=== PATIENT | male | born 1955 | race Caucasian/White ===

== ENCOUNTER 2020-02-22 09:35 | Outpatient (REF) | payer MEDICARE, SELFPAY ==
[2020-02-22 10:10] LABS: MANUAL DIFF FLAG NO
[2020-02-22 10:33] LABS: Basophils Percent Auto 0.4 % (0-2); Eosinophils Absolute Auto 0.3 X10*3/uL (0.0-0.4); Eosinophils Percent Auto 5.4 % (0-4); Hematocrit 40.1 % (42-52); Hemoglobin 13.6 g/dl (14.0-18.0); Imm Gran Abs Auto 0.02 X10*3/uL (0.00-0.03); Imm Gran Pct Auto 0.4 % (0.0-0.4); Lymphocytes Absolute Auto 1.6 X10*3/uL (1.2-4.9); Lymphocytes Percent Auto 28.2 % (20-40); Mean Corpuscular HGB Conc 33.9 g/dl (31.0-36.0); Mean Corpuscular Hemoglobin 30.1 pg (27.0-33.0); Mean Corpuscular Volume 88.7 fL (80-98); Mean Platelet Volume 9.6 fL (9.4-12.4); Monocytes Absolute Auto 0.4 X10*3/uL (0.1-1.2); Monocytes Percent Auto 7.7 % (2-11); Neutrophils Absolute Auto 3.3 X10*3/uL (2.0-8.3); Neutrophils Percent Auto 57.9 % (45-73); Platelet Count 183 X10*3/uL (160-400); Red Blood Count 4.52 X10*6/uL (4.60-5.80); Red Cell Distribution Width 12.5 % (11.0-16.0); White Blood Count 5.7 X10*3/uL (4.8-10.8)
[2020-02-22 11:00] LABS: B Type Natriuretic Peptide 84 pg/mL (<100)
[2020-02-22 11:20] LABS: Prostate Specific Antigen Scr 0.26 ng/mL (<0.05-4.0); Thyroid Stimulating Hormone 1.77 mIU/mL (0.32-4.0)
[2020-02-22 11:24] LABS: Alanine Aminotransferase 30 U/L (0-40); Albumin Level 4.3 g/dL (3.5-5.0); Alkaline Phosphatase 56 U/L (39-117); Anion Gap 14 (12-20); Aspartate Amino Transferase 26 U/L (5-37); Bilirubin Total 0.9 mg/dL (0.0-1.0); Blood Urea Nitrogen 13 mg/dL (9-16); Calcium 8.8 mg/dL (8.4-10.2); Carbon Dioxide 26 mmol/L (22-29); Chloride 106 mmol/L (96-108); Cholesterol 106 mg/dL; Estimated Glomerular Filt Rate > 60; Glucose Fasting 141 mg/dL (60-99); HDL Cholesterol 28 mg/dL; LDL Cholesterol Calculated 47 mg/dl; Potassium 3.9 mmol/l (3.3-5.1); Sodium 142 mmol/L (135-145); Total Protein 6.5 g/dL (6.5-8.0); Triglycerides 158 mg/dL
[2020-02-22 11:36] LABS: Folate 19.9 ng/mL (> or = 4.0); Vitamin B12 425 pg/mL (200-900)
[2020-02-22 11:41] LABS: Creatinine Urine 169.75 mg/dL; Microalbum/Creatinine Ratio Ur 9.4 ug/mg cr
== END 2020-02-22 09:36 | disposition home or self-care (01) ==
LOC: HO.10HDL 09:35
PROVIDERS: PCP Internal Medicine; Visit Provider Internal Medicine
DX: E78.00 Pure hypercholesterolemia, unspecified (principal); I25.10 Atherosclerotic heart disease of native coronary artery without angina pectoris; E66.9 Obesity, unspecified; I42.9 Cardiomyopathy, unspecified; I10 Essential (primary) hypertension; K21.9 Gastro-esophageal reflux disease without esophagitis; N20.0 Calculus of kidney; E11.65 Type 2 diabetes mellitus with hyperglycemia
CPT/HCPCS: 36415; 80053; 80061; 82043; 82607; 82746; 83880; 84153; 84436; 84443; 85025

== ENCOUNTER 2020-02-29 13:02 | Outpatient (REF) | payer MEDICARE, SELFPAY ==
--- NOTE | 2020-02-29 13:09 | XR_ITS ---
EXAMINATION: CHEST. CERVICAL SPINE. CLINICAL INFORMATION: Type 2 diabetes, Obesity and hypercholesterolemia COMPARISON: None TECHNIQUE: 2 views of chest were obtained. FINDINGS: The lungs are well-expanded and clear of acute process. The heart size and pulmonary vascularity is normal. There is mild spondylosis of dorsal spine. There is a transcutaneous pacer along the anterior chest. XR/XR cervical spine 3V IMPRESSION: Unremarkable chest exam.
--- NOTE | 2020-02-29 13:10 | XR_ITS ---
EXAMINATION: CHEST. CERVICAL SPINE. CLINICAL INFORMATION: Type 2 diabetes, Obesity and hypercholesterolemia COMPARISON: None TECHNIQUE: 2 views of chest were obtained. FINDINGS: The lungs are well-expanded and clear of acute process. The heart size and pulmonary vascularity is normal. There is mild spondylosis of dorsal spine. There is a transcutaneous pacer along the anterior chest. XR/XR chest 2V IMPRESSION: Unremarkable chest exam.
== END 2020-02-29 13:03 | disposition home or self-care (01) ==
LOC: HO.XRAY 13:02
PROVIDERS: Visit Provider Internal Medicine
DX: M54.2 Cervicalgia (principal); N20.0 Calculus of kidney; K21.9 Gastro-esophageal reflux disease without esophagitis; I10 Essential (primary) hypertension; I42.9 Cardiomyopathy, unspecified; I25.10 Atherosclerotic heart disease of native coronary artery without angina pectoris; E66.9 Obesity, unspecified; E78.00 Pure hypercholesterolemia, unspecified; E11.65 Type 2 diabetes mellitus with hyperglycemia
CPT/HCPCS: 71046; 72040

== ENCOUNTER → 2020-03-28 12:42 | Outpatient (BNVA) | payer MEDICARE, SELFPAY | PROVIDERS: PCP Internal Medicine; Visit Provider Internal Medicine Cardiovascular Disease | DX: I50.42 Chronic combined systolic (congestive) and diastolic (congestive) heart failure (principal); I25.5 Ischemic cardiomyopathy; I25.10 Atherosclerotic heart disease of native coronary artery without angina pectoris | CPT/HCPCS: 99212 ==

== ENCOUNTER → 2020-04-16 08:23 | Outpatient (REF) | payer MEDICARE, SELFPAY ==
--- NOTE | 2020-04-16 08:26 | CA_ITS ---
Transthoracic Echocardiogram Patient (Last, First, Middle): Td Miller E Gender: Male Date of : 1955 Age: 64 Procedure Date: 04/16/2020 Procedure Type: Transthoracic Echocardiogram Location: OP Height: 175.26 cm Weight: 95.71 kg BSA: 2.11 m2 Heart Rate: bpm BP: 122 / 68 mmHg [employer] Solution Architect: Referring MD: Bruce Page MD Director Stage: Bruce Page MD Symptoms: I50.42 - Chronic combined systolic (congestive) and diastolic (congestive) heart failure Study Quality: Fair, Contrast used ECG Rhythm: Sinus with extra beats Conclusions: - 1. Severely reduced LV systolic function with wall motion abnormality in LAD territory consistent with ischemic cardiomyopathy with grade 2 diastolic dysfunction 2. Mildly dilated left atrium 3. Mild mitral regurgitation 4. Normal RV systolic pressure 5. No gross pericardial effusion Findings Left Ventricle Normal left ventricular cavity size. There is mildly increased left ventricular wall thickness. The left ventricular systolic function is severely decreased. The visually estimated ejection fraction is between 20 25%. There is evidence of regional wall motion abnormalities. Spectral Doppler is indicative of a pseudonormal filling pattern. E/E prime ratio is >15, consistent with elevated filling pressures. Evidence suggests grade II (moderate) diastolic dysfunction. Wall Motion Rest Echo Findings The basal anteroseptal segment is hypokinetic. The apical anterior, apical inferior, mid anterior, apical lateral, apical septum, and mid anteroseptal segments are akinetic. The apex segment is dyskinetic. All other scored wall segments showed normal motion. Right Ventricle The right ventricle was not well visualized. Atria The left atrium is mildly dilated. Interatrial shunt cannot be excluded. The right atrium was not well visualized. Aortic Valve The aortic valve was not well visualized. There is no aortic valve stenosis. There is trace (trivial) aortic valve regurgitation. Mitral Valve There is mild anterior and posterior mitral leaflet thickening. There is mild mitral valve regurgitation. There is no mitral valve stenosis. Pulmonic Valve The pulmonic valve was not well visualized. Tricuspid Valve Likely normal tricuspid valve structure and function. There is trace tricuspid valve regurgitation. The right ventricular systolic pressure is normal. Normal right atrial pressure. There is no evidence of pulmonary hypertension. Great Vessels The aorta was not well visualized. The pulmonary artery was not well visualized. Venous The inferior vena cava is normal in size and collapses greater than 50% with inspiration. Pericardium/Pleural There is no evidence of pericardial effusion. Prior Study Comparison No significant change compared to prior study dated: 11/15/2018. Measurements 2D Linear Measurements IVSd: 1.30 0.6-0.9/0.6-1.0 cm LVIDd: 6.23 3.9-5.3/4.2-5.9 cm LVIDd Index: 2.95 2.4-3.2/2.2-3.1 cm/m2 LVIDs: 4.60 2.0-3.6 cm LVPWd: 1.24 0.7-1.1 cm Ao Root: 3.00 2.1-3.5 cm LA Diam: 4.30 2.7-3.8/3.0-4.0 cm LAIDs Index: 2.04 1.5-2.3 cm/m2 LV Mass: 450.03 67-162/88-224 g LV Mass Index: 213.28 43-95/49-115 g/m2 LVOT Diam: 2.10 3.0+(-)1.3 cm 2D Systolic Function EF 4C: 25.70 >55% EF 2C: 14.80 >55% EF BiP: 23.00 >55% Mitral Valve MV Pk E: 0.83 MV PK A: 0.55 MV Decel Time: 208.00 E/A: 1.50 E'Lateral: 9.57 E'Medial: 5.22 E/E' Med: 16.00 E/E' Lat: 8.70 PHT: 61.00 MVA PHT: 3.61 Decel [place]: 4.02 Aortic Valve AoV Pk Veto: 1.12 AoV Mn Veto: 0.77 AoV VTI: 0.28 AoV Pk Grad: 5.00 Aov Mn Grad: 3.00 SANNA Cont.VTI: 2.25 LVOT LVOT Pk Veto: 0.78 LVOT Mn Veto: 0.54 LVOT VTI: 0.19 LVOT Pk Grad: 2.00 LVOT Mn Grad: 1.00 LVOT Diam: 2.10 LVOT Area: 3.46 Diastolic Function MV Pk E: 0.83 MV Pk A: 0.55 E/A: 1.50 E'Medial: 5.22 E/E' Med: 16.00 E' Laterial: 9.57 E/E' Lat: 8.70 Tricuspid Valve TR Pk Veto: 1.33 TR Pk Grad: 7.00 RA Press: 3.00 RVSP: 10.00 Great Vessels Aorta Ao Root-2D: 3.00 2.0-3.7 cm Pulmonary Valve PV Pk Veto: 0.80 Peak PV Grad: 3.00 Updated in Other Vendor System with Status of Final Bruce Page MD electronically signed on 04/18/2020 9:39:03 AM with status of Final
== END ==
LOC: HO.CARD 08:23
PROVIDERS: Visit Provider Internal Medicine Cardiovascular Disease
DX: I50.42 Chronic combined systolic (congestive) and diastolic (congestive) heart failure (principal); I25.5 Ischemic cardiomyopathy
CPT/HCPCS: 93306; Q9957

== ENCOUNTER → 2020-05-13 13:24 | Outpatient (BNVA) | payer MEDICARE, SELFPAY | PROVIDERS: PCP Internal Medicine; Visit Provider Internal Medicine Cardiovascular Disease ==

== ENCOUNTER 2020-07-08 07:49 | Emergency (ER) | payer MEDICARE, SELFPAY ==
--- NOTE | ~2020-07-08 | CT_ITS ---
EXAMINATION: CT ABDOMEN AND PELVIS WITHOUT CONTRAST CLINICAL INFORMATION: Right lower quadrant pain COMPARISON: None TECHNIQUE: Multidetector volumetric imaging was performed from the superior aspect of the liver through the pubic symphysis. Sagittal and coronal reformatted images were obtained on the technologist's workstation. This CT examination was performed using dose optimization techniques as appropriate, variously including the following: *Automated exposure control *Adjustment of mA and/or kV according to patient size (this includes techniques or standardized protocols for targeted exams where dose is matched to indication/reason for exam; i.e. extremities or head) *Use of iterative reconstruction technique DLP: 904 mGy-cm FINDINGS: LUNG BASES: Atelectatic changes seen in the right lung base. Heart size is normal. 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 LIVER, GALLBLADDER, AND BILIARY TREE: The liver is normal in size, shape, and attenuation. No focal hepatic lesion or biliary ductal dilatation is present. The gallbladder is unremarkable with no evidence of radiopaque gallstones, gallbladder wall thickening, or obvious pericholecystic inflammatory changes. PANCREAS: Unremarkable. SPLEEN: Unremarkable. ADRENAL GLANDS: Unremarkable. KIDNEYS AND URETERS: The kidneys are normal in size, shape, and attenuation. There is a 5 mm nonobstructive radiopaque calculi lower pole right kidney and 4 mm calculi lower pole left kidney. There is a 3 mm right UVJ radiopaque obstructive calculi with moderate right hydroureteronephrosis. There is bilateral perinephric stranding slightly greater on the right side secondary to obstruction. BLADDER: The bladder is mildly distended. GASTROINTESTINAL TRACT: There is scattered stool in gas seen throughout the colon without any significant distention. The small bowel loops are normal caliber. Appendix is not visualized. ABDOMINAL WALL: No significant hernia is appreciated. LYMPH NODES: Normal. VASCULAR: There is atherosclerotic calcification of abdominal aorta. PELVIC VISCERA: Minimal prostate enlargement seen. There are scattered phleboliths in the pelvis. OSSEOUS STRUCTURES: There is no lytic or sclerotic process. There are degenerative disc changes L3-L4, L4-L5 and L5-S1 disc levels. CT/CT abdomen pelvis wo con IMPRESSION: 3 mm obstructive right UVJ radiopaque calculi with moderate hydroureteronephrosis. Bilateral nephrolithiasis. Bilateral perinephric stranding is slightly greater on the right side.
[2020-07-08 07:50] VITALS: BP 154/80; PULSE 60; RESP 18; TEMP 37.1; O2SAT 100; BMI 31.0
--- NOTE | 2020-07-08 08:11 | ED_ITS ---
HPI - Abdominal Pain General Chief Complaint: Abdominal Pain Stated Complaint: ?kidney stone Time Seen by Provider: 07/08/20 07:56 Source: patient Mode of arrival: ambulatory Limitations: no limitations History of Present Illness HPI narrative: 64-year-old male presented with right-sided abdominal/right flank pain started earlier responding, pain started 8 hours ago with constant pain to the right flank area, radiating down to right groin area, associated with nausea but no vomiting or fever or diarrhea, nothing makes the pain worse or better patient had similar pain in the past 1 year history of kidney stones. Related Data Home Medications Medication Instructions Recorded Confirmed aspirin 81 mg tablet,delayed 81 mg PO DAILY 02/28/20 06/26/20 release metformin 500 mg tablet 500 mg PO BID 02/28/20 06/26/20 sitagliptin 100 mg tablet 100 mg PO DAILY 02/28/20 06/26/20 Previous Rx's Medication Instructions Recorded carvedilol 25 mg tablet 25 mg PO BID #180 cap 04/04/20 furosemide 20 mg tablet 20 mg PO DAILY #90 tab 05/03/20 sacubitril 49 mg-valsartan 51 mg 1 tab PO BID #60 tab 05/10/20 tablet atorvastatin 40 mg tablet 40 mg PO DAILY #90 cap 07/02/20 ondansetron HCl [Zofran] 4 mg PO Q8H PRN #7 tab 07/08/20 oxycodone 5 mg PO Q8H PRN #10 cap 07/08/20 Allergies Allergy/AdvReac Type Severity Reaction Status Date / Time lisinopril [LISINOPRIL] Allergy Mild UNKNOWN, Verified 06/24/20 06:37 cough, cough doxycycline [DOXYCYCLINE] Allergy Unknown UNKNOWN Verified 06/24/20 06:37 glimepiride [GLIMEPIRIDE] Allergy Unknown SEVERE Verified 06/24/20 06:37 BACK PAIN Motrin Allergy Unknown nausa Verified 06/24/20 06:37 tamsulosin [TAMSULOSIN] Allergy Unknown UNKNOWN, Verified 06/24/20 06:37 Fever Review of Systems Review of Systems All other systems are reviewed and are negative Constitutional: Reports as per HPI and Reports no additional constitutional complaints Eyes: Reports as per HPI and Reports no additional eye complaints Reports system reviewed and no additional complaints, except as documented Cardiovascular: Reports as per HPI and Reports no additional cardiovascular complaints Respiratory: Reports as per HPI and Reports no additional respiratory complaints Gastrointestinal: Reports as per HPI and Reports no additional gastrointestinal complaints Genitourinary: Reports no additional female genitourinary complaints Musculoskeletal: Reports no additional musculoskeletal complaints Skin/Breast: Reports system reviewed and no additional complaints, except as docu Psychiatric: Reports no additional psychiatric complaints Endocrine: Reports no additional endocrine complaints Hematologic/Lymphatic: Reports no additional hematologic/lymphatic complaints Allergic/Immunologic: Reports no additional allergic/immunologic complaints Reports system reviewed and no additional complaints, except as documented and Reports Abnormal speech present Physical Exam Vital Signs: Vital Signs: Last Vital Signs Temp 98.8 F 07/08/20 07:50 Pulse 60 07/08/20 07:50 Resp 18 07/08/20 07:50 BP 154/80 H 07/08/20 07:50 Pulse Ox 100 07/08/20 07:50 Body Mass Index 31.0 Vital signs have been reviewed as appeared to be correct. Blood pressure in the high range. Heart rate normal. Respiration rate normal. Temperature normal. Oxygen saturation normal. Appearance: Alert. Oriented X3. No acute distress. Head: Normal external exam. Normocephalic. Atraumatic. No Nash signs noted. No raccoon eyes noted Eyes: PERRLA. EOMI. Conjunctiva and sclera normal. Eyelids normal. ENT: TM's Normal. Pharynx normal. Uvula midline. Moist mucous membranes. No trismus noted. No drooling noted. No muffled voice noted. Neck: Normal inspection. Neck supple. FROM. No adenopathy. Thyroid Normal. No meningeal signs. No neck mass noted. CVS: Normal heart rate and rhythm. Heart sound normal. No murmurs noted. Pulses normal throughout. Respiratory: No respiratory distress. Painless inspiration. Breath sounds normal. No wheezes/rales/rhonchi noted. Chest nontender. No accessory muscle usage noted or decreased air movement noted. Abdomen: Soft and nontender. Bowel sounds normal in all 4 quadrants. No distention noted. No organomegaly noted. No visible injury noted. Back: No CVA tenderness. Full range of motion noted. Skin: Skin warm and dry. Normal skin color. Normal skin turgor. No rashes/lesions/lacerations noted. Extremities: No lower extremity edema. Extremities exhibit normal range of motion. Extremities nontender. Neuro: Oriented X 3. No motor deficit. No sensory deficit. Reflexes normal. Course Course Course Narrative: 64-year-old male presented with right flank/right groin abdominal pain. Physical exam/CT findings are consistent with right ureteric stone 3 mm which is passable size will discharge the patient on pain medication, antinausea medication, encouraged to drink plenty of p.o. fluids and follow-up with urologist as an outpatient per MDM - Abdominal Pain Lab Data Attestation: I reviewed the patient's lab results. Result diagrams: 07/08/20 08:17 07/08/20 08:17 Labs: Lab Results 07/08/20 07/08/20 07/08/20 Range/Units 08:17 08:17 09:15 WBC 10.7 (4.8-10.8) X10*3/uL RBC 4.70 (4.60-5.80) X10*6/uL Hgb 14.1 (14.0-18.0) g/dl Hct 41.3 L (42-52) % MCV 87.9 (80-98) fL MCH 30.0 (27.0-33.0) pg MCHC 34.1 (31.0-36.0) g/dl RDW 12.2 (11.0-16.0) % Plt Count 175 (160-400) X10*3/uL MPV 9.4 (9.4-12.4) fL Immature Gran % (Auto) 0.4 (0.0-0.4) % Neut % (Auto) 82.0 H (45-73) % Lymph % (Auto) 11.1 L (20-40) % [place] % (Auto) 4.5 (2-11) % Eos % (Auto) 1.8 (0-4) % Baso % (Auto) 0.2 (0-2) % Lymph # (Auto) 1.2 (1.2-4.9) X10*3/uL [place] # (Auto) 0.5 (0.1-1.2) X10*3/uL Eos # (Auto) 0.2 (0.0-0.4) X10*3/uL Baso # (Auto) 0.0 (0.0-0.2) X10*3/uL Abs Immat Gran (auto) 0.04 H (0.00-0.03) X10*3/uL Absolute Neuts (auto) 8.8 H (2.0-8.3) X10*3/uL Absolute Nucleated RBC 0.000 (0.0-0.012) X10*3/uL Nucleated RBC % (auto) 0.0 (0.0-0.2) /100WBC Sodium 138 (135-145) mmol/L Potassium 4.0 (3.3-5.1) mmol/L Chloride 102 (96-108) mmol/L Carbon Dioxide 25 (22-29) mmol/L Anion Gap 15 (12-20) BUN 13 (9-16) mg/dL Creatinine 1.12 (0.5-1.4) mg/dL Estim Creat Clear Calc 74.8 Estimated GFR > 60 Random Glucose 250 H (60-115) mg/dL Calcium 9.3 (8.4-10.2) mg/dL Total Bilirubin 0.9 (0.0-1.0) mg/dL Direct Bilirubin 0.3 (0.0-0.5) mg/dL AST 24 (5-37) U/L ALT 33 (0-40) U/L Alkaline Phosphatase 63 (39-117) U/L Total Protein 6.8 (6.5-8.0) g/dL Albumin 4.5 (3.5-5.0) g/dL Lipase 63 (8-78) U/L Urine Color STRAW Urine Appearance CLEAR Urine pH 7.5 (5.0-8.0) Ur Specific [place] 1.020 (1.005-1.025) Urine Protein NEG (NEG-TRACE) MG/DL Urine Glucose (UA) 500 H (NEG) MG/DL Urine Ketones 5 (NEG) MG/DL Urine Blood NEG (NEG) Urine Nitrite NEG (NEG) Ur Leukocyte Esterase NEG (NEG) Imaging Data CT scan - abdomen: Radiologist's impression: 3 mm obstructive right UVJ radiopaque calculi with moderate hydroureteronephrosis. Bilateral nephrolithiasis. Bilateral perinephric stranding is slightly greater on the right side. Discharge Plan Discharge Clinical Impression: Renal colic on right side Patient Disposition: Home, Self-Care Instructions: Renal Colic (ED) Prescriptions: New ondansetron HCl [Zofran] 4 mg tablet 4 mg PO Q8H PRN (Reason: nausea and vomiting) Qty: 7 RF: 0 oxycodone 5 mg capsule 5 mg PO Q8H PRN (Reason: pain) Qty: 10 RF: 0 No Action carvedilol 25 mg tablet 25 mg PO BID Qty: 180 RF: 3 furosemide 20 mg tablet 20 mg PO DAILY Qty: 90 RF: 1 sacubitril-valsartan 49-51 mg tablet 1 tab PO BID Qty: 60 RF: 2 atorvastatin 40 mg tablet 40 mg PO DAILY Qty: 90 RF: 3 metformin 500 mg tablet 500 mg PO BID RF: 0 Januvia 100 mg tablet 100 mg PO DAILY RF: 0 aspirin 81 mg tablet,delayed release (DR/EC) 81 mg PO DAILY RF: 0 Referrals: Lv Durham MD [Physician] - 2 days [facility] Past Medical History Medical History Anxiety and depression Bilateral renal stones Chronic heart failure with reduced ejection fraction and diastolic dysfunction Coronary artery disease GERD (gastroesophageal reflux disease) Gout Hypercholesterolemia Hypertension ICD (implantable cardioverter-defibrillator) in place Ischemic cardiomyopathy Obesity (BMI 30-39.9) Pneumonia Psoriasis Type 2 diabetes mellitus with hyperglycemia Surgical History History of permanent cardiac pacemaker placement History of surgery History of vasectomy History of wisdom tooth extraction Family History Family History Father Diabetes Prostate cancer CVD (cardiovascular disease) Mother CVD (cardiovascular disease) Acute CVA (cerebrovascular accident) Social History Social History Alcohol intake: current Alcohol intake frequency: holidays/special occasions only Smoking Status: Never smoker Use of substances other than those prescribed or required for medical reasons: No Advance Directives: Yes Advance Directives Information Provided: Yes Advance Directives on File: No
[2020-07-08 08:23] LABS: MANUAL DIFF FLAG NO
[2020-07-08 08:24] LABS: Basophils Percent Auto 0.2 % (0-2); Eosinophils Absolute Auto 0.2 X10*3/uL (0.0-0.4); Eosinophils Percent Auto 1.8 % (0-4); Hematocrit 41.3 % (42-52); Hemoglobin 14.1 g/dl (14.0-18.0); Imm Gran Abs Auto 0.04 X10*3/uL (0.00-0.03); Imm Gran Pct Auto 0.4 % (0.0-0.4); Lymphocytes Absolute Auto 1.2 X10*3/uL (1.2-4.9); Lymphocytes Percent Auto 11.1 % (20-40); Mean Corpuscular HGB Conc 34.1 g/dl (31.0-36.0); Mean Corpuscular Volume 87.9 fL (80-98); Mean Platelet Volume 9.4 fL (9.4-12.4); Monocytes Absolute Auto 0.5 X10*3/uL (0.1-1.2); Monocytes Percent Auto 4.5 % (2-11); Neutrophils Absolute Auto 8.8 X10*3/uL (2.0-8.3); Platelet Count 175 X10*3/uL (160-400); Red Cell Distribution Width 12.2 % (11.0-16.0); White Blood Count 10.7 X10*3/uL (4.8-10.8)
[2020-07-08] MEDS: ondansetron HCL 4 MG/2 ML VIAL IVPUSH (08:25)
[2020-07-08] MEDS: Ketorolac Tromethamine 30 MG/ML VIAL IVPUSH (08:25)
[2020-07-08] MEDS: 0.9 % Sodium Chloride 1,000 ML 999 ML IVCONT ×2 (08:25)
[2020-07-08] MEDS: Morphine Sulfate 2 MG/ML CARTRIDGE 1 MG IVPUSH (08:25)
[2020-07-08 08:52] LABS: Alanine Aminotransferase 33 U/L (0-40); Albumin Level 4.5 g/dL (3.5-5.0); Alkaline Phosphatase 63 U/L (39-117); Anion Gap 15 (12-20); Aspartate Amino Transferase 24 U/L (5-37); Bilirubin Direct 0.3 mg/dL (0.0-0.5); Bilirubin Total 0.9 mg/dL (0.0-1.0); Blood Urea Nitrogen 13 mg/dL (9-16); Calcium 9.3 mg/dL (8.4-10.2); Carbon Dioxide 25 mmol/L (22-29); Chloride 102 mmol/L (96-108); Creatinine Clr Calc Pharmacy 74.8; Estimated Glomerular Filt Rate > 60; Glucose Random 250 mg/dL (60-115); Lipase 63 U/L (8-78); Sodium 138 mmol/L (135-145); Total Protein 6.8 g/dL (6.5-8.0)
[2020-07-08 09:31] LABS: Glucose Urine UA 500 MG/DL (NEG); Leukocyte Esterase Urine NEG (NEG); Nitrite Urine NEG (NEG); PH 7.5 (5.0-8.0); Urine Blood NEG (NEG); Urine Ketones 5 MG/DL (NEG); Urine Protein NEG (NEG-TRACE)
[2020-07-08 09:32] LABS: Appearance Urine CLEAR; Color Urine STRAW
== END 2020-07-08 10:53 | disposition home or self-care (01) ==
PROVIDERS: Emergency Provider Emergency Medicine; PCP Internal Medicine
DX: N13.2 Hydronephrosis with renal and ureteral calculous obstruction (principal); R11.0 Nausea; I11.0 Hypertensive heart disease with heart failure; I50.9 Heart failure, unspecified; Z87.442 Personal history of urinary calculi; Z79.82 Long term (current) use of aspirin; Z79.84 Long term (current) use of oral hypoglycemic drugs
CPT/HCPCS: 36415; 74176; 80048; 80076; 81003; 83690; 85025; 96361; 96374; 96375; 99284; J1885; J2270; J2405

== ENCOUNTER 2020-07-11 16:53 | Emergency (ER) | payer MEDICARE, SELFPAY ==
[2020-07-11 17:24] VITALS: BP 158/84; PULSE 74; RESP 18; TEMP 37.1; O2SAT 97; BMI 31.0
[2020-07-11 17:51] LABS: Glucose Urine UA NEG (NEG); Leukocyte Esterase Urine NEG (NEG); Nitrite Urine NEG (NEG); PH 5.5 (5.0-8.0); Specific Gravity - Urine <= 1.005 (1.005-1.025); Urine Blood NEG (NEG); Urine Ketones 5 MG/DL (NEG); Urine Protein NEG (NEG-TRACE)
[2020-07-11 17:52] LABS: Appearance Urine CLEAR; Color Urine YELLOW
--- NOTE | 2020-07-11 19:29 | ED_ITS ---
HPI - Abdominal Pain General Chief Complaint: Abdominal Pain Stated Complaint: Kidney Pain Time Seen by Provider: 07/11/20 20:29 Source: patient Mode of arrival: ambulatory Limitations: no limitations History of Present Illness HPI narrative: 64-year-old male with past medical history of CHF, ischemic cardiomyopathy, coronary artery disease, hyperlipidemia, hypertension, obesity, type 2 diabetes, GERD and kidney stones presents with pain related to a 3 mm right-sided kidney stone that was diagnosed in this emergency department on 07/08/2020. States that the oxycodone that he is taking is not very effective and stated that the Toradol that was given to him while he was in the emergency department was a better medication. He does not complain of fevers, chills, chest pain or pressure, palpitations, shortness of breath, abdominal distention, dysuria, hematuria, urinary hesitancy, edema, weakness or loss of balance. MD elicited complaint: flank pain Pertinent past history: kidney stones Onset (ago): day(s) Pain Consistency: intermittent Severity: moderate Pain scale (0-10): 6 Quality: stabbing and aching Relieving factors: medication Associated symptoms: denies other symptoms Related Data Home Medications Medication Instructions Recorded Confirmed aspirin 81 mg tablet,delayed 81 mg PO DAILY 02/28/20 06/26/20 release metformin 500 mg tablet 500 mg PO BID 02/28/20 06/26/20 sitagliptin 100 mg tablet 100 mg PO DAILY 02/28/20 06/26/20 Previous Rx's Medication Instructions Recorded carvedilol 25 mg tablet 25 mg PO BID #180 cap 04/04/20 furosemide 20 mg tablet 20 mg PO DAILY #90 tab 05/03/20 sacubitril 49 mg-valsartan 51 mg 1 tab PO BID #60 tab 05/10/20 tablet atorvastatin 40 mg tablet 40 mg PO DAILY #90 cap 07/02/20 ondansetron HCl [Zofran] 4 mg PO Q8H PRN #7 tab 07/08/20 oxycodone 5 mg PO Q8H PRN #10 cap 07/08/20 Allergies Allergy/AdvReac Type Severity Reaction Status Date / Time lisinopril [LISINOPRIL] Allergy Mild UNKNOWN, Verified 07/11/20 17:32 cough, cough doxycycline [DOXYCYCLINE] Allergy Unknown UNKNOWN Verified 07/11/20 17:32 glimepiride [GLIMEPIRIDE] Allergy Unknown SEVERE Verified 07/11/20 17:32 BACK PAIN Motrin Allergy Unknown nausa Verified 07/11/20 17:32 tamsulosin [TAMSULOSIN] Allergy Unknown UNKNOWN, Verified 07/11/20 17:32 Fever Review of Systems Review of Systems Constitutional: No Fever, No Chills ENT/Mouth: No sore throat Eyes: No Eye Pain, No Swelling, No Redness Cardiovascular: No Chest Pain, No SOB Respiratory: No Cough, No Sputum, No Wheezing Gastrointestinal: positive Nausea, no Vomiting, No Diarrhea, positive abdominal pain Genitourinary: No dysuria, no urinary frequency, no Hematuria, positive Flank Pain, no hesitancy Musculoskeletal: No joint pain, No Myalgias Skin: No Skin Lesions, No rash Neuro: No Weakness, No Numbness, No Headache Psych: No Anxiety/Panic, No Depression Heme/Lymph: No Bruising, No Lymphadenopathy Endocrine: No Polyuria, No Polydipsia Yes all other systems are reviewed and are negative Physical Exam Vital Signs: Vital Signs: Last Vital Signs Temp 99.3 F 07/11/20 20:08 Pulse 74 07/11/20 20:08 Resp 16 07/11/20 20:08 BP 153/82 H 07/11/20 20:08 Pulse Ox 97 07/11/20 20:08 Body Mass Index 31.0 Appearance: Alert. Oriented X3. No acute distress. Eyes: Pupils equal, round and reactive to light. EOMI, sclera nonicteric ENT: Pharynx normal. Cranial nerves 2-12 intact Neck: Normal inspection. Neck supple. No JVD CVS: Normal heart rate and rhythm. Pulses normal. Respiratory: No respiratory distress. Breath sounds normal. Abdomen: Soft and nontender. CVA tenderness to the right side Skin: Skin warm and dry. Normal skin color. Normal skin turgor. Extremities: No lower extremity edema. Moves all extremities against resistance Neuro: No motor deficit. No sensory deficit. Gait well balanced well coordinated, no focal neural deficits Course Course Course Narrative: 64-year-old male with past medical history of CHF, ischemic cardiomyopathy, coronary artery disease, hyperlipidemia, hypertension, obesity, type 2 diabetes, GERD and kidney stones presents with pain related to a 3 mm right-sided kidney stone that was diagnosed in this emergency department on 07/08/2020. Plan is for CBC, Chem 7, urinalysis, L of fluid, Toradol and Zofran. Approximately 30 minutes after Toradol injection, patient states that his pain is now 1/10. CBC shows H&H of 12.6/37.4 which is consistent with prior values, creatinine is 1.6 slightly higher than value 04/28/2014, will resuscitate with 1 L of fluid. Patient does have known kidney disease and diabetes. Urinalysis negative for UTI. Patient does have more oxycodone at home, he was advised to take this medication rather than have a prescription for Toradol as his creatinine is 1.61 and GFR is 43. Detailed discussion with patient regarding this plan, he verbalized understanding of and agrees with plan of care discharge home. MDM - Abdominal Pain MDM Narrative Medical decision making narrative: UTI, pyelonephritis Differential Diagnosis Differential diagnosis: Likely abdominal pain and calculus of kidney Medical Records Attestation: I reviewed the patient's medical records. Lab Data Attestation: I reviewed the patient's lab results. Result diagrams: 07/11/20 19:54 07/11/20 19:54 Labs: Lab Results 07/11/20 07/11/20 07/11/20 Range/Units 17:40 19:54 19:54 WBC 8.3 (4.8-10.8) X10*3/uL RBC 4.21 L (4.60-5.80) X10*6/uL Hgb 12.6 L (14.0-18.0) g/dl Hct 37.4 L (42-52) % MCV 88.8 (80-98) fL MCH 29.9 (27.0-33.0) pg MCHC 33.7 (31.0-36.0) g/dl RDW 12.5 (11.0-16.0) % Plt Count 146 L (160-400) X10*3/uL MPV 9.4 (9.4-12.4) fL Immature Gran % (Auto) 0.2 (0.0-0.4) % Neut % (Auto) 69.9 (45-73) % Lymph % (Auto) 16.7 L (20-40) % Wallace % (Auto) 10.7 (2-11) % Eos % (Auto) 2.3 (0-4) % Baso % (Auto) 0.2 (0-2) % Lymph # (Auto) 1.4 (1.2-4.9) X10*3/uL Wallace # (Auto) 0.9 (0.1-1.2) X10*3/uL Eos # (Auto) 0.2 (0.0-0.4) X10*3/uL Baso # (Auto) 0.0 (0.0-0.2) X10*3/uL Abs Immat Gran (auto) 0.02 (0.00-0.03) X10*3/uL Absolute Neuts (auto) 5.8 (2.0-8.3) X10*3/uL Absolute Nucleated RBC 0.000 (0.0-0.012) X10*3/uL Nucleated RBC % (auto) 0.0 (0.0-0.2) /100WBC Sodium 137 (135-145) mmol/L Potassium 4.2 (3.3-5.1) mmol/L Chloride 100 (96-108) mmol/L Carbon Dioxide 27 (22-29) mmol/L Anion Gap 14 (12-20) BUN 15 (9-16) mg/dL Creatinine 1.61 H (0.5-1.4) mg/dL Estim Creat Clear Calc 52.0 Estimated GFR 43 Random Glucose 116 H D (60-115) mg/dL Calcium 8.6 D (8.4-10.2) mg/dL Urine Color YELLOW Urine Appearance CLEAR Urine pH 5.5 (5.0-8.0) Ur Specific [place] <= 1.005 (1.005-1.025) Urine Protein NEG (NEG-TRACE) MG/DL Urine Glucose (UA) NEG (NEG) MG/DL Urine Ketones 5 (NEG) MG/DL Urine Blood NEG (NEG) Urine Nitrite NEG (NEG) Ur Leukocyte Esterase NEG (NEG) Discharge Plan Discharge Clinical Impression: Calculus of kidney Patient Disposition: Home, Self-Care Instructions: Kidney Stones (ED), Flank Pain (ED) Additional Instructions: You were evaluated for recurrent pain of a right-sided kidney stone. We give you 1 L of normal saline and Toradol for pain management. Unfortunately, your kidney function cannot support a prescription for Toradol. Please continue to use the oxycodone as directed. Drink plenty of fluids. Follow-up with primary care physician. Please keep the appointment with urology as scheduled. Thank you for choosing this emergency department for evaluation. Please follow-up with primary care physician as needed. Return to the emergency department for any new, concerning, or worsening symptoms. Prescriptions: No Action carvedilol 25 mg tablet 25 mg PO BID Qty: 180 RF: 3 furosemide 20 mg tablet 20 mg PO DAILY Qty: 90 RF: 1 sacubitril-valsartan 49-51 mg tablet 1 tab PO BID Qty: 60 RF: 2 atorvastatin 40 mg tablet 40 mg PO DAILY Qty: 90 RF: 3 ondansetron HCl [Zofran] 4 mg tablet 4 mg PO Q8H PRN (Reason: nausea and vomiting) Qty: 7 RF: 0 oxycodone 5 mg capsule 5 mg PO Q8H PRN (Reason: pain) Qty: 10 RF: 0 metformin 500 mg tablet 500 mg PO BID RF: 0 Januvia 100 mg tablet 100 mg PO DAILY RF: 0 aspirin 81 mg tablet,delayed release (DR/EC) 81 mg PO DAILY RF: 0 PMFSH Past Medical History Attestation statement: The following information was validated with the patient. Source: old records reviewed Medical History Anxiety and depression Bilateral renal stones Chronic heart failure with reduced ejection fraction and diastolic dysfunction Coronary artery disease GERD (gastroesophageal reflux disease) Gout Hypercholesterolemia Hypertension ICD (implantable cardioverter-defibrillator) in place Ischemic cardiomyopathy Obesity (BMI 30-39.9) Pneumonia Psoriasis Type 2 diabetes mellitus with hyperglycemia Surgical History History of permanent cardiac pacemaker placement History of surgery History of vasectomy History of wisdom tooth extraction Family History Family History Father Diabetes Prostate cancer CVD (cardiovascular disease) Mother CVD (cardiovascular disease) Acute CVA (cerebrovascular accident) Social History Social History Alcohol intake: current Alcohol intake frequency: holidays/special occasions only Smoking Status: Never smoker Smoked in Last 30 Days: No Advance Directives: No Advance Directives Information Provided: No
[2020-07-11 19:58] LABS: MANUAL DIFF FLAG NO
[2020-07-11 19:59] LABS: Basophils Percent Auto 0.2 % (0-2); Eosinophils Absolute Auto 0.2 X10*3/uL (0.0-0.4); Eosinophils Percent Auto 2.3 % (0-4); Hematocrit 37.4 % (42-52); Hemoglobin 12.6 g/dl (14.0-18.0); Imm Gran Abs Auto 0.02 X10*3/uL (0.00-0.03); Imm Gran Pct Auto 0.2 % (0.0-0.4); Lymphocytes Absolute Auto 1.4 X10*3/uL (1.2-4.9); Lymphocytes Percent Auto 16.7 % (20-40); Mean Corpuscular HGB Conc 33.7 g/dl (31.0-36.0); Mean Corpuscular Hemoglobin 29.9 pg (27.0-33.0); Mean Corpuscular Volume 88.8 fL (80-98); Mean Platelet Volume 9.4 fL (9.4-12.4); Monocytes Absolute Auto 0.9 X10*3/uL (0.1-1.2); Monocytes Percent Auto 10.7 % (2-11); Neutrophils Absolute Auto 5.8 X10*3/uL (2.0-8.3); Neutrophils Percent Auto 69.9 % (45-73); Platelet Count 146 X10*3/uL (160-400); Red Blood Count 4.21 X10*6/uL (4.60-5.80); Red Cell Distribution Width 12.5 % (11.0-16.0); White Blood Count 8.3 X10*3/uL (4.8-10.8)
[2020-07-11] MEDS: Ketorolac Tromethamine 30 MG/ML VIAL IVPUSH (20:06)
[2020-07-11] MEDS: ondansetron HCL 4 MG/2 ML VIAL IVPUSH (20:07)
[2020-07-11] MEDS: 0.9 % Sodium Chloride 1,000 ML 999 ML IVCONT (20:07)
[2020-07-11 20:08] VITALS: BP 153/82; PULSE 74; RESP 16; TEMP 37.4; O2SAT 97
[2020-07-11 20:29] LABS: Anion Gap 14 (12-20); Blood Urea Nitrogen 15 mg/dL (9-16); Calcium 8.6 mg/dL (8.4-10.2); Carbon Dioxide 27 mmol/L (22-29); Chloride 100 mmol/L (96-108); Estimated Glomerular Filt Rate 43; Glucose Random 116 mg/dL (60-115); Potassium 4.2 mmol/L (3.3-5.1); Sodium 137 mmol/L (135-145)
== END 2020-07-12 03:08 | disposition home or self-care (01) ==
PROVIDERS: Nurse Practitioner Family; Emergency Provider Internal Medicine; PCP Internal Medicine
DX: N20.0 Calculus of kidney (principal); R10.30 Lower abdominal pain, unspecified; Z79.899 Other long term (current) drug therapy; Z79.84 Long term (current) use of oral hypoglycemic drugs; Z79.82 Long term (current) use of aspirin
CPT/HCPCS: 36415; 80048; 81003; 85025; 96365; 96375; 99284; J1885; J2405

== ENCOUNTER → 2020-07-17 15:25 | Outpatient (BNVA) | payer MEDICARE, SELFPAY | PROVIDERS: PCP Internal Medicine; Visit Provider Urology | DX: Z13.89 Encounter for screening for other disorder (principal) | CPT/HCPCS: 99202 ==

== ENCOUNTER 2020-08-13 16:24 | Outpatient (REF) | payer MEDICARE, SELFPAY ==
--- NOTE | ~2020-08-13 | US_ITS ---
EXAMINATION: US BILATERAL RENAL CLINICAL INFORMATION: Calculus of kidney. COMPARISON: CT abdomen and pelvis 07/08/2020. Renal ultrasound 02/27/2019 and 12/15/2018. KUB 11/30/2018 and 11/09/2018. TECHNIQUE: Real-time imaging of the kidneys. FINDINGS: RIGHT KIDNEY: 11.9 x 5.0 x 4.5 cm (SAG x AP x TRV). The kidney is normal in size, contour, and echogenicity. Renal cortical thickness is normal. No focal parenchymal lesions. No hydronephrosis. There are tiny echogenic stone in the lower pole. There are tiny echogenic foci seen throughout. LEFT KIDNEY: 11.3 x 4.9 x 5.1 cm (SAG x AP x TRV). The kidney is normal in size, contour, and echogenicity. Renal cortical thickness is normal. No focal parenchymal lesions. There is a tiny echogenic stone measuring 0.26 cm in the lower pole with echogenic foci with twinkle shadow throughout the left kidney. There is mild hydronephrosis. US/US renal BI IMPRESSION: There are bilateral nonobstructive echogenic calculi in the lower pole both kidneys. In addition, there are scattered echogenic foci with twinkle artifact throughout both kidney cortices. Question calcification.
== END 2020-08-13 16:25 | disposition home or self-care (01) ==
LOC: HO.US 16:24
PROVIDERS: Visit Provider Urology
DX: N20.0 Calculus of kidney (principal)
CPT/HCPCS: 76775

== ENCOUNTER → 2020-08-20 09:10 | Outpatient (BNVA) | payer MEDICARE, SELFPAY | PROVIDERS: PCP Internal Medicine; Visit Provider Urology | DX: N20.0 Calculus of kidney (principal) | CPT/HCPCS: Q3014 ==

== ENCOUNTER 2020-09-05 10:05 | Outpatient (REF) | payer MEDICARE, SELFPAY ==
[2020-09-05 13:54] LABS: MANUAL DIFF FLAG NO
[2020-09-05 13:59] LABS: Basophils Percent Auto 0.7 % (0-2); Eosinophils Absolute Auto 0.4 X10*3/uL (0.0-0.4); Hematocrit 39.5 % (42-52); Hemoglobin 13.3 g/dl (14.0-18.0); Imm Gran Abs Auto 0.01 X10*3/uL (0.00-0.03); Imm Gran Pct Auto 0.2 % (0.0-0.4); Immature Retic Fraction 9.6 % (2.3-13.4); Lymphocytes Absolute Auto 1.8 X10*3/uL (1.2-4.9); Lymphocytes Percent Auto 30.4 % (20-40); Mean Corpuscular HGB Conc 33.7 g/dl (31.0-36.0); Mean Platelet Volume 9.7 fL (9.4-12.4); Monocytes Absolute Auto 0.4 X10*3/uL (0.1-1.2); Monocytes Percent Auto 7.2 % (2-11); Neutrophils Absolute Auto 3.3 X10*3/uL (2.0-8.3); Neutrophils Percent Auto 54.5 % (45-73); Platelet Count 196 X10*3/uL (160-400); Red Blood Count 4.44 X10*6/uL (4.60-5.80); Red Cell Distribution Width 13.3 % (11.0-16.0); Retic HGB Equivalent 35.6 pg (30.0-35.0); Reticulocyte Percent 2.2 % (0.5-1.8); Reticulocytes Absolute 0.096 X10*6/uL (0.026-0.095)
[2020-09-05 14:07] LABS: Estimated Average Glucose 134 mg/dL; Hemoglobin A1c % 6.3 %
[2020-09-05 14:28] LABS: B Type Natriuretic Peptide 111 pg/mL (<100)
[2020-09-05 14:29] LABS: Alanine Aminotransferase 35 U/L (0-40); Albumin Level 4.2 g/dL (3.5-5.0); Alkaline Phosphatase 55 U/L (39-117); Anion Gap 13 (12-20); Aspartate Amino Transferase 23 U/L (5-37); Bilirubin Total 0.6 mg/dL (0.0-1.0); Blood Urea Nitrogen 13 mg/dL (9-16); Calcium 9.2 mg/dL (8.4-10.2); Carbon Dioxide 27 mmol/L (22-29); Chloride 106 mmol/L (96-108); Estimated Glomerular Filt Rate > 60; Glucose Random 143 mg/dL (60-115); Iron 87 mcg/dL (45-160); Percent Iron Saturation 32 % (15-50); Potassium 4.2 mmol/L (3.3-5.1); Sodium 142 mmol/L (135-145); Total Iron Binding Capacity 270 mcg/dL (228-428); Total Protein 6.4 g/dL (6.5-8.0); Unsaturated Iron Binding 183 ug/dL
[2020-09-05 14:42] LABS: Ferritin 82 ng/mL (20-250); Free T4 (Free Thyroxine) 0.85 ng/dL (0.71-1.85); Thyroid Stimulating Hormone 1.64 uIU/mL (0.32-4.0)
== END 2020-09-05 10:06 | disposition home or self-care (01) ==
LOC: HO.10HDL 10:05
PROVIDERS: Visit Provider Internal Medicine
DX: I50.42 Chronic combined systolic (congestive) and diastolic (congestive) heart failure (principal); E11.65 Type 2 diabetes mellitus with hyperglycemia
CPT/HCPCS: 36415; 80053; 82728; 83036; 83540; 83880; 84439; 84443; 85025; 85045

== ENCOUNTER → 2020-10-10 09:53 | Outpatient (BNVA) | payer MEDICARE, SELFPAY | PROVIDERS: PCP Internal Medicine; Visit Provider Internal Medicine Cardiovascular Disease | DX: I50.42 Chronic combined systolic (congestive) and diastolic (congestive) heart failure (principal); I25.5 Ischemic cardiomyopathy; I25.10 Atherosclerotic heart disease of native coronary artery without angina pectoris; Z95.810 Presence of automatic (implantable) cardiac defibrillator | CPT/HCPCS: 99212 ==

== ENCOUNTER 2021-01-08 12:50 | Outpatient (REF) | payer MEDICARE, SELFPAY ==
--- NOTE | ~2021-01-08 | US_ITS ---
EXAMINATION: US RETROPERITONEAL LIMITED (RENAL ONLY) CLINICAL INFORMATION: Calculus of kidney. COMPARISON: Renal ultrasound 08/13/2020 and 02/27/2019. CT abdomen and pelvis 07/08/2020. X-ray abdomen KUB 11/30/2018. TECHNIQUE: Real-time imaging of the kidneys. FINDINGS: RIGHT KIDNEY: 11.4 x 4.3 x 5.5 cm (SAG x AP x TRV). The kidney is normal in size, contour, and echogenicity. Renal cortical thickness is normal. No calculi or focal parenchymal lesions. No hydronephrosis. There is a punctate echogenic focus midpole. LEFT KIDNEY: 11.3 x 5.9 x 5.6 cm (SAG x AP x TRV). The kidney is normal in size, contour, and echogenicity. Renal cortical thickness is normal. No focal parenchymal lesions or hydronephrosis. There is a punctate echogenic shadowing focus in the lower pole measuring 0.6 x 0.4 x 0.5 cm, likely small calculi. US/US renal BI IMPRESSION: 1. Bilateral punctate echogenic foci right kidney and a nonobstructive echogenic calculi lower pole left kidney. A calculi was visualized in the lower pole left kidney on the previous study. 2. Scattered echogenic foci are seen in both kidneys . Small echogenic calculi in lower pole both kidneys were seen on the previous ultrasound exam 08/13/2020.
== END 2021-01-08 12:51 | disposition home or self-care (01) ==
LOC: HO.US 12:50
PROVIDERS: PCP Internal Medicine; Visit Provider Urology
DX: N20.0 Calculus of kidney (principal)
CPT/HCPCS: 76775

== ENCOUNTER → 2021-02-20 11:16 | Outpatient (BNVA) | payer MEDICARE, SELFPAY | PROVIDERS: PCP Internal Medicine; Visit Provider Urology | DX: N20.0 Calculus of kidney (principal) | CPT/HCPCS: Q3014 ==

== ENCOUNTER 2021-03-19 09:42 | Outpatient (REF) | payer MEDICARE, SELFPAY ==
[2021-03-19 10:14] LABS: MANUAL DIFF FLAG NO
[2021-03-19 10:26] LABS: Basophils Percent Auto 0.7 % (0-2); Eosinophils Absolute Auto 0.9 X10*3/uL (0.0-0.4); Eosinophils Percent Auto 15.7 % (0-4); Hematocrit 40.1 % (42.0-52.0); Hemoglobin 13.4 g/dl (14.0-18.0); Imm Gran Abs Auto 0.01 X10*3/uL (0.00-0.03); Imm Gran Pct Auto 0.2 % (0.0-0.4); Lymphocytes Absolute Auto 1.7 X10*3/uL (1.2-4.9); Mean Corpuscular HGB Conc 33.4 g/dl (31.0-36.0); Mean Corpuscular Hemoglobin 29.8 pg (27.0-33.0); Mean Corpuscular Volume 89.1 fL (80.0-98.0); Mean Platelet Volume 9.4 fL (9.4-12.4); Monocytes Absolute Auto 0.4 X10*3/uL (0.1-1.2); Monocytes Percent Auto 7.2 % (2-11); Neutrophils Absolute Auto 2.5 x10*3/uL (2.0-8.3); Neutrophils Percent Auto 45.2 % (45-73); Platelet Count 164 X10*3/uL (160-400); Red Cell Distribution Width 12.9 % (11.0-16.0); White Blood Count 5.6 X10*3/uL (4.8-10.8)
[2021-03-19 10:53] LABS: Estimated Average Glucose 108 mg/dL; Hemoglobin A1c % 5.4 %
[2021-03-19 10:55] LABS: Alanine Aminotransferase 35 U/L (0-40); Albumin Level 4.2 g/dL (3.5-5.0); Alkaline Phosphatase 58 U/L (39-117); Anion Gap 14 (12-20); Aspartate Amino Transferase 26 U/L (5-37); Bilirubin Total 0.6 mg/dL (0.0-1.0); Blood Urea Nitrogen 18 mg/dL (9-16); Calcium 9.3 mg/dL (8.4-10.2); Carbon Dioxide 25 mmol/L (22-29); Chloride 106 mmol/L (96-108); Cholesterol 123 mg/dL; Estimated Glomerular Filt Rate > 60; Glucose Random 121 mg/dL (60-115); HDL Cholesterol 29 mg/dL; LDL Cholesterol Calculated 74 mg/dl; Potassium 4.1 mmol/L (3.3-5.1); Sodium 141 mmol/L (135-145); Total Protein 6.4 g/dL (6.5-8.0); Triglycerides 101 mg/dL
[2021-03-19 10:56] LABS: B Type Natriuretic Peptide 75 pg/mL (<100)
[2021-03-19 11:17] LABS: Free T4 (Free Thyroxine) 0.87 ng/dL (0.71-1.85)
[2021-03-19 11:32] LABS: Folate > 20.0 ng/mL (> or = 4.0); Vitamin B12 574 pg/mL (200-900)
[2021-03-19 14:52] LABS: Creatinine Urine 156.63 mg/dL; Microalbum/Creatinine Ratio Ur 7.6 ug/mg cr
== END 2021-03-19 09:43 | disposition home or self-care (01) ==
LOC: HO.10HDL 09:42
PROVIDERS: Visit Provider Internal Medicine
DX: E11.65 Type 2 diabetes mellitus with hyperglycemia (principal); E78.00 Pure hypercholesterolemia, unspecified; I25.5 Ischemic cardiomyopathy
CPT/HCPCS: 36415; 80053; 80061; 82043; 82607; 82746; 83036; 83880; 84439; 84443; 85025

== ENCOUNTER → 2021-04-08 13:45 | Outpatient (REF) | payer MEDICARE, SELFPAY ==
--- NOTE | 2021-04-08 | CA_ITS ---
Transthoracic Echocardiogram Patient (Last, First, Middle): Td Miller E Gender: Male Date of : 1955 Age: 65 Procedure Date: 04/08/2021 Procedure Type: Transthoracic Echocardiogram Location: OP Height: 175.26 cm Weight: 84.37 kg BSA: 2.00 m2 Heart Rate: bpm BP: 109 / 68 mmHg Director Of Advertising Sales: ANAY Referring MD: Bruce Page MD Jacquard Plate Maker: Bruce Page MD Symptoms: I50.42 - Chronic combined systolic (congestive) and diast... Conclusions: - 1. Moderate to severe LV systolic dysfunction with LVEF of 30 35% with regional wall motion abnormality LAD territory with grade 1 diastolic dysfunction 2. Normal cardiac valvular Doppler 3. Normal RV systolic pressure 4. No pericardial effusion Findings Left Ventricle Normal left ventricular cavity size. There is mildly increased left ventricular wall thickness. The left ventricular systolic function is moderate to severely decreased. The visually estimated ejection fraction is between 30-35%. There is evidence of regional wall motion abnormalities. Spectral Doppler is indicative of an impaired relaxation filling pattern. E/E prime ratio is <8, consistent with normal filling pressures. Evidence suggests grade I (mild) diastolic dysfunction. Wall Motion Rest Echo Findings The basal inferior and mid inferoseptal segments are hypokinetic. The anteroseptal wall, the apical anterior, apical inferior, apical lateral, and basal inferoseptal segments are akinetic. The apex segment is dyskinetic. All other scored wall segments showed normal motion. Right Ventricle Normal right ventricular cavity size and systolic function. Atria The left atrium is likely dilated. There is no evidence of interatrial shunt. The right atrium is normal in size. Aortic Valve The aortic valve structure and function is likely normal. There is no aortic valve stenosis. There is no aortic valve regurgitation. Mitral Valve There is mild anterior and posterior mitral leaflet thickening. There is trace mitral valve regurgitation. There is no mitral valve stenosis. Pulmonic Valve The pulmonic valve was not well visualized. Tricuspid Valve Likely normal tricuspid valve structure and function. There is trace tricuspid valve regurgitation. The right ventricular systolic pressure is normal. The right ventricular systolic pressure is 24 mmHg. Normal right atrial pressure. There is no evidence of pulmonary hypertension. Great Vessels All visible segments of the aorta are normal in size. The pulmonary artery was not well visualized. Venous The inferior vena cava is normal in size and collapses greater than 50% with inspiration. Pericardium/Pleural There is no evidence of pericardial effusion. Prior Study Comparison Changes noted compared to prior study dated: 04/16/2020. LV systolic function appears to have improved Measurements 2D Linear Measurements IVSd: 1.54 0.6-0.9/0.6-1.0 cm LVIDd: 4.74 3.9-5.3/4.2-5.9 cm LVIDd Index: 2.37 2.4-3.2/2.2-3.1 cm/m2 LVIDs: 3.32 2.0-3.6 cm LVPWd: 1.46 0.7-1.1 cm Ao Root: 3.40 2.1-3.5 cm LA Diam: 3.70 2.7-3.8/3.0-4.0 cm LAIDs Index: 1.85 1.5-2.3 cm/m2 LV Mass: 371.48 67-162/88-224 g LV Mass Index: 185.74 43-95/49-115 g/m2 LVOT Diam: 2.20 3.0+(-)1.3 cm 2D Systolic Function EF 4C: 62.80 >55% EF 2C: 48.00 >55% Mitral Valve MV Pk E: 0.47 MV PK A: 0.62 MV Decel Time: 124.00 E/A: 0.80 E'Lateral: 6.09 E'Medial: 4.90 E/E' Med: 9.60 E/E' Lat: 7.70 PHT: 36.00 MVA PHT: 6.11 Decel [place]: 3.79 Aortic Valve AoV Pk Veto: 1.15 AoV Pk Grad: 5.00 LVOT LVOT Pk Veto: 0.72 LVOT Mn Veto: 0.48 LVOT VTI: 0.14 LVOT Pk Grad: 2.00 LVOT Mn Grad: 1.00 LVOT Diam: 2.20 LVOT Area: 3.80 Diastolic Function MV Pk E: 0.47 MV Pk A: 0.62 E/A: 0.80 E'Medial: 4.90 E/E' Med: 9.60 E' Laterial: 6.09 E/E' Lat: 7.70 Right Ventricle TAPSE (mm): 1.47 TVS' Veto: 9.46 Tricuspid Valve TR Pk Veto: 2.27 TR Pk Grad: 21.00 RA Press: 3.00 RVSP: 24.00 Great Vessels Aorta Ao Root-2D: 3.40 2.0-3.7 cm Ao Asc: 3.00 2.1-3.4 cm Updated in Other Vendor System with Status of Final Bruce Page MD electronically signed on 04/09/2021 1:13:02 PM with status of Final
== END ==
LOC: HO.CARD 13:45
PROVIDERS: Visit Provider Internal Medicine Cardiovascular Disease
DX: I50.42 Chronic combined systolic (congestive) and diastolic (congestive) heart failure (principal)
CPT/HCPCS: 93306

== ENCOUNTER → 2021-05-12 13:47 | Outpatient (BNVA) | payer MEDICARE, SELFPAY | PROVIDERS: PCP Internal Medicine; Referring Provider Internal Medicine; Visit Provider Internal Medicine Cardiovascular Disease | DX: Z45.02 Encounter for adjustment and management of automatic implantable cardiac defibrillator (principal); I25.5 Ischemic cardiomyopathy; I25.10 Atherosclerotic heart disease of native coronary artery without angina pectoris | CPT/HCPCS: 99212 ==

== ENCOUNTER 2021-06-30 11:20 | Outpatient (REF) | payer MEDICARE, SELFPAY ==
[2021-06-30 14:33] LABS: Alanine Aminotransferase 39 U/L (0-40); Albumin Level 4.3 g/dL (3.5-5.0); Alkaline Phosphatase 55 U/L (39-117); Anion Gap 12 (12-20); Aspartate Amino Transferase 26 U/L (5-37); Bilirubin Total 0.5 mg/dL (0.0-1.0); Blood Urea Nitrogen 19 mg/dL (9-16); Calcium 9.5 mg/dL (8.4-10.2); Carbon Dioxide 27 mmol/L (22-29); Chloride 106 mmol/L (96-108); Cholesterol 124 mg/dL; Estimated Glomerular Filt Rate > 60; Glucose Random 118 mg/dL (60-115); HDL Cholesterol 38 mg/dL; LDL Cholesterol Calculated 73 mg/dl; Potassium 4.4 mmol/L (3.3-5.1); Sodium 141 mmol/L (135-145); Total Protein 6.6 g/dL (6.5-8.0); Triglycerides 69 mg/dL
[2021-06-30 14:40] LABS: Creatinine Urine 66.01 mg/dL
[2021-06-30 14:50] LABS: B Type Natriuretic Peptide 115 pg/mL (<100)
[2021-06-30 15:11] LABS: Cortisol Random 9.6 ug/dL
[2021-07-01 04:20] LABS: Estimated Average Glucose 105 mg/dL; Hemoglobin A1c % 5.3 %
[2021-07-05 12:16] LABS: Testosterone, Total 303 ng/dL (250-1100)
== END 2021-06-30 11:21 | disposition home or self-care (01) ==
LOC: HO.10HDL 11:20
PROVIDERS: Visit Provider Internal Medicine
DX: E11.65 Type 2 diabetes mellitus with hyperglycemia (principal); I50.42 Chronic combined systolic (congestive) and diastolic (congestive) heart failure; E78.00 Pure hypercholesterolemia, unspecified
CPT/HCPCS: 36415; 80053; 80061; 82533; 83036; 83880; 84403

== ENCOUNTER 2021-07-29 12:15 | Outpatient (REF) | payer MEDICARE, SELFPAY ==
--- NOTE | ~2021-07-29 | US_ITS ---
EXAMINATION: US RETROPERITONEAL LIMITED (RENAL ONLY) CLINICAL INFORMATION: Renal calculi. COMPARISON: Renal ultrasound 01/08/2021, CT abdomen/pelvis 07/08/2020 TECHNIQUE: Ultrasound of the kidneys was performed. FINDINGS: RIGHT KIDNEY: 11.0 x 4.5 x 5.0 cm (SAG x AP x TRV). The kidney is normal in size, contour, and echogenicity. Renal cortical thickness is normal. An upper pole 7 x 5 x 6 mm echogenic focus seen consistent with a nonobstructing calculus. No other calculi or focal parenchymal lesions. No hydronephrosis. LEFT KIDNEY: 11.5 x 4.4 x 5.0 cm (SAG x AP x TRV). The kidney is normal in size, contour, and echogenicity. Renal cortical thickness is normal. There is a 6 mm midpole echogenic focus seen consistent with a nonobstructing calculus. No other calculi or focal parenchymal lesions. There is an extrarenal pelvis but no gross hydronephrosis. US/US renal BI IMPRESSION: A single nonobstructing calculus is present in each kidney. Similar findings were seen on the 07/08/2020 CT scan.
== END 2021-07-29 12:16 | disposition home or self-care (01) ==
LOC: HO.US 12:15
PROVIDERS: PCP Internal Medicine; Visit Provider Urology
DX: N20.0 Calculus of kidney (principal)
CPT/HCPCS: 76775

== ENCOUNTER 2021-08-01 08:52 | Day surgery (SDC) | payer MEDICARE, SELFPAY ==
[2021-07-28 11:30] VITALS: BMI 26.9
--- NOTE | 2021-07-31 10:53 | HO.ANESPROP2 ---
Documented by User: Kiara Munoz NP 07/31/21 10:57 HPI - Anesthesia Eval Consult details Narrative: 65yo M for Colonoscopy ICD in situ PMFSH Active Problems Active Problems: All Active Problems (Updated 07/28/21 @ 11:32 by Kari Wills RN) Tendon cysts (Acute) Nephrolithiasis (Acute) ICD (implantable cardioverter-defibrillator) in place (Acute) Chronic heart failure with reduced ejection fraction and diastolic dysfunction (Acute) Ischemic cardiomyopathy (Acute) Coronary artery disease (Acute) Hypercholesterolemia (Acute) Hypertension (Acute) GERD (gastroesophageal reflux disease) (Acute) Type 2 diabetes mellitus with hyperglycemia (Acute) Past Medical History Medical History (Updated 08/01/21 @ 09:33 by Rahel Gomez RN) Anxiety and depression Bilateral renal stones Chronic heart failure with reduced ejection fraction and diastolic dysfunction Coronary artery disease GERD (gastroesophageal reflux disease) Gout Hypercholesterolemia Hypertension ICD (implantable cardioverter-defibrillator) in place Ischemic cardiomyopathy Pneumonia Psoriasis Family History Family History Father Diabetes Prostate cancer CVD (cardiovascular disease) Mother CVD (cardiovascular disease) Acute CVA (cerebrovascular accident) Surgical History Surgical History (Updated 07/28/21 @ 11:24 by Kari Wills RN) History of cataract surgery History of heart artery stent History of surgery History of vasectomy History of wisdom tooth extraction Hx of colonoscopy S/P ICD (internal cardiac defibrillator) procedure Social History Social History Housing: House Alcohol intake: current Alcohol intake frequency: holidays/special occasions only Patient Tobacco Use Status: Never used Tobacco e-Cigarette/Vaping Use: Never Used Second Hand Smoke Exposure: No Use of substances other than those prescribed or required for medical reasons: No Are you DNR?: No Advance Directives: No Advance Directives Information Provided: Yes Recently lost weight without trying: No How much weight loss: 34pounds or more Nutrition Risks: No Nutritional Risk Current occupational status: retired Meds Allergies Allergy/AdvReac Type Severity Reaction Status Date / Time lisinopril [LISINOPRIL] Allergy Mild UNKNOWN, Verified 07/28/21 11:25 cough, cough doxycycline [DOXYCYCLINE] Allergy Unknown UNKNOWN Verified 07/28/21 11:25 glimepiride [GLIMEPIRIDE] Allergy Unknown SEVERE Verified 07/28/21 11:25 BACK PAIN Motrin Allergy Unknown nausa Verified 07/28/21 11:25 tamsulosin [TAMSULOSIN] Allergy Unknown UNKNOWN, Verified 07/28/21 11:25 Fever Home Medications Medication Instructions Recorded Confirmed Last Taken Type aspirin 81 mg tablet,delayed 81 mg PO DAILY 02/28/20 07/28/21 Unknown History release cholecalciferol (vitamin D3) 50 10,000 unit PO DAILY cap 07/14/21 07/28/21 Unknown History mcg (2,000 unit) capsule zinc sulfate 25 mg zinc (110 mg) 25 mg PO DAILY 07/14/21 07/28/21 Unknown History tablet (Orazinc) Exam Exam Date and Time: July 31, 2021 1053 Height,Weight and Vital Signs: Height 5 ft 9 in Weight 82.554 kg Pertinent Lab Results Pertinent Lab Results: Laboratory Tests 03/19/21 06/30/21 09:48 11:25 WBC 5.6 Hgb 13.4 L Hct 40.1 L Plt Count 164 Sodium 141 Potassium 4.4 Chloride 106 Carbon Dioxide 27 BUN 19 H Creatinine 0.93 Narrative Narrative: ECHO 03/2021 Conclusions: -? 1. Moderate to severe LV systolic dysfunction with LVEF of 30 35% with regional wall motion abnormality LAD territory with ? ? grade 1 diastolic dysfunction? 2.? Normal cardiac valvular Doppler? 3.? Normal RV systolic pressure? 4.? No pericardial effusion? Cardiac Device Check 05/2021 Details: Remote ICD report generated 06/09/2021.? Battery life is at 31%, slightly reduced compared to before.? No arrhythmias noted Assessment and Plan Assessment Anesthesia Assessment: Chart Reviewed Documented by User: Jose Diallo MD 08/06/21 00:03 HPI - Anesthesia Eval Consult details Narrative: 65yo M for Colonoscopy CAD s/p LAD stenting , functional status greater than 4 Mets ICD in situ PMFSH Past Medical History Medical History (Updated 08/01/21 @ 09:33 by Rhael Gomez, RN) Anxiety and depression Bilateral renal stones Chronic heart failure with reduced ejection fraction and diastolic dysfunction Coronary artery disease GERD (gastroesophageal reflux disease) Gout Hypercholesterolemia Hypertension ICD (implantable cardioverter-defibrillator) in place Ischemic cardiomyopathy Pneumonia Psoriasis Functional capacity: independent ambulation Family History Family History Father Diabetes Prostate cancer CVD (cardiovascular disease) Mother CVD (cardiovascular disease) Acute CVA (cerebrovascular accident) Family history of problems with anesthesia: No Surgical History Surgical History (Updated 07/28/21 @ 11:24 by Kari Wills, NANCY) History of cataract surgery History of heart artery stent History of surgery History of vasectomy History of wisdom tooth extraction Hx of colonoscopy S/P ICD (internal cardiac defibrillator) procedure History of Problems with Anesthesia: No Social History Social History Housing: House Alcohol intake: current Alcohol intake frequency: holidays/special occasions only Patient Tobacco Use Status: Never used Tobacco e-Cigarette/Vaping Use: Never Used Second Hand Smoke Exposure: No Use of substances other than those prescribed or required for medical reasons: No Are you DNR?: No Advance Directives: No Advance Directives Information Provided: Yes Recently lost weight without trying: No How much weight loss: 34pounds or more Nutrition Risks: No Nutritional Risk Current occupational status: retired Meds Allergies Allergy/AdvReac Type Severity Reaction Status Date / Time lisinopril [LISINOPRIL] Allergy Mild UNKNOWN, Verified 07/28/21 11:25 cough, cough doxycycline [DOXYCYCLINE] Allergy Unknown UNKNOWN Verified 07/28/21 11:25 glimepiride [GLIMEPIRIDE] Allergy Unknown SEVERE Verified 07/28/21 11:25 BACK PAIN Motrin Allergy Unknown nausa Verified 07/28/21 11:25 tamsulosin [TAMSULOSIN] Allergy Unknown UNKNOWN, Verified 07/28/21 11:25 Fever Home Medications Medication Instructions Recorded Confirmed Last Taken Type aspirin 81 mg tablet,delayed 81 mg PO DAILY 02/28/20 07/28/21 Unknown History release cholecalciferol (vitamin D3) 50 10,000 unit PO DAILY cap 07/14/21 07/28/21 Unknown History mcg (2,000 unit) capsule zinc sulfate 25 mg zinc (110 mg) 25 mg PO DAILY 07/14/21 07/28/21 Unknown History tablet (Orazinc) Exam Airway Mallampati Class: II TM Dist: >3cm Neck ROM: Full Loose/Missing/Broken Teeth: Yes (Chipped ) Heart: s1 s2 Lungs: b/l breath sounds Assessment and Plan Assessment Anesthesia Assessment: Anesthesia Plan Discussed Final Anesthetic Review Family History of Problems with Anesthesia: No History of Problems with Anesthesia: No NPO: Yes ASA Class: III Final Preanesthetic Review: Consent Obtained/Reviewed and Anes Risks/Benef Reviewed Patient Risk: Intermediate Procedure Risk: Intermediate Anesthetic Plan Anesthetic Plan: MAC: Disposition: Standard PACU
[2021-08-01 09:22] VITALS: BMI 25.9
--- NOTE | 2021-08-01 09:31 | PC.NURSE ---
patient states he no longer is a diabetic due to have lost weight per patient. no longer taking medications
[2021-08-01 09:39] VITALS: BP 139/77; PULSE 69; RESP 16; TEMP 36.3; O2SAT 97
[2021-08-01] MEDS: Lactated Ringers 500 ML 20 ML IVCONT (10:02)
--- NOTE | 2021-08-01 10:20 | MHC.SHP ---
Pre-Procedural Eval Section A Date of Service: 08/01/21 The patient is an INPATIENT: No Changes since office visit: No Cold of Flu in the past 2 weeks, No New Medical Problems, No Changes in Medication and No Patient answered all questions The History & Physical has been completed within 30 days and I have reviewed it.: Yes Section B Chief Complaint: screening Allergies: Allergies Allergy/AdvReac Type Severity Reaction Status Date / Time lisinopril [LISINOPRIL] Allergy Mild UNKNOWN, Verified 07/28/21 11:25 cough, cough doxycycline [DOXYCYCLINE] Allergy Unknown UNKNOWN Verified 07/28/21 11:25 glimepiride [GLIMEPIRIDE] Allergy Unknown SEVERE Verified 07/28/21 11:25 BACK PAIN Motrin Allergy Unknown nausa Verified 07/28/21 11:25 tamsulosin [TAMSULOSIN] Allergy Unknown UNKNOWN, Verified 07/28/21 11:25 Fever Plan I have reviewed the history and physical and performed a pertinent physical examination on my patient. No changes have occurred unless specified.
--- NOTE | 2021-08-01 10:58 | PM.OP ---
Brief Operative Note Date of Service: 08/01/21 Pre-op diagnosis: screening Post-op diagnosis: same Procedure: colonoscopy Surgeon: Liban Schwartz Anesthesia: MAC Was an Project Leader used for this Procedure?: No Estimated blood loss (mL): 2 Pathology: other (polyps x4) Condition: stable Disposition: PACU
[2021-08-01 10:59] VITALS: BP 86/51; PULSE 68; RESP 16; TEMP 36.1; O2SAT 98
[2021-08-01 11:03] VITALS: BP 87/50; PULSE 74; RESP 16; O2SAT 98
[2021-08-01 11:07] VITALS: BP 82/51; PULSE 68; RESP 16; O2SAT 98
[2021-08-01 11:15] VITALS: BP 84/53; PULSE 66; RESP 16; O2SAT 98
--- NOTE | 2021-08-01 11:22 | OP_ITS ---
SURGEON: Liban Schwartz MD INDICATIONS: Colon cancer screening. PREOPERATIVE DIAGNOSIS: POSTOPERATIVE DIAGNOSIS: PROCEDURE PERFORMED: Colonoscopy to the terminal ileum with biopsy and snare polypectomy. ESTIMATED BLOOD LOSS: COMPLICATIONS: ANESTHESIA: Monitored anesthesia care. ASSISTANTS: SPECIMENS: DESCRIPTION OF PROCEDURE: History and physical performed. The risks and benefits of the procedure were explained to the patient. Informed consent was obtained. The patient was placed in the left lateral decubitus position. A digital rectal exam was performed and was found to be normal. The Olympus pediatric video colonoscope was introduced in the rectum and advanced to the cecum without difficulty. The cecum was identified by transillumination, palpation, and identification of ileocecal valve. Examination was performed. The scope was removed. He tolerated the procedure well, returned to recovery in stable condition. FINDINGS: The terminal ileum was examined and appeared normal. The visualized colonic mucosa was within normal limits. In the cecum, there was a less than 5 mm polyp, which was removed with biopsy forceps. In the right colon, there were 3 less than 10 mm polyps, which were removed with biopsy forceps and 1 was removed with a cold snare. No other polyps were identified. Retroflexed examination showed some small internal hemorrhoids. The quality of the prep was good. IMPRESSION: Colon polyps. RECOMMENDATION: Follow up with biopsy results. MD COLEMAN Paiz/PRATEEK / [id number]
[2021-08-01 11:32] VITALS: BP 110/64; PULSE 84; RESP 18; TEMP 36.1; O2SAT 96
== END 2021-08-01 12:10 | disposition home or self-care (01) ==
PROVIDERS: PCP Internal Medicine; Visit Provider Internal Medicine Gastroenterology
PROC: 0DJD8ZZ Inspection of Lower Intestinal Tract, Via Natural or Artificial Opening Endoscopic (ICD-10-PCS; CPT 45378; principal; 2021-08-01 10:10)
DX: Z12.11 Encounter for screening for malignant neoplasm of colon (principal); D12.0 Benign neoplasm of cecum; Z86.010 Personal history of colon polyps; D12.2 Benign neoplasm of ascending colon; K64.8 Other hemorrhoids; I25.10 Atherosclerotic heart disease of native coronary artery without angina pectoris; Z98.61 Coronary angioplasty status; I42.9 Cardiomyopathy, unspecified; I10 Essential (primary) hypertension; E78.00 Pure hypercholesterolemia, unspecified; E11.9 Type 2 diabetes mellitus without complications; Z79.84 Long term (current) use of oral hypoglycemic drugs; Z79.82 Long term (current) use of aspirin; Z79.899 Other long term (current) drug therapy; Z88.8 Allergy status to other drugs, medicaments and biological substances
CPT/HCPCS: 45385; 45380; 88305

== ENCOUNTER → 2021-08-26 11:16 | Outpatient (BNVA) | payer MEDICARE, SELFPAY | PROVIDERS: PCP Internal Medicine; Visit Provider Urology | DX: N20.0 Calculus of kidney (principal) | CPT/HCPCS: 99212 ==

== ENCOUNTER 2021-09-30 08:55 | Outpatient (REF) | payer MEDICARE, SELFPAY ==
[2021-09-30 09:53] LABS: Alanine Aminotransferase 24 U/L (0-40); Albumin Level 4.2 g/dL (3.5-5.0); Alkaline Phosphatase 61 U/L (39-117); Anion Gap 13 (12-20); Aspartate Amino Transferase 20 U/L (5-37); Bilirubin Total 0.6 mg/dL (0.0-1.0); Blood Urea Nitrogen 18 mg/dL (9-16); Calcium 9.4 mg/dL (8.4-10.2); Carbon Dioxide 27 mmol/L (22-29); Chloride 105 mmol/L (96-108); Cholesterol 166 mg/dL; Estimated Glomerular Filt Rate > 60; Glucose Random 127 mg/dL (60-115); HDL Cholesterol 36 mg/dL; LDL Cholesterol Calculated 110 mg/dl; Potassium 4.2 mmol/L (3.3-5.1); Sodium 141 mmol/L (135-145); Total Protein 6.6 g/dL (6.5-8.0); Triglycerides 100 mg/dL
[2021-09-30 09:57] LABS: B Type Natriuretic Peptide 157 pg/mL (<100)
== END 2021-09-30 08:56 | disposition home or self-care (01) ==
LOC: HO.LAB 08:55
PROVIDERS: PCP Internal Medicine; Referring Provider Internal Medicine; Visit Provider Urology
DX: E78.00 Pure hypercholesterolemia, unspecified (principal); I50.9 Heart failure, unspecified; I25.5 Ischemic cardiomyopathy
CPT/HCPCS: 36415; 80053; 80061; 83880

== ENCOUNTER → 2021-12-08 12:57 | Outpatient (BNVA) | payer MEDICARE, SELFPAY | PROVIDERS: PCP Internal Medicine; Referring Provider Internal Medicine; Visit Provider Internal Medicine Cardiovascular Disease | DX: I50.42 Chronic combined systolic (congestive) and diastolic (congestive) heart failure (principal); I25.10 Atherosclerotic heart disease of native coronary artery without angina pectoris; E78.00 Pure hypercholesterolemia, unspecified; Z79.899 Other long term (current) drug therapy | CPT/HCPCS: 93005; 99212 ==

== ENCOUNTER 2022-01-09 08:15 | Outpatient (REF) | payer MEDICARE, SELFPAY ==
[2022-01-09 11:19] LABS: Estimated Average Glucose 117 mg/dL; Hemoglobin A1c % 5.7 %
[2022-01-09 11:20] LABS: Alanine Aminotransferase 25 U/L (0-40); Albumin Level 4.1 g/dL (3.5-5.0); Alkaline Phosphatase 53 U/L (39-117); Anion Gap 17 (12-20); Aspartate Amino Transferase 26 U/L (5-37); Bilirubin Total 0.6 mg/dL (0.0-1.0); Blood Urea Nitrogen 17 mg/dL (9-16); Calcium 9.3 mg/dL (8.4-10.2); Carbon Dioxide 26 mmol/L (22-29); Chloride 105 mmol/L (96-108); Cholesterol 110 mg/dL; Estimated Glomerular Filt Rate > 60; Glucose Random 107 mg/dL (60-115); HDL Cholesterol 33 mg/dL; LDL Cholesterol Calculated 56 mg/dl; Potassium 3.7 mmol/L (3.3-5.1); Sodium 144 mmol/L (135-145); Total Protein 6.4 g/dL (6.5-8.0); Triglycerides 106 mg/dL
[2022-01-09 11:38] LABS: Prostate Specific Antigen 0.24 ng/mL (<0.05-4.0)
== END 2022-01-09 08:16 | disposition home or self-care (01) ==
LOC: HO.10HDL 08:15
PROVIDERS: Absent Provider Urology; Referring Provider Internal Medicine Cardiovascular Disease; Visit Provider Internal Medicine
DX: Z12.5 Encounter for screening for malignant neoplasm of prostate (principal); N13.8 Other obstructive and reflux uropathy; N40.1 Benign prostatic hyperplasia with lower urinary tract symptoms; E78.00 Pure hypercholesterolemia, unspecified
CPT/HCPCS: 36415; 80053; 80061; 83036; 84153

== ENCOUNTER 2022-02-11 14:16 | Outpatient (REF) | payer MEDICARE, SELFPAY ==
--- NOTE | ~2022-02-11 | XR_ITS ---
EXAMINATION: XR KUB CLINICAL INDICATION: Renal stones COMPARISON: KUB 11/30/2018 TECHNIQUE: AP view of the abdomen. XR/XR KUB FINDINGS/IMPRESSION: Lines or devices: Left chest wall stimulator again noted. No abnormal calcifications. Nonobstructive bowel gas pattern. Gaseous distention of the stomach. Visualized portions of the lung bases appear clear.
== END 2022-02-11 14:17 | disposition home or self-care (01) ==
LOC: HO.XRAY 14:16
PROVIDERS: PCP Internal Medicine; Visit Provider Urology
DX: N20.0 Calculus of kidney (principal)
CPT/HCPCS: 74018

== ENCOUNTER 2022-02-26 10:43 | Outpatient (REF) | payer MEDICARE, SELFPAY ==
[2022-03-03 20:12] LABS: Stone Source KIDNEY STONE
== END 2022-02-26 10:44 | disposition home or self-care (01) ==
LOC: HO.LAB 10:43
PROVIDERS: Visit Provider Urology
DX: N20.0 Calculus of kidney (principal); E11.69 Type 2 diabetes mellitus with other specified complication; N52.1 Erectile dysfunction due to diseases classified elsewhere; Z79.899 Other long term (current) drug therapy
CPT/HCPCS: 82365; 88300; 88307; 99212

== ENCOUNTER 2022-04-28 11:58 | Outpatient (REF) | payer MEDICARE, SELFPAY ==
[2022-04-28 14:30] LABS: Cortisol Random 10.6 ug/dL
== END 2022-04-28 11:59 | disposition home or self-care (01) ==
LOC: HO.10HDL 11:58
PROVIDERS: Visit Provider Internal Medicine
DX: E11.65 Type 2 diabetes mellitus with hyperglycemia (principal)
CPT/HCPCS: 36415; 82533

== ENCOUNTER 2022-04-28 12:16 | Outpatient (REF) | payer MEDICARE, SELFPAY | END 2022-04-28 12:17 | disposition home or self-care (01) | LOC: HO.10HDL 12:16 | PROVIDERS: Visit Provider Internal Medicine | DX: Z13.89 Encounter for screening for other disorder (principal) ==

== ENCOUNTER 2022-06-25 11:18 | Outpatient (REF) | payer MEDICARE, MEDICAID, SELFPAY ==
[2022-06-25 14:04] LABS: MANUAL DIFF FLAG NO
[2022-06-25 14:21] LABS: Basophils Percent Auto 0.5 % (0-2); Eosinophils Absolute Auto 0.3 X10*3/uL (0.0-0.4); Eosinophils Percent Auto 5.4 % (0-4); Hematocrit 36.6 % (42.0-52.0); Hemoglobin 12.4 g/dl (14.0-18.0); Imm Gran Abs Auto 0.03 X10*3/uL (0.00-0.03); Imm Gran Pct Auto 0.5 % (0.0-0.4); Lymphocytes Absolute Auto 1.4 X10*3/uL (1.2-4.9); Lymphocytes Percent Auto 22.6 % (20-40); Mean Corpuscular HGB Conc 33.9 g/dl (31.0-36.0); Mean Corpuscular Hemoglobin 30.2 pg (27.0-33.0); Mean Corpuscular Volume 89.3 fL (80.0-98.0); Mean Platelet Volume 9.7 fL (9.4-12.4); Monocytes Absolute Auto 0.5 X10*3/uL (0.1-1.2); Monocytes Percent Auto 8.5 % (2-11); Neutrophils Absolute Auto 3.9 x10*3/uL (2.0-8.3); Neutrophils Percent Auto 62.5 % (45-73); Platelet Count 226 X10*3/uL (160-400); Red Cell Distribution Width 12.5 % (11.0-16.0); White Blood Count 6.2 X10*3/uL (4.8-10.8)
[2022-06-25 14:32] LABS: Alanine Aminotransferase 18 U/L (0-40); Albumin Level 4.1 g/dL (3.5-5.0); Alkaline Phosphatase 65 U/L (39-117); Anion Gap 12 (12-20); Aspartate Amino Transferase 21 U/L (5-37); Bilirubin Total 0.6 mg/dL (0.0-1.0); Blood Urea Nitrogen 17 mg/dL (9-16); Calcium 8.9 mg/dL (8.4-10.2); Carbon Dioxide 28 mmol/L (22-29); Chloride 105 mmol/L (96-108); Estimated Glomerular Filt Rate > 60; Glucose Random 127 mg/dL (60-115); Potassium 4.1 mmol/L (3.3-5.1); Sodium 141 mmol/L (135-145); Total Protein 6.5 g/dL (6.5-8.0)
[2022-06-25 14:34] LABS: Estimated Average Glucose 123 mg/dL; Hemoglobin A1c % 5.9 %
[2022-06-25 14:48] LABS: Thyroid Stimulating Hormone 1.86 uIU/mL (0.32-4.0)
== END 2022-06-25 11:19 | disposition home or self-care (01) ==
LOC: HO.10HDL 11:18
PROVIDERS: Visit Provider Internal Medicine
DX: E11.65 Type 2 diabetes mellitus with hyperglycemia (principal)
CPT/HCPCS: 36415; 80053; 83036; 84443; 85025

== ENCOUNTER 2022-08-06 10:59 | Outpatient (REF) | payer MEDICARE, MEDICAID, SELFPAY ==
[2022-08-06 13:50] LABS: Cholesterol 143 mg/dL; HDL Cholesterol 32 mg/dL; LDL Cholesterol Calculated 83 mg/dl; Triglycerides 140 mg/dL
[2022-08-12 13:24] LABS: Testosterone, Total 236 ng/dL (250-1100)
== END 2022-08-06 11:00 | disposition home or self-care (01) ==
LOC: HO.10HDL 10:59
PROVIDERS: Urology; Visit Provider Internal Medicine Cardiovascular Disease
DX: E11.69 Type 2 diabetes mellitus with other specified complication (principal); N52.1 Erectile dysfunction due to diseases classified elsewhere; I25.10 Atherosclerotic heart disease of native coronary artery without angina pectoris
CPT/HCPCS: 36415; 80061; 84403

== ENCOUNTER → 2022-08-11 12:49 | Outpatient (BNVA) | payer MEDICARE, MEDICAID, SELFPAY | PROVIDERS: PCP Internal Medicine; Referring Provider Internal Medicine; Visit Provider Internal Medicine Cardiovascular Disease | DX: Z45.02 Encounter for adjustment and management of automatic implantable cardiac defibrillator (principal); I50.42 Chronic combined systolic (congestive) and diastolic (congestive) heart failure; I25.10 Atherosclerotic heart disease of native coronary artery without angina pectoris | CPT/HCPCS: 93005; 99212 ==

== ENCOUNTER 2022-08-24 14:48 | Outpatient (REF) | payer MEDICARE, MEDICAID, SELFPAY ==
--- NOTE | ~2022-08-24 | US_ITS ---
EXAMINATION: US RETROPERITONEAL LIMITED (RENAL ONLY) CLINICAL INFORMATION: Calculus of kidney. COMPARISON: Renal ultrasound 07/29/2021 TECHNIQUE: Real-time imaging of the kidneys. FINDINGS: RIGHT KIDNEY: 11.1 x 4.5 x 5.4 cm (SAG x AP x TRV). The kidney is normal in size, contour, and echogenicity. Renal cortical thickness is normal. No focal parenchymal lesions or hydronephrosis. Nonobstructing 1 cm upper pole renal stone, previously 8 mm LEFT KIDNEY: 11.4 x 5.3 x 5.6 cm (SAG x AP x TRV). The kidney is normal in size, contour, and echogenicity. Renal cortical thickness is normal. No renal calculi. Renal pelviectasis without sofia hydronephrosis. 1 cm benign-appearing renal cysts no follow-up imaging recommended. US/US renal BI IMPRESSION: 1. Nonobstructing 1 cm right upper pole renal stone increased in size from prior. 2. Left renal pelviectasis without sofia hydronephrosis.
== END 2022-08-24 14:49 | disposition home or self-care (01) ==
LOC: HO.US 14:48
PROVIDERS: PCP Internal Medicine; Visit Provider Urology
DX: N20.0 Calculus of kidney (principal)
CPT/HCPCS: 76775

== ENCOUNTER → 2022-09-04 13:44 | Outpatient (BNVA) | payer MEDICARE, MEDICAID, SELFPAY | PROVIDERS: PCP Internal Medicine; Visit Provider Urology | DX: E11.69 Type 2 diabetes mellitus with other specified complication (principal); N52.1 Erectile dysfunction due to diseases classified elsewhere | CPT/HCPCS: 99212 ==

== ENCOUNTER 2022-10-02 09:14 | Outpatient (REF) | payer MEDICARE, MEDICAID, SELFPAY ==
[2022-10-02 10:39] LABS: MANUAL DIFF FLAG NO
[2022-10-02 10:54] LABS: Basophils Percent Auto 0.5 % (0-2); Eosinophils Absolute Auto 0.3 X10*3/uL (0.0-0.4); Eosinophils Percent Auto 4.9 % (0-4); Estimated Average Glucose 117 mg/dL; Hematocrit 40.7 % (42.0-52.0); Hemoglobin 13.9 g/dl (14.0-18.0); Hemoglobin A1c % 5.7 %; Imm Gran Abs Auto 0.02 X10*3/uL (0.00-0.03); Imm Gran Pct Auto 0.4 % (0.0-0.4); Lymphocytes Absolute Auto 1.8 X10*3/uL (1.2-4.9); Mean Corpuscular HGB Conc 34.2 g/dl (31.0-36.0); Mean Corpuscular Hemoglobin 30.5 pg (27.0-33.0); Mean Corpuscular Volume 89.3 fL (80.0-98.0); Monocytes Absolute Auto 0.4 X10*3/uL (0.1-1.2); Monocytes Percent Auto 6.7 % (2-11); Neutrophils Absolute Auto 3.2 x10*3/uL (2.0-8.3); Neutrophils Percent Auto 55.5 % (45-73); Platelet Count 198 X10*3/uL (160-400); Red Blood Count 4.56 X10*6/uL (4.60-5.80); Red Cell Distribution Width 12.9 % (11.0-16.0); White Blood Count 5.7 X10*3/uL (4.8-10.8)
[2022-10-02 11:23] LABS: Creatinine Urine 115.73 mg/dL; Microalbum/Creatinine Ratio Ur 14.6 ug/mg cr
[2022-10-02 11:23] LABS: B Type Natriuretic Peptide 106 pg/mL (<100)
[2022-10-02 11:32] LABS: Alanine Aminotransferase 25 U/L (0-40); Albumin Level 4.2 g/dL (3.5-5.0); Alkaline Phosphatase 58 U/L (39-117); Anion Gap 11 (12-20); Aspartate Amino Transferase 24 U/L (5-37); Bilirubin Total 0.6 mg/dL (0.0-1.0); Blood Urea Nitrogen 12 mg/dL (9-16); Calcium 9.4 mg/dL (8.4-10.2); Carbon Dioxide 27 mmol/L (22-29); Chloride 107 mmol/L (96-108); Cholesterol 116 mg/dL; Estimated Glomerular Filt Rate > 60; Glucose Random 128 mg/dL (60-115); HDL Cholesterol 32 mg/dL; LDL Cholesterol Calculated 52 mg/dl; Potassium 4.2 mmol/L (3.3-5.1); Sodium 141 mmol/L (135-145); Total Protein 6.6 g/dL (6.5-8.0); Triglycerides 163 mg/dL
[2022-10-02 12:03] LABS: Folate 18.8 ng/mL (> or = 4.0); Prostate Specific Antigen Scr 0.34 ng/mL (<0.05-4.0); Thyroid Stimulating Hormone 2.27 uIU/mL (0.32-4.0); Vitamin B12 982 pg/mL (200-900)
== END 2022-10-02 09:15 | disposition home or self-care (01) ==
LOC: HO.10HDL 09:14
PROVIDERS: Visit Provider Internal Medicine
DX: Z12.5 Encounter for screening for malignant neoplasm of prostate (principal); E11.65 Type 2 diabetes mellitus with hyperglycemia; E78.00 Pure hypercholesterolemia, unspecified
CPT/HCPCS: 36415; 80053; 80061; 82043; 82607; 82746; 83036; 83880; 84153; 84439; 84443; 85025

== ENCOUNTER → 2022-10-12 10:28 | Outpatient (BNVA) | payer MEDICARE, SELFPAY | PROVIDERS: PCP Internal Medicine; Visit Provider Nurse Practitioner Family | DX: N20.0 Calculus of kidney (principal); E88.81 Metabolic syndrome and other insulin resistance; E08.8 Diabetes mellitus due to underlying condition with unspecified complications; E78.5 Hyperlipidemia, unspecified; Z79.82 Long term (current) use of aspirin; Z79.4 Long term (current) use of insulin; Z79.899 Other long term (current) drug therapy | CPT/HCPCS: Q3014 ==

== ENCOUNTER → 2022-10-30 10:26 | Outpatient (BNVA) | payer MEDICARE, SELFPAY | PROVIDERS: PCP Internal Medicine; Visit Provider Nurse Practitioner Family | DX: Z01.810 Encounter for preprocedural cardiovascular examination (principal); I25.10 Atherosclerotic heart disease of native coronary artery without angina pectoris; I25.5 Ischemic cardiomyopathy; I11.0 Hypertensive heart disease with heart failure; I50.42 Chronic combined systolic (congestive) and diastolic (congestive) heart failure; Z95.810 Presence of automatic (implantable) cardiac defibrillator | CPT/HCPCS: 93005; 99212 ==

== ENCOUNTER → 2022-11-03 23:59 | Outpatient (BNV) | payer MEDICARE, MEDICAID, SELFPAY ==
--- NOTE | 2022-11-03 10:54 | MHC.OFFVIS ---
Intake Intake Visit Reasons: Remote Device Check- [employer] Allergies lisinopril [LISINOPRIL] Allergy (Mild, Verified 10/30/22 10:38) UNKNOWN, cough, cough doxycycline [DOXYCYCLINE] Allergy (Unknown, Verified 10/30/22 10:38) UNKNOWN glimepiride [GLIMEPIRIDE] Allergy (Unknown, Verified 10/30/22 10:38) SEVERE BACK PAIN ibuprofen [From Motrin] Allergy (Unknown, Verified 10/30/22 10:38) Nausea tamsulosin [TAMSULOSIN] Allergy (Unknown, Verified 10/30/22 10:38) UNKNOWN, Fever rosuvastatin Adverse Reaction (Intermediate, Verified 10/30/22 10:38) hypotension' adhesive tape Adverse Reaction (Mild, Verified 10/30/22 10:38) Itching COUNTS INCLUDE 234 BEDS AT THE [facility] Medical History Annual physical exam Anxiety and depression Bilateral renal stones Chronic heart failure with reduced ejection fraction and diastolic dysfunction Coronary artery disease GERD (gastroesophageal reflux disease) Gout Hypercholesterolemia Hypertension ICD (implantable cardioverter-defibrillator) in place Ischemic cardiomyopathy Pneumonia Psoriasis Surgical History History of cataract surgery History of heart artery stent History of surgery History of vasectomy History of wisdom tooth extraction Hx of colonoscopy S/P ICD (internal cardiac defibrillator) procedure Family History Father Diabetes Prostate cancer CVD (cardiovascular disease) Mother CVD (cardiovascular disease) Acute CVA (cerebrovascular accident) Social History Housing: House Alcohol intake: current Alcohol intake frequency: holidays/special occasions only Patient Tobacco Use Status: Never used Tobacco e-Cigarette/Vaping Use: Never Used Second Hand Smoke Exposure: No Current occupational status: retired Cognitive needs: No Hearing needs: No Vision needs: Yes Office Procedures Cardiac Device Check Cardiac Device Check Details: Remote ICD check performed 11/02/2022. ICD function is adequate 53957-[id number] Cardiac Interrogation, implant defibrillator w/interim Procedure code (CPT) selection complete Coding Level of Care Code Procedure Only Diagnoses CPT Codes Cardiac Device Check - Cardiac Device 13: 59012-[id number] Cardiac Interrogation, implant defibrillator w/interim ([id number])
== END ==
PROVIDERS: PCP Internal Medicine; Visit Provider Internal Medicine Cardiovascular Disease
DX: I25.5 Ischemic cardiomyopathy (principal); Z95.810 Presence of automatic (implantable) cardiac defibrillator
CPT/HCPCS: 93295

== ENCOUNTER 2022-11-11 07:52 | Day surgery (SDC) | payer MEDICARE, MEDICAID, SELFPAY ==
--- NOTE | 2022-11-10 10:25 | P.CONAN_ITS ---
HPI - Anesthesia Eval Consult details Narrative: 67yo M for Right ESWL Cardiac optimized (CAD s/p NM with stent 2012 with ischemic CMP). ICD needs to be turned off for lithotripsy. Magnet [facility] [place] [facility] Active Problems Active Problems: All Active Problems (Updated 10/30/22 @ 10:39 by Summer Rivera, SIZING MACHINE AND DRIER OPERATOR-C) Preop cardiovascular exam (Acute) Knee pain (Acute) Annual physical exam (Acute) Allergic contact dermatitis (Acute) ICD (implantable cardioverter-defibrillator) battery depletion (Acute) Erectile dysfunction associated with type 2 diabetes mellitus (Acute) COVID-19 virus infection (Acute) Tendon cysts (Acute) Nephrolithiasis (Acute) ICD (implantable cardioverter-defibrillator) in place (Acute) Chronic heart failure with reduced ejection fraction and diastolic dysfunction (Acute) Ischemic cardiomyopathy (Acute) Coronary artery disease (Acute) Hypercholesterolemia (Acute) Hypertension (Acute) GERD (gastroesophageal reflux disease) (Acute) Type 2 diabetes mellitus with hyperglycemia (Acute) Past Medical History Medical History Annual physical exam Anxiety and depression Bilateral renal stones Chronic heart failure with reduced ejection fraction and diastolic dysfunction Coronary artery disease GERD (gastroesophageal reflux disease) Gout Hypercholesterolemia Hypertension ICD (implantable cardioverter-defibrillator) in place Ischemic cardiomyopathy Pneumonia Psoriasis Family History Family History Father Diabetes Prostate cancer CVD (cardiovascular disease) Mother CVD (cardiovascular disease) Acute CVA (cerebrovascular accident) Family history of problems with anesthesia: No Surgical History Surgical History History of cataract surgery History of heart artery stent History of surgery History of vasectomy History of wisdom tooth extraction Hx of colonoscopy S/P ICD (internal cardiac defibrillator) procedure History of Problems with Anesthesia: No Social History Social History Housing: House Alcohol intake: current Alcohol intake frequency: holidays/special occasions only Patient Tobacco Use Status: Never used Tobacco e-Cigarette/Vaping Use: Never Used Second Hand Smoke Exposure: No Current occupational status: retired Cognitive needs: No Hearing needs: No Vision needs: Yes Meds Allergies Allergy/AdvReac Type Severity Reaction Status Date / Time lisinopril [LISINOPRIL] Allergy Mild UNKNOWN, Verified 10/30/22 10:38 cough, cough doxycycline [DOXYCYCLINE] Allergy Unknown UNKNOWN Verified 10/30/22 10:38 glimepiride [GLIMEPIRIDE] Allergy Unknown SEVERE Verified 10/30/22 10:38 BACK PAIN ibuprofen [From Motrin] Allergy Unknown Nausea Verified 10/30/22 10:38 tamsulosin [TAMSULOSIN] Allergy Unknown UNKNOWN, Verified 10/30/22 10:38 Fever rosuvastatin AdvReac Intermediate hypotension Verified 10/30/22 10:38 ' adhesive tape AdvReac Mild Itching Verified 10/30/22 10:38 Home Medications Medication Instructions Recorded Confirmed Last Taken Type aspirin 81 mg tablet,delayed 81 mg PO DAILY 02/28/20 10/30/22 Unknown History release cholecalciferol (vitamin D3) 50 10,000 unit PO DAILY 07/14/21 10/30/22 Unknown History mcg (2,000 unit) capsule zinc sulfate 25 mg zinc (110 mg) 25 mg PO DAILY 07/14/21 10/30/22 Unknown History tablet (Orazinc) ascorbate calcium (vitamin C) 500 500 mg PO DAILY 10/07/21 10/30/22 Unknown History mg tablet coenzyme Q10 10 mg capsule (Co 10 mg PO TID 10/07/21 10/30/22 Unknown History Q-10) docusate sodium 100 mg capsule 100 mg PO DAILY 10/07/21 10/30/22 Unknown History magnesium 30 mg tablet 30 mg PO DAILY 10/07/21 10/30/22 Unknown History multivitamin 1 tab PO DAILY 10/07/21 10/30/22 Unknown History omega 3-uel-vnc-fish oil 60 mg-90 1 cap PO DAILY 10/07/21 10/30/22 Unknown History mg-500 mg capsule (Fish Oil) phytonadione (vitamin K1) 100 mcg 100 mcg PO DAILY 10/12/22 10/30/22 Unknown History tablet Exam Exam Date and Time: November 10, 2022 1025 Pertinent Lab Results Pertinent Lab Results: Laboratory Tests 10/02/22 10/02/22 09:16 09:16 WBC 5.7 Hgb 13.9 L Hct 40.7 L Plt Count 198 Sodium 141 Potassium 4.2 Chloride 107 Carbon Dioxide 27 BUN 12 Creatinine 0.98 Narrative Narrative: EKG 10/2022 normal sinus rhythm, left axis deviation, T-wave inversion lateral leads, unchanged from prior EKG, rate 77, QTC 432 millisecond Cardiac Device Check 07/2022 Details: [employer] subcutaneous ICD in place.? Battery life is excellent.? No arrhythmias noted.? Impedance at 90 Ohms.? Sensing is adequate. ECHO 2020 Conclusions: -? 1. Moderate to severe LV systolic dysfunction with LVEF of 30 35% with regional wall motion abnormality LAD territory with ? ? grade 1 diastolic dysfunction? 2.? Normal cardiac valvular Doppler? 3.? Normal RV systolic pressure? 4.? No pericardial effusion? Assessment and Plan Assessment Anesthesia Assessment: Chart Reviewed Final Anesthetic Review Family History of Problems with Anesthesia: No History of Problems with Anesthesia: No
[2022-11-11] VITALS (7 sets, daily range): BP systolic 133–150; BP diastolic 72–84; PULSE 64–76; RESP 16–18; TEMP 36.1–36.2; O2SAT 95–99; BMI 30.3
--- NOTE | ~2022-11-11 | XR_ITS ---
EXAMINATION: XR ABDOMEN KUB CLINICAL INDICATION: Right kidney stone COMPARISON: Renal ultrasound 08/24/2022, KUB 02/11/2022, CT abdomen pelvis 07/08/2020 TECHNIQUE: AP view of the abdomen. FINDINGS: Again seen is an implanted device in the left lateral chest wall with a lead extending in the presternal space, possibly a defibrillator. The bowel gas pattern is normal with no evidence of ileus or obstruction. Degenerative changes are present in the spine. The renal calculi seen on the recent ultrasound and [address] scan cannot be said to be seen with certainty on the plain film radiographs. XR/XR KUB IMPRESSION: The renal calculi seen on the cross-sectional imaging studies cannot be seen on the plain film radiographs.
[2022-11-11 08:43] LABS: Glucose, Whole Blood 147 mg/dL (60-115)
[2022-11-11] MEDS: Lactated Ringers 1,000 ML 50 ML IVCONT (08:59)
--- NOTE | 2022-11-11 10:40 | MHC.SHP ---
Pre-Procedural Eval Section A Date of Service: 11/11/22 The patient is an INPATIENT: No Changes since office visit: No Cold of Flu in the past 2 weeks, No New Medical Problems, No Changes in Medication and No Patient answered all questions The History & Physical has been completed within 30 days and I have reviewed it.: No Section B Chief Complaint: Calculus of kidney Details of Present Illness: right esw Relevant Family History (Specify if Yes): No Relevant Social History: None Present Medications: see Short Stay Collaborative assessment Medical History: No relevant PMH History of Previous Operations: No relevant previous surgery Allergies: Allergies Allergy/AdvReac Type Severity Reaction Status Date / Time lisinopril [LISINOPRIL] Allergy Mild UNKNOWN, Verified 10/30/22 10:38 cough, cough doxycycline [DOXYCYCLINE] Allergy Unknown UNKNOWN Verified 10/30/22 10:38 glimepiride [GLIMEPIRIDE] Allergy Unknown SEVERE Verified 10/30/22 10:38 BACK PAIN ibuprofen [From Motrin] Allergy Unknown Nausea Verified 10/30/22 10:38 tamsulosin [TAMSULOSIN] Allergy Unknown UNKNOWN, Verified 10/30/22 10:38 Fever rosuvastatin AdvReac Intermediate hypotension Verified 10/30/22 10:38 ' adhesive tape AdvReac Mild Itching Verified 10/30/22 10:38 Review of Systems Sugical H&P ROS: Negative: Constitution, Cardiovascular, Respiratory, Neurological, Psychiatric, Hem-Onc, Allergic/Immunologic, Gastrointestinal, Genitourinary, Musculoskeletal, Integumentary, Endocrine and Eyes/Ears/Nose/Throat Exam Surgical H&P Exam: Normal: HEENT, Normal: Heart, Normal: Lungs, Normal: Extremities, Normal: Abdomen, Normal: Skin and Normal: Neurological Plan Diagnosis/Plan: Unchanged (right esw) I have reviewed the history and physical and performed a pertinent physical examination on my patient. No changes have occurred unless specified. Time Spent With Patient Time: Total time managing care of this patient today ____ minutes.
--- NOTE | 2022-11-11 10:45 | P.CONAN_ITS ---
[facility] Active Problems Active Problems: All Active Problems (Updated 10/30/22 @ 10:39 by MONIK DickeyC) Preop cardiovascular exam (Acute) Knee pain (Acute) Annual physical exam (Acute) Allergic contact dermatitis (Acute) ICD (implantable cardioverter-defibrillator) battery depletion (Acute) Erectile dysfunction associated with type 2 diabetes mellitus (Acute) COVID-19 virus infection (Acute) Tendon cysts (Acute) Nephrolithiasis (Acute) ICD (implantable cardioverter-defibrillator) in place (Acute) Chronic heart failure with reduced ejection fraction and diastolic dysfunction (Acute) Ischemic cardiomyopathy (Acute) Coronary artery disease (Acute) Hypercholesterolemia (Acute) Hypertension (Acute) GERD (gastroesophageal reflux disease) (Acute) Type 2 diabetes mellitus with hyperglycemia (Acute) Past Medical History Medical History Annual physical exam Anxiety and depression Bilateral renal stones Chronic heart failure with reduced ejection fraction and diastolic dysfunction Coronary artery disease GERD (gastroesophageal reflux disease) Gout Hypercholesterolemia Hypertension ICD (implantable cardioverter-defibrillator) in place Ischemic cardiomyopathy Pneumonia Psoriasis Family History Family History Father Diabetes Prostate cancer CVD (cardiovascular disease) Mother CVD (cardiovascular disease) Acute CVA (cerebrovascular accident) Family history of problems with anesthesia: No Surgical History Surgical History History of cataract surgery History of heart artery stent History of surgery History of vasectomy History of wisdom tooth extraction Hx of colonoscopy S/P ICD (internal cardiac defibrillator) procedure History of Problems with Anesthesia: No Social History Social History Housing: House Alcohol intake: current Alcohol intake frequency: holidays/special occasions only Patient Tobacco Use Status: Never used Tobacco e-Cigarette/Vaping Use: Never Used Second Hand Smoke Exposure: No Are you DNR?: No Advance Directives: No Advance Directives Information Provided: Yes Current occupational status: retired Cognitive needs: No Hearing needs: No Vision needs: Yes Meds Allergies Allergy/AdvReac Type Severity Reaction Status Date / Time lisinopril [LISINOPRIL] Allergy Mild UNKNOWN, Verified 10/30/22 10:38 cough, cough doxycycline [DOXYCYCLINE] Allergy Unknown UNKNOWN Verified 10/30/22 10:38 glimepiride [GLIMEPIRIDE] Allergy Unknown SEVERE Verified 10/30/22 10:38 BACK PAIN ibuprofen [From Motrin] Allergy Unknown Nausea Verified 10/30/22 10:38 tamsulosin [TAMSULOSIN] Allergy Unknown UNKNOWN, Verified 10/30/22 10:38 Fever rosuvastatin AdvReac Intermediate hypotension Verified 10/30/22 10:38 ' adhesive tape AdvReac Mild Itching Verified 10/30/22 10:38 Active Medications: Current Medications Lactated Ringer's (Lr) 1,000 mls @ 50 mls/hr IVCONT .Q20H ABBY Last Admin: 11/11/22 08:59 Dose: 50 mls/hr Home Medications Medication Instructions Recorded Confirmed Last Taken Type aspirin 81 mg tablet,delayed 81 mg PO DAILY 02/28/20 10/30/22 11/03/22 History release cholecalciferol (vitamin D3) 50 10,000 unit PO DAILY 07/14/21 10/30/22 Unknown History mcg (2,000 unit) capsule zinc sulfate 25 mg zinc (110 mg) 25 mg PO DAILY 07/14/21 10/30/22 Unknown History tablet (Orazinc) ascorbate calcium (vitamin C) 500 500 mg PO DAILY 10/07/21 10/30/22 Unknown History mg tablet coenzyme Q10 10 mg capsule (Co 10 mg PO TID 10/07/21 10/30/22 Unknown History Q-10) docusate sodium 100 mg capsule 100 mg PO DAILY 10/07/21 10/30/22 Unknown History magnesium 30 mg tablet 30 mg PO DAILY 10/07/21 10/30/22 Unknown History multivitamin 1 tab PO DAILY 10/07/21 10/30/22 Unknown History omega 2-tww-vyg-fish oil 60 mg-90 1 cap PO DAILY 10/07/21 10/30/22 11/03/22 History mg-500 mg capsule (Fish Oil) phytonadione (vitamin K1) 100 mcg 100 mcg PO DAILY 10/12/22 10/30/22 Unknown History tablet Exam Exam Date and Time: November 11, 2022 1045 Height,Weight and Vital Signs: Height 5 ft 9 in Weight 92.986 kg Last Vital Signs Temp 96.9 F 11/11/22 08:44 Pulse 76 11/11/22 08:44 Resp 18 11/11/22 08:44 BP 147/77 H 11/11/22 08:44 Pulse Ox 97 11/11/22 08:44 O2 Del Method Room Air 11/11/22 08:44 Pertinent Lab Results Pertinent Lab Results: Laboratory Tests 11/11/22 08:38 POC Glucose 147 H Airway Mallampati Class: III TM Dist: >3cm Neck ROM: Full Heart: RRR Lungs: CTA Assessment and Plan Final Anesthetic Review Family History of Problems with Anesthesia: No History of Problems with Anesthesia: No NPO: Yes ASA Class: III Final Preanesthetic Review: Meds/Allgs Chart Reviewed, Consent Obtained/Reviewed and Anes Risks/Benef Reviewed Patient Risk: Intermediate Procedure Risk: Low Anesthetic Plan Anesthetic Plan: GA Disposition: Standard PACU
--- NOTE | 2022-11-11 11:57 | W.PM.OPN ---
Operative Note Operative Note Date of Service: 11/11/22 Narrative: PreOperative Diagnosis: Right Renal stones Post Operative Diagnosis: Right Renal stones Procedure: Right ESWL Surgeon: Dr Lv Durham Anesthesia: mac/sedation Indications for procedure: The patient understands ESWL may be a staged procedure and subsequent intervention may be required based on imaging after ESWL. Quoted stone clearance rates for a solitary procedure are in the 70-80% range based primarily on stone location. They also understand there is a risk of bleeding to the kidney, infection, damage to adjacent organs, and stone migration following the procedure. - Imaging 10 mm right Procedure: After informed consent was verified the patient was brought to the operating room and placed in a supine position. Anesthesia was performed per protocol. Safety pause time-out was performed. Imaging was displayed in the room and laterality confirmed. ESWL was performed. The 1st 500 shocks were performed at 60 hertz. These were performed with increasing power. Once maximum power was reached the rate was increased to 180 hertz. A total of 2500 shocks were given. Targeted imaging with ultrasound/fluoroscopy showed stone smudging suggestive of disintegration. The patient tolerated the procedure well and was transferred to the recovery area upon completion. Post procedure imaging will be organized. There was no evidence for flank discoloration.
--- NOTE | 2022-11-11 13:59 | HO.POSTANES ---
Post Anesthesia Evaluation Post Anesthesia Evaluation Date of Service: 11/11/22 Vital Signs: Vital Signs Temp Pulse Resp BP Pulse Ox O2 Del Method 11/11/22 12:50 97.0 F 64 16 140/80 H 96 Room Air 11/11/22 12:36 97.0 F 67 16 133/72 96 Room Air 11/11/22 12:20 65 16 133/78 99 Room Air 11/11/22 12:15 72 16 150/76 H 99 Room Air 11/11/22 12:10 67 16 146/79 H 95 Room Air 11/11/22 12:05 97.2 F 69 16 136/84 95 Room Air 11/11/22 08:44 96.9 F 76 18 147/77 H 97 Room Air Anesthesia: General LMA Mental Status: Awake Pain Control: Satisfactory Nausea/Vomiting: None Hydration: Adequate Anesthesia-Related Issues: No Anes. Related Issues
== END 2022-11-11 13:40 | disposition home or self-care (01) ==
PROVIDERS: PCP Internal Medicine; Visit Provider Urology
PROC: (CPT 50590; principal; 2022-11-11 09:30)
DX: N20.0 Calculus of kidney (principal); I11.0 Hypertensive heart disease with heart failure; I50.32 Chronic diastolic (congestive) heart failure; Z88.8 Allergy status to other drugs, medicaments and biological substances
CPT/HCPCS: 50590; 74018; 82947; J0131; J2250

== ENCOUNTER → 2022-11-11 07:52 | Outpatient (BNV) | payer MEDICARE, MEDICAID, SELFPAY | PROVIDERS: PCP Internal Medicine; Visit Provider Urology | DX: N20.0 Calculus of kidney (principal) | CPT/HCPCS: 50590 ==

== ENCOUNTER 2022-12-07 10:53 | Outpatient (REF) | payer MEDICARE, MEDICAID, SELFPAY ==
--- NOTE | ~2022-12-07 | US_ITS ---
EXAMINATION: US RETROPERITONEAL LIMITED (RENAL ONLY) CLINICAL INFORMATION: Calculus of kidney. COMPARISON: X-ray abdomen KUB 11/11/2022 and 02/11/2022. Renal ultrasound 08/24/2022 and 07/29/2021. CT abdomen and pelvis 07/08/2020.. TECHNIQUE: Real-time imaging of the kidneys. FINDINGS: RIGHT KIDNEY: 11.2 x 4.8 x 5.7 cm (SAG x AP x TRV). The kidney is normal in size, contour, and echogenicity. Renal cortical thickness is normal. No calculi or focal parenchymal lesions. No hydronephrosis. LEFT KIDNEY: 11.4 x 5.1 x 6.5 cm (SAG x AP x TRV). The kidney is normal in size, contour, and echogenicity. Renal cortical thickness is normal. No calculi or focal parenchymal lesions. No hydronephrosis. Mild fullness is seen in the renal pelvis, of doubtful clinical significance. US/US renal BI IMPRESSION: No significant abnormality. No renal calculi.
== END 2022-12-07 10:54 | disposition home or self-care (01) ==
LOC: HO.US 10:53
PROVIDERS: PCP Internal Medicine; Visit Provider Urology
DX: N20.0 Calculus of kidney (principal)
CPT/HCPCS: 76775

== ENCOUNTER → 2022-12-22 11:01 | Outpatient (REF) | payer MEDICARE, MEDICAID, SELFPAY | LOC: HO.SL 11:01 | PROVIDERS: PCP Internal Medicine; Visit Provider Internal Medicine | DX: G47.33 Obstructive sleep apnea (adult) (pediatric) (principal) | CPT/HCPCS: 95806 ==

== ENCOUNTER → 2022-12-22 11:15 | Outpatient (BNV) | payer MEDICARE, MEDICAID, SELFPAY | PROVIDERS: PCP Internal Medicine; Visit Provider Internal Medicine | DX: G47.33 Obstructive sleep apnea (adult) (pediatric) (principal) | CPT/HCPCS: 95806 ==

== ENCOUNTER 2022-12-23 11:23 | Outpatient (AMB) | payer MEDICARE, MEDICAID, SELFPAY ==
--- NOTE | 2022-12-23 11:25 | A.OFFVIS_ITS ---
Intake Intake Visit Reasons: 6 week EWSL u/s(SET) Intake Note: Patient is present for post op ESWL/ultrasound (imaging 12/07/22) Urology Medication: allopurinol/Vitamin B6 Blood Thinner: aspirin Physical Therapy Resident Required: No Accompanied by: Self / Same As Patient Allergies lisinopril [LISINOPRIL] Allergy (Mild, Verified 12/23/22 22:08) UNKNOWN, cough, cough doxycycline [DOXYCYCLINE] Allergy (Unknown, Verified 12/23/22 22:08) UNKNOWN glimepiride [GLIMEPIRIDE] Allergy (Unknown, Verified 12/23/22 22:08) SEVERE BACK PAIN ibuprofen [From Motrin] Allergy (Unknown, Verified 12/23/22 22:08) Nausea tamsulosin [TAMSULOSIN] Allergy (Unknown, Verified 12/23/22 22:08) UNKNOWN, Fever rosuvastatin Adverse Reaction (Intermediate, Verified 12/23/22 22:08) hypotension' adhesive tape Adverse Reaction (Mild, Verified 12/23/22 22:08) Itching Medication List - Last Reconciled 12/23/22 by BLAYNE Salmeron- allopurinol 100 mg PO DAILY 90 days ascorbate calcium (vitamin C) 500 mg PO DAILY aspirin 81 mg PO DAILY carvedilol 25 mg PO BID cholecalciferol (vitamin D3) 10,000 units PO DAILY coenzyme Q10 (Co Q-10) 10 mg PO TID docusate sodium 100 mg PO DAILY ezetimibe 10 mg PO DAILY furosemide 20 mg PO QAM PRN magnesium 30 mg PO DAILY metformin 500 mg PO BIDWMEAL 90 days multivitamin 1 tab PO DAILY omega 2-gjj-kek-fish oil 60-90-500 mg (Fish Oil) 1 cap PO DAILY phytonadione (vitamin K1) 100 mcg PO DAILY pravastatin 40 mg PO BEDTIME pyridoxine (vitamin B6) 100 mg PO DAILY 90 days sitagliptin phosphate (Januvia) 100 mg PO DAILY tadalafil 5 mg PO DAILY 90 days tramadol 50 mg PO Q6H PRN triamcinolone acetonide 0.5% 1 appl topical BID zinc sulfate (Orazinc) 25 mg PO DAILY HPI HPI Comments History of Present Illness Details Td is a pleasant 67 year old male patient of Dr. Pillai. He has a past medical history of anxiety, depression, chronic heart failure with reduced ejection fracture, diastolic dysfunction, ICD placement, coronary artery disease, GERD, gout, hypercholesteremia, hypertension, ischemic cardiomyopathy, and psoriasis. He presents to the office today for follow-up of his ne phrolithiasis. Of note, patient underwent right-sided ESWL with Dr. Durham on 11/11. He presents to the office today for 6 week follow-up with imaging that has been completed for further assessment evaluation. These results were reviewed with the patient today. Right kidney with no calculi, lesions, and or hydronephrosis noted. Left kidney with no lesions or hydronephrosis noted. Mild fullness is seen in the renal pelvis of doubtful clinical significance. When asked patient reports to be doing and feeling well. He denies having had any issue status post procedure. He continues with compliance of vitamin B6 and allopurinol daily. He reports to be drinking plenty of water daily. He otherwise denies urinary urgency, urinary frequency, incontinence, nocturia, hematuria, dysuria, foul smelling urine, changes to urinary stream, flank pain, fever, and or chills. He is happy with his current voiding parameters. PREVIOUS VISIT Nephrolithiasis Seen today for discussion of follow-up nephrolithiasis management Initial stone presentation - [facility] Room June 2020 Imaging - 07/14 CT scan - 3 mm distal right ureteric stone with stranding, 4 mm right renal stone, 3 mm left renal stone - 08/14 renal ultrasound - resolved stranding, bilateral twinkling - 02/13 renal ultrasound left small stone - 08/15 renal ultrasound 5 mm stones bilateral - 02/14 KUB no stones seen -09/15 renal ultrasound-1 cm upper pole renal stone Associated conditions - diabetes with metabolic syndrome Therapeutic plan - hydration with lemon therapy - vitamin B6, allopurinol PSA 10/16- 0.3 Erectile dysfunction diabetic Trouble obtaining and maintaining erection Trial daily tadalafil with on demand 20 mg Laboratories - T 07/15 300, 08/16 236 Concurrent conditions - diabetic 10/16-- HbA1c 5.7 - dyslipidemia on statins 10/16-- Ch 52 - coronary artery disease with implant on carvedilol Therapeutic plan - above [facility] Medical History Annual physical exam Anxiety and depression Bilateral renal stones Chronic heart failure with reduced ejection fraction and diastolic dysfunction Coronary artery disease GERD (gastroesophageal reflux disease) Gout Hypercholesterolemia Hypertension ICD (implantable cardioverter-defibrillator) in place Ischemic cardiomyopathy Pneumonia Psoriasis Surgical History History of cataract surgery History of heart artery stent History of surgery History of vasectomy History of wisdom tooth extraction Hx of colonoscopy S/P ICD (internal cardiac defibrillator) procedure Family History Father Diabetes Prostate cancer CVD (cardiovascular disease) Mother CVD (cardiovascular disease) Acute CVA (cerebrovascular accident) Social History Housing: House Alcohol intake: current Alcohol intake frequency: holidays/special occasions only Patient Tobacco Use Status: Never used Tobacco e-Cigarette/Vaping Use: Never Used Second Hand Smoke Exposure: No Current occupational status: retired Cognitive needs: No Hearing needs: No Vision needs: Yes Review of Systems Const Reports as per HPI Eyes Reports no additional complaints ENT Reports no additional complaints Card Reports as per HPI Resp Reports as per HPI GI Reports as per HPI Reports as per HPI Musc Reports no additional complaints Neuro Reports no additional complaints Psych Reports as per HPI Endo Reports no additional complaints Vivek/Lymph Reports no additional complaints Aller/Immun Reports no additional complaints Physical Exam Const General: cooperative, healthy appearing, comfortable, no acute distress, well developed, alert and awake Orientation/consciousness: patient oriented x3 Limitations: no limitations HEENT Head: Yes normal to inspection, Yes normocephalic and Yes atraumatic Ears: hearing grossly normal bilaterally Eyes General: appearance normal, both eyes and all related structures Neck Neck: Yes normal visual inspection and Yes trachea midline Chest Chest palpation & inspection: normal inspection of the chest Resp Effort & Inspection: normal respiratory effort and able to speak in complete sentences Cardio Rate: regular rate GI Inspection: Yes normal to inspection General: Yes no CVA tenderness Back/Spine/Pelvis Back: no CVA tenderness Skin General skin exam: no rashes or lesions noted Neuro General: patient oriented x3 Extrem General: Yes normal to inspection Psych Appearance: grossly normal and well kempt Mental Status: mental status grossly normal Speech and movement: Normal speech and movement present and Clear speech present Affect: normal affect Attitude: cooperative Thought process: Normal thought process present Thought content: Normal thought content present Insight: Good insight present (Psych) Judgement: Good judgement present (Psych) Results AMB Urinalysis, Automated UA Leukoctes 0 Beronica/uL Last Edit by [employer] on 12/23/22 11:44 UA Nitrite Last Edit by [employer] on 12/23/22 11:44 UA Urobilinogen 0.2 mg/dL Last Edit by [employer] on 12/23/22 11:44 UA Protein 0 mg/dL Last Edit by [employer] on 12/23/22 11:44 UA pH 7.0 Last Edit by [employer] on 12/23/22 11:44 UA Blood 0 Ghassan/uL Last Edit by [employer] on 12/23/22 11:44 UA Specific [place] 1.010 Last Edit by [employer] on 12/23/22 11:44 UA Ketone Negative Last Edit by [employer] on 12/23/22 11:44 UA Bilirubin 0 mg/dL Last Edit by [employer] on 12/23/22 11:44 UA Glucose 0 mg/dL Last Edit by [employer] on 12/23/22 11:44 Results Reviewed Results Reviewed: Laboratory Last Values Urine pH (Auto) 7.0 12/23/22 11:27 Specific [place] (Auto) 1.010 12/23/22 11:27 Urine Protein (Auto) 0 mg/dL 12/23/22 11:27 Glucose (UA)(Auto) 0 mg/dL 12/23/22 11:27 Urine Ketones (Auto) Negative 12/23/22 11:27 Urine Blood (Auto) 0 Ghassan/uL 12/23/22 11:27 Urine Bilirubin (Auto) 0 mg/dL 12/23/22 11:27 Urine Urobilinogen (Auto) 0.2 mg/dL 12/23/22 11:27 Leukocyte Esterase (Auto) 0 Beronica/uL 12/23/22 11:27 Date of Service: 12/07/22 EXAMINATION: US RETROPERITONEAL LIMITED (RENAL ONLY) FINDINGS: RIGHT KIDNEY: 11.2 x 4.8 x 5.7 cm (SAG x AP x TRV). The kidney is normal in size, contour, and echogenicity. Renal cortical thickness is normal. No calculi or focal parenchymal lesions. No hydronephrosis. LEFT KIDNEY: 11.4 x 5.1 x 6.5 cm (SAG x AP x TRV). The kidney is normal in size, contour, and echogenicity. Renal cortical thickness is normal. No calculi or focal parenchymal lesions. No hydronephrosis. Mild fullness is seen in the renal pelvis, of doubtful clinical significance. IMPRESSION: No significant abnormality. No renal calculi. Assessment & Plan Assessment & Plan (1) Erectile dysfunction associated with type 2 diabetes mellitus: Code(s): E11.69 - Type 2 diabetes mellitus with other specified complication; N52.1 - Erectile dysfunction due to diseases classified elsewhere (2) Nephrolithiasis: Code(s): N20.0 - Calculus of kidney Plan In office urinalysis results reviewed with the patient today; as noted above. Recent renal imaging results reviewed with the patient today; as noted above. Patient denies having any issues or concerns at this time. Discussed at length importance of managing diabetes for improvement in erectile dysfunction as well as overall health and well-being. Continue low-dose Cialis as discussed and prescribed. Discussed, educated, instructed on the importance of continue to drink plenty of water daily. Continue vitamin B6 and Allopurinol as discussed and prescribed. Patient reports to be happy with current voiding parameters. Renal ultrasound in 6 months. Follow-up in 6 months with imaging to be completed prior; or sooner with any issues, concerns, and or questions. Orders: Orders US renal BI 6 Months N20.0 - Calculus of kidney AMB Urinalysis Automated Today Z13.9 - Encounter for screening, unspecified Patient Instructions: The patient had an opportunity to ask questions regarding the treatment plan. All questions were answered. Physical exam, labs, and imaging were discussed and reviewed in detail. As well as risks, benefits, and discussion of treatment choices. No major barriers to understanding were identified. The patient ex pressed understanding and agreement with the above treatment plan. The patient was made aware they should contact our office by phone for worsening of their current condition, the appearance of new symptoms, or with any questions or concerns. Compliance is encouraged with any medications and follow up testing that is ordered. It is a privilege to be allowed the opportunity to participate in? your urological care.? Again, if you have any questions or concerns If you have any questions or concerns please do not hesitate to contact me. The office is [phone]. This note is constructed using voice recognition software. While every effort has been made to ensure accuracy street car mechanic errors may have been included. Yours sincerely, ROSSANA Salmeron Coding Level of Care Code Est Pt Level 3 (27789) Diagnoses Erectile dysfunction associated with type 2 diabetes mellitus E11.69; N52.1 Nephrolithiasis N20.0
== END 2022-12-23 12:06 | disposition home or self-care (01) ==
PROVIDERS: PCP Internal Medicine; Visit Provider Nurse Practitioner Family
DX: E11.69 Type 2 diabetes mellitus with other specified complication (principal); N52.1 Erectile dysfunction due to diseases classified elsewhere; N20.0 Calculus of kidney
CPT/HCPCS: 99213

== ENCOUNTER → 2022-12-23 11:23 | Outpatient (BNVA) | payer MEDICARE, MEDICAID, SELFPAY | PROVIDERS: PCP Internal Medicine; Visit Provider Nurse Practitioner Family | DX: N20.0 Calculus of kidney (principal); E11.69 Type 2 diabetes mellitus with other specified complication; N52.1 Erectile dysfunction due to diseases classified elsewhere | CPT/HCPCS: 81003; 99212 ==

== ENCOUNTER 2023-01-20 08:59 | Outpatient (REF) | payer MEDICARE, MEDICAID, SELFPAY ==
[2023-01-20 10:57] LABS: Creatinine Urine 96.35 mg/dL
[2023-01-20 11:00] LABS: Cholesterol 94 mg/dL (<200); HDL Cholesterol 32 mg/dL (>40); LDL Cholesterol Calculated 33 mg/dL (<100); Triglycerides 147 mg/dL (<150)
== END 2023-01-20 09:00 | disposition home or self-care (01) ==
LOC: HO.10HDL 08:59
PROVIDERS: Internal Medicine Cardiovascular Disease; Visit Provider Internal Medicine
DX: E11.65 Type 2 diabetes mellitus with hyperglycemia (principal); E78.00 Pure hypercholesterolemia, unspecified
CPT/HCPCS: 36415; 80061; 82570

== ENCOUNTER 2023-01-29 09:21 | Outpatient (AMB) | payer MEDICARE, SELFPAY ==
[2023-01-29 09:27] VITALS: BP 140/78; PULSE 73; O2SAT 98; BMI 29.5
--- NOTE | 2023-01-29 09:27 | MHC.PC.OV ---
Vital Signs 01/29/23 09:27 Height 5 ft 9 in Weight 200 lb BMI 29.5 BP 140/78 H Blood Pressure Location Lt brachial Position Sitting Pulse 73 Pulse Source Pulse Oximeter Pulse Oximetry (%) 98 Oxygen Delivery Method Room Air Intake Visit Reasons: 3 month f/u Allergies lisinopril [LISINOPRIL] Allergy (Mild, Verified 01/29/23 09:27) UNKNOWN, cough, cough doxycycline [DOXYCYCLINE] Allergy (Unknown, Verified 01/29/23 09:27) UNKNOWN glimepiride [GLIMEPIRIDE] Allergy (Unknown, Verified 01/29/23 09:27) SEVERE BACK PAIN ibuprofen [From Motrin] Allergy (Unknown, Verified 01/29/23 09:27) Nausea tamsulosin [TAMSULOSIN] Allergy (Unknown, Verified 01/29/23 09:27) UNKNOWN, Fever rosuvastatin Adverse Reaction (Intermediate, Verified 01/29/23 09:27) hypotension' adhesive tape Adverse Reaction (Mild, Verified 01/29/23 09:27) Itching Medication List - Last Reconciled 01/29/23 by Shilpi Pillai MD allopurinol 100 mg PO DAILY 90 days ascorbate calcium (vitamin C) 500 mg PO DAILY aspirin 81 mg PO DAILY carvedilol 25 mg PO BID cholecalciferol (vitamin D3) 10,000 units PO DAILY coenzyme Q10 (Co Q-10) 10 mg PO TID docusate sodium 100 mg PO DAILY ezetimibe 10 mg PO DAILY furosemide 20 mg PO QAM PRN magnesium 30 mg PO DAILY metformin 500 mg PO BIDWMEAL 90 days multivitamin 1 tab PO DAILY omega 1-ymi-idb-fish oil 60-90-500 mg (Fish Oil) 1 cap PO DAILY phytonadione (vitamin K1) 100 mcg PO DAILY pravastatin 40 mg PO BEDTIME pyridoxine (vitamin B6) 100 mg PO DAILY 90 days sitagliptin phosphate (Januvia) 100 mg PO DAILY tadalafil 5 mg PO DAILY 90 days tramadol 50 mg PO Q6H PRN triamcinolone acetonide 0.5% 1 appl topical BID zinc sulfate (Orazinc) 25 mg PO DAILY Tobacco use date assessed: 06/29/22 Fall risk assessment: No Falls in past year Last assessed Fall Risk: 01/29/23 Dental Screening Dental Screen Date: 01/29/23 Did you have a dental visit in the last 12 months?: Yes Did you have a dental problem in the last 6 months where you did not have access to dental care?: No Was dental information given to patient?: Patient has dentist HPI 3 month f/u HPI Details 67-year-old overweight male with diabetes mellitus GERD hypertension hypercholesterolemia coronary artery disease with [place] cardiomyopathy congestive heart failure history of nephrolithiasis coming in for follow-up. Last seen for physical September 2022. December 23 seen urology 6 weeks lithotripsy done November 11 right-sided. Right kidney could no calculi patient continues to be on B6 and allopurinol. 12/23/2022 had a sleep study done showing obstructive sleep apnea mild AHI of 13 conservative treatment. Patient also has followed up with Cardiology in October ICD to be turned off during lithotripsy [facility] Medical History Annual physical exam Anxiety and depression Bilateral renal stones Chronic heart failure with reduced ejection fraction and diastolic dysfunction Coronary artery disease GERD (gastroesophageal reflux disease) Gout Hypercholesterolemia Hypertension ICD (implantable cardioverter-defibrillator) in place Ischemic cardiomyopathy Pneumonia Psoriasis Surgical History History of cataract surgery History of heart artery stent History of surgery History of vasectomy History of wisdom tooth extraction Hx of colonoscopy S/P ICD (internal cardiac defibrillator) procedure Family History Father Diabetes Prostate cancer CVD (cardiovascular disease) Mother CVD (cardiovascular disease) Acute CVA (cerebrovascular accident) Social History Housing: House Alcohol intake: current Alcohol intake frequency: holidays/special occasions only Patient Tobacco Use Status: Never used Tobacco e-Cigarette/Vaping Use: Never Used Second Hand Smoke Exposure: No Current occupational status: retired Cognitive needs: No Hearing needs: No Vision needs: Yes Questionnaire PHQ-9 Over the last 2 weeks, how often have you been bothered by any of the following problems? 1. Little interest or pleasure in doing things: not at all 2. Feeling down, depressed, or hopeless: not at all 3. Trouble falling or staying asleep, or sleeping too much: not at all 4. Feeling tired or having little energy: not at all 5. Poor appetite or overeating: not at all 6. Feeling bad about yourself - or that you are a failure or have let yourself or your family down: not at all 7. Trouble concentrating on things, such as reading the newspaper or watching television: not at all 8. Moving or speaking so slowly that other people could have noticed. Or the opposite - being so fidgety or restless that you have been moving around a lot more than usual: not at all 9. Thoughts that you would be better off or of hurting yourself in some way: not at all Total score: 0 Depression Screening Interpretation: Negative Depression Screening Done: Yes Source: Developed by Drs. Gopal Lazaro, Doar Rosario, Jose Ferrera and colleagues, with an educational laura from [email or web address]. Thrive Questionnaire Date Thrive assessed: 05/11/22 AUDIT C Alcohol Use Questionnaire (AUDIT-C) 1. How often do you have a drink containing alcohol?: Never 2. How many drinks containing alcohol do you have on a typical day when you are drinking?: 1 or 2 (0) 3. How often do you have six or more drinks on one occasion?: Never Total Score: 0 AUSTIN-7 AMB Questionnaire AUSTIN-7 Date AUSTIN - 7 assessed: 05/11/22 Source: Developed by Drs. Gopal Lazaro, Dora Rosario, Jose Ferrera and colleagues, with an educational laura from [email or web address]. Physical exam (Primary Care) Vital Signs: Last Vital Signs Pulse 73 01/29/23 09:27 BP 140/78 H 01/29/23 09:27 Pulse Ox 98 01/29/23 09:27 Oxygen Delivery Method Room Air 01/29/23 09:27 BMI result Body Mass Index 29.5 Tobacco/Smoking Status: Tobacco use Status Tobacco use date assessed 06/29/22 01/29/23 09:28 Patient Tobacco Use Status Never used Tobacco 01/29/23 09:28 e-Cigarette/Vaping Use Never Used 01/29/23 09:28 PHQ-9: PHQ-9 Score PHQ-9: Total score 0 01/29/23 09:44 Depression Screening Interpretation: Negative Thrive Assessment: Date of Thrive Assessment Date Thrive assessed 05/11/22 01/29/23 09:28 Const General: alert; No acute distress Eyes Conjunctivae: conjunctivae normal Resp Auscultation: clear to auscultation bilaterally Cardio Rate: regular rate Rhythm: regular rhythm GI Inspection: Yes normal to inspection Extrem General: Yes normal to inspection and No edema Office Procedures Flu Questionnaire Does the patient have a severe egg allergy?: No Does the patient have severe life threatening allergies?: No Does the patient have a fever or illness today?: No Has the patient ever had Guillain-[place] Syndrome?: No Has the patient ever had any past reaction to a flu shot?: No Results AMB Hemoglobin A1c AMB Hemoglobin A1c 5.8 % Last Edit by Stephie Skinner CMA on 01/29/23 09:51 Immunizations flu vacc [id number] 6mos up(PF) 60 mcg(15 mcgx4)/0.5 mL IM syringe Performing Provider: Shilpi Pillai MD Performing Location: [facility] Administered by: Stephie Skinner CMA on 01/29/23 09:37 Dose Route Admin Location Dispensed Lot Number Expiration Date NDC National Facilities Manager 0.5 mL IM Left Deltoid 0.5 mL [id number] 10/24/23 49711-341-58 [employer] VIS Given Date VIS Provided VIS Publication Date 01/29/23 Single Vaccine 20 Eligibility Eligibility Date Funding Source Not [facility] Eligible 01/29/23 Private Assessment and Plan Assessment & Plan (1) Type 2 diabetes mellitus with hyperglycemia: Comment: [facility] Code(s): E11.65 - Type 2 diabetes mellitus with hyperglycemia Qualifiers: Diabetes mellitus snf insulin use: without snf use Qualified Code(s): E11.65 - Type 2 diabetes mellitus with hyperglycemia Plan: Decrease the amount of carbohydrate intake, pasta, bread, rice and potatoes are all sugar and that is aside from all the sweet stuff, remember that fruits are good but they are Sweet also. Hemoglobin A1c goal of less than 7.0 patient is on metformin 500 mg twice a day and Januvia 100 mg once a day (2) GERD (gastroesophageal reflux disease): Code(s): K21.9 - Gastro-esophageal reflux disease without esophagitis Plan: Avoid the foods that causes that usually spicy foods, tomato products, juices, coffee, soda and foods that your sensitive to. After eating do not lie down, allow 3-4 hours before in lie down. And keep the head of bed above 30 degrees to avoid the acid from going up. (3) Hypertension: Code(s): I10 - Essential (primary) hypertension Qualifiers: Hypertension type: essential hypertension Qualified Code(s): I10 - Essential (primary) hypertension Plan: Continue with blood pressure medication. Decrease salt intake and exercise patient is taking furosemide carvedilol 25 mg twice a day (4) Hypercholesterolemia: Code(s): E78.00 - Pure hypercholesterolemia, unspecified Plan: Avoid fried foods, chicken skin, eggs, butter margarine, pastries and meat. Be it pork or beef they have a lot of cholesterol patient is on pravastatin 40 mg once a day (5) Coronary artery disease: Comment: STEMI May 2011 Promus stent in LAD and vision [place] old chromium stent in 1st diagonal apical akinesis apical thrombus Code(s): I25.10 - Atherosclerotic heart disease of squax[place] coronary artery without angina pectoris Qualifiers: Coronary Disease-Associated Artery/Lesion type: squ[place]in artery [place] vs. transplanted heart: squaxin heart Associated angina: without angina Qualified Code(s): I25.10 - Atherosclerotic heart disease of squax[place] coronary artery without angina pectoris Plan: Control the cholesterol, weight, blood pressure, diabetes continue with aspirin (6) Ischemic cardiomyopathy: Comment: LVEF of 15-20% with wall motion abnormality in LAD territory with mild mitral and aortic valve regurgitation, October 2018.LVEF 25-30% hypokinesis of apex and apical anteroseptal lateral and inferior shirley June 2016 25-30% March 2017 15-20% echo, ICD implantation April 2015, echo done Mayeverely reduced LV systolic function with wall motion abnormality in LAD territory consistent with ischemic cardiomyopathy with grade 2 diastolic dysfunction echocardiogram March 2021 ejection fraction 30 35% Code(s): I25.5 - Ischemic cardiomyopathy Plan: On ICD and monitored by Cardiology (7) Chronic heart failure with reduced ejection fraction and diastolic dysfunction: Code(s): I50.42 - Chronic combined systolic (congestive) and diastolic (congestive) heart failure Plan: Weigh daily continue with diuretic blood work monitored (8) ICD (implantable cardioverter-defibrillator) in place: Comment: Integrated biometrics- Foll'd by Dr. Page Code(s): Z95.810 - Presence of automatic (implantable) cardiac defibrillator Plan: Follows up with Cardiology (9) Nephrolithiasis: Comment: 10/[address] Fischer Code(s): N20.0 - Calculus of kidney Plan: Status post ESWL right October 2022 Orders: Orders Influenza [id number] Immunization Today Z23 - Encounter for immunization AMB Hemoglobin A1c Today Z13.9 - Encounter for screening, unspecified Coding Level of Care Code Est Pt Level 4 (33139) Diagnoses Type 2 diabetes mellitus with hyperglycemia, without long-term current use of insulin E11.65 Diabetes mellitus snf insulin use: without ferry terminal supervisor use GERD (gastroesophageal reflux disease) K21.9 Essential hypertension I10 Hypertension type: essential hypertension Hypercholesterolemia E78.00 Coronary artery disease involving squ[place] coronary artery of squax[place] heart without angina pectoris I25.10 Coronary Disease-Associated Artery/Lesion type: [place] artery [place] vs. transplanted heart: squ[place] heart Associated angina: without angina Ischemic cardiomyopathy I25.5 Chronic heart failure with reduced ejection fraction and diastolic dysfunction I50.42 ICD (implantable cardioverter-defibrillator) in place Z95.810 Nephrolithiasis N20.0
== END 2023-01-29 09:56 | disposition home or self-care (01) ==
PROVIDERS: PCP Internal Medicine; Visit Provider Internal Medicine
DX: Z23 Encounter for immunization (principal); E11.65 Type 2 diabetes mellitus with hyperglycemia; K21.9 Gastro-esophageal reflux disease without esophagitis; I11.0 Hypertensive heart disease with heart failure; I50.42 Chronic combined systolic (congestive) and diastolic (congestive) heart failure
CPT/HCPCS: 83036; 90471; 90686; 99214

== ENCOUNTER → 2023-02-01 23:59 | Outpatient (BNV) | payer MEDICARE, MEDICAID, SELFPAY ==
--- NOTE | 2023-02-15 08:53 | A.OFFVIS_ITS ---
Intake Intake Visit Reasons: Remote ICD Check- [place] Allergies lisinopril [LISINOPRIL] Allergy (Mild, Verified 01/29/23 09:27) UNKNOWN, cough, cough doxycycline [DOXYCYCLINE] Allergy (Unknown, Verified 01/29/23 09:) UNKNOWN glimepiride [GLIMEPIRIDE] Allergy (Unknown, Verified 01/29/23 09:) SEVERE BACK PAIN ibuprofen [From Motrin] Allergy (Unknown, Verified 01/29/23 09:) Nausea tamsulosin [TAMSULOSIN] Allergy (Unknown, Verified 01/29/23 09:) UNKNOWN, Fever rosuvastatin Adverse Reaction (Intermediate, Verified 01/29/23 09:) hypotension' adhesive tape Adverse Reaction (Mild, Verified 01/29/23 09:) Itching [facility] Medical History Annual physical exam Anxiety and depression Bilateral renal stones Chronic heart failure with reduced ejection fraction and diastolic dysfunction Coronary artery disease GERD (gastroesophageal reflux disease) Gout Hypercholesterolemia Hypertension ICD (implantable cardioverter-defibrillator) in place Ischemic cardiomyopathy Pneumonia Psoriasis Surgical History History of cataract surgery History of heart artery stent History of surgery History of vasectomy History of wisdom tooth extraction Hx of colonoscopy S/P ICD (internal cardiac defibrillator) procedure Family History Father Diabetes Prostate cancer CVD (cardiovascular disease) Mother CVD (cardiovascular disease) Acute CVA (cerebrovascular accident) Social History Housing: House Alcohol intake: current Alcohol intake frequency: holidays/special occasions only Patient Tobacco Use Status: Never used Tobacco e-Cigarette/Vaping Use: Never Used Second Hand Smoke Exposure: No Current occupational status: retired Cognitive needs: No Hearing needs: No Vision needs: Yes Office Procedures Cardiac Device Check Cardiac Device Check Details: Remote subcutaneous ICD report generated 02/01/2023. Battery life is at 94%. No arrhythmias detected [id number] Cardiac Interrogation, implant defibrillator w/interim Procedure code (CPT) selection complete Coding Level of Care Code Procedure Only CPT Codes Cardiac Device Check - Cardiac Device 13: [id number] Cardiac Interrogation, implant defibrillator w/interim ([id number])
== END ==
PROVIDERS: PCP Internal Medicine; Visit Provider Internal Medicine Cardiovascular Disease
DX: I25.5 Ischemic cardiomyopathy (principal); Z95.810 Presence of automatic (implantable) cardiac defibrillator
CPT/HCPCS: 93295

== ENCOUNTER 2023-03-15 13:24 | Outpatient (AMB) | payer MEDICARE, MEDICAID, SELFPAY ==
[2023-03-15 13:52] VITALS: BP 134/72; PULSE 85; BMI 29.5
--- NOTE | 2023-03-15 13:52 | MHC.OFFVIS ---
Intake Vital Signs 03/15/23 13:52 Height 5 ft 9 in Weight 200 lb BMI 29.5 BP 134/72 Blood Pressure Location Lt brachial Position Sitting Pulse 85 Pulse Source Pulse Oximeter Intake Visit Reasons: 6 mth fu w/ AVIS (RS) Allergies lisinopril [LISINOPRIL] Allergy (Mild, Verified 03/15/23 13:53) UNKNOWN, cough, cough doxycycline [DOXYCYCLINE] Allergy (Unknown, Verified 03/15/23 13:53) UNKNOWN glimepiride [GLIMEPIRIDE] Allergy (Unknown, Verified 03/15/23 13:53) SEVERE BACK PAIN ibuprofen [From Motrin] Allergy (Unknown, Verified 03/15/23 13:53) Nausea tamsulosin [TAMSULOSIN] Allergy (Unknown, Verified 03/15/23 13:53) UNKNOWN, Fever rosuvastatin Adverse Reaction (Intermediate, Verified 03/15/23 13:53) hypotension' adhesive tape Adverse Reaction (Mild, Verified 03/15/23 13:53) Itching Medication List - Last Reconciled 03/15/23 by LOUIS Dickey allopurinol 100 mg PO DAILY 90 days ascorbate calcium (vitamin C) 500 mg PO DAILY aspirin 81 mg PO DAILY carvedilol 25 mg PO BID cholecalciferol (vitamin D3) 10,000 units PO DAILY coenzyme Q10 (Co Q-10) 10 mg PO TID docusate sodium 100 mg PO DAILY ezetimibe 10 mg PO DAILY furosemide 20 mg PO QAM PRN magnesium 30 mg PO DAILY metformin 500 mg PO BIDWMEAL 90 days multivitamin 1 tab PO DAILY omega 7-xyz-awb-fish oil 60-90-500 mg (Fish Oil) 1 cap PO DAILY phytonadione (vitamin K1) 100 mcg PO DAILY pravastatin 40 mg PO BEDTIME pyridoxine (vitamin B6) 100 mg PO DAILY 90 days sacubitril-valsartan 49-51 mg (Entresto) 1 tab PO BID sitagliptin phosphate (Januvia) 100 mg PO DAILY tadalafil 5 mg PO DAILY 90 days triamcinolone acetonide 0.5% 1 appl topical BID zinc sulfate (Orazinc) 25 mg PO DAILY HPI 6 mth fu w/ AVIS (RS) HPI Details Td is a 67-year-old male with past medical history of hypertension, hyperlipidemia, CAD, prior CO with LAD stent, ischemic cardiomyopathy, systolic heart failure, subcutaneous ICD who presents for follow-up. Today he reports he has been feeling very well with no concerning symptoms. He denies chest discomfort, shortness of breath, palpitations, presyncope, syncope, PND, orthopnea or edema. He has good activity tolerance. He is not doing any routine exercise. 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 [facility] Medical History Annual physical exam Ischemic cardiomyopathy Chronic heart failure with reduced ejection fraction and diastolic dysfunction ICD (implantable cardioverter-defibrillator) in place Pneumonia Anxiety and depression Bilateral renal stones Hypercholesterolemia Psoriasis Gout Coronary artery disease Hypertension GERD (gastroesophageal reflux disease) Surgical History Hx of colonoscopy History of heart artery stent S/P ICD (internal cardiac defibrillator) procedure History of cataract surgery History of surgery History of vasectomy History of wisdom tooth extraction Family History Father Diabetes Prostate cancer CVD (cardiovascular disease) Mother CVD (cardiovascular disease) Acute CVA (cerebrovascular accident) Social History Housing: House Alcohol intake: current Alcohol intake frequency: holidays/special occasions only Patient Tobacco Use Status: Never used Tobacco e-Cigarette/Vaping Use: Never Used Second Hand Smoke Exposure: No Current occupational status: retired Cognitive needs: No Hearing needs: No Vision needs: Yes Review of Systems Const All systems reviewed & are unremarkable except as noted in HPI and below ENT Denies dizziness Card Denies chest pain, Denies chest pain at rest, Denies chest pain with activity, Denies rapid heart rate, Denies pedal edema, Denies edema, Denies leg edema, Denies lightheadedness, Denies palpitations, Denies dyspnea, Denies dyspnea on exertion and Denies orthopnea Resp Denies cough, Denies dyspnea and Denies dyspnea on exertion GI Denies hematochezia and Denies change in stool character Musc Denies abnormal gait, Denies limited range of motion, Denies muscle cramps, Denies muscle weakness, Denies numbness, Denies radiating pain into limb, Denies stiffness and Denies tingling Neuro Denies abnormal gait, Denies dizziness, Denies numbness and Denies tingling Endo Denies palpitations Physical Exam Vital Signs: Last Vital Signs Pulse 85 03/15/23 13:52 BP 134/72 03/15/23 13:52 BMI result Body Mass Index 29.5 Const General: cooperative, healthy appearing, comfortable and no acute distress Orientation/consciousness: patient oriented x3 Neck Neck: Yes normal visual inspection and Yes no JVD Resp Effort & Inspection: normal respiratory effort Auscultation: clear to auscultation bilaterally, no crackles, no rales, no rhonchi and no wheezes Cardio Jugular venous distension: no JVD Rate: regular rate Rhythm: regular rhythm Heart sounds: S1 normal heart sound present, S2 normal heart sound present, no gallops, no murmurs and no rubs Neuro General: patient oriented x3 Extrem Other: Sock marking noted on right lower extremity Psych Appearance: grossly normal Mental Status: mental status grossly normal Speech and movement: Normal speech and movement present Office Procedures Cardiac Device Check Cardiac Device Check Details: Doximity subcutaneous ICD in place, interrogation today shows battery life 92%, no shocks, therapies or alerts. [id number] Device Interrogation, implantable defibrillator Procedure code (CPT) selection complete Assessment & Plan Assessment & Plan (1) Coronary artery disease: Comment: STEMI May 2011 Promus stent in LAD and vision [place] old chromium stent in 1st diagonal apical akinesis apical thrombus Code(s): I25.10 - Atherosclerotic heart disease of [place] coronary artery without angina pectoris Qualifiers: Associated angina: without angina Coronary Disease-Associated Artery/Lesion type: [place] artery [place] vs. transplanted heart: [place] heart Qualified Code(s): I25.10 - Atherosclerotic heart disease of [place] coronary artery without angina pectoris Plan: History of CAD with anterior STEMI 05/2011 with LAD stent. Residual ischemic cardiomyopathy. EKG last visit showing sinus rhythm with T-wave inversions laterally, unchanged from prior EKG, rate 77. He has no anginal sounding symptoms. No medication changes. Continue cardiac risk factor modification. He will continue on daily aspirin, carvedilol, pravastatin with ideal LDL goal less than 70, Zetia, furosemide as needed. Labs done on 01/20/2023 shows LDL 33. (2) Ischemic cardiomyopathy: Comment: LVEF of 15-20% with wall motion abnormality in LAD territory with mild mitral and aortic valve regurgitation, October 2018.LVEF 25-30% hypokinesis of apex and apical anteroseptal lateral and inferior shirley June 2016 25-30% March 2017 15-20% echo, ICD implantation April 2015, echo done Mayeverely reduced LV systolic function with wall motion abnormality in LAD territory consistent with ischemic cardiomyopathy with grade 2 diastolic dysfunction echocardiogram March 2021 ejection fraction 30 35% Code(s): I25.5 - Ischemic cardiomyopathy Plan: Last echo done 04/08/2021 showing EF 30-35%, wall motion abnormality in the LAD territory, grade 1 diastolic dysfunction. On exam today as no clinical signs of decompensated heart failure. Continue carvedilol and Entresto for neurohormonal modulation. Continue Lasix as needed . Labs 10/02/2022 showed creatinine 0.98 (3) ICD (implantable cardioverter-defibrillator) in place: Comment: [employer]- Foll'd by Dr. Page Code(s): Z95.810 - Presence of automatic (implantable) cardiac defibrillator Plan: [employer] subcutaneous ICD, Office interrogation today shows device is functioning normally. He has remote monitoring in use. Next office interrogation due in 6 months (4) Chronic heart failure with reduced ejection fraction and diastolic dysfunction: Code(s): I50.42 - Chronic combined systolic (congestive) and diastolic (congestive) heart failure Plan: Stable at present time (5) Hypertension: Code(s): I10 - Essential (primary) hypertension Qualifiers: Hypertension type: essential hypertension Qualified Code(s): I10 - Essential (primary) hypertension Plan: Well controlled at present. No med changes made Coding Level of Care Code Est Pt Level 3 (86151) Diagnoses Coronary artery disease involving [place] coronary artery of [place] heart without angina pectoris I25.10 Associated angina: without angina Coronary Disease-Associated Artery/Lesion type: [place] artery [place] vs. transplanted heart: [place] heart Ischemic cardiomyopathy I25.5 ICD (implantable cardioverter-defibrillator) in place Z95.810 Chronic heart failure with reduced ejection fraction and diastolic dysfunction I50.42 Essential hypertension I10 Hypertension type: essential hypertension CPT Codes Cardiac Device Check - Cardiac Device 9: [id number] Device Interrogation, implantable defibrillator ([id number]) Time Spent (min) 22
== END 2023-03-15 14:17 | disposition home or self-care (01) ==
PROVIDERS: PCP Internal Medicine; Visit Provider Nurse Practitioner Family
DX: I25.10 Atherosclerotic heart disease of native coronary artery without angina pectoris (principal); I25.5 Ischemic cardiomyopathy; Z95.810 Presence of automatic (implantable) cardiac defibrillator; I50.42 Chronic combined systolic (congestive) and diastolic (congestive) heart failure; I10 Essential (primary) hypertension
CPT/HCPCS: 93289; 99213

== ENCOUNTER → 2023-03-15 13:24 | Outpatient (BNVA) | payer MEDICARE, MEDICAID, SELFPAY | PROVIDERS: PCP Internal Medicine; Visit Provider Nurse Practitioner Family | DX: Z45.02 Encounter for adjustment and management of automatic implantable cardiac defibrillator (principal); I25.10 Atherosclerotic heart disease of native coronary artery without angina pectoris; I25.5 Ischemic cardiomyopathy; I11.0 Hypertensive heart disease with heart failure; I50.42 Chronic combined systolic (congestive) and diastolic (congestive) heart failure | CPT/HCPCS: 99212 ==

== ENCOUNTER → 2023-05-03 23:59 | Outpatient (BNV) | payer MEDICARE, MEDICAID, SELFPAY ==
--- NOTE | 2023-05-04 16:19 | A.OFFVIS_ITS ---
Intake Intake Visit Reasons: Remote ICD Check- [employer] Allergies lisinopril [LISINOPRIL] Allergy (Mild, Verified 03/15/23 13:53) UNKNOWN, cough, cough doxycycline [DOXYCYCLINE] Allergy (Unknown, Verified 03/15/23 13:53) UNKNOWN glimepiride [GLIMEPIRIDE] Allergy (Unknown, Verified 03/15/23 13:53) SEVERE BACK PAIN ibuprofen [From Motrin] Allergy (Unknown, Verified 03/15/23 13:53) Nausea tamsulosin [TAMSULOSIN] Allergy (Unknown, Verified 03/15/23 13:53) UNKNOWN, Fever rosuvastatin Adverse Reaction (Intermediate, Verified 03/15/23 13:53) hypotension' adhesive tape Adverse Reaction (Mild, Verified 03/15/23 13:53) Itching [facility] Medical History Annual physical exam Ischemic cardiomyopathy Chronic heart failure with reduced ejection fraction and diastolic dysfunction ICD (implantable cardioverter-defibrillator) in place Pneumonia Anxiety and depression Bilateral renal stones Hypercholesterolemia Psoriasis Gout Coronary artery disease Hypertension GERD (gastroesophageal reflux disease) Surgical History Hx of colonoscopy History of heart artery stent S/P ICD (internal cardiac defibrillator) procedure History of cataract surgery History of surgery History of vasectomy History of wisdom tooth extraction Family History Father Diabetes Prostate cancer CVD (cardiovascular disease) Mother CVD (cardiovascular disease) Acute CVA (cerebrovascular accident) Social History Housing: House Alcohol intake: current Alcohol intake frequency: holidays/special occasions only Patient Tobacco Use Status: Never used Tobacco e-Cigarette/Vaping Use: Never Used Second Hand Smoke Exposure: No Current occupational status: retired Cognitive needs: No Hearing needs: No Vision needs: Yes Office Procedures Cardiac Device Check Cardiac Device Check Details: Remote ICD report generated April 2023. ICD function is adequate. Sensing configuration is okay. Battery life is 91% [id number] Cardiac Interrogation, implant defibrillator w/interim Procedure code (CPT) selection complete Assessment & Plan Assessment & Plan (1) ICD (implantable cardioverter-defibrillator) in place: Comment: [facility] [employer]- Foll'd by Dr. Page Code(s): Z95.810 - Presence of automatic (implantable) cardiac defibrillator Plan: See above Coding Level of Care Code Procedure Only Diagnoses ICD (implantable cardioverter-defibrillator) in place Z95.810 CPT Codes Cardiac Device Check - Cardiac Device 13: [id number] Cardiac Interrogation, implant defibrillator w/interim ([id number])
== END ==
PROVIDERS: PCP Internal Medicine; Visit Provider Internal Medicine Cardiovascular Disease
DX: I25.5 Ischemic cardiomyopathy (principal); Z95.810 Presence of automatic (implantable) cardiac defibrillator
CPT/HCPCS: 93295

== ENCOUNTER 2023-05-11 08:18 | Outpatient (AMB) | payer MEDICARE, SELFPAY ==
--- NOTE | 2023-05-11 08:38 | MHC.PC.OV ---
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: No Allergies lisinopril [LISINOPRIL] Allergy (Mild, Verified 05/11/23 08:43) UNKNOWN, cough, cough doxycycline [DOXYCYCLINE] Allergy (Unknown, Verified 05/11/23 08:43) UNKNOWN glimepiride [GLIMEPIRIDE] Allergy (Unknown, Verified 05/11/23 08:43) SEVERE BACK PAIN ibuprofen [From Motrin] Allergy (Unknown, Verified 05/11/23 08:43) Nausea tamsulosin [TAMSULOSIN] Allergy (Unknown, Verified 05/11/23 08:43) UNKNOWN, Fever rosuvastatin Adverse Reaction (Intermediate, Verified 05/11/23 08:43) hypotension' adhesive tape Adverse Reaction (Mild, Verified 05/11/23 08:43) Itching Medication List - Last Reconciled 05/11/23 by Shilpi Pillai MD allopurinol 100 mg PO DAILY 90 days ascorbate calcium (vitamin C) 500 mg PO DAILY aspirin 81 mg PO DAILY carvedilol 25 mg PO BID cholecalciferol (vitamin D3) 10,000 units PO DAILY coenzyme Q10 (Co Q-10) 10 mg PO TID docusate sodium 100 mg PO DAILY ezetimibe 10 mg PO DAILY furosemide 20 mg PO QAM PRN magnesium 30 mg PO DAILY metformin 500 mg PO BIDWMEAL 90 days multivitamin 1 tab PO DAILY omega 0-pib-rtx-fish oil 60-90-500 mg (Fish Oil) 1 cap PO DAILY phytonadione (vitamin K1) 100 mcg PO DAILY pravastatin 40 mg PO BEDTIME pyridoxine (vitamin B6) 100 mg PO DAILY 90 days sacubitril-valsartan 49-51 mg (Entresto) 1 tab PO BID 90 days sitagliptin phosphate (Januvia) 100 mg PO DAILY tadalafil 5 mg PO DAILY 90 days triamcinolone acetonide 0.5% 1 appl topical BID zinc sulfate (Orazinc) 25 mg PO DAILY Tobacco use date assessed: 05/11/23 Fall risk assessment: No Falls in past year Last assessed Fall Risk: 05/11/23 HPI 3 month f/u HPI Details 67-year-old obese male with controlled diabetes mellitus GERD hypertension hypercholesterolemia coronary artery disease ischemic cardiomyopathy on ICD congestive heart failure and nephrolithiasis coming in for follow-up. January 2023 last seen patient is up-to-date with colonoscopy. July 2021 review of the notes cardiology follow-up long discussion with the patient as the patient is suffering from depression declined any referral for counseling and therapy but discussed about options and things to do as the patient has not been very active. Concern about patient's medical problem of diabetes and coronary artery disease that with his situation like that he needs to be active. [facility] Medical History Annual physical exam Ischemic cardiomyopathy Chronic heart failure with reduced ejection fraction and diastolic dysfunction ICD (implantable cardioverter-defibrillator) in place Pneumonia Anxiety and depression Bilateral renal stones Hypercholesterolemia Psoriasis Gout Coronary artery disease Hypertension GERD (gastroesophageal reflux disease) Surgical History Hx of colonoscopy History of heart artery stent S/P ICD (internal cardiac defibrillator) procedure History of cataract surgery History of surgery History of vasectomy History of wisdom tooth extraction Family History Father Diabetes Prostate cancer CVD (cardiovascular disease) Mother CVD (cardiovascular disease) Acute CVA (cerebrovascular accident) Social History Housing: House Alcohol intake: current Alcohol intake frequency: holidays/special occasions only Patient Tobacco Use Status: Never used Tobacco e-Cigarette/Vaping Use: Never Used Second Hand Smoke Exposure: No Current occupational status: retired Cognitive needs: No Hearing needs: No Vision needs: Yes Questionnaire Thrive Questionnaire Date Thrive assessed: 05/11/23 AUDIT C Alcohol Use Questionnaire (AUDIT-C) 1. How often do you have a drink containing alcohol?: Never 2. How many drinks containing alcohol do you have on a typical day when you are drinking?: 1 or 2 (0) 3. How often do you have six or more drinks on one occasion?: Never Total Score: 0 [place]UST[place]-7 AMB Questionnaire [place]USTIN-7 Date AUSTIN - 7 assessed: 05/11/23 Source: Developed by Drs. Gopal Lazaro, Dora Rosario, Jose Ferrera and colleagues, with an educational laura from [employer]. Physical exam (Primary Care) Vital Signs: Last Vital Signs Pulse 78 05/11/23 08:40 BP 132/84 05/11/23 08:40 Pulse Ox 97 05/11/23 08:40 Oxygen Delivery Method Room Air 05/11/23 08:40 BMI result Body Mass Index 30.0 Tobacco/Smoking Status: Tobacco use Status Tobacco use date assessed 05/11/23 05/11/23 08:44 Patient Tobacco Use Status Never used Tobacco 05/11/23 08:38 e-Cigarette/Vaping Use Never Used 05/11/23 08:38 Thrive Assessment: Date of Thrive Assessment Date Thrive assessed 05/11/23 05/11/23 08:45 Const General: alert; No acute distress Eyes Conjunctivae: conjunctivae normal Resp Auscultation: clear to auscultation bilaterally Cardio Rate: regular rate Rhythm: regular rhythm GI Inspection: Yes normal to inspection Extrem General: Yes normal to inspection and No edema Results AMB Hemoglobin A1c AMB Hemoglobin A1c 6.6 % Last Edit by SEBASTIÁN Lindsay on 05/11/23 08:49 Assessment and Plan Assessment & Plan (1) Type 2 diabetes mellitus with hyperglycemia: Comment: [facility] Code(s): E11.65 - Type 2 diabetes mellitus with hyperglycemia Qualifiers: Diabetes mellitus intermediate insulin use: without medical claims examiner use Qualified Code(s): E11.65 - Type 2 diabetes mellitus with hyperglycemia Plan: Decrease the amount of carbohydrate intake, pasta, bread, rice and potatoes are all sugar and that is aside from all the sweet stuff, remember that fruits are good but they are Sweet also. Hemoglobin A1c goal of less than 7.0 patient on Januvia metformin (2) Hypertension: Code(s): I10 - Essential (primary) hypertension Qualifiers: Hypertension type: essential hypertension Qualified Code(s): I10 - Essential (primary) hypertension Plan: Continue with blood pressure medication. Decrease salt intake and exercise continue with carvedilol 25 twice a day Entresto 49/51 twice a day (3) Hypercholesterolemia: Code(s): E78.00 - Pure hypercholesterolemia, unspecified Plan: Avoid fried foods, chicken skin, eggs, butter margarine, pastries and meat. Be it pork or beef they have a lot of cholesterol December last tested pravastatin 40 mg and Zetia 10 mg once a day at bedtime LDL goal of less than 70 and triglyceride of less than 150 (4) Coronary artery disease: Comment: STEMI May 2011 Promus stent in LAD and vision [place] old chromium stent in 1st diagonal apical akinesis apical thrombus Code(s): I25.10 - Atherosclerotic heart disease of [place] coronary artery without angina pectoris Qualifiers: Coronary Disease-Associated Artery/Lesion type: [place] artery [place] vs. transplanted heart: [place] heart Associated angina: without angina Qualified Code(s): I25.10 - Atherosclerotic heart disease of [place] coronary artery without angina pectoris Plan: Control the cholesterol, weight, blood pressure, diabetes continuing with aspirin (5) Ischemic cardiomyopathy: Comment: LVEF of 15-20% with wall motion abnormality in LAD territory with mild mitral and aortic valve regurgitation, October 2018.LVEF 25-30% hypokinesis of apex and apical anteroseptal lateral and inferior shirley June 2016 25-30% March 2017 15-20% echo, ICD implantation April 2015, echo done Mayeverely reduced LV systolic function with wall motion abnormality in LAD territory consistent with ischemic cardiomyopathy with grade 2 diastolic dysfunction echocardiogram March 2021 ejection fraction 30 35% Code(s): I25.5 - Ischemic cardiomyopathy Plan: Patient continues to follow-up with cardiology March 2021 ejection fraction 30 35% (6) Chronic heart failure with reduced ejection fraction and diastolic dysfunction: Code(s): I50.42 - Chronic combined systolic (congestive) and diastolic (congestive) heart failure Plan: Continue with diuretics with daily Orders: Orders B Type Natriuretic Peptide 3 Months I50.42 - Chronic combined systolic (congestive) and diastolic (congestive) heart failure Complete Blood Count Auto Diff 3 Months . - Type 2 diabetes mellitus with hyperglycemia Comprehensive Met. Panel 3 Months - Type 2 diabetes mellitus with hyperglycemia Vitamin B12 and Folate 3 Months . - Type 2 diabetes mellitus with hyperglycemia AMB Hemoglobin A1c Today - Type 2 diabetes mellitus with hyperglycemia Magnesium 3 Months . - Type 2 diabetes mellitus with hyperglycemia Thyroid Stimulating Hormone 3 Months . - Type 2 diabetes mellitus with hyperglycemia Microalbumin, Random (w Creat) 3 Months . - Type 2 diabetes mellitus with hyperglycemia Creatinine Urine 3 Months E11.65 - Type 2 diabetes mellitus with hyperglycemia Free T4 (Free Thyroxine) 3 Months E11.65 - Type 2 diabetes mellitus with hyperglycemia Prostate Specific Antigen Scr 3 Months E11.65 - Type 2 diabetes mellitus with hyperglycemia Hemoglobin A1c 3 Months E11.65 - Type 2 diabetes mellitus with hyperglycemia Phosphorus 3 Months E11.65 - Type 2 diabetes mellitus with hyperglycemia Coding Level of Care Code Est Pt Level 4 (72682) Diagnoses Type 2 diabetes mellitus with hyperglycemia, without long-term current use of insulin E11. Diabetes mellitus medical claims examiner insulin use: without intermediate use Essential hypertension I10 Hypertension type: essential hypertension Hypercholesterolemia E78.00 Coronary artery disease involving [place] coronary artery of [place] heart without angina pectoris I25.10 Coronary Disease-Associated Artery/Lesion type: [place] artery [place] vs. transplanted heart: [place] heart Associated angina: without angina Ischemic cardiomyopathy I25.5 Chronic heart failure with reduced ejection fraction and diastolic dysfunction I50.42
[2023-05-11 08:40] VITALS: BP 132/84; PULSE 78; O2SAT 97
== END 2023-05-11 09:15 | disposition home or self-care (01) ==
PROVIDERS: PCP Internal Medicine; Visit Provider Internal Medicine
DX: E11.65 Type 2 diabetes mellitus with hyperglycemia (principal); I11.0 Hypertensive heart disease with heart failure; I50.42 Chronic combined systolic (congestive) and diastolic (congestive) heart failure; I25.10 Atherosclerotic heart disease of native coronary artery without angina pectoris; I25.5 Ischemic cardiomyopathy
CPT/HCPCS: 83036; 99214

== ENCOUNTER 2023-06-18 11:20 | Outpatient (REF) | payer MEDICARE, MEDICAID, SELFPAY ==
--- NOTE | ~2023-06-18 | US_ITS ---
EXAMINATION: US RETROPERITONEAL LIMITED (RENAL ONLY) CLINICAL INFORMATION: Calculus of kidney. COMPARISON: Renal ultrasound 12/07/2022 and 08/24/2022. X-ray abdomen KUB 11/11/2022. CT abdomen and pelvis 07/08/2020. TECHNIQUE: Real-time imaging of the kidneys. Limited visualization due to bowel gas. FINDINGS: RIGHT KIDNEY: 10.6 x 4.8 x 5.1 cm (SAG x AP x TRV). No hydronephrosis. No renal calculi. Renal cortical thickness is normal. Limited visualization. LEFT KIDNEY: 12.1 x 4.1 x 4.7 cm (SAG x AP x TRV). Mild fullness of the renal pelvis. No renal calculi. Renal cortical thickness is normal. Limited visualization. US/US renal BI IMPRESSION: Mild fullness of the left renal pelvis. No renal calculi.
== END 2023-06-18 11:21 | disposition home or self-care (01) ==
LOC: HO.US 11:20
PROVIDERS: PCP Internal Medicine; Visit Provider Nurse Practitioner Family
DX: N20.0 Calculus of kidney (principal)
CPT/HCPCS: 76775

== ENCOUNTER 2023-06-24 11:35 | Outpatient (AMB) | payer MEDICARE, MEDICAID, SELFPAY ==
--- NOTE | 2023-06-24 11:48 | A.OFFVIS_ITS ---
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 Accompanied by: Self / Same As Patient Allergies lisinopril [LISINOPRIL] Allergy (Mild, Verified 06/24/23 11:54) UNKNOWN, cough, cough doxycycline [DOXYCYCLINE] Allergy (Unknown, Verified 06/24/23 11:54) UNKNOWN glimepiride [GLIMEPIRIDE] Allergy (Unknown, Verified 06/24/23 11:54) SEVERE BACK PAIN ibuprofen [From Motrin] Allergy (Unknown, Verified 06/24/23 11:54) Nausea tamsulosin [TAMSULOSIN] Allergy (Unknown, Verified 06/24/23 11:54) UNKNOWN, Fever rosuvastatin Adverse Reaction (Intermediate, Verified 06/24/23 11:54) hypotension' adhesive tape Adverse Reaction (Mild, Verified 06/24/23 11:54) Itching HPI HPI Comments History of Present Illness Details Td is a pleasant male. He is a patient of Dr. Pillai. He is seen following conditions - nephrolithiasis - erectile dysfunction diabetic No stone seen on recent ultrasound Thinks that stone formation had been triggered after cardiac event and placement on furosemide Does actively try to maintain 80 oz fluid intake daily Has been going well with daily tadalafil Twelve month follow-up renal ultrasound remain on vitamin B6 50 mg in allopurinol Nephrolithiasis Seen today for discussion of follow-up nephrolithiasis management Initial stone presentation - [facility] Emergency Room June 2020 Imaging - 07/14 CT scan - 3 mm distal right urete darius stone with stranding, 4 mm right renal stone, 3 mm left renal stone - 08/14 renal ultrasound - resolved aleksey norris, bilateral twinkling - 02/13 renal ultrasound left small ston e - 08/15 renal ultrasound 5 mm stones bila teral - 02/14 KUB no stones seen -5/23 renal ultrasound-1 cm upper pole r enal stone Associated conditions - diabetes with metabolic syndrome Therapeutic plan - hydration with lemon therapy - vitamin B6, allopurinol PSA 10/16- 0.3 Erectile dysfunction diabetic Trouble obtaining and maintaining erection Trial daily tadalafil with on demand 20 mg Laboratories - T 07/15 300, 08/16 236 Concurrent conditions - diabetic 10/16-- HbA1c 5.7 - dyslipidemia on statins 10/16-- Ch 52 - coronary artery disease with implant o n carvedilol Therapeutic plan - above [facility] Medical History Annual physical exam Ischemic cardiomyopathy Chronic heart failure with reduced ejection fraction and diastolic dysfunction ICD (implantable cardioverter-defibrillator) in place Pneumonia Anxiety and depression Bilateral renal stones Hypercholesterolemia Psoriasis Gout Coronary artery disease Hypertension GERD (gastroesophageal reflux disease) Surgical History Hx of colonoscopy History of heart artery stent S/P ICD (internal cardiac defibrillator) procedure History of cataract surgery History of surgery History of vasectomy History of wisdom tooth extraction Family History Father Diabetes Prostate cancer CVD (cardiovascular disease) Mother CVD (cardiovascular disease) Acute CVA (cerebrovascular accident) Social History Housing: House Alcohol intake: current Alcohol intake frequency: holidays/special occasions only Patient Tobacco Use Status: Never used Tobacco e-Cigarette/Vaping Use: Never Used Second Hand Smoke Exposure: No Current occupational status: retired Cognitive needs: No Hearing needs: No Vision needs: Yes Review of Systems Const Denies chills and Denies fever(s) Card Reports no additional complaints and Denies syncope Resp Denies cough GI Denies abdominal pain and Denies heartburn Reports as per HPI and Denies change in libido Neuro Denies syncope Psych Denies change in libido Endo Denies change in libido Physical Exam Const General: cooperative, healthy appearing, comfortable and no acute distress Orientation/consciousness: patient oriented x3 HEENT Face and sinus: Yes normal facial exam Mouth: moist mucous membranes Neck Neck: Yes normal visual inspection, Yes full ROM and Yes trachea midline Chest Chest palpation & inspection: normal inspection of the chest Resp Effort & Inspection: normal respiratory effort, able to speak in complete sentences and no respiratory distress GI Inspection: Yes normal to inspection Back/Spine/Pelvis Cervical Spine: normal cervical lordosis Thoracic/Lumbar Spine: thoracic and lumbar spine normal to inspection Skin General skin exam: no rashes or lesions noted Neuro General: patient oriented x3, gait normal, tone normal and moves all extremities Extrem General: Yes normal to inspection and Yes capillary refill normal Assessment & Plan Assessment & Plan (1) Nephrolithiasis: Comment: 10/[address] Fischer Code(s): N20.0 - Calculus of kidney (2) Erectile dysfunction associated with type 2 diabetes mellitus: Code(s): E11.69 - Type 2 diabetes mellitus with other specified complication; N52.1 - Erectile dysfunction due to diseases classified elsewhere Plan Twelve month follow-up renal ultrasound Orders: Orders US renal BI 12 Months N20.0 - Calculus of kidney Patient Instructions: Imaging studies, laboratory and physical exam results were discussed and reviewed in detail. No major barriers to patient understanding were identified. An opportunity to ask questions regarding the treatment plan was provided. All questions were answered. The patient expressed understanding and agreement with the above treatment plan. The patient is aware they should contact our office by phone for worsening of their current condition or the appearance of new urologic symptoms. Compliance is encouraged with any medications and followup testing that is ordered. It is a privilege to participate in the urologic care of your patient. If you have any questions or concerns regarding treatment for the above conditions, or other urologic issues, please do not hesitate to contact me. The office telephone contact is [phone]. This note is constructed using voice recognition software. While every effort has been made to ensure accuracy assembler knife errors may have been included. Yours sincerely, Dr Lv Fischer MD, [facility] - Urology Providers of Expert, Compassionate Care for the Genitourinary System Coding Level of Care Code Est Pt Level 3 (65232) Diagnoses Nephrolithiasis N20.0 Erectile dysfunction associated with type 2 diabetes mellitus E11.69; N52.1
== END 2023-06-24 12:11 | disposition home or self-care (01) ==
PROVIDERS: PCP Internal Medicine; Visit Provider Urology
DX: N20.0 Calculus of kidney (principal); E11.69 Type 2 diabetes mellitus with other specified complication; N52.1 Erectile dysfunction due to diseases classified elsewhere
CPT/HCPCS: 99213

== ENCOUNTER → 2023-06-24 11:35 | Outpatient (BNVA) | payer MEDICARE, MEDICAID, SELFPAY | PROVIDERS: PCP Internal Medicine; Visit Provider Urology | DX: E11.69 Type 2 diabetes mellitus with other specified complication (principal); N52.1 Erectile dysfunction due to diseases classified elsewhere; N20.0 Calculus of kidney | CPT/HCPCS: 99212 ==

== ENCOUNTER → 2023-08-02 23:59 | Outpatient (BNV) | payer MEDICARE, MEDICAID, SELFPAY ==
--- NOTE | 2023-08-02 16:03 | A.OFFVIS_ITS ---
Intake Intake Visit Reasons: Remote ICD check- [employer] Allergies lisinopril [LISINOPRIL] Allergy (Mild, Verified 06/24/23 11:54) UNKNOWN, cough, cough doxycycline [DOXYCYCLINE] Allergy (Unknown, Verified 06/24/23 11:54) UNKNOWN glimepiride [GLIMEPIRIDE] Allergy (Unknown, Verified 06/24/23 11:54) SEVERE BACK PAIN ibuprofen [From Motrin] Allergy (Unknown, Verified 06/24/23 11:54) Nausea tamsulosin [TAMSULOSIN] Allergy (Unknown, Verified 06/24/23 11:54) UNKNOWN, Fever rosuvastatin Adverse Reaction (Intermediate, Verified 06/24/23 11:54) hypotension' adhesive tape Adverse Reaction (Mild, Verified 06/24/23 11:54) Itching [facility] Medical History Annual physical exam Ischemic cardiomyopathy Chronic heart failure with reduced ejection fraction and diastolic dysfunction ICD (implantable cardioverter-defibrillator) in place Pneumonia Anxiety and depression Bilateral renal stones Hypercholesterolemia Psoriasis Gout Coronary artery disease Hypertension GERD (gastroesophageal reflux disease) Surgical History Hx of colonoscopy History of heart artery stent S/P ICD (internal cardiac defibrillator) procedure History of cataract surgery History of surgery History of vasectomy History of wisdom tooth extraction Family History Father Diabetes Prostate cancer CVD (cardiovascular disease) Mother CVD (cardiovascular disease) Acute CVA (cerebrovascular accident) Social History Housing: House Alcohol intake: current Alcohol intake frequency: holidays/special occasions only Patient Tobacco Use Status: Never used Tobacco e-Cigarette/Vaping Use: Never Used Second Hand Smoke Exposure: No Current occupational status: retired Cognitive needs: No Hearing needs: No Vision needs: Yes Office Procedures Cardiac Device Check Cardiac Device Check Details: Remote ICD report generated 08/02/2023. ICD function is adequate. R-wave sensing is adequate. Battery life is at 88%. No episodes of atrial fibrillation noted [id number] Cardiac Interrogation, implant defibrillator w/interim Procedure code (CPT) selection complete Assessment & Plan Assessment & Plan (1) ICD (implantable cardioverter-defibrillator) in place: Comment: [place]- Foll'd by Dr. Page Code(s): Z95.810 - Presence of automatic (implantable) cardiac defibrillator Plan: See above Coding Level of Care Code Procedure Only Diagnoses ICD (implantable cardioverter-defibrillator) in place Z95.810 CPT Codes Cardiac Device Check - Cardiac Device 13: [id number] Cardiac Interrogation, implant defibrillator w/interim ([id number])
== END ==
PROVIDERS: PCP Internal Medicine; Visit Provider Internal Medicine Cardiovascular Disease
DX: Z45.02 Encounter for adjustment and management of automatic implantable cardiac defibrillator (principal)
CPT/HCPCS: 93295

== ENCOUNTER 2023-08-10 10:01 | Outpatient (REF) | payer MEDICARE, MEDICAID, SELFPAY ==
[2023-08-10 10:58] LABS: MANUAL DIFF FLAG NO
[2023-08-10 11:07] LABS: Basophils Absolute Auto 0.1 X10*3/uL (0.0-0.2); Basophils Percent Auto 0.5 % (0-2); Eosinophils Absolute Auto 0.6 X10*3/uL (0.0-0.4); Eosinophils Percent Auto 5.7 % (0-4); Imm Gran Abs Auto 0.03 X10*3/uL (0.00-0.03); Imm Gran Pct Auto 0.3 % (0.0-0.4); Lymphocytes Absolute Auto 1.7 X10*3/uL (1.2-4.9); Lymphocytes Percent Auto 16.5 % (20-40); Mean Corpuscular HGB Conc 34.2 g/dl (31.0-36.0); Mean Corpuscular Hemoglobin 31.2 pg (27.0-33.0); Mean Corpuscular Volume 91.1 fL (80.0-98.0); Mean Platelet Volume 9.1 fL (9.4-12.4); Monocytes Absolute Auto 0.6 X10*3/uL (0.1-1.2); Monocytes Percent Auto 6.1 % (2-11); Neutrophils Absolute Auto 7.3 x10*3/uL (2.0-8.3); Neutrophils Percent Auto 70.9 % (45-73); Platelet Count 174 X10*3/uL (160-400); Red Blood Count 4.17 X10*6/uL (4.60-5.80); Red Cell Distribution Width 12.8 % (11.0-16.0); White Blood Count 10.3 X10*3/uL (4.8-10.8)
[2023-08-10 11:18] LABS: Estimated Average Glucose 140 mg/dL; Hemoglobin A1c % 6.5 % (<6.0)
[2023-08-10 11:20] LABS: B Type Natriuretic Peptide 66 pg/mL (<100)
[2023-08-10 11:46] LABS: Alanine Aminotransferase 32 U/L (0-40); Alkaline Phosphatase 68 U/L (39-117); Anion Gap 12 (12-20); Aspartate Amino Transferase 25 U/L (5-37); Bilirubin Total 0.4 mg/dL (0.0-1.0); Blood Urea Nitrogen 20 mg/dL (9-16); Calcium 9.9 mg/dL (8.4-10.2); Carbon Dioxide 27 mmol/L (22-29); Chloride 107 mmol/L (96-108); Estimated Glomerular Filt Rate > 60; Glucose Random 164 mg/dL (60-115); Phosphorus 4.4 mg/dL (2.7-4.5); Potassium 3.9 mmol/L (3.3-5.1); Sodium 142 mmol/L (135-145); Total Protein 6.9 g/dL (6.5-8.0)
[2023-08-10 11:51] LABS: Free T4 (Free Thyroxine) 0.86 ng/dL (0.71-1.85); Thyroid Stimulating Hormone 2.21 uIU/mL (0.32-4.0)
[2023-08-10 12:07] LABS: Prostate Specific Antigen Scr 0.25 ng/mL (<0.05-4.0); Vitamin B12 1154 pg/mL (200-900)
[2023-08-10 13:52] LABS: Microalbum/Creatinine Ratio Ur 7.3 ug/mg cr (<30)
== END 2023-08-10 10:02 | disposition home or self-care (01) ==
LOC: HO.10HDL 10:01
PROVIDERS: Visit Provider Internal Medicine
DX: Z12.5 Encounter for screening for malignant neoplasm of prostate (principal); E11.65 Type 2 diabetes mellitus with hyperglycemia; I50.42 Chronic combined systolic (congestive) and diastolic (congestive) heart failure
CPT/HCPCS: 36415; 80053; 82043; 82570; 82607; 82746; 83036; 83735; 83880; 84100; 84153; 84439; 84443; 85025

== ENCOUNTER 2023-08-18 08:53 | Outpatient (AMB) | payer MEDICARE, MEDICAID, SELFPAY ==
[2023-08-18 08:57] VITALS: BP 130/78; PULSE 78; O2SAT 95; BMI 30.9
--- NOTE | 2023-08-18 08:57 | A.OFFPC_ITS ---
Vital Signs 08/18/23 08:57 Height 5 ft 9 in Weight 209 lb 0.4 oz BMI 30.9 BP 130/78 Blood Pressure Location Lt brachial Position Sitting Pulse 78 Pulse Source Pulse Oximeter Pulse Oximetry (%) 95 Oxygen Delivery Method Room Air Intake Visit Reasons: DM Foster Parent Required: No Allergies lisinopril [LISINOPRIL] Allergy (Mild, Verified 08/18/23 08:57) UNKNOWN, cough, cough doxycycline [DOXYCYCLINE] Allergy (Unknown, Verified 08/18/23 08:57) UNKNOWN glimepiride [GLIMEPIRIDE] Allergy (Unknown, Verified 08/18/23 08:57) SEVERE BACK PAIN ibuprofen [From Motrin] Allergy (Unknown, Verified 08/18/23 08:57) Nausea tamsulosin [TAMSULOSIN] Allergy (Unknown, Verified 08/18/23 08:57) UNKNOWN, Fever rosuvastatin Adverse Reaction (Intermediate, Verified 08/18/23 08:57) hypotension' adhesive tape Adverse Reaction (Mild, Verified 08/18/23 08:57) Itching Tobacco use date assessed: 08/18/23 Fall risk assessment: No Falls in past year Last assessed Fall Risk: 08/18/23 Dental Screening Dental Screen Date: 08/18/23 HPI DM HPI Details 67-year-old obese male with diabetes ector litus hypertension hypercholest erolemia coronary artery disease with ischemic cardiomyopathy and congestive heart failure last seen in April 2023. Patient is up-to-date with colonoscopy July 2021. Review of the notes cardiology follow-up in August 01 ICD check adequate function no episodes of atrial fibrillation. Patient also followed up with Urology in May for the nephrolithiasis no stones and keeping well hydrated October 2022 ESWL right [facility] Medical History Annual physical exam Ischemic cardiomyopathy Chronic heart failure with reduced ejection fraction and diastolic dysfunction ICD (implantable cardioverter-defibrillator) in place Pneumonia Anxiety and depression Bilateral renal stones Hypercholesterolemia Psoriasis Gout Coronary artery disease Hypertension GERD (gastroesophageal reflux disease) Surgical History Hx of colonoscopy History of heart artery stent S/P ICD (internal cardiac defibrillator) procedure History of cataract surgery History of surgery History of vasectomy History of wisdom tooth extraction Family History Father Diabetes Prostate cancer CVD (cardiovascular disease) Mother CVD (cardiovascular disease) Acute CVA (cerebrovascular accident) Social History Housing: House Alcohol intake: current Alcohol intake frequency: holidays/special occasions only Patient Tobacco Use Status: Never used Tobacco e-Cigarette/Vaping Use: Never Used Second Hand Smoke Exposure: No Current occupational status: retired Cognitive needs: No Hearing needs: No Vision needs: Yes Questionnaire Thrive Questionnaire Date Thrive assessed: 08/18/23 I am a: Patient What is your living situation today?: I have a steady place to live Within the past 12 months, did the food you bought not last and you didn't have the money to get more?: Never true Within the past 12 months, did you worry whether your food would run out before you got money to buy more?: Never true Do you have trouble paying for medicines?: No Do you have trouble getting transportation to medical appointments?: No Do you have trouble paying your heating and electricity bill?: No Do you have trouble taking care of your child, family member or friend?: No Do you have trouble with day-to-day activities such as bathing, preparing meals, shopping, managing finances, etc.?: No Are you currently unemployed and looking for a job?: No Are you interested in more education?: No Please select the resources that you would like help with: None Currently or been in a relationship where the following occur: no concerns reported THRIVE Score: 0 AUDIT C Alcohol Use Questionnaire (AUDIT-C) 1. How often do you have a drink containing alcohol?: Never 2. How many drinks containing alcohol do you have on a typical day when you are drinking?: 1 or 2 (0) 3. How often do you have six or more drinks on one occasion?: Never Total Score: 0 AUSTIN-7 AMB Questionnaire AUSTIN-7 Date AUSTIN - 7 assessed: 05/11/23 Source: Developed by Drs. Gopal Lazaro, Dora Rosario, Jose Ferrera and colleagues, with an educational laura from [employer]. Physical exam (Primary Care) Vital Signs: Last Vital Signs Pulse 78 08/18/23 08:57 BP 130/78 08/18/23 08:57 Pulse Ox 95 08/18/23 08:57 Oxygen Delivery Method Room Air 08/18/23 08:57 BMI result Body Mass Index 30.9 Tobacco/Smoking Status: Tobacco use Status Tobacco use date assessed 08/18/23 08/18/23 08:57 Patient Tobacco Use Status Never used Tobacco 08/18/23 08:57 e-Cigarette/Vaping Use Never Used 08/18/23 08:57 Thrive Assessment: Date of Thrive Assessment Date Thrive assessed 08/18/23 08/18/23 08:57 Currently or been in a relationship where the following occur: no concerns reported Const General: alert; No acute distress Eyes Conjunctivae: conjunctivae normal Resp Auscultation: clear to auscultation bilaterally Cardio Rate: regular rate Rhythm: regular rhythm GI Inspection: Yes normal to inspection Extrem General: Yes normal to inspection and No edema Assessment and Plan Assessment & Plan (1) ICD (implantable cardioverter-defibrillator) battery depletion: Comment: 06/16/2022 replacement July 2023 88% battery Code(s): Z45.02 - Encounter for adjustment and management of automatic implantable cardiac defibrillator Plan: Patient continues to follow-up with cardiology (2) Nephrolithiasis: Comment: 10/[address] Fischer Code(s): N20.0 - Calculus of kidney Plan: Keep well hydrated, patient follows up with urology yearly (3) Chronic heart failure with reduced ejection fraction and diastolic dysfunction: Code(s): I50.42 - Chronic combined systolic (congestive) and diastolic (congestive) heart failure Plan: Weigh daily, continue with furosemide and carvedilol and Entresto (4) Ischemic cardiomyopathy: Comment: LVEF of 15-20% with wall motion abnormality in LAD territory with mild mitral and aortic valve regurgitation, October 2018.LVEF 25-30% hypokinesis of apex and apical anteroseptal lateral and inferior shirley June 2016 25-30% March 2017 15-20% echo, ICD implantation April 2015, echo done Mayeverely reduced LV systolic function with wall motion abnormality in LAD territory consistent with ischemic cardiomyopathy with grade 2 diastolic dysfunction echocardiogram March 2021 ejection fraction 30 35% Code(s): I25.5 - Ischemic cardiomyopathy Plan: Continue with present medication (5) Coronary artery disease: Comment: STEMI May 2011 Promus stent in LAD and vision [place] old chromium stent in 1st diagonal apical akinesis apical thrombus Code(s): I25.10 - Atherosclerotic heart disease of [place] coronary artery without angina pectoris Qualifiers: Coronary Disease-Associated Artery/Lesion type: [place] artery [place] vs. transplanted heart: [place] heart Associated angina: without angina Qualified Code(s): I25.10 - Atherosclerotic heart disease of [place] coronary artery without angina pectoris Plan: Control the cholesterol, weight, blood pressure, diabetes continue with aspirin 81 mg once a day (6) Type 2 diabetes mellitus with hyperglycemia: Comment: [facility] Code(s): E11.65 - Type 2 diabetes mellitus with hyperglycemia Qualifiers: Diabetes mellitus long chain quiller tender insulin use: without fci use Qualified Code(s): E11.65 - Type 2 diabetes mellitus with hyperglycemia Plan: Decrease the amount of carbohydrate intake, pasta, bread, rice and potatoes are all sugar and that is aside from all the sweet stuff, remember that fruits are good but they are Sweet also. Hemoglobin A1c goal of less than 7.0 on metformin 500 mg twice a day and Januvia 100 mg once a day (7) Hypertension: Code(s): I10 - Essential (primary) hypertension Qualifiers: Hypertension type: essential hypertension Qualified Code(s): I10 - Essential (primary) hypertension Plan: Continue with blood pressure medication. Decrease salt intake and exercise Entresto, carvedilol (8) Hypercholesterolemia: Code(s): E78.00 - Pure hypercholesterolemia, unspecified Plan: Avoid fried foods, chicken skin, eggs, butter margarine, pastries and meat. Be it pork or beef they have a lot of cholesterol December 2022 last blood work LDL goal of less than 70 and triglyceride of less than 150 presently on Zetia and pravastatin Orders: Orders B Type Natriuretic Peptide 3 Months I50.42 - Chronic combined systolic (congestive) and diastolic (congestive) heart failure Ferritin 3 Months I50.42 - Chronic combined systolic (congestive) and diastolic (congestive) heart failure Vitamin B12 and Folate 3 Months I50.42 - Chronic combined systolic (congestive) and diastolic (congestive) heart failure Free T4 (Free Thyroxine) 3 Months I50.42 - Chronic combined systolic (congestive) and diastolic (congestive) heart failure Hemoglobin A1c 3 Months I50.42 - Chronic combined systolic (congestive) and diastolic (congestive) heart failure Comprehensive Met. Panel 3 Months I50.42 - Chronic combined systolic (congestive) and diastolic (congestive) heart failure Lipid Panel 3 Months E78.00 - Pure hypercholesterolemia, unspecified, I50.42 - Chronic combined systolic (congestive) and diastolic (congestive) heart failure Thyroid Stimulating Hormone 3 Months I50.42 - Chronic combined systolic (congestive) and diastolic (congestive) heart failure IRON PROFILE 3 Months I50.42 - Chronic combined systolic (congestive) and diastolic (congestive) heart failure Coding Level of Care Code Est Pt Level 4 (16318) Diagnoses ICD (implantable cardioverter-defibrillator) battery depletion Z45.02 Nephrolithiasis N20.0 Chronic heart failure with reduced ejection fraction and diastolic dysfunction I50.42 Ischemic cardiomyopathy I25.5 Coronary artery disease involving [place] coronary artery of [place] heart without angina pectoris I25.10 Coronary Disease-Associated Artery/Lesion type: [place] artery [place] vs. transplanted heart: [place] heart Associated angina: without angina Type 2 diabetes mellitus with hyperglycemia, without long-term current use of insulin E11.65 Diabetes mellitus long chain quiller tender insulin use: without long chain quiller tender use Essential hypertension I10 Hypertension type: essential hypertension Hypercholesterolemia E78.00
== END 2023-08-18 09:39 | disposition home or self-care (01) ==
PROVIDERS: PCP Internal Medicine; Visit Provider Internal Medicine
DX: I11.0 Hypertensive heart disease with heart failure (principal); E11.65 Type 2 diabetes mellitus with hyperglycemia; I50.42 Chronic combined systolic (congestive) and diastolic (congestive) heart failure; Z45.02 Encounter for adjustment and management of automatic implantable cardiac defibrillator; N20.0 Calculus of kidney; I25.5 Ischemic cardiomyopathy; I25.10 Atherosclerotic heart disease of native coronary artery without angina pectoris; E78.00 Pure hypercholesterolemia, unspecified
CPT/HCPCS: 99214

== ENCOUNTER 2023-09-13 14:24 | Outpatient (AMB) | payer MEDICARE, MEDICAID, SELFPAY ==
[2023-09-13 14:41] VITALS: BP 120/74; PULSE 78; BMI 29.9
--- NOTE | 2023-09-13 14:41 | MHC.OFFVIS ---
Vital Signs 09/13/23 14:41 Height 5 ft 9 in Weight 202 lb 13.204 oz BMI 29.9 BP 120/74 Blood Pressure Location Lt brachial Position Sitting Pulse 78 Intake Visit Reasons: 6 mth s/p echo w/ [facility] Intake Note: 6 month follow-up with ekg and [facility] check feeling good Bootmaker Required: No Allergies lisinopril [LISINOPRIL] Allergy (Mild, Verified 08/18/23 08:57) UNKNOWN, cough, cough doxycycline [DOXYCYCLINE] Allergy (Unknown, Verified 08/18/23 08:57) UNKNOWN glimepiride [GLIMEPIRIDE] Allergy (Unknown, Verified 08/18/23 08:57) SEVERE BACK PAIN ibuprofen [From Motrin] Allergy (Unknown, Verified 08/18/23 08:57) Nausea tamsulosin [TAMSULOSIN] Allergy (Unknown, Verified 08/18/23 08:57) UNKNOWN, Fever rosuvastatin Adverse Reaction (Intermediate, Verified 08/18/23 08:57) hypotension' adhesive tape Adverse Reaction (Mild, Verified 08/18/23 08:57) Itching Medication List - Last Reconciled 09/13/23 by Bruce Page MD allopurinol 100 mg PO DAILY 90 days ascorbate calcium (vitamin C) 500 mg PO DAILY aspirin 81 mg PO DAILY carvedilol 25 mg PO BID cholecalciferol (vitamin D3) 10,000 units PO DAILY coenzyme Q10 (Co Q-10) 10 mg PO TID docusate sodium 100 mg PO DAILY ezetimibe 10 mg PO DAILY furosemide 20 mg PO QAM PRN magnesium 30 mg PO DAILY metformin 500 mg PO BIDWMEAL 90 days multivitamin 1 tab PO DAILY omega 5-dfb-zsc-fish oil 60-90-500 mg (Fish Oil) 1 cap PO DAILY phytonadione (vitamin K1) 100 mcg PO DAILY pravastatin 40 mg PO BEDTIME pyridoxine (vitamin B6) 50 mg PO DAILY 90 days sacubitril-valsartan 49-51 mg (Entresto) 1 tab PO BID 90 days sitagliptin phosphate (Januvia) 100 mg PO DAILY tadalafil 5 mg PO DAILY 90 days triamcinolone acetonide 0.5% 1 appl topical BID zinc sulfate (Orazinc) 25 mg PO DAILY HPI Comments Details: Td comes for follow-up. He has been doing very well from cardiac perspective. Denies any symptoms of heart failure. Takes all his medications. Denies any orthopnea, PND, leg edema. Takes Lasix on need basis be. Denies any lightheadedness, syncope, ICD discharge. Denies any exertional chest pain. FOR[facility]LY [facility] Medical History Annual physical exam Ischemic cardiomyopathy Chronic heart failure with reduced ejection fraction and diastolic dysfunction ICD (implantable cardioverter-defibrillator) in place Pneumonia Anxiety and depression Bilateral renal stones Hypercholesterolemia Psoriasis Gout Coronary artery disease Hypertension GERD (gastroesophageal reflux disease) Surgical History Hx of colonoscopy History of heart artery stent S/P ICD (internal cardiac defibrillator) procedure History of cataract surgery History of surgery History of vasectomy History of wisdom tooth extraction Family History Father Diabetes Prostate cancer CVD (cardiovascular disease) Mother CVD (cardiovascular disease) Acute CVA (cerebrovascular accident) Social History Housing: House Alcohol intake: current Alcohol intake frequency: holidays/special occasions only Patient Tobacco Use Status: Never used Tobacco e-Cigarette/Vaping Use: Never Used Second Hand Smoke Exposure: No Current occupational status: retired Cognitive needs: No Hearing needs: No Vision needs: Yes Review of Systems Const Denies chills, Denies fatigue, Denies fever(s), Denies frequent falls, Denies weakness, Denies weight gain and Denies weight loss ENT Denies dizziness Card Denies chest pain, Denies leg edema, Denies lightheadedness, Denies palpitations, Denies dyspnea, Denies dyspnea on exertion, Denies orthopnea and Denies other (loss of consciousness) Resp Denies cough, Denies dyspnea and Denies dyspnea on exertion GI Denies hematochezia and Denies change in stool character Musc Denies abnormal gait, Denies muscle weakness, Denies numbness, Denies radiating pain into limb and Denies tingling Neuro Denies abnormal gait, Denies dizziness, Denies frequent falls, Denies numbness, Denies tingling and Denies weakness Endo Denies fatigue and Denies palpitations Physical Exam Vital Signs: Last Vital Signs Pulse 78 09/13/23 14:41 BP 120/74 09/13/23 14:41 BMI result Body Mass Index 29.9 Const General: cooperative, healthy appearing, comfortable and no acute distress Orientation/consciousness: patient oriented x3 Neck Neck: Yes normal visual inspection and Yes no JVD Resp Effort & Inspection: normal respiratory effort Auscultation: clear to auscultation bilaterally, no crackles, no rales, no rhonchi and no wheezes Cardio Jugular venous distension: no JVD Rate: regular rate Rhythm: regular rhythm Heart sounds: S1 normal heart sound present, S2 normal heart sound present, no gallops, no murmurs and no rubs Neuro General: patient oriented x3 Extrem Other: Sock marking noted on right lower extremity Psych Appearance: grossly normal Mental Status: mental status grossly normal Speech and movement: Normal speech and movement present Office Procedures Cardiac Device Check Cardiac Device Check Details: Subcutaneous [employer] ICD in place. Battery life is excellent at 87%. System impedance is within normal limits. Ventricular sensing is adequate. No arrhythmias detected [id number] Device Interrogation, implantable defibrillator Procedure code (CPT) selection complete EKG Details: EKG shows normal sinus rhythm with poor R-wave progression consistent with prior anterior WA with nonspecific ST T wave changes [id number], Complete Assessment & Plan Assessment & Plan (1) Chronic heart failure with reduced ejection fraction and diastolic dysfunction: Code(s): I50.42 - Chronic combined systolic (congestive) and diastolic (congestive) heart failure Category: Medical Plan: Heart failure with reduced ejection fraction with severe LV systolic dysfunction. Clinically doing well without any signs or symptoms of heart failure, NYHA class 1. Continue aggressive medical therapy along with current neurohormonal modulation with carvedilol, Entresto therapy. Signs and symptoms of heart failure were discussed. Daily weight monitoring avoidance of salt loading was discussed. Use of diuretics as need be. He understands management well. Encouraged to continue to participate in physical activity as tolerated. Follow-up echocardiogram in near future. (2) Coronary artery disease: Comment: STEMI May 2011 Promus stent in LAD and vision [place] old chromium stent in 1st diagonal apical akinesis apical thrombus Code(s): I25.10 - Atherosclerotic heart disease of [place] coronary artery without angina pectoris Category: Medical Qualifiers: Coronary Disease-Associated Artery/Lesion type: [place] artery [place] vs. transplanted heart: [place] heart Associated angina: without angina Qualified Code(s): I25.10 - Atherosclerotic heart disease of [place] coronary artery without angina pectoris Plan: CAD with prior stent to the LAD for the anterior STEMI. However continues to have severe anterior wall motion abnormality. Currently doing well without symptoms of angina. Continue low-dose aspirin therapy for life. Blood pressure is currently well optimized advised to monitor blood pressure at home maintain a log. Goal blood pressure less than 130/84. Currently on pravastatin and ezetimibe therapy. Target goal LDL closer to 60 mg/dL being pursue through your office. Last LDL was well optimized. (3) ICD (implantable cardioverter-defibrillator) in place: Comment: Visible Measures- Foll'd by Dr. Page Code(s): Z95.810 - Presence of automatic (implantable) cardiac defibrillator Category: Medical Plan: Subcutaneous ICD in place for primary prevention. ICD is working well. Battery is well. Will follow remotely every 3 months. Follow up in the clinic in 6 months time, sooner p.r.n.. Thank you for allowing partake in his care Orders: Orders CA echo transthoracic complete Today I25.5 - Ischemic cardiomyopathy Coding Level of Care Code Est Pt Level 4 (29135) Diagnoses Chronic heart failure with reduced ejection fraction and diastolic dysfunction I50.42 Coronary artery disease involving [place] coronary artery of [place] heart without angina pectoris I25.10 Coronary Disease-Associated Artery/Lesion type: [place] artery [place] vs. transplanted heart: [place] heart Associated angina: without angina ICD (implantable cardioverter-defibrillator) in place Z95.810 CPT Codes Cardiac Device Check - Cardiac Device 9: [id number] Device Interrogation, implantable defibrillator ([id number]) EKG - CPT: 43279-Eleigzkvxpmqmcdxb, Complete ([id number])
== END 2023-09-13 15:43 | disposition home or self-care (01) ==
PROVIDERS: PCP Internal Medicine; Visit Provider Internal Medicine Cardiovascular Disease
DX: I50.42 Chronic combined systolic (congestive) and diastolic (congestive) heart failure (principal); I25.10 Atherosclerotic heart disease of native coronary artery without angina pectoris; Z95.810 Presence of automatic (implantable) cardiac defibrillator
CPT/HCPCS: 93010; 93260; 99214

== ENCOUNTER → 2023-09-13 14:24 | Outpatient (BNVA) | payer MEDICARE, MEDICAID, SELFPAY | PROVIDERS: PCP Internal Medicine; Visit Provider Internal Medicine Cardiovascular Disease | DX: I11.0 Hypertensive heart disease with heart failure (principal); I50.42 Chronic combined systolic (congestive) and diastolic (congestive) heart failure; I25.10 Atherosclerotic heart disease of native coronary artery without angina pectoris; Z45.02 Encounter for adjustment and management of automatic implantable cardiac defibrillator | CPT/HCPCS: 93005; 99212 ==

== ENCOUNTER → 2023-10-15 10:49 | Outpatient (REF) | payer MEDICARE, MEDICAID, SELFPAY ==
--- NOTE | 2023-10-15 10:51 | CA_ITS ---
Transthoracic Echocardiogram Patient (Last, First, Middle): Td Miller E Gender: Male Date of : 1955 Age: 68 Procedure Date: 10/15/2023 Procedure Type: Transthoracic Echocardiogram Location: OP Height: 175. cm Weight: 90.27 kg BSA: 2.06 m2 Heart Rate: 70 bpm BP: 130 / 72 mmHg Electric Installer: JACK Referring MD: Bruce Page MD Symptoms: I25.5 - Ischemic cardiomyopathy Study Quality: Fair w/Contrast ECG Rhythm: Sinus Conclusions: - Normal left ventricular cavity size. There is mildly increased left ventricular wall thickness. The left ventricular systolic function is severely decreased. The visually estimated ejection fraction is between 20-25%. - The apical anterior, apical inferior, apical lateral, apical septum, and mid anteroseptal segments are akinetic. - The apex segment is dyskinetic. - Normal right ventricular cavity size. There is mild to moderately decreased right ventricular systolic function. Findings Procedure Information Contrast agent, definity, is being given per protocol without apparent complications. Left Ventricle Normal left ventricular cavity size. There is mildly increased left ventricular wall thickness. The left ventricular systolic function is severely decreased. The visually estimated ejection fraction is between 20 25%. There is evidence of regional wall motion abnormalities. Abnormal diastolic function is noted. Spectral Doppler is indicative of a pseudonormal filling pattern. E/E prime ratio is between 8 and 15 consistent with indeterminate filling pressures. Wall Motion Rest Echo Findings The apical anterior, apical inferior, apical lateral, apical septum, and mid anteroseptal segments are akinetic. The apex segment is dyskinetic. Right Ventricle Normal right ventricular cavity size. There is mild to moderately decreased right ventricular systolic function. Atria The left atrium is normal in size. Aortic Valve There is a normal trileaflet aortic valve. There is mild calcification of the aortic valve. There is no aortic valve stenosis. There is no aortic valve regurgitation. Mitral Valve The mitral valve appears normal. There is trace mitral valve regurgitation. There is no mitral valve stenosis. Pulmonic Valve The pulmonic valve is likely normal. Tricuspid Valve Normal tricuspid valve structure. There is trace tricuspid valve regurgitation. Normal right atrial pressure. There is no evidence of pulmonary hypertension. Great Vessels All visible segments of the aorta are normal in size. The visualized portions of the pulmonary artery and branches are normal. Venous The inferior vena cava is normal in size and collapses greater than 50% with inspiration. Pericardium/Pleural There is no evidence of pericardial effusion. Prior Study Comparison Changes noted compared to prior study dated: 04/08/2021. Severe LV dysfunction, mild to moderate RV dysfunction. Measurements 2D Linear Measurements IVSd: 1.23 0.6-0.9/0.6-1.0 cm LVIDd: 5.90 3.9-5.3/4.2-5.9 cm LVIDd Index: 2.86 2.4-3.2/2.2-3.1 cm/m2 LVIDs: 3.80 2.0-3.6 cm LVPWd: 1.15 0.7-1.1 cm LA Diam: 3.90 2.7-3.8/3.0-4.0 cm LAIDs Index: 1.89 1.5-2.3 cm/m2 LV Mass: 376.78 67-162/88-224 g LV Mass Index: 182.90 43-95/49-115 g/m2 LVOT Diam: 2.20 3.0+(-)1.3 cm 2D Systolic Function EF 4C: 28.10 >55% EF 2C: 45.30 >55% Mitral Valve MV Pk E: 0.75 MV PK A: 0.52 MV Decel Time: 188.00 E/A: 1.40 E'Lateral: 7.46 E'Medial: 3.57 E/E' Med: 21.10 E/E' Lat: 10.10 PHT: 55.00 MVA PHT: 4.00 Decel Terrell: 4.02 Aortic Valve AoV Pk Veto: 1.10 AoV Mn Veto: 0.86 AoV VTI: 0.27 AoV Pk Grad: 5.00 Aov Mn Grad: 3.00 SANNA Cont.VTI: 2.49 LVOT LVOT Pk Veto: 0.82 LVOT Mn Veto: 0.56 LVOT VTI: 0.18 LVOT Pk Grad: 3.00 LVOT Mn Grad: 1.00 LVOT Diam: 2.20 LVOT Area: 3.80 Diastolic Function MV Pk E: 0.75 MV Pk A: 0.52 E/A: 1.40 E'Medial: 3.57 E/E' Med: 21.10 E' Laterial: 7.46 E/E' Lat: 10.10 Right Ventricle TAPSE (mm): 18.00 TVS' Veto: 8.11 Great Vessels Aorta Sinus of Valsalva: 3.30 2.0-3.5 cm Ao Asc: 3.30 2.1-3.4 cm Pulmonary Valve PV Pk Veto: 0.69 Peak PV Grad: 2.00 Updated in Other Vendor System with Status of Final Richard Hickman MD electronically signed on 10/18/2023 11:09:00 AM with status of Final
== END ==
LOC: HO.CARD 10:49
PROVIDERS: Visit Provider Internal Medicine Cardiovascular Disease
DX: I25.5 Ischemic cardiomyopathy (principal)
CPT/HCPCS: 93306; Q9957

== ENCOUNTER → 2023-10-15 10:51 | Outpatient (BNV) | payer MEDICARE, MEDICAID, SELFPAY | PROVIDERS: Visit Provider Internal Medicine Cardiovascular Disease | DX: I35.8 Other nonrheumatic aortic valve disorders (principal); I51.89 Other ill-defined heart diseases | CPT/HCPCS: 93306 ==

== ENCOUNTER → 2023-11-01 23:59 | Outpatient (BNV) | payer MEDICARE, MEDICAID, SELFPAY ==
--- NOTE | 2023-11-08 17:02 | A.OFFVIS_ITS ---
Intake Visit Reasons: Remote ICD check- [employer] Allergies lisinopril [LISINOPRIL] Allergy (Mild, Verified 08/18/23 08:57) UNKNOWN, cough, cough doxycycline [DOXYCYCLINE] Allergy (Unknown, Verified 08/18/23 08:57) UNKNOWN glimepiride [GLIMEPIRIDE] Allergy (Unknown, Verified 08/18/23 08:57) SEVERE BACK PAIN ibuprofen [From Motrin] Allergy (Unknown, Verified 08/18/23 08:57) Nausea tamsulosin [TAMSULOSIN] Allergy (Unknown, Verified 08/18/23 08:57) UNKNOWN, Fever rosuvastatin Adverse Reaction (Intermediate, Verified 08/18/23 08:57) hypotension' adhesive tape Adverse Reaction (Mild, Verified 08/18/23 08:57) Itching [facility] Medical History Annual physical exam Ischemic cardiomyopathy Chronic heart failure with reduced ejection fraction and diastolic dysfunction ICD (implantable cardioverter-defibrillator) in place Pneumonia Anxiety and depression Bilateral renal stones Hypercholesterolemia Psoriasis Gout Coronary artery disease Hypertension GERD (gastroesophageal reflux disease) Surgical History Hx of colonoscopy History of heart artery stent S/P ICD (internal cardiac defibrillator) procedure History of cataract surgery History of surgery History of vasectomy History of wisdom tooth extraction Family History Father Diabetes Prostate cancer CVD (cardiovascular disease) Mother CVD (cardiovascular disease) Acute CVA (cerebrovascular accident) Social History Housing: House Alcohol intake: current Alcohol intake frequency: holidays/special occasions only Patient Tobacco Use Status: Never used Tobacco e-Cigarette/Vaping Use: Never Used Second Hand Smoke Exposure: No Current occupational status: retired Cognitive needs: No Hearing needs: No Vision needs: Yes Office Procedures Cardiac Device Check Cardiac Device Check Details: remote ICD report generated 11/01/2023. ICD function is adequate. [id number] Cardiac Interrogation, implant defibrillator w/interim Procedure code (CPT) selection complete Assessment & Plan Assessment & Plan (1) ICD (implantable cardioverter-defibrillator) battery depletion: Comment: 06/16/2022 replacement July 2023 88% battery Code(s): Z45.02 - Encounter for adjustment and management of automatic implantable cardiac defibrillator Category: Medical Plan: See above Coding Level of Care Code Procedure Only Diagnoses ICD (implantable cardioverter-defibrillator) battery depletion Z45.02 CPT Codes Cardiac Device Check - Cardiac Device 13: [id number] Cardiac Interrogation, implant defibrillator w/interim ([id number])
== END ==
PROVIDERS: Visit Provider Internal Medicine Cardiovascular Disease
DX: Z45.02 Encounter for adjustment and management of automatic implantable cardiac defibrillator (principal)
CPT/HCPCS: 93295

== ENCOUNTER 2023-12-24 09:06 | Outpatient (REF) | payer MEDICARE, SELFPAY ==
[2023-12-24 09:34] LABS: Estimated Average Glucose 126 mg/dL
[2023-12-24 09:48] LABS: B Type Natriuretic Peptide 141 pg/mL (<100)
[2023-12-24 10:08] LABS: Alanine Aminotransferase 28 U/L (0-40); Albumin Level 4.2 g/dL (3.5-5.0); Alkaline Phosphatase 59 U/L (39-117); Anion Gap 11 (12-20); Aspartate Amino Transferase 24 U/L (5-37); Bilirubin Total 0.5 mg/dL (0.0-1.0); Blood Urea Nitrogen 15 mg/dL (9-16); Calcium 9.9 mg/dL (8.4-10.2); Carbon Dioxide 29 mmol/L (22-29); Chloride 105 mmol/L (96-108); Cholesterol 117 mg/dL (<200); Estimated Glomerular Filt Rate > 60; Glucose Random 143 mg/dL (60-115); HDL Cholesterol 29 mg/dL (>40); Iron 53 mcg/dL (45-160); LDL Cholesterol Calculated 57 mg/dL (<100); Percent Iron Saturation 22 % (15-50); Potassium 4.1 mmol/L (3.3-5.1); Sodium 141 mmol/L (135-145); Total Iron Binding Capacity 236 mcg/dL (228-428); Total Protein 6.8 g/dL (6.5-8.0); Triglycerides 157 mg/dL (<150); Unsaturated Iron Binding 183 ug/dL
[2023-12-24 10:12] LABS: Ferritin 75 ng/mL (20-250); Thyroid Stimulating Hormone 1.88 uIU/mL (0.32-4.0)
[2023-12-24 11:25] LABS: Folate 14.2 ng/mL (> or = 4.0); Vitamin B12 863 pg/mL (200-900)
[2023-12-24 12:21] LABS: Creatinine Urine 114.47 mg/dL
== END 2023-12-24 09:07 | disposition home or self-care (01) ==
LOC: HO.LAB 09:06
PROVIDERS: PCP Internal Medicine; Visit Provider Internal Medicine
DX: I50.42 Chronic combined systolic (congestive) and diastolic (congestive) heart failure (principal); E78.00 Pure hypercholesterolemia, unspecified; E11.65 Type 2 diabetes mellitus with hyperglycemia
CPT/HCPCS: 36415; 80053; 80061; 82570; 82607; 82728; 82746; 83036; 83540; 83880; 84439; 84443

== ENCOUNTER 2023-12-31 13:43 | Outpatient (AMB) | payer MEDICARE, MEDICAID, SELFPAY ==
--- NOTE | 2023-12-31 13:47 | AM.OFFVISMDC ---
Intake Vital Signs 12/31/23 13:49 Height 5 ft 9 in Weight 200 lb 6 oz BMI 29.6 BP 130/76 Blood Pressure Location Lt brachial Position Sitting Pulse 78 Pulse Source Pulse Oximeter Pulse Oximetry (%) 98 Oxygen Delivery Method Room Air Intake Visit Reasons: Annual Exam - see comments Intake Note: Patient is here for an Annual Wellness Visit. Sports Equipment Supervisor Required: No College Or University Registrar: College Or University Registrar offered & declined Accompanied by: Self / Same As Patient Allergies lisinopril [LISINOPRIL] Allergy (Mild, Verified 12/31/23 13:49) UNKNOWN, cough, cough doxycycline [DOXYCYCLINE] Allergy (Unknown, Verified 12/31/23 13:49) UNKNOWN glimepiride [GLIMEPIRIDE] Allergy (Unknown, Verified 12/31/23 13:49) SEVERE BACK PAIN ibuprofen [From Motrin] Allergy (Unknown, Verified 12/31/23 13:49) Nausea tamsulosin [TAMSULOSIN] Allergy (Unknown, Verified 12/31/23 13:49) UNKNOWN, Fever rosuvastatin Adverse Reaction (Intermediate, Verified 12/31/23 13:49) hypotension' adhesive tape Adverse Reaction (Mild, Verified 12/31/23 13:49) Itching Medication List - Last Reconciled 12/31/23 by Shilpi Pillai MD allopurinol 100 mg PO DAILY 90 days ascorbate calcium (vitamin C) 500 mg PO DAILY aspirin 81 mg PO DAILY carvedilol 25 mg PO BID cholecalciferol (vitamin D3) 10,000 units PO DAILY coenzyme Q10 (Co Q-10) 10 mg PO TID docusate sodium 100 mg PO DAILY ezetimibe 10 mg PO DAILY furosemide 20 mg PO QAM PRN magnesium 30 mg PO DAILY metformin 500 mg PO BIDWMEAL 90 days multivitamin 1 tab PO DAILY omega 4-lmu-jxh-fish oil 60-90-500 mg (Fish Oil) 1 cap PO DAILY phytonadione (vitamin K1) 100 mcg PO DAILY pravastatin 40 mg PO BEDTIME pyridoxine (vitamin B6) 50 mg PO DAILY 90 days sacubitril-valsartan 49-51 mg (Entresto) 1 tab PO BID 90 days sitagliptin phosphate (Januvia) 100 mg PO DAILY tadalafil 5 mg PO DAILY 90 days triamcinolone acetonide 0.5% 1 appl topical BID zinc sulfate (Orazinc) 25 mg PO DAILY HPI Annual Exam - see comments HPI Details 68-year-old overweight male with cardiomyopathy coronary artery disease diabetes mellitus hypertension hypercholesterolemia nephrolithiasis coming in for physical exam last seen in 08/14/2023. Patient had colonoscopy in 08/13/2021. Patient follows up with Cardiology for ICD check echocardiogram done 10/14/2023Normal left ventricular cavity size. There is mildly increased left ventricular wall thickness. The left ventricular systolic function is severely decreased. The visually estimated ejection fraction is between 20-25%. - The apical anterior, apical inferior, apical lateral, apical septum, and mid anteroseptal segments are akinetic. - The apex segment is dyskinetic. - Normal right ventricular cavity size. There is mild to moderately decreased right ventricular systolic function. dizzy one 3 weeks got up [facility] Medical History (Updated 12/31/23 @ 19:11 by Shilpi Pillai MD) Ischemic cardiomyopathy Chronic heart failure with reduced ejection fraction and diastolic dysfunction ICD (implantable cardioverter-defibrillator) in place Pneumonia Anxiety and depression Bilateral renal stones Hypercholesterolemia Psoriasis Gout Coronary artery disease Hypertension GERD (gastroesophageal reflux disease) Surgical History Hx of colonoscopy History of heart artery stent S/P ICD (internal cardiac defibrillator) procedure History of cataract surgery History of surgery History of vasectomy History of wisdom tooth extraction Family History Father Diabetes Prostate cancer CVD (cardiovascular disease) Mother CVD (cardiovascular disease) Acute CVA (cerebrovascular accident) Social History (Updated 12/31/23 @ 14:26 by Shilpi Pillai MD) Housing: House Alcohol intake: current Alcohol intake frequency: holidays/special occasions only Comment: once q2 months 1/2 bottle of wine Patient Tobacco Use Status: Never used Tobacco e-Cigarette/Vaping Use: Never Used Second Hand Smoke Exposure: No Current occupational status: retired Cognitive needs: No Hearing needs: No Vision needs: Yes Questionnaire Medicare Wellness Checkup [age] What gender do you identify with?: male During the past 4 weeks, how much have you been bothered by emotional problems such as feeling anxious, depressed, irritable, sad or downhearted, and blue?: slightly During the past 4 weeks, has your physical & emotional health limited your social activities with family, friends, neighbors, or groups?: not at all During the past 4 weeks, how much bodily pain have you generally had?: very mild pain During the past 4 weeks, was someone available to help you if you needed & wanted help?: yes, as much as I wanted During the past 4 weeks, what was the hardest physical activity you could do for at least 2 minutes?: heavy Can you get to places out of walking distance without help? (For eg., can you travel alone on buses, taxis or drive your car?): Yes Can you go shopping for groceries or clothes without someone's help?: Yes Can you prepare your own meals?: Yes Can you do your housework without help?: Yes Because of any health problems, do you need the help of another person with your personal care needs such as eating, bathing, dressing or getting around the house?: No Can you handle your own money without help?: Yes During the past 4 weeks, how would you rate your health in general?: very good During the past 4 weeks how have things been going for you?: pretty well Are you having difficulties driving your car?: no Do you always fasten your seat belt when you are in a car?: yes, usually During past 4 weeks, have you been bothered by the following: never: Falling or dizzy when standing up, Sexual problems?, Trouble eating well?, Teeth or denture problems?, Problems using the telephone? and Tiredness or fatigue? Have you fallen 2 or more times in the past year?: No Are you afraid of falling?: No Are you a smoker?: no During the past 4 weeks, how many drinks of wine, beer, or other alcoholic beverages did you have?: 1 drink or less per week Do you exercise for about 20 minutes 3 or more times a week?: no, I usually do not exercise this much Have you been given information to help with the following?: no: Hazards in your house that might hurt you? and no: Keeping track of your medications? How often do you have trouble taking medicines the way you have been told to take them?: I do not have to take medicine How confident are you that you can control & manage most of your health problems?: very confident What is your race?: White PHQ-9 Over the last 2 weeks, how often have you been bothered by any of the following problems? 1. Little interest or pleasure in doing things: several days 2. Feeling down, depressed, or hopeless: not at all 3. Trouble falling or staying asleep, or sleeping too much: not at all 4. Feeling tired or having little energy: not at all 5. Poor appetite or overeating: not at all 6. Feeling bad about yourself - or that you are a failure or have let yourself or your family down: several days 7. Trouble concentrating on things, such as reading the newspaper or watching television: not at all 8. Moving or speaking so slowly that other people could have noticed. Or the opposite - being so fidgety or restless that you have been moving around a lot more than usual: not at all 9. Thoughts that you would be better off or of hurting yourself in some way: not at all Total score: 2 Depression Screening Interpretation: Positive Depression Screening Done: Yes Source: Developed by Drs. Gopal Lazaro, Dora Rosario, Jose Ferrera and colleagues, with an educational laura from [employer]. Thrive Questionnaire Date Thrive assessed: 12/31/23 I am a: Patient What is your living situation today?: I have a steady place to live Within the past 12 months, did the food you bought not last and you didn't have the money to get more?: I choose not to answer this question Within the past 12 months, did you worry whether your food would run out before you got money to buy more?: I choose not to answer this question Do you have trouble paying for medicines?: No Do you have trouble getting transportation to medical appointments?: No Do you have trouble taking care of your child, family member or friend?: I choose not to answer this question Do you have trouble with day-to-day activities such as bathing, preparing meals, shopping, managing finances, etc.?: No Are you currently unemployed and looking for a job?: I choose not to answer this question Are you interested in more education?: I choose not to answer this question Please select the resources that you would like help with: None Currently or been in a relationship where the following occur: No concerns reported THRIVE Score: 0 AUSTIN-7 AMB Questionnaire AUSTIN-7 Date AUSTIN - 7 assessed: 12/31/23 Feeling nervous, anxious, or on edge: 0 = Not at all Not being able to stop or control worryin = Not at all Worrying too much about different things: 0 = Not at all Trouble relaxin = Not at all Being so restless that it is hard to sit still: 0 = Not at all Becoming easily annoyed or irritable: 0 = Not at all Feeling afraid as if something awful might happen: 0 = Not at all Total AUSTIN-7 score (0-4 normal; 5-9 mild; 10-14 moderate; 15-21 severe): 0 Source: Developed by Drs. Gopal Lazaro, Dora Rosario, Jose Ferrera and colleagues, with an educational laura from [employer]. AUDIT C Alcohol Use Questionnaire (AUDIT-C) 1. How often do you have a drink containing alcohol?: Never Total Score: 0 Review of Systems Const Denies poor appetite and Denies weakness Eyes Denies no additional complaints ENT Reports Normal hearing present, Denies dizziness, Denies nasal congestion, Denies tinnitus and Denies sore throat Card Denies chest pain, Denies syncope, Denies rapid heart rate and Denies dyspnea Resp Denies cough and Denies dyspnea GI Denies change in stool character, Reports constipation, Denies diarrhea, Denies nausea and Denies vomiting Denies dysuria and Denies urinary frequency Neuro Reports Normal hearing present, Denies confusion, Denies dizziness, Denies syncope and Denies weakness Psych Denies confusion Physical Exam Vital Signs: Last Vital Signs Pulse 78 12/31/23 13:49 BP 130/76 12/31/23 13:49 Pulse Ox 98 12/31/23 13:49 Oxygen Delivery Method Room Air 12/31/23 13:49 BMI result Body Mass Index 29.6 Const General: No confusion Orientation/consciousness: No confusion HEENT Head: Yes normocephalic Ears: external ears normal and TM's normal bilaterally Face and sinus: Yes normal facial exam Mouth: moist mucous membranes Throat: Yes tonsils normal Eyes Conjunctivae: conjunctivae normal Pupils: Equal, round and reactive pupils present and Pupil accommodation reflex normal Direct Ophthalmoscopy: normal light reflex Neck Neck: No lymphadenopathy Thyroid: Thyroid normal Chest Chest palpation & inspection: normal inspection of the chest Resp Effort & Inspection: normal respiratory effort and no audible wheezes Auscultation: clear to auscultation bilaterally, no crackles, no wheezes and lung sounds not diminished Cardio Rate: regular rate Rhythm: regular rhythm Peripheral pulses: radial pulses present and dorsalis pedis present GI Other: guaiac neg, prostate N, pedal pulse and pin prick good Palpation (GI): no masses Auscultation: normal bowel sounds and normoactive bowel sounds Male General Exam: Yes normal external exam Skin General skin exam: no rashes or lesions noted Rashes: no rashes Neuro General: No confusion Cranial nerves: Yes Equal, round and reactive pupils present and Yes Normal hearing present Cognition (Neuro): normal cognition Gait exam (Neuro): Normal gait present Motor exam (neuro): 5/5 motor strength present throughout Deep tendon reflexes (DTR's): Right brachioradialis reflex intensity grade: 2+, Left brachioradialis reflex intensity grade: 2+, Right patellar reflex intensity grade: 2+ and Left patellar reflex intensity grade: 2+ Extrem Other: erythematous rash on medial ankles with scaling General: No edema Assessment & Plan Assessment & Plan (1) Chronic heart failure with reduced ejection fraction and diastolic dysfunction: Code(s): I50.42 - Chronic combined systolic (congestive) and diastolic (congestive) heart failure Plan: Weigh daily continue with diuretics and Entresto (2) Ischemic cardiomyopathy: Comment: LVEF of 15-20% with wall motion abnormality in LAD territory with mild mitral and aortic valve regurgitation, October 2018.LVEF 25-30% hypokinesis of apex and apical anteroseptal lateral and inferior shirley June 2016 25-30% March 2017 15-20% echo, ICD implantation April 2015, echo done Mayeverely reduced LV systolic function with wall motion abnormality in LAD territory consistent with ischemic cardiomyopathy with grade 2 diastolic dysfunction echocardiogram March 2021 ejection fraction 30 35% Code(s): I25.5 - Ischemic cardiomyopathy Plan: Patient has the ICD and continued to be followed up by Cardiology. (3) Coronary artery disease: Comment: STEMI May 2011 Promus stent in LAD and vision Emmalena old chromium stent in 1st diagonal apical akinesis apical thrombus Code(s): I25.10 - Atherosclerotic heart disease of ment[place] coronary artery without angina pectoris Qualifiers: Associated angina: without angina Coronary Disease-Associated Artery/Lesion type: [place] artery Elem vs. transplanted heart: mentasta heart Qualified Code(s): I25.10 - Atherosclerotic heart disease of ment[place] coronary artery without angina pectoris Plan: Control the cholesterol, weight, blood pressure, diabetes continue with aspirin (4) Hypertension: Code(s): I10 - Essential (primary) hypertension Qualifiers: Hypertension type: essential hypertension Qualified Code(s): I10 - Essential (primary) hypertension Plan: Continue with blood pressure medication. Decrease salt intake and exercise Entresto, carvedilol 25 mg twice a day (5) Hypercholesterolemia: Code(s): E78.00 - Pure hypercholesterolemia, unspecified Plan: Avoid fried foods, chicken skin, eggs, butter margarine, pastries and meat. Be it pork or beef they have a lot of cholesterol LDL goal of less than 70 and triglyceride of less than 150. Zetia and pravastatin (6) GERD (gastroesophageal reflux disease): Code(s): K21.9 - Gastro-esophageal reflux disease without esophagitis Qualifiers: Esophagitis presence: without esophagitis Qualified Code(s): K21.9 - Gastro-esophageal reflux disease without esophagitis Plan: Avoid the foods that causes that usually spicy foods, tomato products, juices, coffee, soda and foods that your sensitive to. After eating do not lie down, allow 3-4 hours before in lie down. And keep the head of bed above 30 degrees to avoid the acid from going up. (7) Type 2 diabetes mellitus with hyperglycemia: Comment: [facility] Code(s): E11.65 - Type 2 diabetes mellitus with hyperglycemia Qualifiers: Diabetes mellitus [facility] insulin use: without [facility] use Qualified Code(s): E11.65 - Type 2 diabetes mellitus with hyperglycemia Plan: Decrease the amount of carbohydrate intake, pasta, bread, rice and potatoes are all sugar and that is aside from all the sweet stuff, remember that fruits are good but they are Sweet also. Hemoglobin A1c goal of less than 7.0 on Januvia metformin (8) Tinea cruris: Code(s): B35.6 - Tinea cruris Plan: Antifungal ointment sent (9) Medicare annual wellness visit, subsequent: Code(s): Z00.00 - Encounter for general adult medical examination without abnormal findings Plan: Patient is advised to eat healthy, keep well hydrated, keep active and have adequate sleep. Medications: New clotrimazole 1% 1 appl topical BID 56.7 grams 0RF 4 weeks B35.6 - Tinea cruris Quality Reporting (2019) Depression/Bipolar (159/160/161/177) PHQ-9: Total score: 2 Coding Level of Care Code Medicare Subsequent (G0439) Diagnoses Chronic heart failure with reduced ejection fraction and diastolic dysfunction I50.42 Ischemic cardiomyopathy I25.5 Coronary artery disease involving [place] coronary artery of [place] heart without angina pectoris I25.10 Associated angina: without angina Coronary Disease-Associated Artery/Lesion type: [place] artery Elem vs. 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
[2023-12-31 13:49] VITALS: BP 130/76; PULSE 78; O2SAT 98; BMI 29.6
== END 2023-12-31 16:02 | disposition home or self-care (01) ==
PROVIDERS: PCP Internal Medicine; Visit Provider Internal Medicine
DX: Z00.00 Encounter for general adult medical examination without abnormal findings (principal); I50.42 Chronic combined systolic (congestive) and diastolic (congestive) heart failure; E11.65 Type 2 diabetes mellitus with hyperglycemia; I25.5 Ischemic cardiomyopathy; I25.10 Atherosclerotic heart disease of native coronary artery without angina pectoris; I10 Essential (primary) hypertension; E78.00 Pure hypercholesterolemia, unspecified; K21.9 Gastro-esophageal reflux disease without esophagitis; B35.6 Tinea cruris
CPT/HCPCS: G0439

== ENCOUNTER → 2024-01-31 23:59 | Outpatient (BNV) | payer MEDICARE, MEDICAID, SELFPAY ==
--- NOTE | 2024-02-01 12:43 | MHC.OFFVIS ---
Intake Visit Reasons: Remote ICD check- [employer] Allergies lisinopril [LISINOPRIL] Allergy (Mild, Verified 12/31/23 13:49) UNKNOWN, cough, cough doxycycline [DOXYCYCLINE] Allergy (Unknown, Verified 12/31/23 13:49) UNKNOWN glimepiride [GLIMEPIRIDE] Allergy (Unknown, Verified 12/31/23 13:49) SEVERE BACK PAIN ibuprofen [From Motrin] Allergy (Unknown, Verified 12/31/23 13:49) Nausea tamsulosin [TAMSULOSIN] Allergy (Unknown, Verified 12/31/23 13:49) UNKNOWN, Fever rosuvastatin Adverse Reaction (Intermediate, Verified 12/31/23 13:49) hypotension' adhesive tape Adverse Reaction (Mild, Verified 12/31/23 13:49) Itching [facility] Medical History (Updated 12/31/23 @ 19:11 by Shilpi Pillai MD) Ischemic cardiomyopathy Chronic heart failure with reduced ejection fraction and diastolic dysfunction ICD (implantable cardioverter-defibrillator) in place Pneumonia Anxiety and depression Bilateral renal stones Hypercholesterolemia Psoriasis Gout Coronary artery disease Hypertension GERD (gastroesophageal reflux disease) Surgical History Hx of colonoscopy History of heart artery stent S/P ICD (internal cardiac defibrillator) procedure History of cataract surgery History of surgery History of vasectomy History of wisdom tooth extraction Family History Father Diabetes Prostate cancer CVD (cardiovascular disease) Mother CVD (cardiovascular disease) Acute CVA (cerebrovascular accident) Social History (Updated 12/31/23 @ 14:26 by Shilpi Pillai MD) Housing: House Alcohol intake: current Alcohol intake frequency: holidays/special occasions only Comment: once q2 months 1/2 bottle of wine Patient Tobacco Use Status: Never used Tobacco e-Cigarette/Vaping Use: Never Used Second Hand Smoke Exposure: No Current occupational status: retired Cognitive needs: No Hearing needs: No Vision needs: Yes Office Procedures Cardiac Device Check Cardiac Device Check Details: Remote ICD report generated 01/31/2024. Battery life is adequate at 82%. System impedance is stable. Multiple episodes of atrial fibrillation noted, discussed with patient to start on oral anticoagulation therapy [id number] Cardiac Interrogation, implant defibrillator w/interim Procedure code (CPT) selection complete Assessment & Plan Assessment & Plan (1) ICD (implantable cardioverter-defibrillator) battery depletion: Comment: 06/16/2022 replacement July 2023 88% battery Code(s): Z45.02 - Encounter for adjustment and management of automatic implantable cardiac defibrillator Category: Medical Plan: See above Coding Level of Care Code Procedure Only Diagnoses ICD (implantable cardioverter-defibrillator) battery depletion Z45.02 CPT Codes Cardiac Device Check - Cardiac Device 13: [id number] Cardiac Interrogation, implant defibrillator w/interim ([id number])
== END ==
PROVIDERS: PCP Internal Medicine; Visit Provider Internal Medicine Cardiovascular Disease
DX: Z45.02 Encounter for adjustment and management of automatic implantable cardiac defibrillator (principal)
CPT/HCPCS: 93295

== ENCOUNTER 2024-03-03 09:13 | Outpatient (REF) | payer MEDICARE, MEDICAID, SELFPAY ==
[2024-03-03 11:23] LABS: Anion Gap 12 (12-20); Blood Urea Nitrogen 20 mg/dL (9-16); Calcium 9.2 mg/dL (8.4-10.2); Carbon Dioxide 27 mmol/L (22-29); Chloride 108 mmol/L (96-108); Cholesterol 78 mg/dL (<200); Estimated Glomerular Filt Rate 57; Glucose Random 138 mg/dL (60-115); HDL Cholesterol 31 mg/dL (>40); LDL Cholesterol Calculated 32 mg/dL (<100); Potassium 4.3 mmol/L (3.3-5.1); Sodium 143 mmol/L (135-145); Triglycerides 77 mg/dL (<150)
[2024-03-03 12:20] LABS: B Type Natriuretic Peptide 188 pg/mL (<100)
== END 2024-03-03 09:14 | disposition home or self-care (01) ==
LOC: HO.10HDL 09:13
PROVIDERS: Visit Provider Internal Medicine Cardiovascular Disease
DX: I25.10 Atherosclerotic heart disease of native coronary artery without angina pectoris (principal); I25.5 Ischemic cardiomyopathy; I50.42 Chronic combined systolic (congestive) and diastolic (congestive) heart failure
CPT/HCPCS: 36415; 80048; 80061; 83880

== ENCOUNTER 2024-03-13 13:36 | Outpatient (AMB) | payer MEDICARE, MEDICAID, SELFPAY ==
[2024-03-13 13:48] VITALS: BP 122/72; PULSE 100; BMI 29.6
--- NOTE | 2024-03-13 13:48 | A.OFFVIS_ITS ---
Vital Signs 03/13/24 13:48 Height 5 ft 9 in Weight 200 lb 9.93 oz BMI 29.6 BP 122/72 Blood Pressure Location Lt brachial Position Sitting Pulse 100 Intake Visit Reasons: 6 mth w/ [facility]/ s/p echo Intake Note: 6 month follow-up ekg and [employer] and echo feeling ok [employer] Required: No Allergies lisinopril [LISINOPRIL] Allergy (Mild, Verified 12/31/23 13:49) UNKNOWN, cough, cough doxycycline [DOXYCYCLINE] Allergy (Unknown, Verified 12/31/23 13:49) UNKNOWN glimepiride [GLIMEPIRIDE] Allergy (Unknown, Verified 12/31/23 13:49) SEVERE BACK PAIN ibuprofen [From Motrin] Allergy (Unknown, Verified 12/31/23 13:49) Nausea tamsulosin [TAMSULOSIN] Allergy (Unknown, Verified 12/31/23 13:49) UNKNOWN, Fever rosuvastatin Adverse Reaction (Intermediate, Verified 12/31/23 13:49) hypotension' adhesive tape Adverse Reaction (Mild, Verified 12/31/23 13:49) Itching Medication List - Last Reconciled 03/13/24 by Bruce Page MD allopurinol 100 mg PO DAILY 90 days ascorbate calcium (vitamin C) 500 mg PO DAILY carvedilol 25 mg PO BID cholecalciferol (vitamin D3) 10,000 units PO DAILY clotrimazole 1% 1 appl topical BID 4 weeks coenzyme Q10 (Co Q-10) 10 mg PO TID docusate sodium 100 mg PO DAILY ezetimibe 10 mg PO DAILY furosemide 20 mg PO QAM PRN magnesium 30 mg PO DAILY metformin 500 mg PO BIDWMEAL 90 days multivitamin 1 tab PO DAILY omega 3-ybj-buf-fish oil 60-90-500 mg (Fish Oil) 1 cap PO DAILY phytonadione (vitamin K1) 100 mcg PO DAILY pravastatin 40 mg PO BEDTIME pyridoxine (vitamin B6) 50 mg PO DAILY 90 days sacubitril-valsartan 49-51 mg (Entresto) 1 tab PO BID 90 days sitagliptin phosphate (Januvia) 100 mg PO DAILY tadalafil 5 mg PO DAILY 90 days triamcinolone acetonide 0.5% 1 appl topical BID zinc sulfate (Orazinc) 25 mg PO DAILY HPI Comments Details: Td comes for follow-up. About couple months ago he was noted to be in atrial fibrillation/flutter by remote telemetry. That time he was started on Eliquis 5 mg b.i.d.. BNP was done at that time which was elevated. He was started on low-dose Lasix therapy. Since then his BNP is improved. About 6 days ago he said he started noticing symptoms of lightheadedness and felt exertional fatigue and shortness of breath. He thought this was related to Eliquis and he stopped taking Eliquis about 6 days ago. He has been off it and says he feels very well and feels back to his normal functional status. It heart still remains in atrial flutter with variable conduction. He denies any prolonged palpitation irregular heartbeat. Blood pressures been on the softer side. He denies any syncope. Denies any orthopnea, PND, leg edema. Denies any chest pain. [facility] Medical History (Updated 03/13/24 @ 14:28 by Bruce Page MD) Ischemic cardiomyopathy Chronic heart failure with reduced ejection fraction and diastolic dysfunction ICD (implantable cardioverter-defibrillator) in place Pneumonia Anxiety and depression Bilateral renal stones Hypercholesterolemia Psoriasis Gout Coronary artery disease Hypertension GERD (gastroesophageal reflux disease) Surgical History Hx of colonoscopy History of heart artery stent S/P ICD (internal cardiac defibrillator) procedure History of cataract surgery History of surgery History of vasectomy History of wisdom tooth extraction Family History Father Diabetes Prostate cancer CVD (cardiovascular disease) Mother CVD (cardiovascular disease) Acute CVA (cerebrovascular accident) Social History Housing: House Alcohol intake: current Alcohol intake frequency: holidays/special occasions only Comment: once q2 months 1/2 bottle of wine Patient Tobacco Use Status: Never used Tobacco e-Cigarette/Vaping Use: Never Used Second Hand Smoke Exposure: No Current occupational status: retired Cognitive needs: No Hearing needs: No Vision needs: Yes Review of Systems Const Denies chills, Denies fatigue, Denies fever(s), Denies frequent falls, Denies weakness, Denies weight gain and Denies weight loss ENT Denies dizziness Card Denies chest pain, Denies leg edema, Denies lightheadedness, Denies palpitations, Denies dyspnea, Denies dyspnea on exertion, Denies orthopnea and Denies other (loss of consciousness) Resp Denies cough, Denies dyspnea and Denies dyspnea on exertion GI Denies hematochezia and Denies change in stool character Musc Denies abnormal gait, Denies muscle weakness, Denies numbness, Denies radiating pain into limb and Denies tingling Neuro Denies abnormal gait, Denies dizziness, Denies frequent falls, Denies numbness, Denies tingling and Denies weakness Endo Denies fatigue and Denies palpitations Physical Exam Vital Signs: Last Vital Signs Pulse 100 03/13/24 13:48 BP 122/72 03/13/24 13:48 BMI result Body Mass Index 29.6 Const General: cooperative, healthy appearing, comfortable and no acute distress Orientation/consciousness: patient oriented x3 Neck Neck: Yes normal visual inspection and Yes no JVD Resp Effort & Inspection: normal respiratory effort Auscultation: clear to auscultation bilaterally, no crackles, no rales, no rhonchi and no wheezes Cardio Jugular venous distension: no JVD Rhythm: abnormal rhythm irregularly irregular Heart sounds: S1 normal heart sound present, S2 normal heart sound present, no gallops, no murmurs and no rubs Neuro General: patient oriented x3 Extrem Other: Sock marking noted on right lower extremity Psych Appearance: grossly normal Mental Status: mental status grossly normal Speech and movement: Normal speech and movement present Office Procedures Cardiac Device Check Cardiac Device Check Details: [employer] subcutaneous ICD in place. Noted to be in atrial fibrillation. Sensing is adequate. Persistent atrial fibrillation for 48 days. System impedance is within normal limits. Battery life is at 80%. [id number] Device Interrogation, implantable defibrillator Procedure code (CPT) selection complete Assessment & Plan Assessment & Plan (1) Atrial flutter: Code(s): I48.92 - Unspecified atrial flutter Category: Medical Plan: Patient with new onset and persistent atrial flutter/fibrillation with controlled rate. Most likely cause for his low blood pressure as well as dizziness and worsening shortness of breath as well as elevated BNP. Needs rhythm control. However given that he has stopped his oral anticoagulation of 6 days will have to resume oral anticoagulation therapy and then pursue rhythm control approach with antiarrhythmic drug loading with Tikosyn. Will require inpatient hospitalization for the same. This was discussed with him. He would prefer to an alternative oral anticoagulation therapy. Will start him on Xarelto 20 mg daily. Once he has been on the blood thinners for 3 we aches he will be admitted for initiation of Tikosyn therapy for 72 hours and if that fails to convert him to sinus rhythm will pursue synchronized cardioversion. This was discussed with him. He understands and agrees. Need for oral anticoagulation therapy was discussed given high risk for thromboembolic complication. (2) Heart failure with reduced ejection fraction: Code(s): I50.20 - Unspecified systolic (congestive) heart failure Category: Medical Plan: Heart failure with reduced ejection fraction with improved symptoms most likely due to decongestant therapy with diuretics. Blood pressure still on the softer side. Will reduce Entresto to half a tablet twice a day till we get his heart r hythm back into normal rhythm and re achieve atrial kick and AV synchrony. This was discussed with him. Continue other neurohormonal modulation. Continue Jardiance. Continue low-dose diuretic therapy. (3) ICD (implantable cardioverter-defibrillator) in place: Comment: [employer]- Foll'd by Dr. Page Code(s): Z95.810 - Presence of automatic (implantable) cardiac defibrillator Category: Medical Plan: ICD in place, working well. Will follow up in the clinic in 2 months time, sooner p.r.n.. Thank you for allowing me to partake in his care Medications: New rivaroxaban (Xarelto) must administer with evening meal 20 mg PO DAILY 30 tabs 5RF Changed From sacubitril-valsartan 49-51 mg (Entresto) 1 tab PO BID 90 days 180 tabs 1RF To sacubitril-valsartan 49-51 mg (Entresto) 0.5 tabs PO BID 90 tabs 1RF 90 days Coding Level of Care Code Est Pt Level 4 (85723) Diagnoses Atrial flutter I48.92 Heart failure with reduced ejection fraction I50.20 ICD (implantable cardioverter-defibrillator) in place Z95.810 CPT Codes Cardiac Device Check - Cardiac Device 9: [id number] Device Interrogation, implantable defibrillator ([id number])
== END 2024-03-13 14:23 | disposition home or self-care (01) ==
PROVIDERS: PCP Internal Medicine; Visit Provider Internal Medicine Cardiovascular Disease
DX: I48.92 Unspecified atrial flutter (principal); I50.20 Unspecified systolic (congestive) heart failure; I48.91 Unspecified atrial fibrillation; Z95.810 Presence of automatic (implantable) cardiac defibrillator
CPT/HCPCS: 93260; 99214

== ENCOUNTER → 2024-03-13 13:36 | Outpatient (BNVA) | payer MEDICARE, MEDICAID, SELFPAY | PROVIDERS: PCP Internal Medicine; Visit Provider Internal Medicine Cardiovascular Disease | DX: I48.92 Unspecified atrial flutter (principal); I50.20 Unspecified systolic (congestive) heart failure; Z95.810 Presence of automatic (implantable) cardiac defibrillator; Z79.01 Long term (current) use of anticoagulants | CPT/HCPCS: 99212 ==

== ENCOUNTER 2024-04-04 15:11 | Outpatient (BNV) | payer MEDICARE, SELFPAY | END 2024-04-06 11:08 | PROVIDERS: Admitting Provider Hospitalist; PCP Internal Medicine; Visit Provider Internal Medicine Cardiovascular Disease | DX: I48.92 Unspecified atrial flutter (principal) | CPT/HCPCS: 93010 ==

== ENCOUNTER 2024-04-04 15:11 | Outpatient (BNV) | payer MEDICARE, SELFPAY | END 2024-04-04 15:42 | PROVIDERS: Admitting Provider Hospitalist; PCP Internal Medicine; Visit Provider Internal Medicine Cardiovascular Disease | DX: I48.92 Unspecified atrial flutter (principal) | CPT/HCPCS: 93010 ==

== ENCOUNTER 2024-04-04 15:11 | Outpatient (BNV) | payer MEDICARE, SELFPAY | END 2024-04-05 11:00 | PROVIDERS: Admitting Provider Hospitalist; PCP Internal Medicine; Visit Provider Internal Medicine Cardiovascular Disease | DX: I48.92 Unspecified atrial flutter (principal) | CPT/HCPCS: 93010 ==

== ENCOUNTER 2024-04-04 15:11 | Inpatient (IN) | payer MEDICARE, OTHER, SELFPAY ==
--- NOTE | 2024-04-04 | ECG_ITS ---
Test Reason : at fib Blood Pressure : / mmHG Vent. Rate : 069 BPM Atrial Rate : 276 BPM P-R Int : 000 ms QRS Dur : 084 ms QT Int : 402 ms P-R-T Axes : 067 -23 189 degrees QTc Int : 430 ms Atrial flutter with 4:1 A-V conduction Anterior infarct (cited on or before 02-NOV-2018) T wave abnormality, consider lateral ischemia Abnormal ECG When compared with ECG of 02-NOV-2018 04:57, Atrial flutter has replaced NSR T wave inversion now evident in Inferior leads Referred By: Kami Rosas Electronically Signed By:MARLEE CORDERO MD
[2024-04-04 15:51] LABS: Hematocrit 38.3 % (42.0-52.0); Hemoglobin 13.2 g/dl (14.0-18.0); Mean Corpuscular HGB Conc 34.5 g/dl (31.0-36.0); Mean Corpuscular Hemoglobin 30.8 pg (27.0-33.0); Mean Corpuscular Volume 89.3 fL (80.0-98.0); Mean Platelet Volume 9.6 fL (9.4-12.4); Platelet Count 182 X10*3/uL (160-400); Red Blood Count 4.29 X10*6/uL (4.60-5.80); Red Cell Distribution Width 12.9 % (11.0-16.0); White Blood Count 6.2 X10*3/uL (4.8-10.8)
[2024-04-04 15:53] VITALS: BP 129/73; PULSE 69; RESP 20; TEMP 36.1; O2SAT 98
[2024-04-04 16:21] LABS: Anion Gap 14 (12-20); Blood Urea Nitrogen 27 mg/dL (9-16); Calcium 9.6 mg/dL (8.4-10.2); Carbon Dioxide 27 mmol/L (22-29); Chloride 105 mmol/L (96-108); Creatinine Clr Calc Pharmacy 57.4; Estimated Glomerular Filt Rate 52; Glucose Random 90 mg/dL (60-115); Potassium 4.2 mmol/L (3.3-5.1); Sodium 142 mmol/L (135-145)
--- NOTE | 2024-04-04 16:25 | P.HPHOSP_ITS ---
History of Present Illness Date of Service: 04/04/24 Chief Complaint: Symptomatic Atrial fibrillation 68-year-old gentleman with recently diagnosed atrial fibrillation/flutter on Eliquis , history of ischemic cardiomyopathy, status post implantable cardioverter defibrillator in place, chronic heart failure with reduced EF and diastolic dysfunction, history of anxiety depression, hyperlipidemia, gout, hypertension, referred by Cardiology for Tikosyn loading dose since patient requires rhythm control due to persistent symptoms of shortness of breath, hypotension and dizziness, patient recently stopped taking his Eliquis due to symptoms of headache and currently on Xarelto, patient denies chest pain, no palpitations, shortness of breath with exertion only, denies PND, no orthopnea, no lightheadedness, no dizziness, mild intermittent headache getting better since he stopped Eliquis, denies nausea, no vomiting, no abdominal pain, no diarrhea,no urinary sxs. Review of Systems 2 Review of Systems: General no dizziness, no fever chills. CVS no chest pain, no palpitation. Respiratory no cough, sob with exertion Gastrointestinal no nausea, no vomiting, no abdominal pain no urgency, no frequency Musculoskeletal no pain All other system reviewed and are negative. [facility] Medical History (Updated 04/04/24 @ 17:11 by Kami Rosas MD) Ischemic cardiomyopathy Chronic heart failure with reduced ejection fraction and diastolic dysfunction ICD (implantable cardioverter-defibrillator) in place Pneumonia Anxiety and depression Bilateral renal stones Hypercholesterolemia Psoriasis Gout Coronary artery disease Hypertension GERD (gastroesophageal reflux disease) Family History Father Diabetes Prostate cancer CVD (cardiovascular disease) Mother CVD (cardiovascular disease) Acute CVA (cerebrovascular accident) Surgical History Hx of colonoscopy History of heart artery stent S/P ICD (internal cardiac defibrillator) procedure History of cataract surgery History of surgery History of vasectomy History of wisdom tooth extraction Social History Household Members: Spouse Housing: House Do you presently have visiting nurse or other home services: No Alcohol intake: current Alcohol intake frequency: holidays/special occasions only Comment: once q2 months 1/2 bottle of wine Patient Tobacco Use Status: Never used Tobacco e-Cigarette/Vaping Use: Never Used Second Hand Smoke Exposure: No Use of substances other than those prescribed or required for medical reasons: No Currently Displaying Signs/Symptoms of Drug Intoxication Withdrawal: No Have you been hit, kicked, punched, or otherwise hurt by someone within the past year? If so, by whom?: No Do you feel safe in your current relationship?: Yes Is there a partner from a previous relationship who is making you feel unsafe now?: No Are you made to feel afraid or neglected: No Advance Directives: No Advance Directives Information Provided: Yes Do you have a plan to hurt others: No Plan Recently lost weight without trying: No Poor oral hygiene: No service: No Current occupational status: retired Cognitive needs: No Hearing needs: No Vision needs: Yes Meds Allergies Allergy/AdvReac Type Severity Reaction Status Date / Time lisinopril [LISINOPRIL] Allergy Mild UNKNOWN, Verified 12/31/23 13:49 cough, cough doxycycline [DOXYCYCLINE] Allergy Unknown UNKNOWN Verified 12/31/23 13:49 glimepiride [GLIMEPIRIDE] Allergy Unknown SEVERE Verified 12/31/23 13:49 BACK PAIN ibuprofen [From Motrin] Allergy Unknown Nausea Verified 12/31/23 13:49 tamsulosin [TAMSULOSIN] Allergy Unknown UNKNOWN, Verified 12/31/23 13:49 Fever rosuvastatin AdvReac Intermediate hypotension Verified 12/31/23 13:49 ' adhesive tape AdvReac Mild Itching Verified 12/31/23 13:49 Active Medications: Current Medications Acetaminophen (Acetaminophen 325 Mg Tablet) 650 mg PO Q6H PRN PRN Reason: Pain, Mild (Pain Scale 1-3), fever or headache Calcium Carbonate (Calcium Carbonate 750 Mg Tab.Chew) 750 mg PO Q4H PRN PRN Reason: Heartburn Dofetilide (Dofetilide 125 Mcg Capsule) 250 mcg PO BID ABBY Magnesium Hydroxide (Milk Of Magnesia 30 Ml Oral.Susp) 30 ml PO DAILY PRN PRN Reason: Constipation Melatonin (Melatonin 3 Mg Tablet) 6 mg PO BEDTIME PRN PRN Reason: Insomnia Sodium Chloride (0.9 % Sodium Chloride Flush 3 Ml Syringe) 3 ml IVFLUSH QSHIFT ON LICENSE OF [facility] Home Medications ?Medication ?Instructions ?Recorded ?Confirmed ?Last Taken ?Type cholecalciferol (vitamin D3) 50 10,000 unit PO DAILY 07/14/21 04/04/24 04/04/24 08:00 History mcg (2,000 unit) capsule zinc sulfate 25 mg zinc (110 mg) 25 mg PO DAILY 07/14/21 04/04/24 04/04/24 08:00 History tablet (Orazinc) ascorbate calcium (vitamin C) 500 500 mg PO DAILY 10/07/21 04/04/24 04/04/24 08:00 History mg tablet coenzyme Q10 10 mg capsule (Co 20 mg PO DAILY 10/07/21 04/04/24 04/04/24 08:00 History Q-10) magnesium 30 mg tablet 30 mg PO DAILY 10/07/21 04/04/24 04/04/24 08:00 History multivitamin 1 tab PO DAILY 10/07/21 04/04/24 04/04/24 08:00 History omega 0-prx-qzb-fish oil 60 mg-90 1 cap PO DAILY 10/07/21 04/04/24 04/04/24 08:00 History mg-500 mg capsule (Fish Oil) phytonadione (vitamin K1) 100 mcg 100 mcg PO DAILY 10/12/22 04/04/24 04/04/24 08:00 History tablet allopurinol 100 mg tablet 100 mg PO BEDTIME 04/04/24 04/04/24 04/03/24 19:00 History furosemide 20 mg tablet 20 mg PO DAILY PRN edema 04/04/24 04/04/24 04/04/24 08:00 History loratadine 10 mg tablet 10 mg PO DAILY 04/04/24 04/04/24 04/04/24 08:00 History rivaroxaban 20 mg tablet (Xarelto) 20 mg PO DAILY@1700 04/04/24 04/04/24 04/03/24 17:00 History 20 mg Physical Exam 2 Vital Signs and Narrative: Vital Signs: Last Vital Signs Temp 97.0 F 04/04/24 15:53 Pulse 69 04/04/24 15:53 Resp 20 04/04/24 15:53 BP 129/73 04/04/24 15:53 Pulse Ox 98 04/04/24 15:53 O2 Del Method Room Air 04/04/24 15:53 BMI result Body Mass Index 30.0 Const: Other: General awake alert x3,in no acute distress. Neck supple no JVD. CVS irregular rate rhythm, Respiratory lungs clear to auscultation, no respiratory distress, no rales, no rhonchi. Gastrointestinal abdomen soft, non tender, bowel sounds audible, no guarding , no rigidity. Extremities no edema. Neuro non focal Skin no rash Psych appropriate affect Results Labs 04/04/24 15:41 04/05/24 06:14 Labs: Laboratory Results - last 24 hr 04/04/24 15:41 MCV 89.3 MCH 30.8 MCHC 34.5 RDW 12.9 Plt Count 182 MPV 9.6 Absolute Nucleated RBC 0.000 Nucleated RBC % (auto) 0.0 Anion Gap 14 Estim Creat Clear Calc 57.4 Estimated GFR 52 Random Glucose 90 Calcium 9.6 Assessment and Plan (1) Atrial flutter: Status: Acute (2) Visit for monitoring Tikosyn therapy: Status: Acute Plan 68-year-old gentleman with past medical history significant for ischemic cardiomyopathy recently diagnosed to have atrial fibrillation/flutter on Xarelto, due to persistent symptoms of shortness of breath, soft blood pressures, lightheadedness, exertional fatigue despite control ventricular rate he is being admitted for rhythm control and will be started on Tikosyn protocol. Symptomatic atrial fibrillation/flutter Tikosyn 250 mcg b.i.d. Follow BMP/magnesium check EKG 2 hours after Tikosyn if noted to have elevated QTC greater than 500 , will discontinue Tikosyn Continue Xarelto and Coreg Cardiology consultation Congestive heart failure with reduced EF no acute decompensation Continue home medication Entresto and lasix Diabetes mellitus type 2 diet control, diabetic diet, Januvia and check blood sugar b.i.d. if elevated BS will place on insulin sliding scale. Hyperlipidemia continue CTA and Pravachol. DVT prophylaxis on Xarelto Full code In my clinical judgment patient requires 2 night inpatient hospitalization for Tikosyn administration and close monitoring of electrolytes and EKG. Quality Stroke Does the patient have a stroke diagnosis?: No VTE Prior VTE?: No VTE Risk Level:: Medical - moderate - high VTE Device Contraindication: Treatment Not Indicated VTE Drug Contraindication: N/A - Med Ordered
[2024-04-04 16:37] LABS: Thyroid Stimulating Hormone 2.64 uIU/mL (0.32-4.0)
[2024-04-04 16:42] LABS: Glucose, Whole Blood 91 mg/dL (60-115)
[2024-04-04] MEDS: 0.9 % Sodium Chloride Flush 3 ML SYRINGE IVFLUSH ×2 (16:52→20:47)
[2024-04-04 19:40] VITALS: BP 136/94; PULSE 103; RESP 20; TEMP 36.8; O2SAT 95
--- NOTE | 2024-04-04 20:28 | PHA.MEDREC ---
Addendum entered by Jordon Frederick [facility] 04/04/24 21:41: Correction -Entresto 49mg-51mg tab is 1/2 tab twice daily Addendum entered by Jordon Frederick [facility] 04/04/24 20:58: MED REC CHECKED BY [facility] Original Note: Pharmacy Consult ? Medication Reconciliation Pharmacy has completed the medication reconciliation. Spoke with patient and he had a list I was able to use to confirm his medications and he was able to confirm his OTC medications with me. He confirmed he stopped his Eliquis 5mg tab about 4 weeks and states it was due to him devolving an allergy while taking it and now taking Entresto 49mg-51mg tab taking 1/2 tab daily and Januvia 100mg tab once daily. He confirmed he took his medications this morning @0800.
[2024-04-04 20:47] LABS: Glucose, Whole Blood 118 mg/dL (60-115)
[2024-04-04] MEDS: carvediloL 25 MG TABLET PO (20:47)
[2024-04-04] MEDS: Dofetilide 125 MCG CAPSULE 250 MCG PO (20:47)
[2024-04-04] MEDS: Pravastatin Sodium 40 MG TABLET PO (20:47)
[2024-04-04 22:15] VITALS: BP 124/90
[2024-04-04] MEDS: Sacubitril/Valsartan 49/51 1 TAB TABLET 0.5 TAB PO (22:15)
[2024-04-04] MEDS: allopurinoL 100 MG TABLET PO (22:15)
--- NOTE | 2024-04-04 23:00 | ECG_ITS ---
Test Reason : at fib Blood Pressure : / mmHG Vent. Rate : 071 BPM Atrial Rate : 260 BPM P-R Int : 000 ms QRS Dur : 100 ms QT Int : 424 ms P-R-T Axes : 000 -22 187 degrees QTc Int : 460 ms Atrial flutter with variable A-V block with premature ventricular or aberrantly conducted complexes T wave abnormality, consider lateral ischemia Prolonged QT Abnormal ECG When compared to the previous EKG of No significant changes seen Referred By: Kami Rosas Electronically Signed By:MARLEE CORDERO MD
[2024-04-04 23:05] LABS: Magnesium 2.2 mg/dL (1.6-2.6)
[2024-04-04 23:40] VITALS: BP 138/65; PULSE 73; RESP 18; TEMP 36.3; O2SAT 96
[2024-04-05] VITALS (8 sets, daily range): BP systolic 118–144; BP diastolic 64–80; PULSE 50–90; RESP 16–20; TEMP 36.2–36.6; O2SAT 95–97
[2024-04-05 07:15] LABS: Anion Gap 13 (12-20); Blood Urea Nitrogen 20 mg/dL (9-16); Calcium 9.2 mg/dL (8.4-10.2); Carbon Dioxide 26 mmol/L (22-29); Chloride 107 mmol/L (96-108); Estimated Glomerular Filt Rate 56; Glucose Random 117 mg/dL (60-115); Magnesium 2.2 mg/dL (1.6-2.6); Potassium 3.9 mmol/L (3.3-5.1); Sodium 142 mmol/L (135-145)
--- NOTE | 2024-04-05 09:17 | MHC.CM.PN ---
IMM 04/05/2024, EMR REVIEWED, PT W/AFIB, PT REPORTS HE LIVES W/ [facility], IS FULLY INDEP W/ALL CARE, DENIES USE OF DME/SERVICES, PT'S GOAL FOR DC IS HOME NO SERVICES. PT VERIFIES PCP IS DR. CARSON AND HCP IS [facility] (JAMES) # ON FILE, COPY REQUESTED.
[2024-04-05] MEDS: 0.9 % Sodium Chloride Flush 3 ML SYRINGE IVFLUSH ×2 (09:30→15:47)
[2024-04-05] MEDS: SITagliptin Phosphate 100 MG TABLET PO (09:31)
[2024-04-05] MEDS: carvediloL 25 MG TABLET PO ×2 (09:31→20:51)
[2024-04-05] MEDS: Dofetilide 125 MCG CAPSULE 250 MCG PO ×2 (09:31→20:49)
[2024-04-05] MEDS: Ezetimibe 10 MG TABLET PO (09:31)
[2024-04-05] MEDS: Pyridoxine HCl (Vitamin B6) 50 MG TABLET PO (09:31)
[2024-04-05] MEDS: Multivitamin TABLET 1 TAB PO (09:31)
[2024-04-05] MEDS: Sacubitril/Valsartan 49/51 1 TAB TABLET 0.5 TAB PO ×2 (09:31→20:50)
[2024-04-05] MEDS: Loratadine 10 MG TABLET PO (09:31)
[2024-04-05] MEDS: Cholecalciferol (Vitamin D3) 25 MCG TABLET 250 MCG PO (09:32)
[2024-04-05] MEDS: Ascorbic Acid 500 MG TABLET PO (09:32)
[2024-04-05 10:05] LABS: Glucose, Whole Blood 136 mg/dL (60-115)
--- NOTE | 2024-04-05 11:00 | ECG_ITS ---
Test Reason : tikosyn Blood Pressure : / mmHG Vent. Rate : 075 BPM Atrial Rate : 241 BPM P-R Int : 000 ms QRS Dur : 086 ms QT Int : 386 ms P-R-T Axes : 000 -06 198 degrees QTc Int : 431 ms Atrial flutter with variable A-V block Anterior infarct , age undetermined T wave abnormality, consider lateral ischemia Abnormal ECG When compared to the previous EKG of No significant changes seen Referred By: Kami Rosas Electronically Signed By:MARLEE CORDERO MD
[2024-04-05] MEDS: Rivaroxaban 20 MG TABLET PO (11:11)
--- NOTE | 2024-04-05 12:57 | HO.PM.IMPN ---
Subjective Subjective Date of Service: 04/05/24 Interval History: Complaining of generalized achiness, and headache, denies fever, no chills, no shortness a breath, no palpitations, no chest pain, no PND or orthopnea no acute issues overnight. Review of Systems All other system reviewed and are negative. Physical Exam Vital Signs: Vital Signs: Last Vital Signs Temp 97.1 F 04/05/24 11:43 Pulse 67 04/05/24 11:43 Resp 16 04/05/24 11:43 BP 118/64 04/05/24 11:43 Pulse Ox 96 04/05/24 11:43 O2 Del Method Room Air 04/05/24 11:43 BMI result Body Mass Index 30.0 Const: Other: General awake alert x3,in no acute distress. Anicteric sclera Neck supple no JVD. CVS irregular rate rhythm, Respiratory lungs clear to auscultation, no respiratory distress, no rales, no rhonchi. Gastrointestinal abdomen soft, non tender, bowel sounds audible, no guarding , no rigidity. Extremities no edema. Neuro non focal Skin no rash Psych appropriate affect Objective Data Active Medications Acetaminophen (Acetaminophen 325 Mg Tablet) 650 mg PO Q6H PRN PRN Reason: Pain, Mild (Pain Scale 1-3), fever or headache Allopurinol (Allopurinol 100 Mg Tablet) 100 mg PO BEDTIME [facility] Last Admin: 04/04/24 22:15 Dose: 100 mg Documented By: LOREE Ascorbic Acid (Ascorbic Acid 500 Mg Tablet) 500 mg PO DAILY [facility] Last Admin: 04/05/24 09:32 Dose: 500 mg Documented By: PAULA Calcium Carbonate (Calcium Carbonate 750 Mg Tab.Chew) 750 mg PO Q4H PRN PRN Reason: Heartburn Carvedilol (Carvedilol 25 Mg Tablet) 25 mg PO BID [facility]; Protocol Last Admin: 04/05/24 09:31 Dose: 25 mg Documented By: PAULA Dofetilide (Dofetilide 125 Mcg Capsule) 250 mcg PO BID [facility] Last Admin: 04/05/24 09:31 Dose: 250 mcg Documented By: PAULA Ezetimibe (Ezetimibe 10 Mg Tablet) 10 mg PO DAILY [facility] Last Admin: 04/05/24 09:31 Dose: 10 mg Documented By: HO.ARTING Furosemide (Furosemide 20 Mg Tablet) 20 mg PO DAILY PRN; Protocol PRN Reason: edema Loratadine (Loratadine 10 Mg Tablet) 10 mg PO DAILY [facility] Last Admin: 04/05/24 09:31 Dose: 10 mg Documented By: PAULA Magnesium Hydroxide (Milk Of Magnesia 30 Ml Oral.Susp) 30 ml PO DAILY PRN PRN Reason: Constipation Melatonin (Melatonin 3 Mg Tablet) 6 mg PO BEDTIME PRN PRN Reason: Insomnia Multivitamins/Vitamin C (Multivitamin Tablet) 1 tab PO DAILY [facility] Last Admin: 04/05/24 09:31 Dose: 1 tab Documented By: PAULA Pravastatin Sodium (Pravastatin Sodium 40 Mg Tablet) 40 mg PO BEDTIME [facility] Last Admin: 04/04/24 21:50 Dose: Not Given Documented By: LOREE Non-Admin Reason: Duplicate Order Pyridoxine HCl (Pyridoxine Hcl (Vitamin B6) 50 Mg Tablet) 50 mg PO DAILY [facility] Last Admin: 04/05/24 09:31 Dose: 50 mg Documented By: PAULA Rivaroxaban (Rivaroxaban 20 Mg Tablet) 20 mg PO DAILY@0800 [facility] Sacubitril/Valsartan (Sacubitril/Valsartan 49/51 1 Tab Tablet) 0.5 tab PO BID [facility]; Protocol Last Admin: 04/05/24 09:31 Dose: 0.5 tab Documented By: PAULA Sitagliptin Phosphate (Sitagliptin Phosphate 100 Mg Tablet) 100 mg PO DAILY [facility] Last Admin: 04/05/24 09:31 Dose: 100 mg Documented By: PAULA Sodium Chloride (0.9 % Sodium Chloride Flush 3 Ml Syringe) 3 ml IVFLUSH QSHIFT [facility] Last Admin: 04/05/24 09:30 Dose: 3 ml Documented By: PAULA Vitamin D (Cholecalciferol (Vitamin D3) 25 Mcg Tablet) 250 mcg PO DAILY [facility] Last Admin: 04/05/24 09:32 Dose: 250 mcg Documented By: PAULA Labs 04/04/24 15:41 04/05/24 06:14 Labs: Laboratory Results - last 24 hr 04/04/24 04/04/24 04/04/24 15:41 16:39 20:40 MCV 89.3 MCH 30.8 MCHC 34.5 RDW 12.9 Plt Count 182 MPV 9.6 Absolute Nucleated RBC 0.000 Nucleated RBC % (auto) 0.0 Hold Purple Top Anion Gap 14 Estim Creat Clear Calc 57.4 Estimated GFR 52 POC Glucose 91 118 H Random Glucose 90 Calcium 9.6 Magnesium 2.2 TSH 2.64 04/05/24 04/05/24 06:14 10:01 MCV MCH MCHC RDW Plt Count MPV Absolute Nucleated RBC Nucleated RBC % (auto) Hold Purple Top SEE NOTE Anion Gap 13 Estim Creat Clear Calc 61.0 Estimated GFR 56 POC Glucose 136 H Random Glucose 117 H Calcium 9.2 Magnesium 2.2 TSH Assessment and Plan (1) Visit for monitoring Tikosyn therapy: Status: Acute (2) Heart failure with reduced ejection fraction: Status: Acute (3) Atrial flutter: Status: Acute Plan 68-year-old gentleman with past medical history significant for ischemic cardiomyopathy recently diagnosed to have atrial fibrillation/flutter on Xarelto, due to persistent symptoms of shortness of breath, soft blood pressures, lightheadedness, exertional fatigue despite control ventricular rate he is being admitted for rhythm control and will be started on Tikosyn protocol. Symptomatic atrial fibrillation/flutter No chest pain/no palpitation complaining of generalized achiness and tachycardia Tikosyn 250 mcg b.i.d. stable BMP/magnesium , stable QTC 2 hours after Tikosyn Continue Xarelto and Coreg Being followed by Cardiology Headache/achiness symptomatic treatment, follow clinical course. Congestive heart failure with reduced EF no acute decompensation,Continue home medication Entresto and lasix Diabetes mellitus type 2 diet control, stable bs ,diabetic diet, Januvia and check blood sugar b.i.d. if elevated BS will place on insulin sliding scale. Hyperlipidemia continue CTA and Pravachol. DVT prophylaxis on Xarelto Full code Requires continued inpatient hospitalization for Tikosyn administration and close monitoring of electrolytes and EKG. Quality Stroke Does the patient have a stroke diagnosis?: No VTE Prior VTE?: No VTE Risk Level:: Medical - moderate - high VTE Device Contraindication: Treatment Not Indicated VTE Drug Contraindication: N/A - Med Ordered
--- NOTE | 2024-04-05 15:00 | P.CONCA_ITS ---
History of Present Illness History of Present Illness Date of Service: 04/05/24 Requesting physician: Kami Rosas Consult reason: other (Atrial flutter) Chief complaint: AFIB Narrative: I was consulted to see Td in cardiology consultation today as he has been admitted for monitoring for loading for Tikosyn. This was a decision made as an outpatient. Patient presented recently with new onset atrial flutter noted on his device. He had absolutely no symptoms related to it. He was started on oral anticoagulation therapy and given his underlying cardiac issues was recommended rhythm control approach but given his underlying cardiac structural abnormality will need antiarrhythmic drug therapy. We decided given his age to start him on Tikosyn loading to be done as inpatient. He was admitted yesterday has received 1 dose of Tikosyn at 250 mcg. Has tolerated this therapy well. Continues to have no symptoms. His atrial flutter rates are well controlled. He denies any symptoms of palpitations, irregular heartbeat, lightheadedness, syncope. No orthopnea, PND. No worsening shortness of breath. No chest pain. No lightheadedness, syncope. Past medical history of severe ischemic cardiomyopathy, has subcutaneous [place] ICD for sudden cardiac that prevention. Has had 1 episode of heart failure syndrome which had been self- limited, currently using Lasix as need be. Currently on guideline based medical therapy with Entresto, carvedilol. Did not tolerate Jardiance therapy. Also has prior history of CAD with prior anterior wall OK. Review of Systems 2 Review of Systems: Yes all other systems are reviewed and are negative [facility] Past Medical History Medical History (Updated 04/04/24 @ 17:11 by Kami Rosas MD) Ischemic cardiomyopathy Chronic heart failure with reduced ejection fraction and diastolic dysfunction ICD (implantable cardioverter-defibrillator) in place Pneumonia Anxiety and depression Bilateral renal stones Hypercholesterolemia Psoriasis Gout Coronary artery disease Hypertension GERD (gastroesophageal reflux disease) Family History Family History Father Diabetes Prostate cancer CVD (cardiovascular disease) Mother CVD (cardiovascular disease) Acute CVA (cerebrovascular accident) Surgical History Surgical History Hx of colonoscopy History of heart artery stent S/P ICD (internal cardiac defibrillator) procedure History of cataract surgery History of surgery History of vasectomy History of wisdom tooth extraction Social History Social History Household Members: Spouse Housing: House Do you presently have visiting nurse or other home services: No Alcohol intake: current Alcohol intake frequency: holidays/special occasions only Comment: once q2 months 1/2 bottle of wine Patient Tobacco Use Status: Never used Tobacco e-Cigarette/Vaping Use: Never Used Second Hand Smoke Exposure: No Use of substances other than those prescribed or required for medical reasons: No Currently Displaying Signs/Symptoms of Drug Intoxication Withdrawal: No Have you been hit, kicked, punched, or otherwise hurt by someone within the past year? If so, by whom?: No Do you feel safe in your current relationship?: Yes Is there a partner from a previous relationship who is making you feel unsafe now?: No Are you made to feel afraid or neglected: No Advance Directives: No Advance Directives Information Provided: Yes Do you have a plan to hurt others: No Plan Recently lost weight without trying: No Poor oral hygiene: No service: No Current occupational status: retired Cognitive needs: No Hearing needs: No Vision needs: Yes Meds Allergies Allergy/AdvReac Type Severity Reaction Status Date / Time lisinopril [LISINOPRIL] Allergy Mild UNKNOWN, Verified 12/31/23 13:49 cough, cough doxycycline [DOXYCYCLINE] Allergy Unknown UNKNOWN Verified 12/31/23 13:49 glimepiride [GLIMEPIRIDE] Allergy Unknown SEVERE Verified 12/31/23 13:49 BACK PAIN ibuprofen [From Motrin] Allergy Unknown Nausea Verified 12/31/23 13:49 tamsulosin [TAMSULOSIN] Allergy Unknown UNKNOWN, Verified 12/31/23 13:49 Fever rosuvastatin AdvReac Intermediate hypotension Verified 12/31/23 13:49 ' adhesive tape AdvReac Mild Itching Verified 12/31/23 13:49 Active Medications: Current Medications Acetaminophen (Acetaminophen 325 Mg Tablet) 650 mg PO Q6H PRN PRN Reason: Pain, Mild (Pain Scale 1-3), fever or headache Allopurinol (Allopurinol 100 Mg Tablet) 100 mg PO BEDTIME [facility] Last Admin: 04/04/24 22:15 Dose: 100 mg Ascorbic Acid (Ascorbic Acid 500 Mg Tablet) 500 mg PO DAILY [facility] Last Admin: 04/05/24 09:32 Dose: 500 mg Calcium Carbonate (Calcium Carbonate 750 Mg Tab.Chew) 750 mg PO Q4H PRN PRN Reason: Heartburn Carvedilol (Carvedilol 25 Mg Tablet) 25 mg PO BID [facility]; Protocol Last Admin: 04/05/24 09:31 Dose: 25 mg Dofetilide (Dofetilide 125 Mcg Capsule) 250 mcg PO BID [facility] Last Admin: 04/05/24 09:31 Dose: 250 mcg Ezetimibe (Ezetimibe 10 Mg Tablet) 10 mg PO DAILY [facility] Last Admin: 04/05/24 09:31 Dose: 10 mg Furosemide (Furosemide 20 Mg Tablet) 20 mg PO DAILY PRN; Protocol PRN Reason: edema Loratadine (Loratadine 10 Mg Tablet) 10 mg PO DAILY [facility] Last Admin: 04/05/24 09:31 Dose: 10 mg Magnesium Hydroxide (Milk Of Magnesia 30 Ml Oral.Susp) 30 ml PO DAILY PRN PRN Reason: Constipation Melatonin (Melatonin 3 Mg Tablet) 6 mg PO BEDTIME PRN PRN Reason: Insomnia Multivitamins/Vitamin C (Multivitamin Tablet) 1 tab PO DAILY [facility] Last Admin: 04/05/24 09:31 Dose: 1 tab Pravastatin Sodium (Pravastatin Sodium 40 Mg Tablet) 40 mg PO BEDTIME [facility] Last Admin: 04/04/24 21:50 Dose: Not Given Pyridoxine HCl (Pyridoxine Hcl (Vitamin B6) 50 Mg Tablet) 50 mg PO DAILY [facility] Last Admin: 04/05/24 09:31 Dose: 50 mg Rivaroxaban (Rivaroxaban 20 Mg Tablet) 20 mg PO DAILY@0800 [facility] Sacubitril/Valsartan (Sacubitril/Valsartan 49/51 1 Tab Tablet) 0.5 tab PO BID [facility]; Protocol Last Admin: 04/05/24 09:31 Dose: 0.5 tab Sitagliptin Phosphate (Sitagliptin Phosphate 100 Mg Tablet) 100 mg PO DAILY [facility] Last Admin: 04/05/24 09:31 Dose: 100 mg Sodium Chloride (0.9 % Sodium Chloride Flush 3 Ml Syringe) 3 ml IVFLUSH QSHIFT [facility] Last Admin: 04/05/24 09:30 Dose: 3 ml Vitamin D (Cholecalciferol (Vitamin D3) 25 Mcg Tablet) 250 mcg PO DAILY [facility] Last Admin: 04/05/24 09:32 Dose: 250 mcg Home Medications ?Medication ?Instructions ?Recorded ?Confirmed ?Last Taken ?Type cholecalciferol (vitamin D3) 50 10,000 unit PO DAILY 07/14/21 04/04/24 04/04/24 08:00 History mcg (2,000 unit) capsule zinc sulfate 25 mg zinc (110 mg) 25 mg PO DAILY 07/14/21 04/04/24 04/04/24 08:00 History tablet (Orazinc) ascorbate calcium (vitamin C) 500 500 mg PO DAILY 10/07/21 04/04/24 04/04/24 08:00 History mg tablet coenzyme Q10 10 mg capsule (Co 20 mg PO DAILY 10/07/21 04/04/24 04/04/24 08:00 History Q-10) magnesium 30 mg tablet 30 mg PO DAILY 10/07/21 04/04/24 04/04/24 08:00 History multivitamin 1 tab PO DAILY 10/07/21 04/04/24 04/04/24 08:00 History omega 5-rhp-hef-fish oil 60 mg-90 1 cap PO DAILY 10/07/21 04/04/24 04/04/24 08:00 History mg-500 mg capsule (Fish Oil) phytonadione (vitamin K1) 100 mcg 100 mcg PO DAILY 10/12/22 04/04/24 04/04/24 08:00 History tablet allopurinol 100 mg tablet 100 mg PO BEDTIME 04/04/24 04/04/24 04/03/24 19:00 History furosemide 20 mg tablet 20 mg PO DAILY PRN edema 04/04/24 04/04/24 04/04/24 08:00 History loratadine 10 mg tablet 10 mg PO DAILY 04/04/24 04/04/24 04/04/24 08:00 History rivaroxaban 20 mg tablet (Xarelto) 20 mg PO DAILY@1700 04/04/24 04/04/24 04/03/24 17:00 History 20 mg Physical Exam 2 Vital Signs: Vital Signs: Last Vital Signs Temp 97.1 F 04/05/24 11:43 Pulse 67 04/05/24 11:43 Resp 16 04/05/24 11:43 BP 118/64 04/05/24 11:43 Pulse Ox 96 04/05/24 11:43 O2 Del Method Room Air 04/05/24 11:43 BMI result Body Mass Index 30.0 Const: General: cooperative, comfortable, no acute distress, alert, awake and Physically active Nutritional Appearance: overweight O rientation/consciousness: patient oriented x3 Limitations: no limitations HEENT: Head: Yes normocephalic and Yes atraumatic Neck: Neck: Yes trachea midline, Yes supple and Yes no JVD Resp: Effort & Inspection: normal respiratory effort Auscultation: clear to auscultation bilaterally Cardio: Jugular venous distension: no JVD Palpation: abnormal PMI displaced PMI Rhythm: abnormal rhythm irregularly irregular Heart sounds: S1 normal heart sound present, S2 normal heart sound present, no click, no gallops, no murmurs and no rubs GI: Auscultation: normal bowel sounds Skin: General skin exam: no rashes or lesions noted Neuro: General: patient oriented x3 and no focal motor deficits Extrem: General: Yes no clubbing, cyanosis or edema Psych: Appearance: grossly normal Objective Labs and Meds 04/04/24 15:41 04/05/24 06:14 Lab results: Laboratory Results - last 24 hr 04/04/24 04/04/24 04/04/24 15:41 16:39 20:40 WBC 6.2 RBC 4.29 L Hgb 13.2 L Hct 38.3 L MCV 89.3 MCH 30.8 MCHC 34.5 RDW 12.9 Plt Count 182 MPV 9.6 Absolute Nucleated RBC 0.000 Nucleated RBC % (auto) 0.0 Hold Purple Top Sodium 142 Potassium 4.2 Chloride 105 Carbon Dioxide 27 Anion Gap 14 BUN 27 H Creatinine 1.36 Estim Creat Clear Calc 57.4 Estimated GFR 52 POC Glucose 91 118 H Random Glucose 90 Calcium 9.6 Magnesium 2.2 TSH 2.64 04/05/24 04/05/24 06:14 10:01 WBC RBC Hgb Hct MCV MCH MCHC RDW Plt Count MPV Absolute Nucleated RBC Nucleated RBC % (auto) Hold Purple Top SEE NOTE Sodium 142 Potassium 3.9 Chloride 107 Carbon Dioxide 26 Anion Gap 13 BUN 20 H Creatinine 1.28 Estim Creat Clear Calc 61.0 Estimated GFR 56 POC Glucose 136 H Random Glucose 117 H Calcium 9.2 Magnesium 2.2 TSH EKG shows atrial flutter with variable conduction Assessment and Plan (1) Atrial flutter: Status: Acute New onset atrial flutter, rate controlled with current therapy without any obvious symptoms or signs of cardiac decompensation at this point time. Although given his age and underlying cardiac structural abnormality he will run into trouble with loss of AV synchrony in the future with heart failure syndrome. Therefore as per recent data I would suggest him to be pursuing rhythm control approach. Given his structural abnormality will require antiarrhythmic drug therapy to maintain rhythm and help with achieving normal sinus rhythm. Therefore will started on Tikosyn therapy. He is tolerating this well. Will uptitrate Tikosyn to 500 mcg b.i.d. if his QTC remains within acceptable limits tomorrow. If he remains in atrial flutter despite adequate loading after 72 hours will pursue synchronized cardioversion. This was discussed with him. Absolutely essential to continue Xarelto without stopping. Continue other guideline based medical therapy. (2) Ischemic cardiomyopathy: Status: Acute Severe ischemic cardiomyopathy without overt signs of congestive heart failure at this point time. Continue Entresto as well as carvedilol therapy. Continue monitor for signs and symptoms of heart failure. He understands them well. Continue other therapy for CAD as well. Will follow with you. Thank you for allowing me to partake in his care Procedures Date of Service Date of Service: 04/05/24
[2024-04-05] MEDS: Pravastatin Sodium 40 MG TABLET PO (20:49)
[2024-04-05] MEDS: allopurinoL 100 MG TABLET PO (20:49)
[2024-04-05 21:12] LABS: Glucose, Whole Blood 131 mg/dL (60-115)
--- OUTSIDE RECORDS SUMMARY | 2024-04-05 22:20 | XMS_ITS | Patient Health Record ---
Author Organization [facility] Address [address] [place] [id number] Care Team Providers Care Utilization Review Nurse Name Role Phone Shilpi Pillai MD Primary Care Provider Liban Holliday Jr Unavailable [phone] ALLERGIES Allergen (clinical drug ingredient) Drug/Non Drug Allergy documented on EMR Reaction Allergy Type Onset Date Status lisinopril Lisinopril Unknown Drug Allergy Activ e Motrin Unknown Drug Allergy Active glimepiride Glimepiride Unknown Drug Allergy Act shi doxicyline (uncoded) Unknown Allergy Active seasonal (uncoded) Unknown Allergy A ctive tamsulosin Tamsulosin Unknown Drug Allergy Activ e REASON FOR REFERRAL No Information MEDICATIONS Medication SIG (Take, Route, Frequency, Duration) Notes Start Date End Date Status Lipitor 40 MG 1 tablet Orally Once a day Active Aspirin 325 MG 1 tablet Orally Once a day Active Turmeric 500 MG as directed Orally Active Fish Oil 1000 MG 1 capsule Orally Onc e a day for 30 day(s) Active Vitamin B-6 100 MG 1 tablet Orally Once a day for 30 day(s) Active Entresto 24-26 MG 1 tablet Orally Twic e a day for 30 day(s) Active Coreg 12.5 MG 1 tablet with food O rally Twice a day Active MiraLax (colon prep) 17 GM/SCOOP mixed with Gatorade or Crystal Light Orally begin at 5:00 p.m. 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 [address] [place] [address] [id number] REANNA ROSALES Self - patient is the insured MEDICAL (GENERAL) HISTORY Medical History History ICD Code diabetes mellitus OK 06/07/2011 coronary artery disease with stent place ment cardiomyopathy, ejection fraction 32% hypertension elevated cholesterol Colonoscopy 09/07, tubular adenoma, five- year followup Surgical History Surgery Date(Month/Year) vasectomy 1986 wisdom teeth extraction 1970 ICD
--- NOTE | 2024-04-06 | ECG_ITS ---
Test Reason : tikosyn Blood Pressure : / mmHG Vent. Rate : 081 BPM Atrial Rate : 227 BPM P-R Int : 000 ms QRS Dur : 096 ms QT Int : 426 ms P-R-T Axes : 000 -16 157 degrees QTc Int : 494 ms Atrial flutter with variable A-V block Anterior infarct (cited on or before 05-APR-2024) T wave abnormality, consider lateral ischemia Abnormal ECG When compared with ECG of 05-APR-2024 22:52, Previous ECG has undetermined rhythm, needs review QT has lengthened Referred By: Kami Rosas Electronically Signed By:MARLEE CORDERO MD
--- NOTE | 2024-04-06 | ECG_ITS ---
Test Reason : tikosyn Blood Pressure : / mmHG Vent. Rate : 082 BPM Atrial Rate : 250 BPM P-R Int : 000 ms QRS Dur : 090 ms QT Int : 412 ms P-R-T Axes : 000 -19 152 degrees QTc Int : 481 ms Atrial flutter with variable A-V block with premature ventricular or aberrantly conducted complexes Anterior infarct (cited on or before 05-APR-2024) T wave abnormality, consider lateral ischemia Abnormal ECG When compared with ECG of 06-APR-2024 11:08, No significant change was found Referred By: Kami Rosas Electronically Signed By:MARLEE CORDERO MD
[2024-04-06 03:30] VITALS: BP 131/69; PULSE 78; RESP 18; TEMP 36.2; O2SAT 98
[2024-04-06 07:34] VITALS: BP 123/75; PULSE 91; RESP 20; TEMP 36.2; O2SAT 98
[2024-04-06] MEDS: Ezetimibe 10 MG TABLET PO (09:07)
[2024-04-06] MEDS: Pyridoxine HCl (Vitamin B6) 50 MG TABLET PO (09:07)
[2024-04-06] MEDS: Dofetilide 125 MCG CAPSULE 250 MCG PO (09:07)
[2024-04-06] MEDS: Multivitamin TABLET 1 TAB PO (09:07)
[2024-04-06] MEDS: Loratadine 10 MG TABLET PO (09:07)
[2024-04-06] MEDS: Sacubitril/Valsartan 49/51 1 TAB TABLET 0.5 TAB PO ×2 (09:07→21:31)
[2024-04-06] MEDS: SITagliptin Phosphate 100 MG TABLET PO (09:07)
[2024-04-06] MEDS: carvediloL 25 MG TABLET PO ×2 (09:08→21:31)
[2024-04-06] MEDS: Ascorbic Acid 500 MG TABLET PO (09:08)
[2024-04-06] MEDS: Rivaroxaban 20 MG TABLET PO (09:08)
[2024-04-06] MEDS: 0.9 % Sodium Chloride Flush 3 ML SYRINGE IVFLUSH ×4 (09:09→21:33)
--- NOTE | 2024-04-06 10:05 | PM.PNCARD ---
Subjective Subjective Date of Service: 04/06/24 Principal diagnosis: Atrial flutter, severe cardiomyopathy Interval history: Patient was still feeling well. Remains in atrial flutter with controlled response. Denies any other symptoms. Review of Systems Review of Systems Yes all other systems are reviewed and are negative Physical Exam Vital Signs: Last Vital Signs Temp 97.2 F 04/06/24 07:34 Pulse 91 04/06/24 07:34 Resp 20 04/06/24 07:34 BP 123/75 04/06/24 07:34 Pulse Ox 98 04/06/24 07:34 O2 Del Method Room Air 04/06/24 07:34 BMI result Body Mass Index 30.0 Const General: cooperative, comfortable, no acute distress, alert, awake and Physically active Nutritional Appearance: overweight Orientation/consciousness: patient oriented x3 Limitations: no limitations HEENT Head: Yes normocephalic and Yes atraumatic Neck Neck: Yes trachea midline, Yes supple and Yes no JVD Resp Effort & Inspection: normal respiratory effort Auscultation: clear to auscultation bilaterally Cardio Jugular venous distension: no JVD Palpation: abnormal PMI displaced PMI Rhythm: abnormal rhythm irregularly irregular Heart sounds: S1 normal heart sound present, S2 normal heart sound present, no click, no gallops, no murmurs and no rubs GI Auscultation: normal bowel sounds Skin General skin exam: no rashes or lesions noted Neuro General: patient oriented x3 and no focal motor deficits Extrem General: Yes no clubbing, cyanosis or edema Psych Appearance: grossly normal Objective Labs and Meds 04/04/24 15:41 04/05/24 06:14 Lab results: Laboratory Results - last 24 hr 04/05/24 04/05/24 10:01 21:09 POC Glucose 136 H 131 H Progress Note: A&P Assessment and plan (1) Atrial flutter: Status: Acute Assessment and Plan: Persistent atrial flutter in this elderly gentleman. Doing well from cardiac perspective at this point time. Continue to uptitrate Tikosyn. Continue monitor EKG. If remains in atrial flutter by tomorrow will pursue synchronized cardioversion. Please keep him NPO. Continue Xarelto without interruption. Continue carvedilol therapy., risks, benefits, alternatives were discussed related to synchronized cardioversion. (2) Heart failure with reduced ejection fraction: Status: Acute Assessment and Plan: Heart failure reduced ejection fraction with severe ischemic cardiomyopathy. Clinically euvolemic and well compensated. Continue current neurohormonal modulation. Advised to call with any new symptoms. Will follow with him Time Spent With Patient Time: Total time managing care of this patient today ____ minutes. Progress Note: Quality Stroke Does the patient have a stroke diagnosis?: No Procedures Date of Service Date of Service: 04/06/24
[2024-04-06 11:08] LABS: Glucose, Whole Blood 163 mg/dL (60-115)
[2024-04-06 11:33] VITALS: BP 117/68; PULSE 75; RESP 20; TEMP 36.4; O2SAT 98
--- NOTE | 2024-04-06 12:22 | HO.PM.IMPN ---
Subjective Subjective Date of Service: 04/06/24 Interval History: Being followed for Tikosyn protocol Offers no acute complaints chest pain, no palpitation,no sob, no headache, no achiness, no lightheadedness or dizziness ambulating in hallway remains in atrial fib flutter with stable ventricular rate. Review of Systems All other system reviewed and are negative Physical Exam Vital Signs: Vital Signs: Last Vital Signs Temp 97.5 F 04/06/24 11:33 Pulse 75 04/06/24 11:33 Resp 20 04/06/24 11:33 BP 117/68 04/06/24 11:33 Pulse Ox 98 04/06/24 11:33 O2 Del Method Room Air 04/06/24 11:33 BMI result Body Mass Index 30.0 Const: Other: General awake alert x3,in no acute distress. Anicteric sclera Neck supple no JVD. CVS irregular rate rhythm, Respiratory lungs clear to auscultation, no respiratory distress, no rales, no rhonchi. Gastrointestinal abdomen soft, non tender, bowel sounds audible, no guarding , no rigidity. Extremities no edema. Neuro non focal Skin no rash Psych appropriate affect Objective Data Active Medications Acetaminophen (Acetaminophen 325 Mg Tablet) 650 mg PO Q6H PRN PRN Reason: Pain, Mild (Pain Scale 1-3), fever or headache Allopurinol (Allopurinol 100 Mg Tablet) 100 mg PO BEDTIME [facility] Last Admin: 04/05/24 20:49 Dose: 100 mg Documented By: ANDREW Ascorbic Acid (Ascorbic Acid 500 Mg Tablet) 500 mg PO DAILY [facility] Last Admin: 04/06/24 09:08 Dose: 500 mg Documented By: ALEX Calcium Carbonate (Calcium Carbonate 750 Mg Tab.Chew) 750 mg PO Q4H PRN PRN Reason: Heartburn Carvedilol (Carvedilol 25 Mg Tablet) 25 mg PO BID [facility]; Protocol Last Admin: 04/06/24 09:08 Dose: 25 mg Documented By: ALEX Dofetilide (Dofetilide 125 Mcg Capsule) 500 mcg PO BID [facility] Ezetimibe (Ezetimibe 10 Mg Tablet) 10 mg PO DAILY [facility] Last Admin: 04/06/24 09:07 Dose: 10 mg Documented By: ALEX Furosemide (Furosemide 20 Mg Tablet) 20 mg PO DAILY PRN; Protocol PRN Reason: edema Loratadine (Loratadine 10 Mg Tablet) 10 mg PO DAILY [facility] Last Admin: 04/06/24 09:07 Dose: 10 mg Documented By: ALEX Magnesium Hydroxide (Milk Of Magnesia 30 Ml Oral.Susp) 30 ml PO DAILY PRN PRN Reason: Constipation Melatonin (Melatonin 3 Mg Tablet) 6 mg PO BEDTIME PRN PRN Reason: Insomnia Multivitamins/Vitamin C (Multivitamin Tablet) 1 tab PO DAILY [facility] Last Admin: 04/06/24 09:07 Dose: 1 tab Documented By: ALEX Pravastatin Sodium (Pravastatin Sodium 40 Mg Tablet) 40 mg PO BEDTIME [facility] Last Admin: 04/05/24 20:49 Dose: 40 mg Documented By: ANDREW Pyridoxine HCl (Pyridoxine Hcl (Vitamin B6) 50 Mg Tablet) 50 mg PO DAILY [facility] Last Admin: 04/06/24 09:07 Dose: 50 mg Documented By: ALEX Rivaroxaban (Rivaroxaban 20 Mg Tablet) 20 mg PO DAILY@0800 [facility] Last Admin: 04/06/24 09:08 Dose: 20 mg Documented By: ALEX Sacubitril/Valsartan (Sacubitril/Valsartan 49/51 1 Tab Tablet) 0.5 tab PO BID [facility]; Protocol Last Admin: 04/06/24 09:07 Dose: 0.5 tab Documented By: ALEX Sitagliptin Phosphate (Sitagliptin Phosphate 100 Mg Tablet) 100 mg PO DAILY [facility] Last Admin: 04/06/24 09:07 Dose: 100 mg Documented By: ALEX Sodium Chloride (0.9 % Sodium Chloride Flush 3 Ml Syringe) 3 ml IVFLUSH QSHIFT [facility] Last Admin: 04/06/24 09:09 Dose: 3 ml Documented By: ALEX Vitamin D (Cholecalciferol (Vitamin D3) 25 Mcg Tablet) 250 mcg PO DAILY [facility] Last Admin: 04/06/24 11:03 Dose: Not Given Documented By: ALEX Non-Admin Reason: Hold dose per pharmacy/ contacting Labs 04/04/24 15:41 04/05/24 06:14 Labs: Laboratory Results - last 24 hr 04/05/24 04/06/24 21:09 10:04 POC Glucose 131 H 163 H Assessment and Plan (1) Visit for monitoring Tikosyn therapy: Status: Acute (2) Heart failure with reduced ejection fraction: Status: Acute (3) Atrial flutter: Status: Acute Plan 68-year-old gentleman with past medical history significant for ischemic cardiomyopathy recently diagnosed to have atrial fibrillation/flutter on Xarelto, due to persistent symptoms of shortness of breath, soft blood pressures, lightheadedness, exertional fatigue despite control ventricular rate he is being admitted for rhythm control and will be started on Tikosyn protocol. Symptomatic atrial fibrillation/flutter No chest pain/no palpitation , no recurrent achiness, no headache, no tachycardia Tikosyn dose increased to 500 mcg b.i.d. stable QTC 2 hours after Tikosyn Continue Xarelto and Coreg Cardio recommend NPO after midnight for possible cardioversion if remains in atrial fib/ flutter. Headache/achiness resolved Congestive heart failure with reduced EF no acute decompensation,Continue home medication Entresto and lasix Diabetes mellitus type 2 diet control, stable bs ,diabetic diet, Januvia and check blood sugar b.i.d. if elevated BS will place on insulin sliding scale. Hyperlipidemia continue CTA and Pravachol. DVT prophylaxis on Xarelto Full code Requires continued inpatient hospitalization for Tikosyn administration and close monitoring of electrolytes and EKG. Quality Stroke Does the patient have a stroke diagnosis?: No VTE Prior VTE?: No VTE Risk Level:: Medical - moderate - high VTE Device Contraindication: Treatment Not Indicated VTE Drug Contraindication: N/A - Med Ordered
[2024-04-06 16:00] VITALS: BP 134/74; PULSE 90; RESP 19; TEMP 36.4; O2SAT 99
[2024-04-06 19:59] VITALS: BP 137/84; PULSE 63; RESP 18; TEMP 36.4; O2SAT 97
[2024-04-06] MEDS: allopurinoL 100 MG TABLET PO (21:31)
[2024-04-06] MEDS: Pravastatin Sodium 40 MG TABLET PO (21:31)
[2024-04-06] MEDS: Dofetilide 125 MCG CAPSULE 500 MCG PO (21:31)
--- NOTE | 2024-04-06 23:00 | ECG_ITS ---
Test Reason : MEDCATION Blood Pressure : / mmHG Vent. Rate : 065 BPM Atrial Rate : 234 BPM P-R Int : 000 ms QRS Dur : 094 ms QT Int : 426 ms P-R-T Axes : 262 003 185 degrees QTc Int : 443 ms Atrial flutter with variable A-V block T wave abnormality, consider lateral ischemia Abnormal ECG When compared with ECG of 06-APR-2024 11:08, No significant change was found Referred By: Kami Rosas Electronically Signed By:MARLEE CORDERO MD
[2024-04-06 23:13] LABS: Glucose, Whole Blood 168 mg/dL (60-115)
[2024-04-07] VITALS (12 sets, daily range): BP systolic 99–149; BP diastolic 60–91; PULSE 60–90; RESP 12–20; TEMP 36.1–36.6; O2SAT 96–99
--- NOTE | 2024-04-07 | ECG_ITS ---
Test Reason : post cardioversion Blood Pressure : / mmHG Vent. Rate : 078 BPM Atrial Rate : 078 BPM P-R Int : 210 ms QRS Dur : 086 ms QT Int : 414 ms P-R-T Axes : 064 021 195 degrees QTc Int : 471 ms Sinus rhythm with 1st degree A-V block with Premature supraventricular complexes and with occasional Premature ventricular complexes Nonspecific ST and T wave abnormality Prolonged QT Abnormal ECG No previous ECGs available Referred By: Kami Rosas Electronically Signed By:MARLEE CORDERO MD
[2024-04-07] MEDS: 0.9 % Sodium Chloride Flush 3 ML SYRINGE IVFLUSH ×3 (09:10→21:22)
[2024-04-07] MEDS: Sacubitril/Valsartan 49/51 1 TAB TABLET 0.5 TAB PO ×2 (09:10→21:21)
[2024-04-07] MEDS: Dofetilide 125 MCG CAPSULE 500 MCG PO ×2 (09:10→21:21)
[2024-04-07] MEDS: Rivaroxaban 20 MG TABLET PO (09:10)
[2024-04-07] MEDS: carvediloL 25 MG TABLET PO ×2 (09:10→21:21)
[2024-04-07 10:40] LABS: Glucose, Whole Blood 125 mg/dL (60-115)
--- NOTE | 2024-04-07 10:44 | MHC.CM.PN ---
EMR REVIEWED, PT W/AFIB AND S/P STEPHANIE, PLAN FOR CARDIOVERSION TODAY AND ANTIC DC HOME NO SERVICES BY TOMORROW 04/08, CM WILL CONT TO FOLLOW DC NEEDS.
--- NOTE | 2024-04-07 13:02 | PM.PNCARD ---
Subjective Subjective Date of Service: 04/07/24 Principal diagnosis: Atrial flutter, severe cardiomyopathy Interval history: No symptoms. Patient was feeling well. Remains in atrial flutter. No heart failure symptoms Review of Systems Review of Systems Yes all other systems are reviewed and are negative Physical Exam Vital Signs: Last Vital Signs Temp 97.4 F 04/07/24 12:00 Pulse 77 04/07/24 12:00 Resp 20 04/07/24 12:00 BP 123/71 04/07/24 12:00 Pulse Ox 98 04/07/24 12:00 O2 Del Method Room Air 04/07/24 12:00 BMI result Body Mass Index 30.0 Const General: cooperative, comfortable, no acute distress, alert, awake and Physically active Nutritional Appearance: overweight Orientation/consciousness: patient oriented x3 Limitations: no limitations HEENT Head: Yes normocephalic and Yes atraumatic Neck Neck: Yes trachea midline, Yes supple and Yes no JVD Resp Effort & Inspection: normal respiratory effort Auscultation: clear to auscultation bilaterally Cardio Jugular venous distension: no JVD Palpation: abnormal PMI displaced PMI Rhythm: abnormal rhythm irregularly irregular Heart sounds: S1 normal heart sound present, S2 normal heart sound present, no click, no gallops, no murmurs and no rubs GI Auscultation: normal bowel sounds Skin General skin exam: no rashes or lesions noted Neuro General: patient oriented x3 and no focal motor deficits Extrem General: Yes no clubbing, cyanosis or edema Psych Appearance: grossly normal Objective Labs and Meds 04/04/24 15:41 04/05/24 06:14 Lab results: Laboratory Results - last 24 hr 04/06/24 04/07/24 22:18 10:29 POC Glucose 168 H 125 H Progress Note: A&P Assessment and plan (1) Atrial flutter: Status: Acute Assessment and Plan: Persistent atrial flutter, tolerating Tikosyn load. Remains in atrial flutter. Will follow-up with synchronized cardioversion later today. Patient was remained NPO. Currently on Xarelto therapy. Discussed management. Will continue the Tikosyn after to maintain rhythm. Continue other therapy. Role of with the management was discussed. He understands and agrees. Continue full oral anticoagulation. (2) Heart failure with reduced ejection fraction: Status: Acute Assessment and Plan: Heart failure with reduced ejection fraction, clinically euvolemic and well compensated without any new symptoms. Continue current excellent neurohormonal modulation. Will pursue rhythm control as above. Will follow with you Time Spent With Patient Time: Total time managing care of this patient today ____ minutes. Progress Note: Quality Stroke Does the patient have a stroke diagnosis?: No Procedures Date of Service Date of Service: 04/07/24
--- NOTE | 2024-04-07 13:03 | MHC.SHP ---
Pre-Procedural Eval Section A - 24 Hr Update-Section A only Date of Service: 04/07/24 The patient is an INPATIENT: Yes Changes since office visit: Yes Changes in Medication and Yes Patient answered all questions; No Cold of Flu in the past 2 weeks and No New Medical Problems The patient has been examined within 24 hours of the surgical procedure. The History & Physical has been completed within 30 days and I have reviewed it.: Yes Section B - Complete if H&P > 30 days Chief Complaint: AFIB Allergies: Allergies Allergy/AdvReac Type Severity Reaction Status Date / Time lisinopril [LISINOPRIL] Allergy Mild UNKNOWN, Verified 12/31/23 13:49 cough, cough doxycycline [DOXYCYCLINE] Allergy Unknown UNKNOWN Verified 12/31/23 13:49 glimepiride [GLIMEPIRIDE] Allergy Unknown SEVERE Verified 12/31/23 13:49 BACK PAIN ibuprofen [From Motrin] Allergy Unknown Nausea Verified 12/31/23 13:49 tamsulosin [TAMSULOSIN] Allergy Unknown UNKNOWN, Verified 12/31/23 13:49 Fever rosuvastatin AdvReac Intermediate hypotension Verified 12/31/23 13:49 ' adhesive tape AdvReac Mild Itching Verified 12/31/23 13:49 Plan I have reviewed the history and physical and performed a pertinent physical examination on my patient. No changes have occurred unless specified. Time Spent With Patient Time: Total time managing care of this patient today ____ minutes.
[2024-04-07 13:51] LABS: Glucose, Whole Blood 116 mg/dL (60-115)
--- NOTE | 2024-04-07 14:10 | P.CONAN_ITS ---
HPI - Anesthesia Eval Consult details Narrative: 68 yo male patient for Cardioversion. AICD in place PMF Active Problems Active Problems: All Active Problems Visit for monitoring Tikosyn therapy (Acute) Heart failure with reduced ejection fraction (Acute) Atrial flutter (Acute) Medicare annual wellness visit, subsequent (Acute) Tinea cruris (Acute) Witnessed apneic spells (Acute) Preop cardiovascular exam (Acute) Knee pain (Acute) Allergic contact dermatitis (Acute) Erectile dysfunction associated with type 2 diabetes mellitus (Acute) COVID-19 virus infection (Acute) Tendon cysts (Acute) Nephrolithiasis (Acute) ICD (implantable cardioverter-defibrillator) in place (Acute) Chronic heart failure with reduced ejection fraction and diastolic dysfunction (Acute) Ischemic cardiomyopathy (Acute) Coronary artery disease (Acute) Hypercholesterolemia (Acute) Hypertension (Acute) GERD (gastroesophageal reflux disease) (Acute) Type 2 diabetes mellitus with hyperglycemia (Acute) Past Medical History Medical History Ischemic cardiomyopathy Chronic heart failure with reduced ejection fraction and diastolic dysfunction ICD (implantable cardioverter-defibrillator) in place Pneumonia Anxiety and depression Bilateral renal stones Hypercholesterolemia Psoriasis Gout Coronary artery disease Hypertension GERD (gastroesophageal reflux disease) Family History Family History Father Diabetes Prostate cancer CVD (cardiovascular disease) Mother CVD (cardiovascular disease) Acute CVA (cerebrovascular accident) Family history of problems with anesthesia: No Surgical History Surgical History Hx of colonoscopy History of heart artery stent S/P ICD (internal cardiac defibrillator) procedure History of cataract surgery History of surgery History of vasectomy History of wisdom tooth extraction History of Problems with Anesthesia: No Social History Social History Household Members: Spouse Housing: House Are you a primary respiratory care practitioner to a significant other at home: No Do you presently have visiting nurse or other home services: No Alcohol intake: current Alcohol intake frequency: holidays/special occasions only Comment: once q2 months 1/2 bottle of wine Patient Tobacco Use Status: Never used Tobacco e-Cigarette/Vaping Use: Never Used Second Hand Smoke Exposure: No Use of substances other than those prescribed or required for medical reasons: No Currently Displaying Signs/Symptoms of Drug Intoxication Withdrawal: No Have you been hit, kicked, punched, or otherwise hurt by someone within the past year? If so, by whom?: No Do you feel safe in your current relationship?: Yes Is there a partner from a previous relationship who is making you feel unsafe now?: No Are you made to feel afraid or neglected: No Are you DNR?: No Advance Directives: No Advance Directives Information Provided: Yes Do you have a plan to hurt others: No Plan Recently lost weight without trying: No Nutrition Risks: No Nutritional Risk Poor oral hygiene: No service: No Current occupational status: retired Cognitive needs: No Hearing needs: No Vision needs: Yes Meds Allergies Allergy/AdvReac Type Severity Reaction Status Date / Time lisinopril [LISINOPRIL] Allergy Mild UNKNOWN, Verified 12/31/23 13:49 cough, cough doxycycline [DOXYCYCLINE] Allergy Unknown UNKNOWN Verified 12/31/23 13:49 glimepiride [GLIMEPIRIDE] Allergy Unknown SEVERE Verified 12/31/23 13:49 BACK PAIN ibuprofen [From Motrin] Allergy Unknown Nausea Verified 12/31/23 13:49 tamsulosin [TAMSULOSIN] Allergy Unknown UNKNOWN, Verified 12/31/23 13:49 Fever rosuvastatin AdvReac Intermediate hypotension Verified 12/31/23 13:49 ' adhesive tape AdvReac Mild Itching Verified 12/31/23 13:49 Active Medications: Current Medications Acetaminophen (Acetaminophen 325 Mg Tablet) 650 mg PO Q6H PRN PRN Reason: Pain, Mild (Pain Scale 1-3), fever or headache Allopurinol (Allopurinol 100 Mg Tablet) 100 mg PO BEDTIME [facility] Last Admin: 04/06/24 21:31 Dose: 100 mg Ascorbic Acid (Ascorbic Acid 500 Mg Tablet) 500 mg PO DAILY [facility] Last Admin: 04/07/24 09:07 Dose: Not Given Calcium Carbonate (Calcium Carbonate 750 Mg Tab.Chew) 750 mg PO Q4H PRN PRN Reason: Heartburn Carvedilol (Carvedilol 25 Mg Tablet) 25 mg PO BID [facility]; Protocol Last Admin: 04/07/24 09:10 Dose: 25 mg Dofetilide (Dofetilide 125 Mcg Capsule) 500 mcg PO BID [facility] Last Admin: 04/07/24 09:10 Dose: 500 mcg Ezetimibe (Ezetimibe 10 Mg Tablet) 10 mg PO DAILY [facility] Last Admin: 04/07/24 09:07 Dose: Not Given Furosemide (Furosemide 20 Mg Tablet) 20 mg PO DAILY [facility]; Protocol PRN Reason: edema Loratadine (Loratadine 10 Mg Tablet) 10 mg PO DAILY [facility] Last Admin: 04/07/24 09:08 Dose: Not Given Magnesium Hydroxide (Milk Of Magnesia 30 Ml Oral.Susp) 30 ml PO DAILY PRN PRN Reason: Constipation Melatonin (Melatonin 3 Mg Tablet) 6 mg PO BEDTIME PRN PRN Reason: Insomnia Multivitamins/Vitamin C (Multivitamin Tablet) 1 tab PO DAILY [facility] Last Admin: 04/07/24 09:07 Dose: Not Given Pravastatin Sodium (Pravastatin Sodium 40 Mg Tablet) 40 mg PO BEDTIME [facility] Last Admin: 04/06/24 21:31 Dose: 40 mg Pyridoxine HCl (Pyridoxine Hcl (Vitamin B6) 50 Mg Tablet) 50 mg PO DAILY [facility] Last Admin: 04/07/24 09:08 Dose: Not Given Rivaroxaban (Rivaroxaban 20 Mg Tablet) 20 mg PO DAILY@0800 [facility] Last Admin: 04/07/24 09:10 Dose: 20 mg Sacubitril/Valsartan (Sacubitril/Valsartan 49/51 1 Tab Tablet) 0.5 tab PO BID [facility]; Protocol Last Admin: 04/07/24 09:10 Dose: 0.5 tab Sitagliptin Phosphate (Sitagliptin Phosphate 100 Mg Tablet) 100 mg PO DAILY [facility] Last Admin: 04/07/24 09:08 Dose: Not Given Sodium Chloride (0.9 % Sodium Chloride Flush 3 Ml Syringe) 3 ml IVFLUSH QSHIFT [facility] Last Admin: 04/07/24 09:10 Dose: 3 ml Vitamin D (Cholecalciferol (Vitamin D3) 25 Mcg Tablet) 250 mcg PO DAILY [facility] Last Admin: 04/07/24 09:07 Dose: Not Given Home Medications ?Medication ?Instructions ?Recorded ?Confirmed ?Last Taken ?Type cholecalciferol (vitamin D3) 50 10,000 unit PO DAILY 07/14/21 04/04/24 04/04/24 08:00 History mcg (2,000 unit) capsule zinc sulfate 25 mg zinc (110 mg) 25 mg PO DAILY 07/14/21 04/04/24 04/04/24 08:00 History tablet (Orazinc) ascorbate calcium (vitamin C) 500 500 mg PO DAILY 10/07/21 04/04/24 04/04/24 08:00 History mg tablet coenzyme Q10 10 mg capsule (Co 20 mg PO DAILY 10/07/21 04/04/24 04/04/24 08:00 History Q-10) magnesium 30 mg tablet 30 mg PO DAILY 10/07/21 04/04/24 04/04/24 08:00 History multivitamin 1 tab PO DAILY 10/07/21 04/04/24 04/04/24 08:00 History omega 5-veh-fli-fish oil 60 mg-90 1 cap PO DAILY 10/07/21 04/04/24 04/04/24 08:00 History mg-500 mg capsule (Fish Oil) phytonadione (vitamin K1) 100 mcg 100 mcg PO DAILY 10/12/22 04/04/24 04/04/24 08:00 History tablet allopurinol 100 mg tablet 100 mg PO BEDTIME 04/04/24 04/04/24 04/03/24 19:00 History furosemide 20 mg tablet 20 mg PO DAILY PRN edema 04/04/24 04/04/24 04/04/24 08:00 History loratadine 10 mg tablet 10 mg PO DAILY 04/04/24 04/04/24 04/04/24 08:00 History rivaroxaban 20 mg tablet (Xarelto) 20 mg PO DAILY@1700 04/04/24 04/04/24 04/03/24 17:00 History 20 mg Exam Height,Weight and Vital Signs: Height 5 ft 9 in Weight 92.2 kg Last Vital Signs Temp 97.9 F 04/07/24 13:54 Pulse 90 04/07/24 13:54 Resp 18 04/07/24 13:54 BP 149/91 H 04/07/24 13:54 Pulse Ox 98 04/07/24 13:54 O2 Del Method Room Air 04/07/24 13:54 Pertinent Lab Results Pertinent Lab Results: Laboratory Tests 04/04/24 04/04/24 04/04/24 15:41 16:39 20:40 WBC 6.2 RBC 4.29 L Hgb 13.2 L Hct 38.3 L MCV 89.3 MCH 30.8 MCHC 34.5 RDW 12.9 Plt Count 182 MPV 9.6 Absolute Nucleated RBC 0.000 Nucleated RBC % (auto) 0.0 Hold Purple Top Sodium 142 Potassium 4.2 Chloride 105 Carbon Dioxide 27 Anion Gap 14 BUN 27 H Creatinine 1.36 Estim Creat Clear Calc 57.4 Estimated GFR 52 POC Glucose 91 118 H Random Glucose 90 Calcium 9.6 Magnesium 2.2 TSH 2.64 04/05/24 04/05/24 04/05/24 06:14 10:01 21:09 WBC RBC Hgb Hct MCV MCH MCHC RDW Plt Count MPV Absolute Nucleated RBC Nucleated RBC % (auto) Hold Purple Top SEE NOTE Sodium 142 Potassium 3.9 Chloride 107 Carbon Dioxide 26 Anion Gap 13 BUN 20 H Creatinine 1.28 Estim Creat Clear Calc 61.0 Estimated GFR 56 POC Glucose 136 H 131 H Random Glucose 117 H Calcium 9.2 Magnesium 2.2 TSH 04/06/24 04/06/24 04/07/24 10:04 22:18 10:29 WBC RBC Hgb Hct MCV MCH MCHC RDW Plt Count MPV Absolute Nucleated RBC Nucleated RBC % (auto) Hold Purple Top Sodium Potassium Chloride Carbon Dioxide Anion Gap BUN Creatinine Estim Creat Clear Calc Estimated GFR POC Glucose 163 H 168 H 125 H Random Glucose Calcium Magnesium TSH 04/07/24 13:41 WBC RBC Hgb Hct MCV MCH MCHC RDW Plt Count MPV Absolute Nucleated RBC Nucleated RBC % (auto) Hold Purple Top Sodium Potassium Chloride Carbon Dioxide Anion Gap BUN Creatinine Estim Creat Clear Calc Estimated GFR POC Glucose 116 H Random Glucose Calcium Magnesium TSH Airway Mallampati Class: III TM Dist: >3cm Neck ROM: Full Loose/Missing/Broken Teeth: Yes (Some broken teeth. Missing 3 molars. Denies loose teeth) Heart: Irregularly irregular Lungs: CTAB Assessment and Plan Assessment Anesthesia Assessment: Anesthesia Plan Discussed and Chart Reviewed Final Anesthetic Review Family History of Problems with Anesthesia: No History of Problems with Anesthesia: No NPO: Yes ASA Class: IV Final Preanesthetic Review: No Changes in Pt Med Stat, Meds/Allgs Chart Reviewed, Consent Obtained/Reviewed and Anes Risks/Benef Reviewed Patient Risk: High Procedure Risk: Intermediate Assessment/Block/Sedation in SS: Assess/Block/Sedation- Anesthetic Plan Anesthetic Plan: GA Disposition: Standard PACU
--- NOTE | 2024-04-07 14:36 | PC.NURSE ---
Report given to Lesley Jones RN at this time. Aware to check for orders, 24 hour and sign one circled area on preop record after consents are signed.
--- NOTE | 2024-04-07 14:48 | ECG_ITS ---
Test Reason : Status post cardioversion Blood Pressure : / mmHG Vent. Rate : 067 BPM Atrial Rate : 067 BPM P-R Int : 200 ms QRS Dur : 090 ms QT Int : 450 ms P-R-T Axes : 058 -13 139 degrees QTc Int : 475 ms Normal sinus rhythm Anterior infarct , age undetermined Abnormal ECG When compared with ECG of 07-APR-2024 11:59, Sinus rhythm has replaced Atrial flutter Referred By: Bruce Page Electronically Signed By:BRUCE PAGE MD
--- NOTE | 2024-04-07 14:48 | HO.CARDIVERS ---
Cardioversion Procedure Note Cardioversion Date of Procedure: 04/07/2024 Ordering Provider: Yesi Page Performing Provider: Yesi Page Indication for Procedure: Persistent atrial flutter with severe LV systolic dysfunction to maintain rhythm Pre-Op Diagnosis: Same Post-Op Diagnosis: Normal sinus rhythm Performed with Transesophageal Echo: No Consent: Verbal and Written consent was obtained from the patient before starting and after being loaded with Tikosyn. The patient was made aware of the risk of synchronized cardioversion including benefits and alternatives Procedure: After consent obtained, cardioversion pads were attached in the left parasternal area anteriorly and right parascapular region posteriorly and the patient was sedated by the anesthesia team. Once adequate sedation achieved, patient was delivered 200 joules of biphasic synchronized energy in anteroposterior configuration. Complications: None Impression: Successful conversion to normal sinus rhythm Recommendations: 1. 12 lead EKG 2. Bedside evaluation of defibrillator function 3. Continue Tikosyn and oral anticoagulation therapy uninterrupted 4. Discharge home tomorrow
--- NOTE | 2024-04-07 15:00 | HO.PM.IMPN ---
Subjective Subjective Date of Service: 04/07/24 Interval History: Being followed for Tikosyn protocol Offers no complaints of chest pain, no shortness of breath, no acute events overnight has been ambulating in hallways no lightheadedness or dizziness. NPO for cardioversion. Review of Systems All other system reviewed and negative Physical Exam Vital Signs: Vital Signs: Last Vital Signs Temp 97 F 04/07/24 14:50 Pulse 67 04/07/24 14:55 Resp 16 04/07/24 14:55 BP 120/72 04/07/24 14:55 Pulse Ox 97 04/07/24 14:55 O2 Del Method Nasal Cannula 04/07/24 14:55 O2 Flow Rate 4 04/07/24 14:55 BMI result Body Mass Index 30.0 Const: Other: General awake alert x3,in no acute distress. Anicteric sclera Neck supple no JVD. CVS irregular rate rhythm, Respiratory lungs clear to auscultation, no respiratory distress, no rales, no rhonchi. Gastrointestinal abdomen soft, non tender, bowel sounds audible, no guarding , no rigidity. Extremities no edema. Neuro non focal Skin no rash Psych appropriate affect Objective Data Active Medications Acetaminophen (Acetaminophen 325 Mg Tablet) 650 mg PO Q6H PRN PRN Reason: Pain, Mild (Pain Scale 1-3), fever or headache Allopurinol (Allopurinol 100 Mg Tablet) 100 mg PO BEDTIME [facility] Last Admin: 04/06/24 21:31 Dose: 100 mg Documented By: BOBO Ascorbic Acid (Ascorbic Acid 500 Mg Tablet) 500 mg PO DAILY [facility] Last Admin: 04/07/24 09:07 Dose: Not Given Documented By: GERMAINE Non-Admin Reason: Physician Held Med Calcium Carbonate (Calcium Carbonate 750 Mg Tab.Chew) 750 mg PO Q4H PRN PRN Reason: Heartburn Carvedilol (Carvedilol 25 Mg Tablet) 25 mg PO BID [facility]; Protocol Last Admin: 04/07/24 09:10 Dose: 25 mg Documented By: GERMAINE Dofetilide (Dofetilide 125 Mcg Capsule) 500 mcg PO BID [facility] Last Admin: 04/07/24 09:10 Dose: 500 mcg Documented By: GERMAINE Ezetimibe (Ezetimibe 10 Mg Tablet) 10 mg PO DAILY [facility] Last Admin: 04/07/24 09:07 Dose: Not Given Documented By: GERMAINE Non-Admin Reason: Physician Held Med Furosemide (Furosemide 20 Mg Tablet) 20 mg PO DAILY PRN; Protocol PRN Reason: edema Lactated Ringer's (Lr) 500 mls @ 20 mls/hr IVCONT .Q24H [facility] Loratadine (Loratadine 10 Mg Tablet) 10 mg PO DAILY [facility] Last Admin: 04/07/24 09:08 Dose: Not Given Documented By: GERMAINE Non-Admin Reason: Physician Held Med Magnesium Hydroxide (Milk Of Magnesia 30 Ml Oral.Susp) 30 ml PO DAILY PRN PRN Reason: Constipation Melatonin (Melatonin 3 Mg Tablet) 6 mg PO BEDTIME PRN PRN Reason: Insomnia Multivitamins/Vitamin C (Multivitamin Tablet) 1 tab PO DAILY [facility] Last Admin: 04/07/24 09:07 Dose: Not Given Documented By: GERMAINE Non-Admin Reason: Physician Held Med Pravastatin Sodium (Pravastatin Sodium 40 Mg Tablet) 40 mg PO BEDTIME [facility] Last Admin: 04/06/24 21:31 Dose: 40 mg Documented By: BOBO Pyridoxine HCl (Pyridoxine Hcl (Vitamin B6) 50 Mg Tablet) 50 mg PO DAILY [facility] Last Admin: 04/07/24 09:08 Dose: Not Given Documented By: GERMAINE Non-Admin Reason: Physician Held Med Rivaroxaban (Rivaroxaban 20 Mg Tablet) 20 mg PO DAILY@0800 [facility] Last Admin: 04/07/24 09:10 Dose: 20 mg Documented By: GERMAINE Sacubitril/Valsartan (Sacubitril/Valsartan 49/51 1 Tab Tablet) 0.5 tab PO BID [facility]; Protocol Last Admin: 04/07/24 09:10 Dose: 0.5 tab Documented By: GERMAINE Sitagliptin Phosphate (Sitagliptin Phosphate 100 Mg Tablet) 100 mg PO DAILY [facility] Last Admin: 04/07/24 09:08 Dose: Not Given Documented By: GERMAINE Non-Admin Reason: Physician Held Med Sodium Chloride (0.9 % Sodium Chloride Flush 3 Ml Syringe) 3 ml IVFLUSH QSHIFT [facility] Last Admin: 04/07/24 09:10 Dose: 3 ml Documented By: GERMAINE Vitamin D (Cholecalciferol (Vitamin D3) 25 Mcg Tablet) 250 mcg PO DAILY [facility] Last Admin: 04/07/24 09:07 Dose: Not Given Documented By: GERMAINE Non-Admin Reason: Physician Held Med Labs 04/04/24 15:41 04/05/24 06:14 Labs: Laboratory Results - last 24 hr 04/06/24 04/07/24 04/07/24 22:18 10:29 13:41 POC Glucose 168 H 125 H 116 H Assessment and Plan (1) Visit for monitoring Tikosyn therapy: Status: Acute (2) Heart failure with reduced ejection fraction: Status: Acute Plan 68-year-old gentleman with past medical history significant for ischemic cardiomyopathy recently diagnosed to have atrial fibrillation/flutter on Xarelto, due to persistent symptoms of shortness of breath, soft blood pressures, lightheadedness, exertional fatigue despite control ventricular rate he is being admitted for rhythm control and will be started on Tikosyn protocol. Symptomatic atrial fibrillation/flutter No chest pain/no palpitation , no recurrent achiness, no headache, no tachycardia Tikosyn 500 mcg b.i.d. stable QTC 2 hours after Tikosyn Continue Xarelto and Coreg Underwent successful cardioversion this morning converted to normal sinus rhythm cardio recommend to continue Tikosyn and Xarelto and home tomorrow Headache/achiness resolved Congestive heart failure with reduced EF no acute decompensation,s/p defibrillator,Continue home medication Entresto and lasix Diabetes mellitus type 2 diet control, stable bs , continue diabetic diet, Januvia Hyperlipidemia continue zetia and Pravachol. DVT prophylaxis on Xarelto Full code Requires continued inpatient hospitalization for post cardioversion cardiac monitoring Quality Stroke Does the patient have a stroke diagnosis?: No VTE Prior VTE?: No VTE Risk Level:: Medical - moderate - high VTE Device Contraindication: Treatment Not Indicated VTE Drug Contraindication: N/A - Med Ordered
[2024-04-07 21:10] LABS: Glucose, Whole Blood 139 mg/dL (60-115)
[2024-04-07] MEDS: allopurinoL 100 MG TABLET PO (21:21)
[2024-04-07] MEDS: Pravastatin Sodium 40 MG TABLET PO (21:21)
--- NOTE | 2024-04-07 23:00 | ECG_ITS ---
Test Reason : post cardioversion Blood Pressure : / mmHG Vent. Rate : 073 BPM Atrial Rate : 227 BPM P-R Int : 000 ms QRS Dur : 098 ms QT Int : 442 ms P-R-T Axes : 000 -21 157 degrees QTc Int : 486 ms Atrial flutter with variable A-V block T wave abnormality, consider lateral ischemia Prolonged QT Abnormal ECG When compared with ECG of 06-APR-2024 23:34, QT has lengthened Referred By: Kami Rosas Electronically Signed By:MARLEE CORDERO MD
[2024-04-08] MEDS: Acetaminophen 325 MG TABLET 650 MG PO (01:50)
[2024-04-08 03:45] VITALS: BP 134/69; PULSE 78; RESP 16; TEMP 36.4; O2SAT 100
[2024-04-08 07:10] VITALS: BP 119/60; PULSE 66; RESP 18; TEMP 37.1; O2SAT 99
[2024-04-08 09:52] LABS: Glucose, Whole Blood 155 mg/dL (60-115)
[2024-04-08] MEDS: Sacubitril/Valsartan 49/51 1 TAB TABLET 0.5 TAB PO (10:10)
[2024-04-08] MEDS: Ascorbic Acid 500 MG TABLET PO (10:10)
[2024-04-08] MEDS: carvediloL 25 MG TABLET PO (10:11)
[2024-04-08] MEDS: Multivitamin TABLET 1 TAB PO (10:11)
[2024-04-08] MEDS: Pyridoxine HCl (Vitamin B6) 50 MG TABLET PO (10:12)
[2024-04-08] MEDS: SITagliptin Phosphate 100 MG TABLET PO (10:12)
[2024-04-08] MEDS: Cholecalciferol (Vitamin D3) 25 MCG TABLET 250 MCG PO (10:13)
[2024-04-08] MEDS: Rivaroxaban 20 MG TABLET PO (10:14)
[2024-04-08] MEDS: Ezetimibe 10 MG TABLET PO (10:14)
[2024-04-08] MEDS: Loratadine 10 MG TABLET PO (10:14)
[2024-04-08] MEDS: Dofetilide 125 MCG CAPSULE 500 MCG PO (10:14)
[2024-04-08] MEDS: 0.9 % Sodium Chloride Flush 3 ML SYRINGE IVFLUSH (10:21)
[2024-04-08 11:02] VITALS: BP 126/67; PULSE 69; RESP 18; TEMP 36.6; O2SAT 100
--- NOTE | 2024-04-08 11:24 | P.PNCA_ITS ---
Subjective Subjective Date of Service: 04/08/24 Principal diagnosis: Atrial flutter, severe cardiomyopathy Interval history: Patient status post cardioversion yesterday. After Tikosyn yesterday he said he was severe headaches but thinks that this might be also due to NPO status and not hydrating. However he said he is not going to take Tikosyn if he is going to get severe headaches related to it. He did take Tikosyn this morning and was not having significant headaches. Has remained in sinus rhythm. No other cardiac symptoms. Review of Systems Constitutional: Reports headache(s) Eyes: Reports no additional eye complaints Reports headache(s) Cardiovascular: Reports no additional cardiovascular complaints Respiratory: Reports no additional respiratory complaints Genitourinary: Reports no additional male genitourinary complaints Reports system reviewed and no additional complaints, except as documented and Reports headache(s) Physical Exam Vital Signs: Last Vital Signs Temp 97.8 F 04/08/24 11:02 Pulse 69 04/08/24 11:02 Resp 18 04/08/24 11:02 BP 126/67 04/08/24 11:02 Pulse Ox 100 04/08/24 11:02 O2 Del Method Room Air 04/08/24 11:02 O2 Flow Rate 2 04/07/24 15:21 BMI result Body Mass Index 30.0 Const General: cooperative, comfortable, no acute distress, alert, awake and Physically active Nutritional Appearance: overweight Orientation/consciousness: patient oriented x3 Limitations: no limitations HEENT Head: Yes normocephalic and Yes atraumatic Neck Neck: Yes trachea midline, Yes supple and Yes no JVD Resp Effort & Inspection: normal respiratory effort Auscultation: clear to auscultation bilaterally Cardio Jugular venous distension: no JVD Palpation: abnormal PMI displaced PMI Rate: regular rate Rhythm: regular rhythm Heart sounds: S1 normal heart sound present, S2 normal heart sound present, no click, no gallops, no murmurs and no rubs GI Auscultation: normal bowel sounds Skin General skin exam: no rashes or lesions noted Neuro General: patient oriented x3 and no focal motor deficits Extrem General: Yes no clubbing, cyanosis or edema Psych Appearance: grossly normal Objective Labs and Meds 04/04/24 15:41 04/05/24 06:14 Lab results: Laboratory Results - last 24 hr 12/04/07/24 04/08/24 13:41 21:02 09:48 POC Glucose 116 H 139 H 155 H Progress Note: A&P Assessment and plan (1) Atrial flutter: Status: Acute Assessment and Plan: Atrial flutter, status post cardioversion. Not tolerating Tikosyn well with headache symptoms. Will reduce Tikosyn to 250 mcg b.i.d. on discharge. Follow- up as outpatient. Patient if absolutely can not tolerate Tikosyn due to headaches will need to discontinue it in the long run and monitor closely. If he has recurrent atrial flutter at that point time can consider ablation/amiodarone therapy. Avoidance of stimulants was discussed. Continue full oral anticoagulation, currently on Xarelto 20 mg daily. (2) Heart failure with reduced ejection fraction: Status: Acute Assessment and Plan: Heart failure with reduced ejection fraction, clinically euvolemic and well compensated. Continue current neurohormonal dose and current diuretic dose. Daily weight monitoring avoidance salt loading was discussed. Clinically appears euvolemic and well compensated. Patient can be discharged home. Will follow-up as outpatient. Time Spent With Patient Time: Total time managing care of this patient today ____ minutes. Progress Note: Quality Stroke Does the patient have a stroke diagnosis?: No Procedures Date of Service Date of Service: 04/08/24
--- NOTE | 2024-04-08 11:27 | PM.DS ---
DS: Providers Provider Date of Service: 04/08/24 Date of admission: 04/04/24 15:11 Date of discharge: 04/08/24 Primary care physician: Shilpi Pillai MD Consults: 04/04/24 15:09 Consult to Cardiology Routine Consulting Provider: [facility] Reason for consultation: tikosyn administration Has provider been notified: No Attending physician on discharge: Melvin Leyva Discharging clinician: Stephie Smith DS: Diagnosis Discharge Diagnosis (1) Visit for monitoring Tikosyn therapy: Status: Acute (2) Heart failure with reduced ejection fraction: Status: Acute DS: Summary Hospital Course Hospital Course: From H&P on the day of admission 68-year-old gentleman with recently diagnosed atrial fibrillation/flutter on Eliquis, history of ischemic cardiomyopathy, status post implantable cardioverter defibrillator in place, chronic heart failure with reduced EF and diastolic dysfunction, history of anxiety depression, hyperlipidemia, gout, hypertension, referred by Cardiology for Tikosyn loading dose since patient requires rhythm control due to persistent symptoms of shortness of breath, hypotension and dizziness, patient recently stopped taking his Eliquis due to symptoms of headache and currently on Xarelto, patient denies chest pain, no palpitations, shortness of breath with exertion only, denies PND, no orthopnea, no lightheadedness, no dizziness, mild intermittent headache getting better since he stopped Eliquis, denies nausea, no vomiting, no abdominal pain, no diarrhea,no urinary sxs. Symptomatic atrial fibrillation/flutter recently diagnosed afib with persistent symptoms and sent to the hospital for rythm therapy and started on Tikosyn. Seen by cardiology and underwent successful cardioversion 04/07, has remained in normal sinus rhythm. shortness of breath and dizziness resolved. continued on xarelto for anticoagulation. stable QTC. will need outpatient follow up with cardiology. Time Attestation Discharge Coordination Time (in mins): 36 Quality: Safe Use of Opioids Does Pt have an Active Cancer Diagnosis on the Problem List?: No Quality: Stroke Does the patient have a stroke diagnosis?: No Physical Exam Vital Signs: Vital Signs: Last Vital Signs Temp 97.8 F 04/08/24 11:02 Pulse 69 04/08/24 11:02 Resp 18 04/08/24 11:02 BP 126/67 04/08/24 11:02 Pulse Ox 100 04/08/24 11:02 O2 Del Method Room Air 04/08/24 11:02 O2 Flow Rate 2 04/07/24 15:21 BMI result Body Mass Index 30.0 Const: General: cooperative, comfortable, alert and awake Nutritional Appearance: average body habitus Orientation/consciousness: patient oriented x3 Resp: Effort & Inspection: normal respiratory effort, able to speak in complete sentences, no respiratory distress and no use of accessory muscles Auscultation: clear to auscultation bilaterally Cardio: Rate: regular rate GI: Inspection: No distended Palpation (GI): Soft to palpation Neuro: General: patient oriented x3, moves all extremities and CN's II-XI intact bilaterally DS: Data Data Completed and Pending Labs on day of discharge: Laboratory Results - last 24 hr 04/07/24 04/07/24 04/08/24 13:41 21:02 09:48 POC Glucose 116 H 139 H 155 H Discharge Plan Discharge Anticipated Discharge Date/Time: 04/08/24 11:36 Patient Disposition: Home, Self-Care Discharge Diagnosis: symptomatic atrial fib/flutter Referrals: Shilpi Pillai MD [Primary Care Provider] - 1 Week Bruce Page MD [Physician] - 1 Week Discharge Medications: New dofetilide 125 mcg Capsule 250 mcg PO BID 90 Days Qty: 360 0RF Continued pravastatin 40 mg tablet 40 mg PO BEDTIME Qty: 100 2RF metformin 500 mg tablet 500 mg PO BIDWMEAL 90 Days Qty: 180 1RF tadalafil 5 mg tablet 5 mg PO DAILY 90 Days Qty: 90 1RF Rx Instructions: Daily medication pyridoxine (vitamin B6) 50 mg tablet 50 mg PO DAILY 90 Days Qty: 90 3RF carvedilol 25 mg tablet 25 mg PO BID Qty: 180 3RF ezetimibe 10 mg tablet 10 mg PO DAILY Qty: 90 3RF Januvia 100 mg tablet 100 mg PO DAILY Qty: 90 3RF loratadine 10 mg Tablet 10 mg PO DAILY furosemide 20 mg tablet 20 mg PO DAILY PRN (Reason: edema) allopurinol 100 mg tablet 100 mg PO BEDTIME Xarelto 20 mg tablet 20 mg PO DAILY@1700 Rx Instructions: must administer with evening meal Orazinc 25 mg zinc (110 mg) tablet 25 mg PO DAILY cholecalciferol (vitamin D3) 50 mcg (2,000 unit) capsule 10,000 unit PO DAILY multivitamin Tablet 1 tab PO DAILY omega [id number]-fish oil [Fish Oil] 60-90-500 mg capsule 1 cap PO DAILY ascorbate calcium (vitamin C) 500 mg tablet 500 mg PO DAILY coenzyme Q10 [Co Q-10] 10 mg capsule 20 mg PO DAILY magnesium 30 mg tablet 30 mg PO DAILY triamcinolone acetonide 0.5 % cream 1 appl topical BID Qty: 30 0RF clotrimazole 1 % ointment 1 appl topical BID 28 Days Qty: 56.7 0RF phytonadione (vitamin K1) 100 mcg tablet 100 mcg PO DAILY Entresto 49-51 mg tablet 0.5 tab PO BID 90 Days Qty: 90 1RF Discharge Orders: Discharge Order (Routine); Ordered 04/08/24 Ordered By: Stephie Smith Activity on Discharge: As tolerated Stand Alone Forms: Patient Portal Discharge page Print Language: Azeri Care Plan Goals: see below Health Concerns: symptomatic afib/flutter s/p cardioversion and initiation on Dofetilide (tikosyn) Plan of Treatment: take Difetilide 250 mcg twice daily as prescribed call to schedule follow up with cardiology review vitamin supplements/dosing with PCP Assessment: see discharge summary
--- NOTE | 2024-04-08 12:25 | ECG_ITS ---
Test Reason : CP Blood Pressure : / mmHG Vent. Rate : 071 BPM Atrial Rate : 071 BPM P-R Int : 198 ms QRS Dur : 090 ms QT Int : 474 ms P-R-T Axes : 047 013 149 degrees QTc Int : 515 ms Normal sinus rhythm Septal infarct , age undetermined Prolonged QT Abnormal ECG When compared with ECG of 07-APR-2024 23:13, Premature ventricular complexes are no longer Present Premature supraventricular complexes are no longer Present Septal infarct is now Present Nonspecific T wave abnormality no longer evident in Inferior leads Referred By: Stephie Smith Electronically Signed By:MARLEE CORDERO MD
--- NOTE | 2024-04-08 12:32 | MHC.CM.PN ---
Second IMM given 04/08. Pt is medically cleared for discharge home self-care, pts will transport him home today.
--- NOTE | 2024-04-08 14:35 | HO.POSTANES ---
Post Anesthesia Evaluation Post Anesthesia Evaluation Date of Service: 04/07/24 Vital Signs: Vital Signs Temp Pulse Resp BP Pulse Ox O2 Del Method 04/08/24 11:02 97.8 F 69 18 126/67 100 Room Air 04/08/24 07:10 98.8 F 66 18 119/60 99 Room Air 04/08/24 03:45 97.5 F 78 16 134/69 100 Room Air Anesthesia: General Mental Status: Awake Pain Control: Satisfactory Nausea/Vomiting: None Hydration: Adequate Anesthesia-Related Issues: No Anes. Related Issues
== END 2024-04-08 14:10 | disposition home or self-care (01) | DRG 309 ==
PROVIDERS: Internal Medicine; Internal Medicine Cardiovascular Disease; Admitting Provider Hospitalist; PCP Internal Medicine; Visit Provider Physician Assistant Medical
PROC: 5A2204Z Restoration of Cardiac Rhythm, Single (ICD-10-PCS; principal; 2024-04-07 15:00)
DX: I48.91 Unspecified atrial fibrillation (principal); I50.22 Chronic systolic (congestive) heart failure; I48.92 Unspecified atrial flutter; E11.9 Type 2 diabetes mellitus without complications; E78.5 Hyperlipidemia, unspecified; I25.10 Atherosclerotic heart disease of native coronary artery without angina pectoris; I11.0 Hypertensive heart disease with heart failure; Z95.5 Presence of coronary angioplasty implant and graft; Z95.810 Presence of automatic (implantable) cardiac defibrillator; Z79.01 Long term (current) use of anticoagulants; Z79.84 Long term (current) use of oral hypoglycemic drugs; Z79.899 Other long term (current) drug therapy
CPT/HCPCS: 36415; 80048; 82947; 83735; 84443; 85027; 92960; 93005; J2704

== ENCOUNTER 2024-04-04 15:11 | Outpatient (BNV) | payer MEDICARE, SELFPAY | END 2024-04-08 12:25 | PROVIDERS: Admitting Provider Hospitalist; PCP Internal Medicine; Visit Provider Internal Medicine Cardiovascular Disease | DX: I48.92 Unspecified atrial flutter (principal) | CPT/HCPCS: 93010 ==

== ENCOUNTER 2024-04-04 15:11 | Outpatient (BNV) | payer MEDICARE, SELFPAY | END 2024-04-07 14:48 | PROVIDERS: Admitting Provider Hospitalist; PCP Internal Medicine; Visit Provider Internal Medicine Cardiovascular Disease | DX: I48.92 Unspecified atrial flutter (principal) | CPT/HCPCS: 93010 ==

== ENCOUNTER → 2024-04-04 15:11 | Outpatient (BNV) | payer MEDICARE, SELFPAY | PROVIDERS: Admitting Provider Hospitalist; PCP Internal Medicine; Visit Provider Internal Medicine Cardiovascular Disease | DX: I48.92 Unspecified atrial flutter (principal); I50.20 Unspecified systolic (congestive) heart failure | CPT/HCPCS: 92960; 99222; 99233 ==

== ENCOUNTER → 2024-04-04 15:11 | Outpatient (BNV) | payer MEDICARE, SELFPAY | PROVIDERS: Admitting Provider Hospitalist; PCP Internal Medicine; Visit Provider Hospitalist | DX: I50.20 Unspecified systolic (congestive) heart failure (principal); I48.92 Unspecified atrial flutter; Z51.81 Encounter for therapeutic drug level monitoring; Z79.899 Other long term (current) drug therapy | CPT/HCPCS: 99223; 99232 ==

== ENCOUNTER 2024-04-10 13:08 | Emergency (ER) | payer MEDICARE, OTHER, SELFPAY ==
--- NOTE | 2024-04-10 | ECG_ITS ---
Test Reason : chest pain Blood Pressure : / mmHG Vent. Rate : 074 BPM Atrial Rate : 076 BPM P-R Int : 182 ms QRS Dur : 088 ms QT Int : 380 ms P-R-T Axes : 011 -12 126 degrees QTc Int : 421 ms Sinus rhythm Premature atrial complexes Premature ventricular complexes Anterior infarct (cited on or before 08-APR-2024) Abnormal ECG When compared with ECG of 08-APR-2024 12:25, Premature ventricular complexes are now Present Nonspecific T wave abnormality, improved in Anterior leads QT has shortened Referred By: Generic ED Physician Electronically Signed By:YUSUF MCNAIR
--- NOTE | ~2024-04-10 | XR_ITS ---
EXAMINATION: XR CHEST CLINICAL INFORMATION: SOB COMPARISON: None available. TECHNIQUE: 2 views of the chest were obtained. FINDINGS: Left lateral generator pack present with single defibrillator lead extending over the left sternum. The cardiac, hilar, and mediastinal contours are normal. The lungs are clear bilaterally. There is no pneumothorax or pleural effusion. There is no focal osseous or soft tissue abnormality. There are mild spinal degenerative changes. XR/XR chest 2V IMPRESSION: 1. No active disease. 2. Single-lead defibrillator. Electronically signed by: Iban Dale MD 04/10/2024 03:28 PM SOFIE KENNEDY
--- OUTSIDE RECORDS SUMMARY | 2024-04-10 13:10 | XMS_ITS | Patient Health Record ---
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 [address] [place] [phone] [id number] REANNA ROSALES Self - patient is the insured MEDICAL (GENERAL) HISTORY Medical History History ICD Code diabetes mellitus RI 06/07/2011 coronary artery disease with stent place ment cardiomyopathy, ejection fraction 32% hypertension elevated cholesterol Colonoscopy 09/07, tubular adenoma, five- year followup Surgical History Surgery Date(Month/Year) vasectomy 1986 wisdom teeth extraction 1970 ICD
--- NOTE | 2024-04-10 13:37 | ED.SOB ---
HPI - SOB/Dyspnea General Chief Complaint: General Medical Stated Complaint: sob tightness in chest Time Seen by Provider: 04/10/24 19:11 Source: patient Mode of arrival: ambulatory Limitations: no limitations History of Present Illness ED Provider: HPI Narrative: Patient's history of paroxysmal AFib which she does not feel status post cardioversion 3 days ago was in the bathroom taking shower had a mechanical fall while sitting on the chair felt little short of breath denied any syncope or passing out episode call the special distribution clerk who asked him to come to recheck about whether patient has a AFib or not currently patient denied any symptoms Related Data Home Medications ?Medication ?Instructions ?Recorded ?Confirmed cholecalciferol (vitamin D3) 50 10,000 unit PO DAILY 07/14/21 04/04/24 mcg (2,000 unit) capsule zinc sulfate 25 mg zinc (110 mg) 25 mg PO DAILY 07/14/21 04/04/24 tablet (Orazinc) ascorbate calcium (vitamin C) 500 500 mg PO DAILY 10/07/21 04/04/24 mg tablet coenzyme Q10 10 mg capsule (Co 20 mg PO DAILY 10/07/21 04/04/24 Q-10) magnesium 30 mg tablet 30 mg PO DAILY 10/07/21 04/04/24 multivitamin 1 tab PO DAILY 10/07/21 04/04/24 omega 8-nqj-qkz-fish oil 60 mg-90 1 cap PO DAILY 10/07/21 04/04/24 mg-500 mg capsule (Fish Oil) phytonadione (vitamin K1) 100 mcg 100 mcg PO DAILY 10/12/22 04/04/24 tablet allopurinol 100 mg tablet 100 mg PO BEDTIME 04/04/24 04/04/24 furosemide 20 mg tablet 20 mg PO DAILY PRN edema 04/04/24 04/04/24 loratadine 10 mg tablet 10 mg PO DAILY 04/04/24 04/04/24 rivaroxaban 20 mg tablet (Xarelto) 20 mg PO DAILY@1700 04/04/24 04/04/24 Previous Rx's ?Medication ?Instructions ?Recorded triamcinolone acetonide 0.5 % 1 appl topical BID #30 grams 06/29/22 topical cream pravastatin 40 mg tablet 40 mg PO BEDTIME #100 tabs 11/01/23 metformin 500 mg tablet 500 mg PO BIDWMEAL 90 days #180 11/08/23 tabs tadalafil 5 mg tablet 5 mg PO DAILY sexual activity 90 11/15/23 days #90 tabs clotrimazole 1 % topical ointment 1 appl topical BID 4 weeks #56.7 12/31/23 grams pyridoxine (vitamin B6) 50 mg 50 mg PO DAILY 90 days #90 tabs 01/18/24 tablet carvedilol 25 mg tablet 25 mg PO BID #180 tabs 01/19/24 ezetimibe 10 mg tablet 10 mg PO DAILY #90 tabs 02/03/24 sitagliptin phosphate 100 mg 100 mg PO DAILY #90 tabs 02/03/24 tablet (Januvia) sacubitril 49 mg-valsartan 51 mg 0.5 tab PO BID 90 days #90 tabs 03/13/24 tablet (Entresto) dofetilide 125 mcg capsule 250 mcg (2 x 125 mcg) PO BID 90 04/08/24 days #360 caps dofetilide 250 mcg capsule 250 mcg PO BID #60 caps 04/08/24 (Tikosyn) Allergies Allergy/AdvReac Type Severity Reaction Status Date / Time lisinopril [LISINOPRIL] Allergy Mild UNKNOWN, Verified 04/10/24 13:42 cough, cough doxycycline [DOXYCYCLINE] Allergy Unknown UNKNOWN Verified 04/10/24 13:42 glimepiride [GLIMEPIRIDE] Allergy Unknown SEVERE Verified 04/10/24 13:42 BACK PAIN ibuprofen [From Motrin] Allergy Unknown Nausea Verified 04/10/24 13:42 tamsulosin [TAMSULOSIN] Allergy Unknown UNKNOWN, Verified 04/10/24 13:42 Fever rosuvastatin AdvReac Intermediate hypotension Verified 04/10/24 13:42 ' adhesive tape AdvReac Mild Itching Verified 04/10/24 13:42 Review of Systems Review of Systems: Yes all other systems are reviewed and are negative PMFSH Past Medical History Medical History Ischemic cardiomyopathy Chronic heart failure with reduced ejection fraction and diastolic dysfunction ICD (implantable cardioverter-defibrillator) in place Pneumonia Anxiety and depression Bilateral renal stones Hypercholesterolemia Psoriasis Gout Coronary artery disease Hypertension GERD (gastroesophageal reflux disease) Surgical History Hx of colonoscopy History of heart artery stent S/P ICD (internal cardiac defibrillator) procedure History of cataract surgery History of surgery History of vasectomy History of wisdom tooth extraction Family History Family History Father Diabetes Prostate cancer CVD (cardiovascular disease) Mother CVD (cardiovascular disease) Acute CVA (cerebrovascular accident) Social History Social History Household Members: Spouse Housing: House Are you a primary post acute care registered nurse to a significant other at home: No Do you presently have visiting nurse or other home services: No Alcohol intake: current Alcohol intake frequency: holidays/special occasions only Comment: once q2 months 1/2 bottle of wine Patient Tobacco Use Status: Never used Tobacco e-Cigarette/Vaping Use: Never Used Second Hand Smoke Exposure: No Advance Directives: No Advance Directives Information Provided: Yes service: No Current occupational status: retired Cognitive needs: No Hearing needs: No Vision needs: Yes Physical Exam Vital Signs: Vital Signs: Last Vital Signs Temp 97.8 F 04/10/24 18:39 Pulse 91 04/10/24 18:39 Resp 16 04/10/24 18:39 BP 131/67 04/10/24 18:39 Pulse Ox 99 04/10/24 18:39 O2 Del Method Room Air 04/10/24 18:39 BMI result Body Mass Index 29.6 Appearance: Alert. Oriented X3. No acute distress. Eyes: PERRLA, No Nystagmus ENT: Pharynx normal. Oral Mucosa moist Neck: Normal inspection. Neck supple. CVS: Normal heart rate and rhythm. Pulses normal. No murmur rub or gallop occasional premature beats Respiratory: No respiratory distress. Equal air entry bilateral, no wheezing/rales/rhonchi Abdomen: Soft and nontender. Bowel sounds are present, no mass palpable, no CVA tenderness Skin: Skin warm and dry. Normal skin color. Normal skin turgor. Extremities: No lower extremity edema. No calf tenderness Neuro: Oriented X 3. No motor deficit. No sensory deficit.No cerebellar signs , cranial nerves II-XII intact Course Course Course Narrative: This is an RME: Additional HPI, ROS, PE not included below will be deferred to primary provider. RME assessment and note performed by: Brigette Romano PA-C This is a 71-anpr-xnt-male, atrial fibrillation/flutter on Eliquis with recent cardioversion on 04/07 at [facility], history of ischemic cardiomyopathy, status post implantable cardioverter defibrillator in place, chronic heart failure with reduced EF and diastolic dysfunction, history of anxiety depression, hyperlipidemia, gout, hypertension, who presents to the ER with complaint of shortness of breath since last night. Pt states that he was seated in a bathtub and the chair he was seated on slipped forward causing him to lower himself into the tub, denies abrupt fall onto his buttocks, and felt very SOB and had chest tightness which resolved after 20 minutes. Reports chest tightness and SOB persists this morning but is much better than it was yesterday. Reports that he had cardioversion on 04/07. No dizziness. Reports some SOB with exertion. Plan: Labs, EKG, CXR, further er eval needed Medical Decision Making Medical Decision Making MDM Narrative: EKG with no AFib showed PVCs/PACs labs are stable will discharge patient advised to follow with special distribution clerk Lab Data MDM Lab Attestation statement: I reviewed the patient's lab results. 04/10/24 14:10 04/10/24 14:10 Labs: Lab Results 04/10/24 Range/Units 14:10 WBC 5.0 (4.8-10.8) X10*3/uL RBC 4.18 L (4.60-5.80) X10*6/uL Hgb 13.0 L (14.0-18.0) g/dl Hct 37.0 L (42.0-52.0) % MCV 88.5 (80.0-98.0) fL MCH 31.1 (27.0-33.0) pg MCHC 35.1 (31.0-36.0) g/dl RDW 13.1 (11.0-16.0) % Plt Count 158 L (160-400) X10*3/uL MPV 9.4 (9.4-12.4) fL Immature Gran % (Auto) 0.2 (0.0-0.4) % Neut % (Auto) 65.3 (45-73) % Lymph % (Auto) 23.4 (20-40) % [place] % (Auto) 7.3 (2-11) % Eos % (Auto) 3.4 (0-4) % Baso % (Auto) 0.4 (0-2) % Lymph # (Auto) 1.2 (1.2-4.9) X10*3/uL [place] # (Auto) 0.4 (0.1-1.2) X10*3/uL Eos # (Auto) 0.2 (0.0-0.4) X10*3/uL Baso # (Auto) 0.0 (0.0-0.2) X10*3/uL Abs Immat Gran (auto) 0.01 (0.00-0.03) X10*3/uL Absolute Neuts (auto) 3.2 (2.0-8.3) x10*3/uL Absolute Nucleated RBC 0.000 (0.0-0.012) X10*3/uL Nucleated RBC % (auto) 0.0 (0.0-0.2) /100WBC Sodium 143 (135-145) mmol/L Potassium 3.8 (3.3-5.1) mmol/L Chloride 109 H (96-108) mmol/L Carbon Dioxide 27 (22-29) mmol/L Anion Gap 11 L (12-20) BUN 18 H (9-16) mg/dL Creatinine 1.11 (0.5-1.4) mg/dL Estim Creat Clear Calc 69.9 Estimated GFR > 60 Random Glucose 143 H (60-115) mg/dL Calcium 9.2 (8.4-10.2) mg/dL Magnesium 2.0 (1.6-2.6) mg/dL Total Bilirubin 0.7 (0.0-1.0) mg/dL Direct Bilirubin 0.2 (0.0-0.5) mg/dL AST 31 (5-37) U/L ALT 32 (0-40) U/L Alkaline Phosphatase 60 (39-117) U/L Troponin I High Sens 8.3 (<3.5-35.0) ng/L B-Natriuretic Peptide 221 H (<100) pg/mL Total Protein 6.5 (6.5-8.0) g/dL Albumin 4.1 (3.5-5.0) g/dL Influenza Type A (PCR) NEGATIVE (Negative) Influenza Type B (PCR) NEGATIVE (Negative) RSV RNA Qual (PCR) NEGATIVE (Negative) SARS-CoV-2 RNA (RT-PCR) NEGATIVE (Negative) Independent Interpretation I performed an independent interpretation of an: EKG Interpretation: Normal sinus rhythm PACs PVCs heart rate 74 beats per minute no acute STT wave changes no acute ischemia Discharge Plan Discharge Clinical Impression: Accident due to mechanical fall without injury Patient Disposition: Home, Self-Care Instructions: A-fib (Atrial Fibrillation) (ED), Fall Prevention (ED) Additional Instructions: Continue medications follow with your special distribution clerk at this time there is no evidence of atrial fibrillation Prescriptions: No Action pravastatin 40 mg tablet 40 mg PO BEDTIME Qty: 100 2RF metformin 500 mg tablet 500 mg PO BIDWMEAL 90 Days Qty: 180 1RF tadalafil 5 mg tablet 5 mg PO DAILY 90 Days Qty: 90 1RF Rx Instructions: Daily medication pyridoxine (vitamin B6) 50 mg tablet 50 mg PO DAILY 90 Days Qty: 90 3RF carvedilol 25 mg tablet 25 mg PO BID Qty: 180 3RF ezetimibe 10 mg tablet 10 mg PO DAILY Qty: 90 3RF Januvia 100 mg tablet 100 mg PO DAILY Qty: 90 3RF dofetilide [Tikosyn] 250 mcg capsule 250 mcg PO BID Qty: 60 2RF loratadine 10 mg Tablet 10 mg PO DAILY furosemide 20 mg tablet 20 mg PO DAILY PRN (Reason: edema) allopurinol 100 mg tablet 100 mg PO BEDTIME Xarelto 20 mg tablet 20 mg PO DAILY@1700 Rx Instructions: must administer with evening meal dofetilide 125 mcg Capsule 250 mcg PO BID 90 Days Qty: 360 0RF Orazinc 25 mg zinc (110 mg) tablet 25 mg PO DAILY cholecalciferol (vitamin D3) 50 mcg (2,000 unit) capsule 10,000 unit PO DAILY multivitamin Tablet 1 tab PO DAILY omega 8-wcs-mco-fish oil [Fish Oil] 60-90-500 mg capsule 1 cap PO DAILY ascorbate calcium (vitamin C) 500 mg tablet 500 mg PO DAILY coenzyme Q10 [Co Q-10] 10 mg capsule 20 mg PO DAILY magnesium 30 mg tablet 30 mg PO DAILY triamcinolone acetonide 0.5 % cream 1 appl topical BID Qty: 30 0RF clotrimazole 1 % ointment 1 appl topical BID 28 Days Qty: 56.7 0RF phytonadione (vitamin K1) 100 mcg tablet 100 mcg PO DAILY Entresto 49-51 mg tablet 0.5 tab PO BID 90 Days Qty: 90 1RF Print Language: [place]
[2024-04-10 13:38] VITALS: BP 123/69; PULSE 72; RESP 16; TEMP 36.6; O2SAT 98; BMI 29.6
[2024-04-10 14:14] LABS: MANUAL DIFF FLAG NO
[2024-04-10 14:16] LABS: Basophils Percent Auto 0.4 % (0-2); Eosinophils Absolute Auto 0.2 X10*3/uL (0.0-0.4); Eosinophils Percent Auto 3.4 % (0-4); Imm Gran Abs Auto 0.01 X10*3/uL (0.00-0.03); Imm Gran Pct Auto 0.2 % (0.0-0.4); Lymphocytes Absolute Auto 1.2 X10*3/uL (1.2-4.9); Lymphocytes Percent Auto 23.4 % (20-40); Mean Corpuscular HGB Conc 35.1 g/dl (31.0-36.0); Mean Corpuscular Hemoglobin 31.1 pg (27.0-33.0); Mean Corpuscular Volume 88.5 fL (80.0-98.0); Mean Platelet Volume 9.4 fL (9.4-12.4); Monocytes Absolute Auto 0.4 X10*3/uL (0.1-1.2); Monocytes Percent Auto 7.3 % (2-11); Neutrophils Absolute Auto 3.2 x10*3/uL (2.0-8.3); Neutrophils Percent Auto 65.3 % (45-73); Platelet Count 158 X10*3/uL (160-400); Red Blood Count 4.18 X10*6/uL (4.60-5.80); Red Cell Distribution Width 13.1 % (11.0-16.0)
[2024-04-10 14:34] LABS: Alanine Aminotransferase 32 U/L (0-40); Albumin Level 4.1 g/dL (3.5-5.0); Alkaline Phosphatase 60 U/L (39-117); Anion Gap 11 (12-20); Aspartate Amino Transferase 31 U/L (5-37); Bilirubin Direct 0.2 mg/dL (0.0-0.5); Bilirubin Total 0.7 mg/dL (0.0-1.0); Blood Urea Nitrogen 18 mg/dL (9-16); Calcium 9.2 mg/dL (8.4-10.2); Carbon Dioxide 27 mmol/L (22-29); Chloride 109 mmol/L (96-108); Creatinine Clr Calc Pharmacy 69.9; Estimated Glomerular Filt Rate > 60; Glucose Random 143 mg/dL (60-115); Potassium 3.8 mmol/L (3.3-5.1); Sodium 143 mmol/L (135-145); Total Protein 6.5 g/dL (6.5-8.0)
[2024-04-10 14:37] LABS: B Type Natriuretic Peptide 221 pg/mL (<100)
[2024-04-10 14:41] LABS: Troponin-I High Sensitivity 8.3 ng/L (<3.5-35.0)
[2024-04-10 14:56] LABS: Influenza A PCR NEGATIVE (Negative); Influenza B PCR NEGATIVE (Negative); Resp Syncy Virus RNA Qual PCR NEGATIVE (Negative); SARS COV2 PCR INHOUSE NEGATIVE (Negative)
[2024-04-10 18:39] VITALS: BP 131/67; PULSE 91; RESP 16; TEMP 36.6; O2SAT 99
[2024-04-10 19:41] VITALS: BP 131/67; PULSE 91; RESP 16; TEMP 36.6; O2SAT 99
== END 2024-04-10 19:41 | disposition home or self-care (01) ==
PROVIDERS: Physician Assistant Medical; Emergency Provider Internal Medicine; PCP Internal Medicine
DX: R06.02 Shortness of breath (principal); R07.89 Other chest pain; I48.0 Paroxysmal atrial fibrillation; Z79.899 Other long term (current) drug therapy; Z79.84 Long term (current) use of oral hypoglycemic drugs; Z03.818 Encounter for observation for suspected exposure to other biological agents ruled out
CPT/HCPCS: 0241U; 36415; 71046; 80048; 80076; 83735; 83880; 84484; 85025; 93005; 99283; 99284

== ENCOUNTER → 2024-04-10 13:15 | Outpatient (BNV) | payer MEDICARE, SELFPAY | PROVIDERS: PCP Internal Medicine; Visit Provider Internal Medicine | DX: I48.92 Unspecified atrial flutter (principal) | CPT/HCPCS: 93010 ==

== ENCOUNTER → 2024-04-10 13:42 | Outpatient (BNV) | payer MEDICARE, SELFPAY | PROVIDERS: PCP Internal Medicine; Visit Provider Radiology Diagnostic Radiology | DX: R06.02 Shortness of breath (principal); Z95.810 Presence of automatic (implantable) cardiac defibrillator | CPT/HCPCS: 71046 ==

== ENCOUNTER 2024-04-11 12:53 | Outpatient (AMB) | payer MEDICARE, MEDICAID, SELFPAY ==
[2024-04-11 12:57] VITALS: BP 120/68; PULSE 83; O2SAT 98; BMI 30.1
--- NOTE | 2024-04-11 12:57 | MHC.PC.OV ---
Vital Signs 04/11/24 12:57 Height 5 ft 9 in Weight 204 lb BMI 30.1 BP 120/68 Blood Pressure Location Lt brachial Position Sitting Pulse 83 Pulse Source Pulse Oximeter Pulse Oximetry (%) 98 Oxygen Delivery Method Room Air Intake Visit Reasons: [facility] 04/08 afib Allergies lisinopril [LISINOPRIL] Allergy (Mild, Verified 04/11/24 13:10) UNKNOWN, cough, cough doxycycline [DOXYCYCLINE] Allergy (Unknown, Verified 04/11/24 13:10) UNKNOWN glimepiride [GLIMEPIRIDE] Allergy (Unknown, Verified 04/11/24 13:10) SEVERE BACK PAIN ibuprofen [From Motrin] Allergy (Unknown, Verified 04/11/24 13:10) Nausea tamsulosin [TAMSULOSIN] Allergy (Unknown, Verified 04/11/24 13:10) UNKNOWN, Fever apixaban [From Eliquis] Adverse Reaction (Intermediate, Verified 04/11/24 13:10) Nausea and Vomiting rosuvastatin Adverse Reaction (Intermediate, Verified 04/11/24 13:10) hypotension' adhesive tape Adverse Reaction (Mild, Verified 04/11/24 13:10) Itching Tobacco use date assessed: 08/18/23 Fall risk assessment: No Falls in past year Last assessed Fall Risk: 04/11/24 Dental Screening Dental Screen Date: 08/18/23 HPI [facility] 04/08 afib HPI Details The patient is a 68-year-old male presenting with unchanged health status without any specific medical complaints described in the conversation. 68-year-old obese male with controlled diabetes mellitus hypertension hypercholesterolemia coronary artery disease GERD ischemic cardiomyopathy congestive heart failure with an ICD atrial flutter coming in for follow-up. Patient was last seen in December. Patient was in the hospital for atrial flutter had cardioversion done. And a more recent hospitalization for falling on the tub which the patient insist was more of muscular pain. Otherwise have patient has been doing fine in better. TCM TCM Information Date of Discharge 04/10/24 Discharged From [facility] Medical History Ischemic cardiomyopathy Chronic heart failure with reduced ejection fraction and diastolic dysfunction ICD (implantable cardioverter-defibrillator) in place Pneumonia Anxiety and depression Bilateral renal stones Hypercholesterolemia Psoriasis Gout Coronary artery disease Hypertension GERD (gastroesophageal reflux disease) Surgical History Hx of colonoscopy History of heart artery stent S/P ICD (internal cardiac defibrillator) procedure History of cataract surgery History of surgery History of vasectomy History of wisdom tooth extraction Family History Father Diabetes Prostate cancer CVD (cardiovascular disease) Mother CVD (cardiovascular disease) Acute CVA (cerebrovascular accident) Social History Household Members: Spouse Housing: House Are you a primary critical care cns to a significant other at home: No Do you presently have visiting nurse or other home services: No Alcohol intake: current Alcohol intake frequency: holidays/special occasions only Comment: once q2 months 1/2 bottle of wine Patient Tobacco Use Status: Never used Tobacco Tobacco use type: Cigarette e-Cigarette/Vaping Use: Never Used Second Hand Smoke Exposure: No service: No Current occupational status: retired Cognitive needs: No Hearing needs: No Vision needs: Yes Questionnaire PHQ-9 Over the last 2 weeks, how often have you been bothered by any of the following problems? 1. Little interest or pleasure in doing things: several days 2. Feeling down, depressed, or hopeless: not at all 3. Trouble falling or staying asleep, or sleeping too much: not at all 4. Feeling tired or having little energy: not at all 5. Poor appetite or overeating: not at all 6. Feeling bad about yourself - or that you are a failure or have let yourself or your family down: several days 7. Trouble concentrating on things, such as reading the newspaper or watching television: not at all 8. Moving or speaking so slowly that other people could have noticed. Or the opposite - being so fidgety or restless that you have been moving around a lot more than usual: not at all 9. Thoughts that you would be better off or of hurting yourself in some way: not at all Total score: 2 Depression Screening Interpretation: Positive Depression Screening Done: Yes Source: Developed by Drs. Gopal Lazaro, Dora Rosario, Jose Ferrera and colleagues, with an educational laura from [employer]. Thrive Questionnaire Date Thrive assessed: 12/24/23 I am a: Patient What is your living situation today?: I have a steady place to live Within the past 12 months, did the food you bought not last and you didn't have the money to get more?: I choose not to answer this question Within the past 12 months, did you worry whether your food would run out before you got money to buy more?: I choose not to answer this question Do you have trouble paying for medicines?: No Do you have trouble getting transportation to medical appointments?: No Do you have trouble taking care of your child, family member or friend?: I choose not to answer this question Do you have trouble with day-to-day activities such as bathing, preparing meals, shopping, managing finances, etc.?: No Are you currently unemployed and looking for a job?: I choose not to answer this question Are you interested in more education?: I choose not to answer this question Please select the resources that you would like help with: None Currently or been in a relationship where the following occur: No concerns reported THRIVE Score: 0 AUDIT C Alcohol Use Questionnaire (AUDIT-C) 3. How often do you have six or more drinks on one occasion?: Never Total Score: 0 AUSTIN-7 AMB Questionnaire AUST[place]-7 Date AUSTIN - 7 assessed: 12/31/23 Source: Developed by Drs. Gopal Lazaro, Dora Rosario, Jose Ferrera and colleagues, with an educational laura from [employer]. Physical exam (Primary Care) Vital Signs: Last Vital Signs Pulse 83 04/11/24 12:57 BP 120/68 04/11/24 12:57 Pulse Ox 98 04/11/24 12:57 Oxygen Delivery Method Room Air 04/11/24 12:57 BMI result Body Mass Index 30.1 Tobacco/Smoking Status: Tobacco use Status Tobacco use date assessed 08/18/23 04/11/24 12:59 Patient Tobacco Use Status Never used Tobacco 04/11/24 12:59 Tobacco use type Cigarette 04/11/24 12:59 e-Cigarette/Vaping Use Never Used 04/11/24 12:59 PHQ-9: PHQ-9 Score PHQ-9: Total score 2 04/11/24 13:36 Depression Screening Interpretation: Positive Thrive Assessment: Date of Thrive Assessment Date Thrive assessed 12/24/23 04/11/24 12:59 Currently or been in a relationship where the following occur: No concerns reported Const General: alert; No acute distress Eyes Conjunctivae: conjunctivae normal Resp Auscultation: clear to auscultation bilaterally Cardio Rate: regular rate Rhythm: regular rhythm GI Inspection: Yes normal to inspection Extrem General: Yes normal to inspection and No edema Results AMB Hemoglobin A1c AMB Hemoglobin A1c 5.9 % Last Edit by Stephie Skinner CMA on 04/11/24 13:37 Results Reviewed Results Reviewed: Laboratory Last Values Hgb A1c (Clinic) 5.9 % (4.0-6.0) 04/11/24 13:00 Coding Level of Care Code Est Pt Level 4 (27762) Complex EM visit Add On G2211 Diagnoses Type 2 diabetes mellitus with hyperglycemia, without long-term current use of insulin E11.65 Diabetes mellitus intermediate designer insulin use: without intermediate designer use Essential hypertension I10 Hypertension type: essential hypertension Hypercholesterolemia E78.00 Gastroesophageal reflux disease without esophagitis K21.9 Esophagitis presence: without esophagitis Coronary artery disease involving [place] coronary artery of [place] heart without angina pectoris I25.10 Associated angina: without angina Coronary Disease-Associated Artery/Lesion type: [place] artery [place] vs. transplanted heart: [place] heart Ischemic cardiomyopathy I25.5 Chronic heart failure with reduced ejection fraction and diastolic dysfunction I50.42 Typical atrial flutter I48.3 Atrial flutter type: typical Assessment & Plan Assessment & Plan (1) Type 2 diabetes mellitus with hyperglycemia: Comment: [facility] Code(s): E11.65 - Type 2 diabetes mellitus with hyperglycemia Category: Medical Qualifiers: Diabetes mellitus intermediate designer insulin use: without intermediate designer use Qualified Code(s): E11.65 - Type 2 diabetes mellitus with hyperglycemia Plan: Decrease the amount of carbohydrate intake, pasta, bread, rice and potatoes are all sugar and that is aside from all the sweet stuff, remember that fruits are good but they are Sweet also. Hemoglobin A1c goal of less than 7.0. Patient is taking metformin 500 mg twice a day Januvia 100 mg once a day (2) Hypertension: Code(s): I10 - Essential (primary) hypertension Category: Medical Qualifiers: Hypertension type: essential hypertension Qualified Code(s): I10 - Essential (primary) hypertension Plan: Continue with blood pressure medication. Decrease salt intake and exercise patient is on carvedilol 25 mg twice a day Entresto 49/51/ 0.5 mg twice a day (3) Hypercholesterolemia: Code(s): E78.00 - Pure hypercholesterolemia, unspecified Category: Medical Plan: Avoid fried foods, chicken skin, eggs, butter margarine, pastries and meat. Be it pork or beef they have a lot of cholesterol LDL goal of less than 70 and triglyceride of less than 150 on pravastatin 40 mg at bedtime and Zetia (4) GERD (gastroesophageal reflux disease): Code(s): K21.9 - Gastro-esophageal reflux disease without esophagitis Category: Medical Qualifiers: Esophagitis presence: without esophagitis Qualified Code(s): K21.9 - Gastro-esophageal reflux disease without esophagitis Plan: Avoid the foods that causes that usually spicy foods, tomato products, juices, coffee, soda and foods that your sensitive to. After eating do not lie down, allow 3-4 hours before in lie down. And keep the head of bed above 30 degrees to avoid the acid from going up. (5) Coronary artery disease: Comment: STEMI May 2011 Promus stent in LAD and vision [place] old chromium stent in 1st diagonal apical akinesis apical thrombus Code(s): I25.10 - Atherosclerotic heart disease of [place] coronary artery without angina pectoris Category: Medical Qualifiers: Associated angina: without angina Coronary Disease-Associated Artery/Lesion type: [place] artery [place] vs. transplanted heart: [place] heart Qualified Code(s): I25.10 - Atherosclerotic heart disease of [place] coronary artery without angina pectoris Plan: Control the cholesterol, weight, blood pressure, diabetes patient on anticoagulation with Xarelto (6) Ischemic cardiomyopathy: Comment: LVEF of 15-20% with wall motion abnormality in LAD territory with mild mitral and aortic valve regurgitation, October 2018.LVEF 25-30% hypokinesis of apex and apical anteroseptal lateral and inferior shirley June 2016 25-30% March 2017 15-20% echo, ICD implantation April 2015, echo done Mayeverely reduced LV systolic function with wall motion abnormality in LAD territory consistent with ischemic cardiomyopathy with grade 2 diastolic dysfunction echocardiogram March 2021 ejection fraction 30 35% Code(s): I25.5 - Ischemic cardiomyopathy Category: Medical Plan: Continue with carvedilol and Entresto and diuretic furosemide. Patient has the ICD (7) Chronic heart failure with reduced ejection fraction and diastolic dysfunction: Code(s): I50.42 - Chronic combined systolic (congestive) and diastolic (congestive) heart failure Category: Medical Plan: Continue with carvedilol and furosemide continue with Entresto. (8) Atrial flutter: Comment: cardioversion 02/2024 Code(s): I48.92 - Unspecified atrial flutter Category: Medical Qualifiers: Atrial flutter type: typical Qualified Code(s): I48.3 - Typical atrial flutter Plan: Patient is being followed up by Cardiology on Tikosyn and anticoagulation Orders: Orders AMB Hemoglobin A1c Today Z13.9 - Encounter for screening, unspecified Medications: Discontinued dofetilide Discontinued Reason: Duplicate 250 mcg (2 x 125 mcg) PO BID 90 days 360 caps 0RF
== END 2024-04-11 13:48 | disposition home or self-care (01) ==
PROVIDERS: PCP Internal Medicine; Visit Provider Internal Medicine
DX: E11.65 Type 2 diabetes mellitus with hyperglycemia (principal); I50.42 Chronic combined systolic (congestive) and diastolic (congestive) heart failure; I48.3 Typical atrial flutter; I10 Essential (primary) hypertension; E78.00 Pure hypercholesterolemia, unspecified; K21.9 Gastro-esophageal reflux disease without esophagitis; I25.10 Atherosclerotic heart disease of native coronary artery without angina pectoris; I25.5 Ischemic cardiomyopathy

== ENCOUNTER → 2024-04-11 12:53 | Outpatient (BNVA) | payer MEDICARE, MEDICAID, SELFPAY | PROVIDERS: PCP Internal Medicine; Visit Provider Internal Medicine | DX: E11.65 Type 2 diabetes mellitus with hyperglycemia (principal); E78.00 Pure hypercholesterolemia, unspecified; E66.9 Obesity, unspecified; I25.10 Atherosclerotic heart disease of native coronary artery without angina pectoris; K21.9 Gastro-esophageal reflux disease without esophagitis; I48.3 Typical atrial flutter; I25.5 Ischemic cardiomyopathy; I11.0 Hypertensive heart disease with heart failure; I50.42 Chronic combined systolic (congestive) and diastolic (congestive) heart failure; Z95.810 Presence of automatic (implantable) cardiac defibrillator | CPT/HCPCS: 83036; 96127; 99212 ==

== ENCOUNTER 2024-04-20 14:50 | Outpatient (AMB) | payer MEDICARE, MEDICAID, SELFPAY ==
--- NOTE | 2024-04-20 14:51 | AM.OFFVISNUR ---
Intake Visit Reasons: EKG afib? Intake Note: ekg dx afib Allergies lisinopril [LISINOPRIL] Allergy (Mild, Verified 04/11/24 13:10) UNKNOWN, cough, cough doxycycline [DOXYCYCLINE] Allergy (Unknown, Verified 04/11/24 13:10) UNKNOWN glimepiride [GLIMEPIRIDE] Allergy (Unknown, Verified 04/11/24 13:10) SEVERE BACK PAIN ibuprofen [From Motrin] Allergy (Unknown, Verified 04/11/24 13:10) Nausea tamsulosin [TAMSULOSIN] Allergy (Unknown, Verified 04/11/24 13:10) UNKNOWN, Fever apixaban [From Eliquis] Adverse Reaction (Intermediate, Verified 04/11/24 13:10) Nausea and Vomiting rosuvastatin Adverse Reaction (Intermediate, Verified 04/11/24 13:10) hypotension' adhesive tape Adverse Reaction (Mild, Verified 04/11/24 13:10) Itching
--- OUTSIDE RECORDS SUMMARY | 2024-04-20 14:52 | XMS_ITS | Patient Health Record ---
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 [address] [place] [address] [phone] [id number] REANNA ROSALES Self - patient is the insured MEDICAL (GENERAL) HISTORY Medical History History ICD Code diabetes mellitus [place] 06/07/2011 coronary artery disease with stent place ment cardiomyopathy, ejection fraction 32% hypertension elevated cholesterol Colonoscopy 09/07, tubular adenoma, five- year followup Surgical History Surgery Date(Month/Year) vasectomy 1986 wisdom teeth extraction 1970 ICD
[2024-04-20 15:09] VITALS: BP 124/70; PULSE 74; RESP 18; BMI 29.8
--- NOTE | 2024-04-20 15:09 | A.OFFVIS_ITS ---
<Statement entered by Bruce Page MD - 04/20/24 15:55> Case reviewed with Jose Manuel. Agree with the plan. Vital Signs 04/20/24 15:09 Height 5 ft 9 in Weight 202 lb BMI 29.8 BP 124/70 Blood Pressure Location Lt brachial Position Sitting Respiration 18 Pulse 74 Pulse Source Auscultation Intake Visit Reasons: EKG afib? Intake Note: Office visit with ekg c/o headache, sob, and GI issues with new med's Public Address Announcer Required: No Allergies lisinopril [LISINOPRIL] Allergy (Mild, Verified 04/11/24 13:10) UNKNOWN, cough, cough doxycycline [DOXYCYCLINE] Allergy (Unknown, Verified 04/11/24 13:10) UNKNOWN glimepiride [GLIMEPIRIDE] Allergy (Unknown, Verified 04/11/24 13:10) SEVERE BACK PAIN ibuprofen [From Motrin] Allergy (Unknown, Verified 04/11/24 13:10) Nausea tamsulosin [TAMSULOSIN] Allergy (Unknown, Verified 04/11/24 13:10) UNKNOWN, Fever dofetilide [From Tikosyn] Adverse Reaction (Severe, Verified 04/20/24 15:23) Diarrhea apixaban [From Eliquis] Adverse Reaction (Intermediate, Verified 04/11/24 13:10) Nausea and Vomiting rosuvastatin Adverse Reaction (Intermediate, Verified 04/11/24 13:10) hypotension' adhesive tape Adverse Reaction (Mild, Verified 04/11/24 13:10) Itching Medication List - Last Reconciled 04/20/24 by Jose Manuel Gray NP allopurinol 100 mg PO BEDTIME apixaban (Eliquis) 5 mg PO BID ascorbate calcium (vitamin C) 500 mg PO DAILY carvedilol 25 mg PO BID cholecalciferol (vitamin D3) 10,000 units PO DAILY clotrimazole 1% 1 appl topical BID 4 weeks coenzyme Q10 (Co Q-10) 20 mg PO DAILY dofetilide (Tikosyn) 250 mcg PO BID ezetimibe 10 mg PO DAILY furosemide 20 mg PO DAILY PRN loratadine 10 mg PO DAILY magnesium 30 mg PO DAILY metformin 500 mg PO BIDWMEAL 90 days multivitamin 1 tab PO DAILY omega 6-qif-wlr-fish oil 60-90-500 mg (Fish Oil) 1 cap PO DAILY phytonadione (vitamin K1) 100 mcg PO DAILY pravastatin 40 mg PO BEDTIME pyridoxine (vitamin B6) 50 mg PO DAILY 90 days rivaroxaban (Xarelto) 20 mg PO DAILY@1700 sacubitril-valsartan 49-51 mg (Entresto) 0.5 tabs PO BID 90 days sitagliptin phosphate (Januvia) 100 mg PO DAILY tadalafil 5 mg PO DAILY 90 days triamcinolone acetonide 0.5% 1 appl topical BID zinc sulfate (Orazinc) 25 mg PO DAILY HPI Comments Details: This is a 68-year-old male with a history of atrial flutter. He was admitted directly for Tikosyn loading to initiate rhythm control on 04/05/24, but remained in Aflutter despite the treatment. The patient underwent synchronized cardioversion, which successfully restored sinus rhythm. During his inpatient stay, he developed headaches attributed to Tikosyn, and his dosage was reduced to 250 mcg twice daily. Recent remote monitoring showed intermittent episodes of AFib/Aflutter. Patient was brought in for an EKG visit with a nurse, where the patient reported that he has not been tolerating the reduced Tikosyn dose due to the development of uncontrollable diarrhea. The patient denies any symptoms of fluttering, palpitations, chest discomfort, shortness of breath, presyncope, or syncope. [facility] Medical History Heart failure with reduced ejection fraction Ischemic cardiomyopathy Chronic heart failure with reduced ejection fraction and diastolic dysfunction ICD (implantable cardioverter-defibrillator) in place Pneumonia Anxiety and depression Bilateral renal stones Hypercholesterolemia Psoriasis Gout Coronary artery disease Hypertension GERD (gastroesophageal reflux disease) Surgical History Hx of colonoscopy History of heart artery stent S/P ICD (internal cardiac defibrillator) procedure History of cataract surgery History of surgery History of vasectomy History of wisdom tooth extraction Family History Father Diabetes Prostate cancer CVD (cardiovascular disease) Mother CVD (cardiovascular disease) Acute CVA (cerebrovascular accident) Social History Household Members: Spouse Housing: House Are you a primary day care home mother to a significant other at home: No Do you presently have visiting nurse or other home services: No Alcohol intake: current Alcohol intake frequency: holidays/special occasions only Comment: once q2 months 1/2 bottle of wine Patient Tobacco Use Status: Never used Tobacco Tobacco use type: Cigarette e-Cigarette/Vaping Use: Never Used Second Hand Smoke Exposure: No service: No Current occupational status: retired Cognitive needs: No Hearing needs: No Vision needs: Yes Review of Systems Const Denies chills, Denies fatigue, Denies fever(s), Denies frequent falls, Denies weakness, Denies weight gain and Denies weight loss ENT Denies dizziness Card Denies chest pain, Denies leg edema, Denies lightheadedness, Denies palpitations, Denies dyspnea, Denies dyspnea on exertion, Denies orthopnea and Denies other (loss of consciousness) Resp Denies cough, Denies dyspnea and Denies dyspnea on exertion GI Denies hematochezia, Denies change in stool character and Reports diarrhea Musc Denies abnormal gait, Denies muscle weakness, Denies numbness, Denies radiating pain into limb and Denies tingling Neuro Denies abnormal gait, Denies dizziness, Denies frequent falls, Denies numbness, Denies tingling and Denies weakness Endo Denies fatigue and Denies palpitations Physical Exam Vital Signs: Last Vital Signs Pulse 74 04/20/24 15:09 Resp 18 04/20/24 15:09 BP 124/70 04/20/24 15:09 BMI result Body Mass Index 29.8 Const General: cooperative, healthy appearing, comfortable and no acute distress Orientation/consciousness: patient oriented x3 HEENT Other: Unremarkable Head: Yes normal to inspection Neck Neck: Yes normal visual inspection, Yes trachea midline and Yes supple Chest Chest palpation & inspection: normal inspection of the chest Resp Effort & Inspection: normal respiratory effort Auscultation: clear to auscultation bilaterally, no crackles, no rales, no rhonchi and no wheezes Cardio Jugular venous distension: no JVD Palpation: normal PMI Rate: regular rate Rhythm: regular rhythm Heart sounds: S1 normal heart sound present, S2 normal heart sound present, no click, no gallops, no murmurs and no rubs Peripheral pulses: Peripheral pulses 2+ throughout GI Palpation (GI): Soft to palpation Auscultation: normal bowel sounds Back/Spine/Pelvis Other: unremarkable Skin General skin exam: no rashes or lesions noted Neuro General: patient oriented x3 Extrem General: Yes normal to inspection, No calf tenderness, No clubbing, No cyanosis and No edema Psych Appearance: grossly normal Mental Status: mental status grossly normal Office Procedures EKG Details: EKG today showed underlying normal sinus rhythm 76 beats per minute, with nonspecific ST and T-wave abnormalities, [place], [place] [id number], Complete Assessment & Plan Assessment & Plan (1) Atrial flutter: Comment: Status post cardioversion 04/07/2024 Code(s): I48.92 - Unspecified atrial flutter Category: Medical Qualifiers: Atrial flutter type: typical Qualified Code(s): I48.3 - Typical atrial flutter Plan: EKG today was normal sinus rhythm. Since patient was not tolerating the reduced dose of Tikosyn, have DC'd the m edication for now. Patient will continue with anticoagulation, Xarelto 20 mg daily. Discussed in detail the next options for amiodarone therapy versus ablation. Patient receptive and verbalizes understanding. Planned for a Holter monitor in the 2 weeks. We will continue monitoring remotely. Patient will call us with any symptoms of palpitations, shortness or breath, chest discomfort, dizziness. Assessment and plan per Dr. Page. Orders: Orders AMB EKG-In Office Today Bruce Page MD I48.3 - Typical atrial flutter Medications: Discontinued dofetilide (Tikosyn) Discontinued Reason: Doctor's Order 250 mcg PO BID 60 caps 2RF Jose Manuel Gray NP Coding Level of Care Code Est Pt Level 3 (52422) Diagnoses Typical atrial flutter I48.3 Atrial flutter type: typical CPT Codes EKG - CPT: 45971-Sxnamnhrtomwqwzix, Complete ([id number]) Time Spent (min) 24 Comment Time spent in reviewing the chart, test results, assessment, counseling and documentation.
== END 2024-04-20 15:31 | disposition home or self-care (01) ==
PROVIDERS: PCP Internal Medicine; Visit Provider Internal Medicine Cardiovascular Disease
DX: I48.3 Typical atrial flutter (principal)
CPT/HCPCS: 93010; 99213

== ENCOUNTER → 2024-04-20 14:50 | Outpatient (BNVA) | payer MEDICARE, MEDICAID, SELFPAY | PROVIDERS: PCP Internal Medicine; Visit Provider Internal Medicine Cardiovascular Disease | DX: I48.3 Typical atrial flutter (principal) | CPT/HCPCS: 93005; 99212 ==

== ENCOUNTER → 2024-05-01 23:59 | Outpatient (BNV) | payer MEDICARE, MEDICAID, SELFPAY ==
--- NOTE | 2024-05-02 15:11 | A.OFFVIS_ITS ---
Intake Visit Reasons: Remote ICD check- [employer] Allergies lisinopril [LISINOPRIL] Allergy (Mild, Verified 04/11/24 13:10) UNKNOWN, cough, cough doxycycline [DOXYCYCLINE] Allergy (Unknown, Verified 04/11/24 13:10) UNKNOWN glimepiride [GLIMEPIRIDE] Allergy (Unknown, Verified 04/11/24 13:10) SEVERE BACK PAIN ibuprofen [From Motrin] Allergy (Unknown, Verified 04/11/24 13:10) Nausea tamsulosin [TAMSULOSIN] Allergy (Unknown, Verified 04/11/24 13:10) UNKNOWN, Fever dofetilide [From Tikosyn] Adverse Reaction (Severe, Verified 04/20/24 15:23) Diarrhea apixaban [From Eliquis] Adverse Reaction (Intermediate, Verified 04/11/24 13:10) Nausea and Vomiting rosuvastatin Adverse Reaction (Intermediate, Verified 04/11/24 13:10) hypotension' adhesive tape Adverse Reaction (Mild, Verified 04/11/24 13:10) Itching PFSH Medical History Heart failure with reduced ejection fraction Ischemic cardiomyopathy Chronic heart failure with reduced ejection fraction and diastolic dysfunction ICD (implantable cardioverter-defibrillator) in place Pneumonia Anxiety and depression Bilateral renal stones Hypercholesterolemia Psoriasis Gout Coronary artery disease Hypertension GERD (gastroesophageal reflux disease) Surgical History Hx of colonoscopy History of heart artery stent S/P ICD (internal cardiac defibrillator) procedure History of cataract surgery History of surgery History of vasectomy History of wisdom tooth extraction Family History Father Diabetes Prostate cancer CVD (cardiovascular disease) Mother CVD (cardiovascular disease) Acute CVA (cerebrovascular accident) Social History Household Members: Spouse Housing: House Are you a primary healthcare sales representative to a significant other at home: No Do you presently have visiting nurse or other home services: No Alcohol intake: current Alcohol intake frequency: holidays/special occasions only Comment: once q2 months 1/2 bottle of wine Patient Tobacco Use Status: Never used Tobacco Tobacco use type: Cigarette e-Cigarette/Vaping Use: Never Used Second Hand Smoke Exposure: No service: No Current occupational status: retired Cognitive needs: No Hearing needs: No Vision needs: Yes Office Procedures Cardiac Device Check Cardiac Device Check Details: Remote ICD report generated 05/01/2024. ICD function is adequate. Battery life is at 79%. Multiple intermittent episodes of atrial fibrillation noted [id number] Cardiac Interrogation, implant defibrillator w/interim Procedure code (CPT) selection complete Assessment & Plan Assessment & Plan (1) ICD (implantable cardioverter-defibrillator) in place: Comment: GLAMSQUAD- Foll'd by Dr. Page Code(s): Z95.810 - Presence of automatic (implantable) cardiac defibrillator Category: Medical Plan: See above Coding Level of Care Code Procedure Only Diagnoses ICD (implantable cardioverter-defibrillator) in place Z95.810 CPT Codes Cardiac Device Check - Cardiac Device 13: [id number] Cardiac Interrogation, implant defibrillator w/interim ([id number])
== END ==
PROVIDERS: PCP Internal Medicine; Visit Provider Internal Medicine Cardiovascular Disease
DX: Z45.02 Encounter for adjustment and management of automatic implantable cardiac defibrillator (principal)
CPT/HCPCS: 93295

== ENCOUNTER 2024-05-02 16:57 | Inpatient (IN) | payer MEDICARE, OTHER, SELFPAY ==
[2024-05-02] VITALS (23 sets, daily range): BP systolic 84–149; BP diastolic 40–83; PULSE 80–137; RESP 12–22; TEMP 36.9–38.6; O2SAT 90–97; BMI 30.7
--- NOTE | 2024-05-02 | ECG_ITS ---
Test Reason : CHEST PAIN Blood Pressure : */* mmHG Vent. Rate : 126 BPM Atrial Rate : * BPM P-R Int : * ms QRS Dur : 104 ms QT Int : 280 ms P-R-T Axes : * -15 146 degrees QTcB Int : 405 ms Atrial fibrillation with rapid ventricular response with premature ventricular or aberrantly conducted complexes Septal infarct (cited on or before 08-Apr-2024) ST & T wave abnormality, consider lateral ischemia Abnormal ECG When compared with ECG of 10-Apr-2024 13:15, Atrial fibrillation has replaced Sinus rhythm Vent. rate has increased by 52 bpm Nonspecific T wave abnormality, improved in Anterior leads Referred By: Bernice Henriquez Electronically Signed By: YUSUF MCNAIR
--- NOTE | ~2024-05-02 | XR_ITS ---
CLINICAL HISTORY: chest pain, SOB 2 view chest x-ray Comparison: CR/SR - XR CHEST 2V - 04/10/24 14:34 EST Findings: The lungs are clear. There is enlargement of the cardiopericardial silhouette. AICD. No acute fracture. IMPRESSION: 1. No acute findings. This document has been electronically signed by: Andra Braxton MD on 05/02/2024 19:25:15
--- NOTE | 2024-05-02 16:59 | ED.CHESTPAIN ---
HPI - Chest Pain General Chief Complaint: Chest Pain Stated Complaint: CHEST PAIN BP 149/96 TACHY 180S RESPITORY 27 Time Seen by Provider: 05/02/24 17:46 Source: patient and EMS Mode of arrival: EMS Limitations: no limitations History of Present Illness ED Provider: Bernice Henriquez NP HPI narrative: Patient is a 68-year-old male with past medical history of ischemic cardiomyopathy, ICD, chronic heart failure with reduced ejection fraction (20-25% in September of 2023), hypercholesterolemia, gout, hypertension, GERD, psoriasis paroxysmal atrial fibrillation on anticoagulation with Xarelto who presents emergency department via EMS for evaluation of non-radiating chest pain and shortness of breath onset within the past hour. Reports that he went outside for a brief moment he felt very cold him and who went inside who is significantly tremulous, and was experiencing diffuse chest pain and shortness of breath. He denies any diaphoresis. He states that he placed a pulse oximeter on his hand which was reading a rapidly varying heart rate as high as up to 150. He does admit that there have been some recent changes to his AFib medications as he was not tolerating dofetilide, he is not sure which antiarrhythmic he is tentatively at this time but he states he has been compliant with his Xarelto. He has had recent appointments with Cardiology, he is due to have a Holter monitor placed tomorrow for 2 week monitoring and revisiting discussion for possible cardiac ablation. Recently he does admit that he was suffering from a GI illness last week he had a few days with multiple bouts of diarrhea proximally 5 daily but has since resolved. Currently without nausea vomiting diarrhea or abdominal pain. States that he has noticed over the past few days a 1 lb weight gain daily. Spoke with Cardiology and advised him to increase furosemide from 20 mg to 40 mg daily he had plan to make this change tomorrow. Related Data Home Medications ?Medication ?Instructions ?Recorded ?Confirmed cholecalciferol (vitamin D3) 50 10,000 unit PO DAILY 07/14/21 04/11/24 mcg (2,000 unit) capsule zinc sulfate 25 mg zinc (110 mg) 25 mg PO DAILY 07/14/21 04/11/24 tablet (Orazinc) ascorbate calcium (vitamin C) 500 500 mg PO DAILY 10/07/21 04/11/24 mg tablet coenzyme Q10 10 mg capsule (Co 20 mg PO DAILY 10/07/21 04/11/24 Q-10) magnesium 30 mg tablet 30 mg PO DAILY 10/07/21 04/11/24 multivitamin 1 tab PO DAILY 10/07/21 04/11/24 omega 1-wrv-xtq-fish oil 60 mg-90 1 cap PO DAILY 10/07/21 04/11/24 mg-500 mg capsule (Fish Oil) phytonadione (vitamin K1) 100 mcg 100 mcg PO DAILY 10/12/22 04/11/24 tablet allopurinol 100 mg tablet 100 mg PO BEDTIME 04/04/24 04/11/24 furosemide 20 mg tablet 20 mg PO DAILY PRN edema 04/04/24 04/11/24 loratadine 10 mg tablet 10 mg PO DAILY 04/04/24 04/11/24 rivaroxaban 20 mg tablet (Xarelto) 20 mg PO DAILY@1700 04/04/24 04/11/24 apixaban 5 mg tablet (Eliquis) 5 mg PO BID 04/20/24 dofetilide 250 mcg capsule 250 mcg PO BID 04/20/24 (Tikosyn) Previous Rx's ?Medication ?Instructions ?Recorded triamcinolone acetonide 0.5 % 1 appl topical BID #30 grams 06/29/22 topical cream pravastatin 40 mg tablet 40 mg PO BEDTIME #100 tabs 11/01/23 metformin 500 mg tablet 500 mg PO BIDWMEAL 90 days #180 11/08/23 tabs tadalafil 5 mg tablet 5 mg PO DAILY sexual activity 90 11/15/23 days #90 tabs clotrimazole 1 % topical ointment 1 appl topical BID 4 weeks #56.7 12/31/23 grams pyridoxine (vitamin B6) 50 mg 50 mg PO DAILY 90 days #90 tabs 01/18/24 tablet carvedilol 25 mg tablet 25 mg PO BID #180 tabs 01/19/24 ezetimibe 10 mg tablet 10 mg PO DAILY #90 tabs 02/03/24 sitagliptin phosphate 100 mg 100 mg PO DAILY #90 tabs 02/03/24 tablet (Januvia) sacubitril 49 mg-valsartan 51 mg 0.5 tab PO BID 90 days #90 tabs 04/20/24 tablet (Entresto) Allergies Allergy/AdvReac Type Severity Reaction Status Date / Time lisinopril [LISINOPRIL] Allergy Mild UNKNOWN, Verified 05/02/24 17:19 cough, cough doxycycline [DOXYCYCLINE] Allergy Unknown UNKNOWN Verified 05/02/24 17:19 glimepiride [GLIMEPIRIDE] Allergy Unknown SEVERE Verified 05/02/24 17:19 BACK PAIN ibuprofen [From Motrin] Allergy Unknown Nausea Verified 05/02/24 17:19 tamsulosin [TAMSULOSIN] Allergy Unknown UNKNOWN, Verified 05/02/24 17:19 Fever dofetilide [From Tikosyn] AdvReac Severe Diarrhea Verified 05/02/24 17:19 apixaban [From Eliquis] AdvReac Intermediate Nausea and Verified 05/02/24 17:19 Vomiting rosuvastatin AdvReac Intermediate hypotension Verified 05/02/24 17:19 ' adhesive tape AdvReac Mild Itching Verified 05/02/24 17:19 Review of Systems Review of Systems: Yes all other systems are reviewed and are negative PMFSH Past Medical History Attestation statement: The following information was validated with the patient. Source: old records reviewed Medical History Heart failure with reduced ejection fraction Ischemic cardiomyopathy Chronic heart failure with reduced ejection fraction and diastolic dysfunction ICD (implantable cardioverter-defibrillator) in place Pneumonia Anxiety and depression Bilateral renal stones Hypercholesterolemia Psoriasis Gout Coronary artery disease Hypertension GERD (gastroesophageal reflux disease) Surgical History Hx of colonoscopy History of heart artery stent S/P ICD (internal cardiac defibrillator) procedure History of cataract surgery History of surgery History of vasectomy History of wisdom tooth extraction Family History Family History Father Diabetes Prostate cancer CVD (cardiovascular disease) Mother CVD (cardiovascular disease) Acute CVA (cerebrovascular accident) Social History Social History Household Members: Spouse Housing: House Are you a primary gericare aide to a significant other at home: No Do you presently have visiting nurse or other home services: No Alcohol intake: current Alcohol intake frequency: holidays/special occasions only Comment: once q2 months 1/2 bottle of wine Patient Tobacco Use Status: Never used Tobacco Tobacco use type: Cigarette Smoked in Last 30 Days: No e-Cigarette/Vaping Use: Never Used Second Hand Smoke Exposure: No Use of substances other than those prescribed or required for medical reasons: No Advance Directives: No Advance Directives Information Provided: No Do you have a plan to hurt others: No Plan service: No Current occupational status: retired Cognitive needs: No Hearing needs: No Vision needs: Yes Physical Exam Vital Signs: Vital Signs: Last Vital Signs Temp 98.4 F 05/03/24 00:53 Pulse 108 H 05/03/24 00:53 Resp 16 05/03/24 00:53 BP 94/45 L 05/03/24 00:53 Pulse Ox 98 05/03/24 00:53 O2 Del Method Nasal Cannula 05/03/24 00:53 O2 Flow Rate 2 05/03/24 00:53 Oxygen Flow Rate 2 05/02/24 23:07 BMI result Body Mass Index 30.7 Appearance: Alert.?Oriented to person, place and time. No acute distress.?Normal affect. Eyes: Pupils equal, round and reactive to light.? ENT: Pharynx normal.?? Neck: Normal inspection.? Neck supple.?? CVS: Heart sounds normal. Tachycardia irregularly irregular rhythm.? Pulses normal.?? Respiratory: No respiratory distress.? Lung sounds diminished at the bilateral bases Abdomen: Soft and non-tender. Normoactive bowel sounds. Skin: Skin warm and dry.? Normal skin color.? ?? Extremities: 2+ bilateral lower extremity edema.? No calf ttp? Neuro: Moves all extremities spontaneously. Sensation intact bilaterally. No focal neuro deficits. Ambulates with normal steady gait. Course Reevaluation(s) Reevaluation #1: CBC is without leukocytosis, has a mild normocytic anemia does not meet transfusion criteria, no thrombocytopenia. No significant electrolyte derangement. No SUHAS. No lactic acidosis. LFTs within normal range. High sensitive troponin within normal range. BNP 702, thus far has put out 1000 mL of urine since receiving furosemide. No lactic acidosis. Viral serologies are negative. CXR my interpretation is concerning for a possible left lower lobe infiltrate, has already received Rocephin. He remains tachycardic in the 130s, blood pressure is soft at 97/47, discussed with my attending Dr. Nicolas, will order digoxin 250 mcg at this time. Time: 19:21 Reevaluation #2: Remains with persistent tachycardia in the 130s, discussed with my attending Dr. Nicolas, will order addition digoxin 250 mcg at this time. Time: 20:34 Reevaluation #3: Remaining tachycardic 115-130 reviewed with Cardiology, Dr. Bolden recommends cardioversion as he has been compliant with Xarelto, amiodarone 400 mg and admission. Doctorpepito henry has agreed to cardioversion discussed with patient procedural sedation and cardioversion, reviewed potential complications and indications for cardioversion. Consent was obtained all forms were signed. See procedural portion of this note; myself, Dr. Henry, respiratory therapy, Jesi RN, Nohemy [facility] in room, tolerated procedure well. Time: 22:11 Additional Reevaluation(s): S/p cardioversion appears to be with a brief episode of atrial flutter, but subsequent subsequent sinus rhythm with PACs. Spoke with hospitalist Dr. Melchor Howard admitted to medicine service. Medications Administered Discontinued Medications Generic Name Dose Route Start Last Admin Trade Name Freq PRN Reason Stop Dose Admin Acetaminophen 975 mg 05/02/24 17:16 05/02/24 17:35 Acetaminophen 325 Mg Tablet PO 05/02/24 17:17 975 mg ONCE ONE Administration Amiodarone HCl 400 mg 05/02/24 22:48 05/03/24 00:52 Amiodarone Hcl 200 Mg Tablet PO 05/02/24 22:49 400 mg ONCE ONE Administration Ceftriaxone Sodium 1 gm 05/02/24 17:16 05/02/24 17:44 Ceftriaxone Sodium 1 Gm Vial IVPUSH 05/02/24 17:17 1 gm ONCE ONE Administration Digoxin 0.25 mg 05/02/24 19:26 05/02/24 19:36 Digoxin 0.5 Mg/2 Ml Ampul IVPUSH 05/02/24 19:27 0.25 mg ONCE ONE Administration Protocol Digoxin 0.25 mg 05/02/24 20:32 05/02/24 20:39 Digoxin 0.5 Mg/2 Ml Ampul IVPUSH 05/02/24 20:33 0.25 mg ONCE ONE Administration Protocol Fentanyl 100 mcg 05/02/24 22:48 05/02/24 22:57 Fentanyl Citrate/Pf 100 Mcg/2 Ml Vial IVPUSH 05/02/24 22:49 100 mcg ONCE ONE Administration Protocol Furosemide 40 mg 05/02/24 17:21 05/02/24 17:35 Furosemide 40 Mg/4 Ml Vial IVPUSH 05/02/24 17:22 40 mg ONCE ONE Administration Protocol Sodium Chloride 150 mls @ 999 mls/hr 05/02/24 17:30 05/02/24 17:56 Ns IV 05/02/24 17:39 Infused .Q10M ABBY Infusion Metoprolol Tartrate 2.5 mg 05/02/24 17:21 05/02/24 17:34 Metoprolol Tartrate 5 Mg/5 Ml Vial IVPUSH 05/02/24 17:22 2.5 mg ONCE ONE Administration Protocol Midazolam HCl 2 mg 05/02/24 22:48 05/02/24 22:59 Midazolam Hcl 2 Mg/2 Ml Vial IVPUSH 05/02/24 22:49 2 mg ONCE ONE Administration Procedures Procedural Sedation Indication: other (Cardioversion) ASA Class: II Mallampati Class: Patient Non-Cooperative Time of Last PO Intake: 15:00 Preparation: monitoring and evaluation advisor applied, capnometry used, suction/airway equipment at bedside and IV secured Fentanyl: IV (100mcg) Midazolam: IV Midazolam dose (mg): 2 Dosage Used (mgs): 2 Patient Tolerated Procedure: well and no complications Complications: none Additional Comments: Cardioversion synchronized 200J - see course narrative for further detail Medical Decision Making Medical Decision Making MDM Narrative: Patient is a 68-year-old male with past medical history of ischemic cardiomyopathy, ICD, chronic heart failure with reduced ejection fraction (20-25% in September of 2023), hypercholesterolemia, gout, hypertension, GERD, psoriasis paroxysmal atrial fibrillation on anticoagulation with Xarelto presenting to emergency department for evaluation of chest pain and shortness of breath as per HPI. 17:18 sepsis alert being called meeting SIRS criteria with tachycardia to the 130s, febrile 101.5, room air O2 saturation 90% which increased to 94% on 3 L via nasal cannula; blood cultures x2 and lactic acid have been ordered. I have concern for respiratory etiology given the chest pain and a source associated shortness of breath, though this may be secondary to atrial fibrillation with RVR, plan to cover with Rocephin, given his recent weight gain and history of CHF with reduced EF, would defer sepsis fluid bolus order 30 mL per kg and will order 150 mL normal saline. Lower suspicion for acute gastrointestinal infectious etiology given resolution of symptoms for at least 4 days. Initial EKG is revealing atrial fibrillation with RVR, no ST elevation or ST depression, ventricular rate of 126, QTC 405. Rate has noted to be as high as 130s, in light of the circumstances he is febrile which may be contributing to the tachycardia, appears to have some degree of fluid volume overload especially given his recent weight gain and history of CHF, plan for patient to receive furosemide 40 mg IV, metoprolol 2.5 mg IV pending re-evaluation. Should persistent RVR continue will consider additional medication at that time. He is anticoagulated on Xarelto and reports that he has been compliant, lower suspicion for acute pulmonary embolism as etiology for symptoms. Atraumatic no tracheal deviation, unlikely pneumothorax. He denies recent URI symptoms, as previously noted he recent was experiencing gastrointestinal illness has since resolved. No abdominal tenderness upon palpation, negative Pina sign, unlikely acute cholecystitis, choledocholithiasis, no fever or jaundice to suggest acute cholangitis, may possibly be biliary colic secondary to cholelithiasis. Denies associated acid reflux, no tenderness upon palpation over the epigastrium or left upper quadrant to suggest gastritis, no recent hematemesis history less likely to suggest PUD. Most recently seen by cardiology; Dr. Page, 04/07/2024 status post cardioversion, office visit on 04/20/2024 Tikosyn he had been discontinued and discussed amiodarone versus ablation with plan for Holter monitor within 2 weeks, has subsequent review of remote monitoring on 05/01/2024 showing intermittent atrial fibrillation daily lasting anywhere from 30 minutes to 11 hours daily, patient has been endorsing occasional dizziness, patient is being referred to EP for possible ablation Differential Diagnosis Differential Diagnoses: The differential diagnosis associated with the presentation includes (See narrative above) Admission/Observation Consideration of admission/observation: Escalation of care including admission/observation considered (See narrative above and course narrative for further detail) Lab Data MDM Lab Attestation statement: I reviewed the patient's lab results. (See course narrative) 05/02/24 17:38 05/02/24 17:38 Labs: Lab Results 05/02/24 05/02/24 05/02/24 Range/Units 17:38 18:05 18:19 WBC 7.4 (4.8-10.8) X10*3/uL RBC 4.46 L (4.60-5.80) X10*6/uL Hgb 13.4 L (14.0-18.0) g/dl Hct 38.8 L (42.0-52.0) % MCV 87.0 (80.0-98.0) fL MCH 30.0 (27.0-33.0) pg MCHC 34.5 (31.0-36.0) g/dl RDW 12.8 (11.0-16.0) % Plt Count 167 (160-400) X10*3/uL MPV 9.2 L (9.4-12.4) fL Immature Gran % (Auto) 0.5 H (0.0-0.4) % Neut % (Auto) 86.6 H (45-73) % Lymph % (Auto) 7.5 L (20-40) % [place] % (Auto) 3.8 (2-11) % Eos % (Auto) 1.5 (0-4) % Baso % (Auto) 0.1 (0-2) % Lymph # (Auto) 0.6 L (1.2-4.9) X10*3/uL [place] # (Auto) 0.3 (0.1-1.2) X10*3/uL Eos # (Auto) 0.1 (0.0-0.4) X10*3/uL Baso # (Auto) 0.0 (0.0-0.2) X10*3/uL Abs Immat Gran (auto) 0.04 H (0.00-0.03) X10*3/uL Absolute Neuts (auto) 6.4 (2.0-8.3) x10*3/uL Absolute Nucleated RBC 0.000 (0.0-0.012) X10*3/uL Nucleated RBC % (auto) 0.0 (0.0-0.2) /100WBC PT 19.3 H (10.9-12.4) SEC INR 1.7 H (0.9-1.1) VBG pH 7.44 H (7.32-7.43) VBG pCO2 35 mmHg VBG pO2 48 mmHg VBG HCO3 24 (22-26) mmol/L VBG O2 Saturation 78.0 % VBG Base Excess 1.0 mmol/L Sodium 144 (135-145) mmol/L Potassium 4.1 (3.3-5.1) mmol/L Chloride 109 H (96-108) mmol/L Carbon Dioxide 24 (22-29) mmol/L Anion Gap 15 (12-20) BUN 23 H (9-16) mg/dL Creatinine 1.26 (0.5-1.4) mg/dL Estim Creat Clear Calc 62.7 Estimated GFR 57 Random Glucose 112 (60-115) mg/dL Lactic Acid 1.6 (0.5-2.0) mmol/L Calcium 9.5 (8.4-10.2) mg/dL Magnesium 1.8 (1.6-2.6) mg/dL Total Bilirubin 0.8 (0.0-1.0) mg/dL AST 26 (5-37) U/L ALT 23 (0-40) U/L Alkaline Phosphatase 57 (39-117) U/L Troponin I High Sens 9.0 (<3.5-35.0) ng/L B-Natriuretic Peptide 702 H (<100) pg/mL Total Protein 6.8 (6.5-8.0) g/dL Albumin 4.2 (3.5-5.0) g/dL Lipase 36 (8-78) U/L Urine Color Yellow Urine Appearance Clear Urine pH 6.0 (5.0-9.0) Ur Specific [place] 1.015 (1.005-1.025) Urine Protein Negative (Neg-Trace) mg/dL Urine Glucose (UA) Negative (Negative) mg/dL Urine Ketones 15 (Negative) mg/dL Urine Blood Trace H (Negative) Urine Nitrite Negative (Negative) Ur Leukocyte Esterase Negative (Negative) Urine RBC 3-5 H (0-2) /HPF Urine WBC 0-5 (0-5) /HPF Ur Squamous Epith Cells 0-2 (0-2) /HPF Urine Bacteria None Seen (None Seen) Hyaline Casts 0-2 (0-2) /LPF Influenza Type A (PCR) NEGATIVE (Negative) Influenza Type B (PCR) NEGATIVE (Negative) RSV RNA Qual (PCR) NEGATIVE (Negative) SARS-CoV-2 RNA (RT-PCR) NEGATIVE (Negative) Independent Interpretation I performed an independent interpretation of an: EKG (See narrative above) and Plain X-Ray (See course narrative) Radiology Impression Discussion of test interpretation with radiology: I have reviewed the radiologist's reading. Radiologist Impression: Findings: The lungs are clear. There is enlargement of the cardiopericardial silhouette. AICD. No acute fracture. IMPRESSION: 1. No acute findings. Independent Historian Clinical information obtained from an independent historian. History obtained from or confirmed by: EMS External Record Review External record reviewed: Inpatient record and Outpatient record Critical Care Time Critical Care Time Critical Care Time: Yes Total Critical Care Time: 70 Attestation: I personally attest to this critical care time spent taking care of the patient exclusive of all other billable procedures was approximately 70 minutes including initial evaluation of patient, ordering tests, x-ray interpretation, EKG interpretation, procedural sedation for cardioversion, multiple IV antiarrhythmic treatments and re-evaluation, sepsis protocol, medical consultation, documentation, re-evaluation. Discharge Plan Discharge Clinical Impression: Atrial fibrillation with RVR, Acute exacerbation of CHF (congestive heart failure), Pneumonia Patient Disposition: Admitted As Inpatient Print Language: [place] Sepsis Bolus Exclusion Sepsis Bolus Exclusion CHF/Renal Failure This patient met severe sepsis criteria due to the following condition(s):: Hypotension In my clinical judgement the administration of 30 ml/kg of crystalloid would be detrimental to this patient due to the patient's following conditions:: NYHA class III or IV Heart Failure(symptoms with low exertion or rest) and Concern for fluid overload Replace the 30 mls/kg with (Zero amount not acceptable and all fluids for severe sepsis must be given at GREATER than 125 mls/hr) Crystalloids amount given in mls: (rate must be at least 150cc/hr): 150 Colloids amount given in mls:: 0
--- NOTE | 2024-05-02 17:17 | ECG_ITS ---
Test Reason : POST CARDIOVERSION Blood Pressure : */* mmHG Vent. Rate : 84 BPM Atrial Rate : 84 BPM P-R Int : 188 ms QRS Dur : 88 ms QT Int : 364 ms P-R-T Axes : 39 -22 106 degrees QTcB Int : 430 ms Sinus rhythm with Premature atrial complexes Nonspecific T wave abnormality Abnormal ECG When compared with ECG of 02-May-2024 17:23, Sinus rhythm has replaced Atrial fibrillation Vent. rate has decreased by 42 bpm Referred By: Bernice Henriquez Electronically Signed By: YUSUF MCNAIR
[2024-05-02] MEDS: Metoprolol Tartrate 5 MG/5 ML VIAL 2.5 MG IVPUSH (17:34)
[2024-05-02] MEDS: Furosemide 40 MG/4 ML VIAL IVPUSH (17:35)
[2024-05-02] MEDS: Acetaminophen 325 MG TABLET 975 MG PO (17:35)
[2024-05-02] MEDS: cefTRIAXone sodium 1 GM VIAL IVPUSH (17:44)
[2024-05-02 17:47] LABS: MANUAL DIFF FLAG NO
[2024-05-02 17:51] LABS: Basophils Percent Auto 0.1 % (0-2); Eosinophils Absolute Auto 0.1 X10*3/uL (0.0-0.4); Eosinophils Percent Auto 1.5 % (0-4); Hematocrit 38.8 % (42.0-52.0); Hemoglobin 13.4 g/dl (14.0-18.0); Imm Gran Abs Auto 0.04 X10*3/uL (0.00-0.03); Imm Gran Pct Auto 0.5 % (0.0-0.4); Lymphocytes Absolute Auto 0.6 X10*3/uL (1.2-4.9); Lymphocytes Percent Auto 7.5 % (20-40); Mean Corpuscular HGB Conc 34.5 g/dl (31.0-36.0); Mean Platelet Volume 9.2 fL (9.4-12.4); Monocytes Absolute Auto 0.3 X10*3/uL (0.1-1.2); Monocytes Percent Auto 3.8 % (2-11); Neutrophils Absolute Auto 6.4 x10*3/uL (2.0-8.3); Neutrophils Percent Auto 86.6 % (45-73); Platelet Count 167 X10*3/uL (160-400); Red Blood Count 4.46 X10*6/uL (4.60-5.80); Red Cell Distribution Width 12.8 % (11.0-16.0); White Blood Count 7.4 X10*3/uL (4.8-10.8)
--- NOTE | 2024-05-02 17:52 | MHC.EDTECH ---
EKG was taken and read by the ED provider, blood work completed , patient resting quietly in the bed within the call belt in reach
--- NOTE | 2024-05-02 17:57 | PC.NURSE ---
patient not given normal 30ml/kg/hr IVF resus d/t CHF concerns.
[2024-05-02 17:59] LABS: INTERNATIONAL NORM RATIO 1.7 (0.9-1.1); Prothrombin Time 19.3 SEC (10.9-12.4)
[2024-05-02 18:03] LABS: Alanine Aminotransferase 23 U/L (0-40); Albumin Level 4.2 g/dL (3.5-5.0); Alkaline Phosphatase 57 U/L (39-117); Anion Gap 15 (12-20); Aspartate Amino Transferase 26 U/L (5-37); Bilirubin Total 0.8 mg/dL (0.0-1.0); Blood Urea Nitrogen 23 mg/dL (9-16); Calcium 9.5 mg/dL (8.4-10.2); Carbon Dioxide 24 mmol/L (22-29); Chloride 109 mmol/L (96-108); Creatinine Clr Calc Pharmacy 62.7; Estimated Glomerular Filt Rate 57; Glucose Random 112 mg/dL (60-115); Lipase 36 U/L (8-78); Magnesium 1.8 mg/dL (1.6-2.6); Potassium 4.1 mmol/L (3.3-5.1); Sodium 144 mmol/L (135-145); Total Protein 6.8 g/dL (6.5-8.0)
[2024-05-02 18:04] LABS: Lactic Acid 1.6 mmol/L (0.5-2.0)
[2024-05-02 18:09] LABS: B Type Natriuretic Peptide 702 pg/mL (<100)
[2024-05-02 18:10] LABS: VBG HCO3 24 mmol/L (22-26); VBG pCO2 35 mmHg; VBG pH 7.44 (7.32-7.43); VBG pO2 48 mmHg
[2024-05-02 18:10] LABS: Venous Blood Gas Refer to POC result
[2024-05-02 18:29] LABS: Appearance Urine Clear; Color Urine Yellow; Glucose Urine UA Negative (Negative); Leukocyte Esterase Urine Negative (Negative); Nitrite Urine Negative (Negative); Specific Gravity - Urine 1.015 (1.005-1.025); UMIC TRIGGER UACC YES; Urine Blood Trace (Negative); Urine Ketones 15 mg/dL (Negative); Urine Protein Negative (Neg-Trace)
[2024-05-02 18:32] LABS: Bacteria Urine None Seen (None Seen); Hyaline Casts Urine 0-2 /LPF (0-2); Squamous Epithelial Cell Urine 0-2 /HPF (0-2); WBC Urine 0-5 /HPF (0-5)
[2024-05-02 18:37] LABS: Influenza A PCR NEGATIVE (Negative); Influenza B PCR NEGATIVE (Negative); Resp Syncy Virus RNA Qual PCR NEGATIVE (Negative); SARS COV2 PCR INHOUSE NEGATIVE (Negative)
--- NOTE | 2024-05-02 19:18 | PC.NURSE ---
assumed care of pt at 1900.
--- NOTE | 2024-05-02 19:26 | MHC.EDTECH ---
This tech took over care of pt at 1900,rounded and introduced self to pt,vitals taken,oral temp 100.0,BP is low 97/47,RN/provider made aware,emptied 300MLS of clear yellow urine from urinal,patient appears comfortable.visitor at bedside.call troncoso in reach
[2024-05-02] MEDS: Digoxin 0.5 MG/2 ML AMPUL 0.25 MG IVPUSH ×2 (19:36→20:39)
--- OUTSIDE RECORDS SUMMARY | 2024-05-02 19:39 | XMS_ITS | Patient Health Record ---
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 [address] [place] [address] [id number] REANNA ROSALES Self - patient is the insured MEDICAL (GENERAL) HISTORY Medical History History ICD Code diabetes mellitus [place] 06/07/2011 coronary artery disease with stent place ment cardiomyopathy, ejection fraction 32% hypertension elevated cholesterol Colonoscopy 09/07, tubular adenoma, five- year followup Surgical History Surgery Date(Month/Year) vasectomy 1986 wisdom teeth extraction 1970 ICD
--- NOTE | 2024-05-02 19:54 | PC.NURSE ---
Pt states he does not normally wear O2 at baseline, pt currently reporting no apparent respiratory distress or difficulties breathing, especially since he has put out > 1000 cc urine s/p lasix admin. This RN turned down O2 from 3L NC to 1L. continuous monitoring in place. pt resting comfortably. call troncoso within reach, urinal at bedside. plan of care ongoing.
--- NOTE | 2024-05-02 20:35 | MHC.EDTECH ---
Patient BP is low 84/52,HR 120, re-checked 93/52,HR 112 RN was made aware,emptied 300mls from urinal.
--- NOTE | 2024-05-02 22:06 | MHC.EDTECH ---
Rounds and vitals completed,BP is low 95/55,HR 108,provider made aware,pillow placed under pts bottom,for comfort,patient is resting quietly,call troncoso in reach
--- NOTE | 2024-05-02 22:25 | MHC.EDTECH ---
T/W placed pacer pads on pt for cardioversion,per providers request,pt placed on zoll at this time.RN aware
--- NOTE | 2024-05-02 22:34 | MHC.EDTECH ---
Emptied 350MLS from urinal ,vitals taken
[2024-05-02] MEDS: fentaNYL citrate/PF 100 MCG/2 ML VIAL IVPUSH (22:57)
[2024-05-02] MEDS: Midazolam HCl 2 MG/2 ML VIAL IVPUSH (22:59)
--- NOTE | 2024-05-02 23:18 | MHC.EDTECH ---
EKG completed per order,signed by provider,belongings list completed copy placed in chart
--- NOTE | 2024-05-02 23:22 | PC.NURSE ---
Pt cardioverted at 23:02 by MD heller and MIMI Henriquez at bedside. Pt medicated with 2mg versed and 100mg fentanyl IV for conscious sedation. Pt tolerated well. RT at bedside. No reversal agents required. Pt not fully converted however rate slowed to 80s. CARRIAGE FEEDER Micah aware. Pt on surveillance system monitor, awake, oriented, arousable to name and stimuli. No apparent distress noted, wearing 2L O2 via NC. call troncoso within reach, plan of care ongoing.
--- NOTE | 2024-05-02 23:24 | MHC.EDTECH ---
Vitals taken,BP is low 98/49,HR 85 RN aware
[2024-05-03] VITALS (13 sets, daily range): BP systolic 94–135; BP diastolic 45–68; PULSE 66–108; RESP 15–20; TEMP 36.5–37.5; O2SAT 94–98
[2024-05-03] MEDS: Amiodarone HCL 200 MG TABLET 400 MG PO ×3 (00:52→20:14)
--- NOTE | 2024-05-03 02:02 | MHC.EDTECH ---
Rounds and vitals completed,pt is resting quietly,pending admit at this time,call troncoso in reach
--- NOTE | 2024-05-03 02:31 | P.HPHOSP_ITS ---
History of Present Illness Date of Service: 05/03/24 Attending physician on admission: Coleen Howard Chief Complaint: SOB, CP Patient is a 68-year-old male with a past medical history significant for atrial fibrillation/flutter on Xarelto , history of ischemic cardiomyopathy, status post implantable cardioverter defibrillator in place, chronic heart failure with reduced EF of 20-25% and diastolic dysfunction (10/17), history of anxiety depression, hyperlipidemia, gout, hypertension, and T2DM, who presented to the ED today with chest pain, shortness of breath and tachycardia. 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 He also reports a recent GI virus last week with a lot of diarrhea. Over the last few days he has been gaining about a lb of day. He has a dry cough without any sputum production. He also reports a fever measured of 101.5 however only once while here. He denies any runny nose, congestion, sore throat, headache, abdominal pain or urinary symptoms. No recent sick contacts. Review of Systems 2 Constitutional: Constitutional: Denies chills, Denies fatigue, Reports fever(s) and Denies headache(s) Eyes: Eyes: Denies change in vision ENT: Denies headache(s), Denies nasal congestion, Denies nasal discharge and Denies sore throat Cardiovascular: Cardiovascular: Reports chest pain, Denies rapid heart rate, Reports leg edema, Denies lightheadedness and Reports dyspnea Respiratory: Respiratory: Denies chest congestion, Denies cough, Reports dyspnea and Denies wheezing Gastrointestinal: Gastrointestinal: Denies constipation, Denies diarrhea, Denies nausea and Denies vomiting Genitourinary: Genitourinary: Denies dysuria, Denies urinary frequency and Denies urinary urgency Musculoskeletal: Musculoskeletal: Denies back pain, Denies myalgias and Denies arthralgias Integumentary/Breasts: Skin/Breast: Denies rash Neurologic: Denies confusion and Denies headache(s) Psychiatric: Psychiatric: Denies confusion Endocrine: Endocrine: Denies fatigue Hematologic/Lymphatic: Hematologic/Lymphatic: Denies easy bleeding and Denies easy bruising Allergic/Immunologic: Allergic/Immunologic: Denies wheezing FORMERLY [facility], 1928–1983 Medical History Heart failure with reduced ejection fraction Ischemic cardiomyopathy Chronic heart failure with reduced ejection fraction and diastolic dysfunction ICD (implantable cardioverter-defibrillator) in place Pneumonia Anxiety and depression Bilateral renal stones Hypercholesterolemia Psoriasis Gout Coronary artery disease Hypertension GERD (gastroesophageal reflux disease) Functional capacity: independent ambulation Family History Father Diabetes Prostate cancer CVD (cardiovascular disease) Mother CVD (cardiovascular disease) Acute CVA (cerebrovascular accident) Surgical History Hx of colonoscopy History of heart artery stent S/P ICD (internal cardiac defibrillator) procedure History of cataract surgery History of surgery History of vasectomy History of wisdom tooth extraction Social History Household Members: Spouse Housing: House Are you a primary animal caretaker to a significant other at home: No Do you presently have visiting nurse or other home services: No Alcohol intake: current Alcohol intake frequency: holidays/special occasions only Comment: once q2 months 1/2 bottle of wine Patient Tobacco Use Status: Never used Tobacco Tobacco use type: Cigarette Smoked in Last 30 Days: No e-Cigarette/Vaping Use: Never Used Second Hand Smoke Exposure: No Use of substances other than those prescribed or required for medical reasons: No Advance Directives: No Advance Directives Information Provided: No Do you have a plan to hurt others: No Plan service: No Current occupational status: retired Cognitive needs: No Hearing needs: No Vision needs: Yes Narrative: No smoking, social occasional alcohol, no drug use Meds Allergies Allergy/AdvReac Type Severity Reaction Status Date / Time lisinopril [LISINOPRIL] Allergy Mild UNKNOWN, Verified 05/02/24 17:19 cough, cough doxycycline [DOXYCYCLINE] Allergy Unknown UNKNOWN Verified 05/02/24 17:19 glimepiride [GLIMEPIRIDE] Allergy Unknown SEVERE Verified 05/02/24 17:19 BACK PAIN ibuprofen [From Motrin] Allergy Unknown Nausea Verified 05/02/24 17:19 tamsulosin [TAMSULOSIN] Allergy Unknown UNKNOWN, Verified 05/02/24 17:19 Fever dofetilide [From Tikosyn] AdvReac Severe Diarrhea Verified 05/02/24 17:19 apixaban [From Eliquis] AdvReac Intermediate Nausea and Verified 05/02/24 17:19 Vomiting rosuvastatin AdvReac Intermediate hypotension Verified 05/02/24 17:19 ' adhesive tape AdvReac Mild Itching Verified 05/02/24 17:19 Active Medications: Current Medications Acetaminophen (Acetaminophen 325 Mg Tablet) 975 mg PO Q6H PRN PRN Reason: Pain, Mild 1-3,fever,headache Calcium Carbonate (Calcium Carbonate 750 Mg Tab.Chew) 750 mg PO Q4H PRN PRN Reason: Heartburn Magnesium Hydroxide (Milk Of Magnesia 30 Ml Oral.Susp) 30 ml PO DAILY PRN PRN Reason: Constipation Melatonin (Melatonin 3 Mg Tablet) 6 mg PO BEDTIME PRN PRN Reason: Insomnia Ondansetron HCl (Ondansetron Hcl 4 Mg/2 Ml Vial) 4 mg IVPUSH Q8H PRN PRN Reason: Nausea and Vomiting Sodium Chloride (0.9 % Sodium Chloride Flush 3 Ml Syringe) 3 ml [facility]FLUSH [facility] Home Medications ?Medication ?Instructions ?Recorded ?Confirmed ?Last Taken ?Type cholecalciferol (vitamin D3) 50 10,000 unit PO DAILY 07/14/21 04/11/24 04/04/24 08:00 History mcg (2,000 unit) capsule zinc sulfate 25 mg zinc (110 mg) 25 mg PO DAILY 07/14/21 04/11/24 04/04/24 08:00 History tablet (Orazinc) ascorbate calcium (vitamin C) 500 500 mg PO DAILY 10/07/21 04/11/24 04/04/24 08:00 History mg tablet coenzyme Q10 10 mg capsule (Co 20 mg PO DAILY 10/07/21 04/11/24 04/04/24 08:00 History Q-10) magnesium 30 mg tablet 30 mg PO DAILY 10/07/21 04/11/24 04/04/24 08:00 History multivitamin 1 tab PO DAILY 10/07/21 04/11/24 04/04/24 08:00 History omega 0-xyg-kki-fish oil 60 mg-90 1 cap PO DAILY 10/07/21 04/11/24 04/04/24 08:00 History mg-500 mg capsule (Fish Oil) phytonadione (vitamin K1) 100 mcg 100 mcg PO DAILY 10/12/22 04/11/24 04/04/24 08:00 History tablet allopurinol 100 mg tablet 100 mg PO BEDTIME 04/04/24 04/11/24 04/03/24 19:00 History furosemide 20 mg tablet 20 mg PO DAILY PRN edema 04/04/24 04/11/24 04/04/24 08:00 History loratadine 10 mg tablet 10 mg PO DAILY 04/04/24 04/11/24 04/04/24 08:00 History rivaroxaban 20 mg tablet (Xarelto) 20 mg PO DAILY@1700 04/04/24 04/11/24 04/03/24 17:00 History 20 mg apixaban 5 mg tablet (Eliquis) 5 mg PO BID 04/20/24 Unknown History dofetilide 250 mcg capsule 250 mcg PO BID 04/20/24 Unknown History (Tikosyn) Physical Exam 2 Vital Signs and Narrative: Vital Signs: Last Vital Signs Temp 98.9 F 05/03/24 01:58 Pulse 82 05/03/24 01:58 Resp 16 05/03/24 01:58 BP 113/50 L 05/03/24 01:58 Pulse Ox 96 05/03/24 01:58 O2 Del Method Nasal Cannula 05/03/24 01:58 O2 Flow Rate 2 05/03/24 01:58 Oxygen Flow Rate 2 05/02/24 23:07 BMI result Body Mass Index 30.7 General: AOx3, no acute distress Resp: CTA bilaterally CVS: RRR, +murmur GI: +BS, NT, no distention Skin: Warm, dry Neuro: Cranial nerves II-XII grossly intact bilaterally. Motor grossly intact bilaterally Extremities: No LE edema Psych: Appropriate affect Const: General: No confusion Orientation/consciousness: No confusion Neuro: General: No confusion Results Labs 05/02/24 17:38 05/02/24 17:38 Labs: Laboratory Results - last 24 hr 05/02/24 05/02/24 05/02/24 17:38 18:05 18:19 MCV 87.0 MCH 30.0 MCHC 34.5 RDW 12.8 Plt Count 167 MPV 9.2 L Immature Gran % (Auto) 0.5 H Neut % (Auto) 86.6 H Lymph % (Auto) 7.5 L Blount % (Auto) 3.8 Eos % (Auto) 1.5 Baso % (Auto) 0.1 Lymph # (Auto) 0.6 L Blount # (Auto) 0.3 Eos # (Auto) 0.1 Baso # (Auto) 0.0 Abs Immat Gran (auto) 0.04 H Absolute Neuts (auto) 6.4 Absolute Nucleated RBC 0.000 Nucleated RBC % (auto) 0.0 PT 19.3 H INR 1.7 H VBG pH 7.44 H VBG pCO2 35 VBG pO2 48 VBG HCO3 24 VBG O2 Saturation 78.0 VBG Base Excess 1.0 Anion Gap 15 Estim Creat Clear Calc 62.7 Estimated GFR 57 Random Glucose 112 Lactic Acid 1.6 Calcium 9.5 Magnesium 1.8 Total Bilirubin 0.8 AST 26 ALT 23 Alkaline Phosphatase 57 Troponin I High Sens 9.0 B-Natriuretic Peptide 702 H Total Protein 6.8 Albumin 4.2 Lipase 36 Urine Color Yellow Urine Appearance Clear Urine pH 6.0 Ur Specific Bowie 1.015 Urine Protein Negative Urine Glucose (UA) Negative Urine Ketones 15 Urine Blood Trace H Urine Nitrite Negative Ur Leukocyte Esterase Negative Urine RBC 3-5 H Urine WBC 0-5 Ur Squamous Epith Cells 0-2 Urine Bacteria None Seen Hyaline Casts 0-2 Influenza Type A (PCR) NEGATIVE Influenza Type B (PCR) NEGATIVE RSV RNA Qual (PCR) NEGATIVE SARS-CoV-2 RNA (RT-PCR) NEGATIVE Assessment and Plan (1) Atrial fibrillation with RVR: Status: Acute (2) Acute exacerbation of CHF (congestive heart failure): Status: Acute (3) Hypotension: Status: Acute (4) Obesity (BMI 30.0-34.9): Status: Chronic (5) CKD (chronic kidney disease) stage 3, GFR 30-59 ml/min: Status: Chronic Plan Patient is a 68-year-old male with a past medical history significant for atrial fibrillation/flutter on Xarelto , history of ischemic cardiomyopathy, status post implantable cardioverter defibrillator in place, chronic heart failure with reduced EF of 20-25% and diastolic dysfunction (10/17), history of anxiety depression, hyperlipidemia, gout, hypertension, and T2DM, who presented to the ED today with chest pain, shortness of breath and tachycardia. EKG initially with AFib with RVR, tachy in the 130s, received metoprolol 2.5mg and digoxin 250 mcg x 2 doses without improvement. ED provider spoke with Dr. Bolden who suggested cardioversion, amiodarone 400 mg and admission. Patient is status post cardioversion with small bursts of atrial flutter now normal sinus rhythm with PACs. At one point during his ED workup he had a measured temp of 101.5 degrees (never documented in vitals), chest x-ray negative for pneumonia. Patient does not have a productive cough and has not had a fever or any other associated upper respiratory symptoms at home. He was given 1 dose of ceftriaxone, and sepsis protocol was initiated due to hypotension and possible fever. Hypotension is likely secondary to multiple cardiac meds given during episode of AFib including metoprolol 2.5mg, digoxin 0.25mg x2, amiodarone 400mg, and Lasix 40 mg due to CHF exacerbation. BNP elevated at 702. UA negative, RSV, COVID and flu negative. AFib with RVR - s/p successful cardioversion - EKG with AFib with RVR, rate in the 130s - patient given digoxin 0.25 mg x 2, metoprolol 2.5 mg and amiodarone 400 mg - successful cardioversion in ED - patient on Xarelto, continue - cardiology consult - admit to [facility] Acute CHF exacerbation - BNP elevated at 702 - no pulmonary edema on chest x-ray - given Lasix 40 mg in ED - await cardio consult for further guidance on medication management Hypotension - likely secondary to multiple cardiac medications given for AFib - fever mentioned however never documented in chart, no leukocytosis, chest x- ray negative - COVID/flu/RSV negative - UA negative - given 1 dose ceftriaxone in ED, we will hold off on further antibiotics at this time as there is no clear infectious source - lactic acid normal, blood cultures x2 pending - hold off on BP meds at this time - no further fluids given due to CHF exacerbation HLD - continue ezetimibe Gout - continue allopurinol Type 2 diabetes - hold metformin - diabetic/cardiac diet - sliding scale insulin CKD 3 - creatinine at baseline, 1.26 Obesity - BMI 30.7 - weight loss encouraged Full code VTE prophylaxis: Xarelto Patient with AFib with RVR complicated by acute CHF exacerbation requiring admission for at least 2 midnights stay for monitoring and IV diuresis. Quality Stroke Does the patient have a stroke diagnosis?: No VTE Prior VTE?: No VTE Risk Level:: Medical - moderate - high VTE Device Contraindication: Treatment Not Indicated VTE Drug Contraindication: N/A - Med Ordered
[2024-05-03] MEDS: Rivaroxaban 20 MG TABLET PO ×2 (03:35→17:55)
[2024-05-03] MEDS: Acetaminophen 325 MG TABLET 975 MG PO ×3 (03:36→20:12)
[2024-05-03 04:52] LABS: MANUAL DIFF FLAG NO
[2024-05-03 04:56] LABS: Basophils Percent Auto 0.3 % (0-2); Eosinophils Absolute Auto 0.1 X10*3/uL (0.0-0.4); Eosinophils Percent Auto 0.7 % (0-4); Hematocrit 36.1 % (42.0-52.0); Hemoglobin 12.2 g/dl (14.0-18.0); Imm Gran Abs Auto 0.05 X10*3/uL (0.00-0.03); Imm Gran Pct Auto 0.6 % (0.0-0.4); Lymphocytes Absolute Auto 0.6 X10*3/uL (1.2-4.9); Mean Corpuscular HGB Conc 33.8 g/dl (31.0-36.0); Mean Corpuscular Hemoglobin 30.3 pg (27.0-33.0); Mean Corpuscular Volume 89.8 fL (80.0-98.0); Mean Platelet Volume 9.9 fL (9.4-12.4); Monocytes Absolute Auto 0.4 X10*3/uL (0.1-1.2); Monocytes Percent Auto 4.9 % (2-11); Neutrophils Absolute Auto 7.7 x10*3/uL (2.0-8.3); Neutrophils Percent Auto 86.5 % (45-73); Platelet Count 153 X10*3/uL (160-400); Red Blood Count 4.02 X10*6/uL (4.60-5.80); White Blood Count 8.9 X10*3/uL (4.8-10.8)
[2024-05-03 05:10] LABS: Anion Gap 14 (12-20); Blood Urea Nitrogen 23 mg/dL (9-16); Calcium 9.1 mg/dL (8.4-10.2); Carbon Dioxide 23 mmol/L (22-29); Chloride 109 mmol/L (96-108); Creatinine Clr Calc Pharmacy 61.2; Estimated Glomerular Filt Rate 55; Glucose Random 152 mg/dL (60-115); Potassium 3.9 mmol/L (3.3-5.1); Sodium 142 mmol/L (135-145)
--- NOTE | 2024-05-03 05:44 | MHC.EDTECH ---
Rounds and vitals completed,pt is resting quietly,patient drank a can of diet gingerale,call troncoso in reach
[2024-05-03 07:33] LABS: Glucose, Whole Blood 122 mg/dL (60-115)
[2024-05-03] MEDS: Furosemide 40 MG/4 ML VIAL IVPUSH (08:49)
--- NOTE | 2024-05-03 09:52 | PM.EVENT ---
Event Note Date of Service: 05/03/24 Event Note: Seen and evaluated this morning Feels better after cardioversion Now in sinus with PACs Continue IV lasix Wean O2 down as tolerated Keep on Tele Cardiology following DC Tikosyn and start Amiodarone. Time Spent With Patient Time: Total time managing care of this patient today ____ minutes.
--- NOTE | 2024-05-03 09:56 | PM.CNCAR ---
History of Present Illness History of Present Illness Date of Service: 05/03/24 Chief complaint: A fib s/p cardioversion, CHF Narrative: This is a cardiology consultation regarding atrial fibrillation. Generally seen by Dr. Page in clinic. Has a history of congestive heart failure and has a ICD in place. Paroxysmal atrial flutter/fibrillation. It seems that he was recently tried on Tikosyn but had some side effects and that was discontinued. Per remote device monitoring, noted to have multiple episodes of atrial fibrillation. He presented to the ED as today with shortness of breath and some chest discomfort and in this context, he was found to be in atrial fibrillation rapid rate. Per discussion with the ER, he received IV diuretics, IV beta-elsa and also IV digoxin. He remained tachycardic and after that he underwent cardioversion in the emergency room. Then converted back to normal sinus rhythm. He was put on amiodarone. Today, he states that he is feeling much better. Still has some leg swelling. Not yet at baseline. He has a history of coronary artery disease with prior stent in the LAD for anterior STEMI. Review of Systems Review of Systems: Yes all other systems are reviewed and are negative Constitutional: Constitutional: Reports as per HPI and Reports no additional constitutional complaints Eyes: Eyes: Reports as per HPI and Denies no additional eye complaints ENT: Denies system reviewed and no additional complaints, except as documented and Reports as per HPI Cardiovascular: Cardiovascular: Reports as per HPI, Reports no additional cardiovascular complaints, Denies acrocyanosis, Denies cool extremities, Denies chest pain, Denies leg edema, Denies lightheadedness, Denies palpitations and Reports dyspnea Respiratory: Respiratory: Reports as per HPI, Denies no additional respiratory complaints and Reports dyspnea Gastrointestinal: Gastrointestinal: Reports as per HPI and Denies no additional gastrointestinal complaints Genitourinary: Genitourinary: Reports no additional male genitourinary complaints and Reports as per HPI Musculoskeletal: Musculoskeletal: Reports no additional musculoskeletal complaints and Reports as per HPI Integumentary/Breasts: Skin/Breast: Reports system reviewed and no additional complaints, except as docu Neurologic: Reports system reviewed and no additional complaints, except as documented and Reports as per HPI Psychiatric: Psychiatric: Reports no additional psychiatric complaints and Reports as per HPI Endocrine: Endocrine: Reports no additional endocrine complaints, Reports as per HPI and Denies palpitations Hematologic/Lymphatic: Hematologic/Lymphatic: Reports no additional hematologic/lymphatic complaints and Reports as per HPI Allergic/Immunologic: Allergic/Immunologic: Reports no additional allergic/immunologic complaints and Reports as per HPI [facility] [place] Past Medical History Medical History Heart failure with reduced ejection fraction Ischemic cardiomyopathy Chronic heart failure with reduced ejection fraction and diastolic dysfunction ICD (implantable cardioverter-defibrillator) in place Pneumonia Anxiety and depression Bilateral renal stones Hypercholesterolemia Psoriasis Gout Coronary artery disease Hypertension GERD (gastroesophageal reflux disease) Family History Family History Father Diabetes Prostate cancer CVD (cardiovascular disease) Mother CVD (cardiovascular disease) Acute CVA (cerebrovascular accident) Surgical History Surgical History Hx of colonoscopy History of heart artery stent S/P ICD (internal cardiac defibrillator) procedure History of cataract surgery History of surgery History of vasectomy History of wisdom tooth extraction Social History Social History Household Members: Spouse Housing: House Are you a primary lawn care specialist to a significant other at home: No Do you presently have visiting nurse or other home services: No Alcohol intake: current Alcohol intake frequency: holidays/special occasions only Comment: once q2 months 1/2 bottle of wine Patient Tobacco Use Status: Never used Tobacco Tobacco use type: Cigarette Smoked in Last 30 Days: No e-Cigarette/Vaping Use: Never Used Second Hand Smoke Exposure: No Use of substances other than those prescribed or required for medical reasons: No Advance Directives: No Advance Directives Information Provided: No Do you have a plan to hurt others: No Plan Nutrition Risks: No Nutritional Risk service: No Current occupational status: retired Cognitive needs: No Hearing needs: No Vision needs: Yes Meds Allergies Allergy/AdvReac Type Severity Reaction Status Date / Time lisinopril [LISINOPRIL] Allergy Mild UNKNOWN, Verified 05/02/24 17:19 cough, cough doxycycline [DOXYCYCLINE] Allergy Unknown UNKNOWN Verified 05/02/24 17:19 glimepiride [GLIMEPIRIDE] Allergy Unknown SEVERE Verified 05/02/24 17:19 BACK PAIN ibuprofen [From Motrin] Allergy Unknown Nausea Verified 05/02/24 17:19 tamsulosin [TAMSULOSIN] Allergy Unknown UNKNOWN, Verified 05/02/24 17:19 Fever dofetilide [From Tikosyn] AdvReac Severe Diarrhea Verified 05/02/24 17:19 apixaban [From Eliquis] AdvReac Intermediate Nausea and Verified 05/02/24 17:19 Vomiting rosuvastatin AdvReac Intermediate hypotension Verified 05/02/24 17:19 ' adhesive tape AdvReac Mild Itching Verified 05/02/24 17:19 Active Medications: Current Medications Acetaminophen (Acetaminophen 325 Mg Tablet) 975 mg PO Q6H PRN PRN Reason: Pain, Mild 1-3,fever,headache Last Admin: 05/03/24 03:36 Dose: 975 mg Amiodarone HCl (Amiodarone Hcl 200 Mg Tablet) 400 mg PO BID PENDING SALE TO [facility] Calcium Carbonate (Calcium Carbonate 750 Mg Tab.Chew) 750 mg PO Q4H PRN PRN Reason: Heartburn Carvedilol (Carvedilol 25 Mg Tablet) 25 mg PO BID PENDING SALE TO [facility]; Protocol Furosemide (Furosemide 40 Mg/4 Ml Vial) 40 mg IVPUSH DAILY PENDING SALE TO [facility]; Protocol Last Admin: 05/03/24 08:49 Dose: 40 mg Glucose (Glucose Gel 15 Gm Gel..Gram.) 15 gm PO Q15M PRN; Protocol PRN Reason: per Hypoglycemia Standing Ord. Dextrose (D10) 250 mls @ 750 mls/hr IV Q15M PRN; Protocol PRN Reason: per Hypoglycemia Standing Ord. Insulin Human Lispro (Insulin Lispro 100 Unit/Ml 3 Ml Vial) 0 unit SUBCUT QIDAS PENDING SALE TO [facility]; Protocol Last Admin: 05/03/24 07:35 Dose: Not Given Magnesium Hydroxide (Milk Of Magnesia 30 Ml Oral.Susp) 30 ml PO DAILY PRN PRN Reason: Constipation Melatonin (Melatonin 3 Mg Tablet) 6 mg PO BEDTIME PRN PRN Reason: Insomnia Ondansetron HCl (Ondansetron Hcl 4 Mg/2 Ml Vial) 4 mg IVPUSH Q8H PRN PRN Reason: Nausea and Vomiting Sodium Chloride (0.9 % Sodium Chloride Flush 3 Ml Syringe) [facility] Last Admin: 05/03/24 07:37 Dose: Not Given Home Medications ?Medication ?Instructions ?Recorded ?Confirmed ?Last Taken ?Type cholecalciferol (vitamin D3) 50 10,000 unit PO DAILY 07/14/21 05/03/24 05/02/24 History mcg (2,000 unit) capsule zinc sulfate 25 mg zinc (110 mg) 25 mg PO DAILY 07/14/21 05/03/24 05/02/24 History tablet (Orazinc) ascorbate calcium (vitamin C) 500 500 mg PO DAILY 10/07/21 05/03/24 05/02/24 History mg tablet coenzyme Q10 10 mg capsule (Co 20 mg PO DAILY 10/07/21 05/03/24 05/02/24 History Q-10) magnesium 30 mg tablet 30 mg PO DAILY 10/07/21 05/03/24 05/02/24 History multivitamin 1 tab PO DAILY 10/07/21 05/03/24 05/02/24 History omega 9-cvs-xpz-fish oil 60 mg-90 1 cap PO DAILY 10/07/21 05/03/24 05/02/24 History mg-500 mg capsule (Fish Oil) phytonadione (vitamin K1) 100 mcg 100 mcg PO DAILY 10/12/22 05/03/24 05/02/24 History tablet allopurinol 100 mg tablet 100 mg PO BEDTIME 04/04/24 05/03/24 05/02/24 History furosemide 20 mg tablet 20 mg PO DAILY PRN edema 04/04/24 05/03/24 05/02/24 History loratadine 10 mg tablet 10 mg PO DAILY 04/04/24 05/03/24 05/02/24 History rivaroxaban 20 mg tablet (Xarelto) 20 mg PO DAILY@1700 04/04/24 05/03/24 05/02/24 History clotrimazole 1 % topical ointment 1 appl topical BID PRN Rash 05/03/24 05/03/24 05/02/24 History sacubitril 49 mg-valsartan 51 mg 0.5 tab PO BID 05/03/24 05/03/24 05/02/24 History tablet (Entresto) sitagliptin phosphate 100 mg 100 mg PO DAILY 05/03/24 05/03/24 05/02/24 History tablet (Januvia) triamcinolone acetonide 0.5 % 1 appl topical BID PRN Rash 01/12/1805/03/24 05/02/24 History topical cream Physical Exam Vital Signs: Vital Signs: Last Vital Signs Temp 98.5 F 05/03/24 07:35 Pulse 83 05/03/24 07:35 Resp 20 05/03/24 07:35 BP 109/59 L 05/03/24 07:35 Pulse Ox 98 05/03/24 07:35 O2 Del Method Nasal Cannula 05/03/24 07:35 O2 Flow Rate 2 05/03/24 07:35 Oxygen Flow Rate 2 05/02/24 23:07 BMI result Body Mass Index 30.7 Const: General: comfortable and no acute distress Orientation/consciousness: patient oriented x3 HEENT: Other: Unremarkable Head: Yes normal to inspection Neck: Neck: Yes normal visual inspection Chest: Chest palpation & inspection: normal inspection of the chest Resp: Auscultation: crackles Cardio: Palpation: normal PMI Heart sounds: S1 normal heart sound present, S2 normal heart sound present, no gallops, no murmurs and no rubs GI: Palpation (GI): Soft to palpation Back/Spine/Pelvis: Other: unremarkable Skin: General skin exam: no rashes or lesions noted Neuro: General: patient oriented x3 Extrem: General: Yes normal to inspection Psych: Mental Status: mental status grossly normal Objective Labs and Meds 05/03/24 04:42 05/03/24 04:42 Lab results: Laboratory Results - last 24 hr 05/02/24 05/02/24 05/02/24 17:38 18:05 18:19 WBC 7.4 RBC 4.46 L Hgb 13.4 L Hct 38.8 L MCV 87.0 MCH 30.0 MCHC 34.5 RDW 12.8 Plt Count 167 MPV 9.2 L Immature Gran % (Auto) 0.5 H Neut % (Auto) 86.6 H Lymph % (Auto) 7.5 L [place] % (Auto) 3.8 Eos % (Auto) 1.5 Baso % (Auto) 0.1 Lymph # (Auto) 0.6 L [place] # (Auto) 0.3 Eos # (Auto) 0.1 Baso # (Auto) 0.0 Abs Immat Gran (auto) 0.04 H Absolute Neuts (auto) 6.4 Absolute Nucleated RBC 0.000 Nucleated RBC % (auto) 0.0 PT 19.3 H INR 1.7 H VBG pH 7.44 H VBG pCO2 35 VBG pO2 48 VBG HCO3 24 VBG O2 Saturation 78.0 VBG Base Excess 1.0 Sodium 144 Potassium 4.1 Chloride 109 H Carbon Dioxide 24 Anion Gap 15 BUN 23 H Creatinine 1.26 Estim Creat Clear Calc 62.7 Estimated GFR 57 POC Glucose Random Glucose 112 Lactic Acid 1.6 Calcium 9.5 Magnesium 1.8 Total Bilirubin 0.8 AST 26 ALT 23 Alkaline Phosphatase 57 Troponin I High Sens 9.0 B-Natriuretic Peptide 702 H Total Protein 6.8 Albumin 4.2 Lipase 36 Urine Color Yellow Urine Appearance Clear Urine pH 6.0 Ur Specific [place] 1.015 Urine Protein Negative Urine Glucose (UA) Negative Urine Ketones 15 Urine Blood Trace H Urine Nitrite Negative Ur Leukocyte Esterase Negative Urine RBC 3-5 H Urine WBC 0-5 Ur Squamous Epith Cells 0-2 Urine Bacteria None Seen Hyaline Casts 0-2 Influenza Type A (PCR) NEGATIVE Influenza Type B (PCR) NEGATIVE RSV RNA Qual (PCR) NEGATIVE SARS-CoV-2 RNA (RT-PCR) NEGATIVE 05/03/24 05/03/24 04:42 07:29 WBC 8.9 RBC 4.02 L Hgb 12.2 L Hct 36.1 L MCV 89.8 MCH 30.3 MCHC 33.8 RDW 13.0 Plt Count 153 L MPV 9.9 Immature Gran % (Auto) 0.6 H Neut % (Auto) 86.5 H Lymph % (Auto) 7.0 L [place] % (Auto) 4.9 Eos % (Auto) 0.7 Baso % (Auto) 0.3 Lymph # (Auto) 0.6 L [place] # (Auto) 0.4 Eos # (Auto) 0.1 Baso # (Auto) 0.0 Abs Immat Gran (auto) 0.05 H Absolute Neuts (auto) 7.7 Absolute Nucleated RBC 0.000 Nucleated RBC % (auto) 0.0 PT INR VBG pH VBG pCO2 VBG pO2 VBG HCO3 VBG O2 Saturation VBG Base Excess Sodium 142 Potassium 3.9 Chloride 109 H Carbon Dioxide 23 Anion Gap 14 BUN 23 H Creatinine 1.29 Estim Creat Clear Calc 61.2 Estimated GFR 55 POC Glucose 122 H Random Glucose 152 H Lactic Acid Calcium 9.1 Magnesium Total Bilirubin AST ALT Alkaline Phosphatase Troponin I High Sens B-Natriuretic Peptide Total Protein Albumin Lipase Urine Color Urine Appearance Urine pH Ur Specific [place] Urine Protein Urine Glucose (UA) Urine Ketones Urine Blood Urine Nitrite Ur Leukocyte Esterase Urine RBC Urine WBC Ur Squamous Epith Cells Urine Bacteria Hyaline Casts Influenza Type A (PCR) Influenza Type B (PCR) RSV RNA Qual (PCR) SARS-CoV-2 RNA (RT-PCR) ECG Interpretation: EKG from admission shows possible atrial flutter at a rate of 126/Min. Currently, he is in sinus rhythm with frequent PACs on telemetry. Assessment and Plan (1) Atrial fibrillation with RVR: Status: Acute (2) Acute exacerbation of CHF (congestive heart failure): Status: Acute (3) Coronary artery disease: Qualifiers: Coronary Disease-Associated Artery/Lesion type: [place] artery [place] vs. transplanted heart: [place] heart Associated angina: without angina Qualified Code(s): I25.10 - Atherosclerotic heart disease of [place] coronary artery without angina pectoris Status: Acute Plan Echocardiogram with LVEF of 20 25%. Wall motion abnormalities probably from underlying coronary disease. He has had a cardioversion in 03/2024 and again last night in the ER. We can keep him on amiodarone for the foreseeable future. 400 mg b.i.d., loading dose and then 200 mg daily. Continue Coreg that he already takes at home. No further Tikosyn. Anticoagulation. Continue IV diuretics for another day or so. Eventually, EP consultation at [facility] for ablation. Procedures Date of Service Date of Service: 05/03/24
--- NOTE | 2024-05-03 09:58 | PC.NURSE ---
patient has been resting quietly through out the morning, patient ate breakfast this morning, resp even and unlabored, VSS. patient medicated per JUN. skin noted to be dry and intact
--- NOTE | 2024-05-03 10:06 | PHA.MEDREC ---
Addendum entered by María Elena Castaneda RPh 05/03/24 10:10: reviewed by formerly [facility]. Original Note: Pharmacy Consult ? Medication Reconciliation Pharmacy has completed the medication reconciliation. Spoke to patient to confirm med list. Patient was able to confirm all his medications. Patient states he no longer takes Eliquis 5 mg (now on Xarelto 20 mg), Dofetlide 250 mg (had a bad reaction).
[2024-05-03] MEDS: carvediloL 25 MG TABLET PO ×2 (10:45→20:13)
[2024-05-03 13:03] LABS: Glucose, Whole Blood 164 mg/dL (60-115)
[2024-05-03] MEDS: Insulin Lispro 100 UNIT/ML 3 ML VIAL SUBCUT (13:29)
--- NOTE | 2024-05-03 13:53 | MHC.CM.PN ---
IMM 05/03/24, Pt. lives with his , he is independent, no home health services or DME. HCP is his , Izabela, copy requested. PCP is confirmed: Dr. Pillai. to transport home at [place], DCP: home, self care. CM to follow for DC needs.
[2024-05-03 16:03] LABS: Glucose, Whole Blood 120 mg/dL (60-115)
[2024-05-03] MEDS: 0.9 % Sodium Chloride Flush 3 ML SYRINGE IVFLUSH ×2 (17:56→23:27)
[2024-05-03] MEDS: Sacubitril/Valsartan 49/51 1 TAB TABLET 0.5 TAB PO (20:12)
[2024-05-03] MEDS: allopurinoL 100 MG TABLET PO (20:13)
[2024-05-03] MEDS: Pravastatin Sodium 40 MG TABLET PO (20:14)
[2024-05-03 20:54] LABS: Glucose, Whole Blood 138 mg/dL (60-115)
[2024-05-04] VITALS (7 sets, daily range): BP systolic 109–149; BP diastolic 57–70; PULSE 64–84; RESP 18–20; TEMP 36–37.2; O2SAT 92–95
[2024-05-04] MEDS: Furosemide 40 MG/4 ML VIAL IVPUSH ×3 (05:20→18:26)
--- NOTE | 2024-05-04 05:27 | PC.NURSE ---
On initial assessment patient c/o sob. O2 sats 86-89% on room air. Patient placed on 02 at 2L and O2 sats increased to 94%. HS meds administered and patient stated breathing improved. This am patient is c/o difficulty breathing. LS clear/dim in bases. Hospitalist notified and responded stating to give Lasix 40 mg IV morning dose early . Dose given and will continue to monitor.
[2024-05-04 06:57] LABS: MANUAL DIFF FLAG NO
[2024-05-04 07:02] LABS: Basophils Percent Auto 0.3 % (0-2); Eosinophils Absolute Auto 0.1 X10*3/uL (0.0-0.4); Eosinophils Percent Auto 0.6 % (0-4); Hematocrit 38.3 % (42.0-52.0); Imm Gran Abs Auto 0.07 X10*3/uL (0.00-0.03); Imm Gran Pct Auto 0.7 % (0.0-0.4); Lymphocytes Absolute Auto 0.7 X10*3/uL (1.2-4.9); Lymphocytes Percent Auto 6.1 % (20-40); Mean Corpuscular HGB Conc 33.9 g/dl (31.0-36.0); Mean Corpuscular Hemoglobin 30.5 pg (27.0-33.0); Mean Corpuscular Volume 89.9 fL (80.0-98.0); Mean Platelet Volume 9.8 fL (9.4-12.4); Monocytes Absolute Auto 0.5 X10*3/uL (0.1-1.2); Neutrophils Absolute Auto 9.2 x10*3/uL (2.0-8.3); Neutrophils Percent Auto 87.3 % (45-73); Platelet Count 165 X10*3/uL (160-400); Red Blood Count 4.26 X10*6/uL (4.60-5.80); Red Cell Distribution Width 13.1 % (11.0-16.0); White Blood Count 10.6 X10*3/uL (4.8-10.8)
[2024-05-04 07:16] LABS: Anion Gap 17 (12-20); Blood Urea Nitrogen 23 mg/dL (9-16); Calcium 9.4 mg/dL (8.4-10.2); Carbon Dioxide 24 mmol/L (22-29); Chloride 104 mmol/L (96-108); Creatinine Clr Calc Pharmacy 68.7; Estimated Glomerular Filt Rate > 60; Glucose Random 145 mg/dL (60-115); Sodium 141 mmol/L (135-145)
[2024-05-04 07:32] LABS: Glucose, Whole Blood 149 mg/dL (60-115)
[2024-05-04] MEDS: Amiodarone HCL 200 MG TABLET 400 MG PO ×2 (08:23→20:32)
[2024-05-04] MEDS: Sacubitril/Valsartan 49/51 1 TAB TABLET 0.5 TAB PO ×2 (08:23→20:32)
[2024-05-04] MEDS: Cholecalciferol (Vitamin D3) 25 MCG TABLET PO (08:23)
[2024-05-04] MEDS: Ezetimibe 10 MG TABLET PO (08:23)
[2024-05-04] MEDS: Multivitamin TABLET 1 TAB PO (08:23)
[2024-05-04] MEDS: Ascorbic Acid 500 MG TABLET PO (08:24)
[2024-05-04] MEDS: 0.9 % Sodium Chloride Flush 3 ML SYRINGE IVFLUSH ×2 (08:24→18:30)
[2024-05-04] MEDS: Pyridoxine HCl (Vitamin B6) 50 MG TABLET PO (08:24)
[2024-05-04] MEDS: carvediloL 25 MG TABLET PO ×2 (08:24→20:33)
[2024-05-04] MEDS: Loratadine 10 MG TABLET PO (08:24)
--- NOTE | 2024-05-04 09:52 | PM.PNCARD ---
Subjective Subjective Date of Service: 05/04/24 Interval history: Patient states that he is still feeling short of breath. No palpitations. No angina. Remains in sinus rhythm. Review of Systems Review of Systems Yes all other systems are reviewed and are negative Constitutional: Reports as per HPI and Reports no additional constitutional complaints Eyes: Reports as per HPI and Denies no additional eye complaints Denies system reviewed and no additional complaints, except as documented and Reports as per HPI Cardiovascular: Reports as per HPI, Reports no additional cardiovascular complaints, Denies acrocyanosis, Denies cool extremities, Denies chest pain, Denies leg edema, Denies lightheadedness, Denies palpitations and Reports dyspnea Respiratory: Reports as per HPI, Denies no additional respiratory complaints and Reports dyspnea Gastrointestinal: Reports as per HPI and Denies no additional gastrointestinal complaints Genitourinary: Reports no additional male genitourinary complaints and Reports as per HPI Musculoskeletal: Reports no additional musculoskeletal complaints and Reports as per HPI Skin/Breast: Reports system reviewed and no additional complaints, except as docu Reports system reviewed and no additional complaints, except as documented and Reports as per HPI Psychiatric: Reports no additional psychiatric complaints and Reports as per HPI Endocrine: Reports no additional endocrine complaints, Reports as per HPI and Denies palpitations Hematologic/Lymphatic: Reports no additional hematologic/lymphatic complaints and Reports as per HPI Allergic/Immunologic: Reports no additional allergic/immunologic complaints and Reports as per HPI Physical Exam Vital Signs: Last Vital Signs Temp 98.4 F 05/04/24 07:09 Pulse 84 05/04/24 07:09 Resp 18 05/04/24 07:09 BP 139/66 05/04/24 07:09 Pulse Ox 95 05/04/24 07:09 O2 Del Method Nasal Cannula 05/04/24 07:09 O2 Flow Rate 2 05/04/24 07:09 Oxygen Flow Rate 2 05/02/24 23:07 BMI result Body Mass Index 30.7 Const General: comfortable and no acute distress Orientation/consciousness: patient oriented x3 HEENT Other: Unremarkable Head: Yes normal to inspection Neck Neck: Yes normal visual inspection Chest Chest palpation & inspection: normal inspection of the chest Resp Auscultation: crackles Cardio Palpation: normal PMI Heart sounds: S1 normal heart sound present, S2 normal heart sound present, no gallops, no murmurs and no rubs GI Palpation (GI): Soft to palpation Back/Spine/Pelvis Other: unremarkable Skin General skin exam: no rashes or lesions noted Neuro General: patient oriented x3 Extrem General: Yes normal to inspection Psych Mental Status: mental status grossly normal Objective Labs and Meds 05/04/24 06:26 05/04/24 06:26 Lab results: Laboratory Results - last 24 hr 05/03/24 05/03/24 05/03/24 12:56 15:56 20:44 WBC RBC Hgb Hct MCV MCH MCHC RDW Plt Count MPV Immature Gran % (Auto) Neut % (Auto) Lymph % (Auto) [place] % (Auto) Eos % (Auto) Baso % (Auto) Lymph # (Auto) [place] # (Auto) Eos # (Auto) Baso # (Auto) Abs Immat Gran (auto) Absolute Neuts (auto) Absolute Nucleated RBC Nucleated RBC % (auto) Sodium Potassium Chloride Carbon Dioxide Anion Gap BUN Creatinine Estim Creat Clear Calc Estimated GFR POC Glucose 164 H 120 H 138 H Random Glucose Calcium 05/04/24 05/04/24 06:26 07:08 WBC 10.6 RBC 4.26 L Hgb 13.0 L Hct 38.3 L MCV 89.9 MCH 30.5 MCHC 33.9 RDW 13.1 Plt Count 165 MPV 9.8 Immature Gran % (Auto) 0.7 H Neut % (Auto) 87.3 H Lymph % (Auto) 6.1 L [place] % (Auto) 5.0 Eos % (Auto) 0.6 Baso % (Auto) 0.3 Lymph # (Auto) 0.7 L [place] # (Auto) 0.5 Eos # (Auto) 0.1 Baso # (Auto) 0.0 Abs Immat Gran (auto) 0.07 H Absolute Neuts (auto) 9.2 H Absolute Nucleated RBC 0.000 Nucleated RBC % (auto) 0.0 Sodium 141 Potassium 4.0 Chloride 104 Carbon Dioxide 24 Anion Gap 17 BUN 23 H Creatinine 1.15 Estim Creat Clear Calc 68.7 Estimated GFR > 60 POC Glucose 149 H Random Glucose 145 H Calcium 9.4 Progress Note: A&P Assessment and plan (1) Atrial fibrillation with RVR: Status: Acute (2) Acute exacerbation of CHF (congestive heart failure): Status: Acute (3) Coronary artery disease: Status: Acute Plan Echocardiogram with LVEF of 20-25%. Wall motion abnormalities probably from underlying coronary disease. He has had a cardioversion in 03/2024 and again this admission in the emergency room. We can keep him on Amiodarone for the foreseeable future. 400 mg b.i.d., loading dose and then 200 mg daily. On Coreg. Anticoagulation. He still feels short of breath and hence continue IV diuretics for another day or so. EP referral as outpatient for ablation. Time Spent With Patient Time: Total time managing care of this patient today ____ minutes. Progress Note: Quality Stroke Does the patient have a stroke diagnosis?: No Procedures Date of Service Date of Service: 05/04/24
[2024-05-04 11:25] LABS: Glucose, Whole Blood 202 mg/dL (60-115)
[2024-05-04] MEDS: Insulin Lispro 100 UNIT/ML 3 ML VIAL SUBCUT ×2 (11:49→21:39)
--- NOTE | 2024-05-04 12:11 | HO.PM.IMPN ---
Subjective Subjective Date of Service: 05/04/24 Interval History: seen and evaluated this morning Feels better but still dropping O2 to 80s on RA dyspnea with minimal exertion no other overnight events Review of Systems Review of Systems: Yes all other systems are reviewed and are negative Physical Exam Vital Signs: Vital Signs: Last Vital Signs Temp 98.4 F 05/04/24 11:26 Pulse 66 05/04/24 11:26 Resp 18 05/04/24 11:26 BP 112/59 L 05/04/24 11:26 Pulse Ox 95 05/04/24 11:26 O2 Del Method Room Air 05/04/24 11:26 O2 Flow Rate 2 05/04/24 07:09 Oxygen Flow Rate 2 05/02/24 23:07 BMI result Body Mass Index 30.7 Const: Other: Constitutional : Awake, interactive, not in distress Neck : Normal inspection, Supple Cardiovascular : RRR, elevated JVP, trace lower extremity edema Respiratory : decreased bilateral air entry at bases, fine crackles, no wheezes or rhonchi Gastrointestinal: soft, lax, Normal bowel sounds, Non tender Skin : Warm, Dry Neurological : Alert & oriented x3, No focal deficit Objective Data Active Medications Acetaminophen (Acetaminophen 325 Mg Tablet) 975 mg PO Q6H PRN PRN Reason: Pain, Mild 1-3,fever,headache Last Admin: 05/03/24 20:12 Dose: 975 mg Documented By: PAMELA Allopurinol (Allopurinol 100 Mg Tablet) 100 mg PO BEDTIME [facility] Last Admin: 05/03/24 20:13 Dose: 100 mg Documented By: PAMELA Amiodarone HCl (Amiodarone Hcl 200 Mg Tablet) 400 mg PO BID [facility] Last Admin: 05/04/24 08:23 Dose: 400 mg Documented By: DAVY Ascorbic Acid (Ascorbic Acid 500 Mg Tablet) 500 mg PO DAILY [facility] Last Admin: 05/04/24 08:24 Dose: 500 mg Documented By: DAVY Calcium Carbonate (Calcium Carbonate 750 Mg Tab.Chew) 750 mg PO Q4H PRN PRN Reason: Heartburn Carvedilol (Carvedilol 25 Mg Tablet) 25 mg PO BID [facility]; Protocol Last Admin: 05/04/24 08:24 Dose: 25 mg Documented By: DAVY Ezetimibe (Ezetimibe 10 Mg Tablet) 10 mg PO DAILY [facility] Last Admin: 05/04/24 08:23 Dose: 10 mg Documented By: DAVY Furosemide (Furosemide 40 Mg/4 Ml Vial) 40 mg IVPUSH DAILY [facility]; Protocol Last Admin: 05/04/24 05:20 Dose: 40 mg Documented By: PAMELA Comments: early dose per hospitalist Glucose (Glucose Gel 15 Gm Gel..Gram.) 15 gm PO Q15M PRN; Protocol PRN Reason: per Hypoglycemia Standing Ord. Dextrose (D10) 250 mls @ 750 mls/hr IV Q15M PRN; Protocol PRN Reason: per Hypoglycemia Standing Ord. Insulin Human Lispro (Insulin Lispro 100 Unit/Ml 3 Ml Vial) 0 unit SUBCUT QIDACHS [facility]; Protocol Last Admin: 05/04/24 11:49 Dose: 4 unit Documented By: JONO Loratadine (Loratadine 10 Mg Tablet) 10 mg PO DAILY [facility] Last Admin: 05/04/24 08:24 Dose: 10 mg Documented By: DAVY Magnesium Hydroxide (Milk Of Magnesia 30 Ml Oral.Susp) 30 ml PO DAILY PRN PRN Reason: Constipation Melatonin (Melatonin 3 Mg Tablet) 6 mg PO BEDTIME PRN PRN Reason: Insomnia Multivitamins/Vitamin C (Multivitamin Tablet) 1 tab PO DAILY [facility] Last Admin: 05/04/24 08:23 Dose: 1 tab Documented By: DAVY Ondansetron HCl (Ondansetron Hcl 4 Mg/2 Ml Vial) 4 mg IVPUSH Q8H PRN PRN Reason: Nausea and Vomiting Pravastatin Sodium (Pravastatin Sodium 40 Mg Tablet) 40 mg PO BEDTIME [facility] Last Admin: 05/03/24 20:14 Dose: 40 mg Documented By: PAMELA Pyridoxine HCl (Pyridoxine Hcl (Vitamin B6) 50 Mg Tablet) 50 mg PO DAILY [facility] Last Admin: 05/04/24 08:24 Dose: 50 mg Documented By: DAVY Rivaroxaban (Rivaroxaban 20 Mg Tablet) 20 mg PO DAILY@1700 [facility] Last Admin: 05/03/24 17:55 Dose: 20 mg Documented By: EDILBERTO Sacubitril/Valsartan (Sacubitril/Valsartan 49/51 1 Tab Tablet) 0.5 tab PO BID [facility]; Protocol Last Admin: 05/04/24 08:23 Dose: 0.5 tab Documented By: DAVY Sodium Chloride (0.9 % Sodium Chloride Flush 3 Ml Syringe) 3 ml IVFLUSH QSHIFT [facility] Last Admin: 05/04/24 08:24 Dose: 3 ml Documented By: DAVY Vitamin D (Cholecalciferol (Vitamin D3) 25 Mcg Tablet) 25 mcg PO DAILY [facility] Last Admin: 05/04/24 08:23 Dose: 25 mcg Documented By: DAVY Labs 05/04/24 06:26 05/04/24 06:26 Labs: Laboratory Results - last 24 hr 05/03/24 05/03/24 05/03/24 12:56 15:56 20:44 MCV MCH MCHC RDW Plt Count MPV Immature Gran % (Auto) Neut % (Auto) Lymph % (Auto) [place] % (Auto) Eos % (Auto) Baso % (Auto) Lymph # (Auto) [place] # (Auto) Eos # (Auto) Baso # (Auto) Abs Immat Gran (auto) Absolute Neuts (auto) Absolute Nucleated RBC Nucleated RBC % (auto) Anion Gap Estim Creat Clear Calc Estimated GFR POC Glucose 164 H 120 H 138 H Random Glucose Calcium 05/04/24 05/04/24 05/04/24 06:26 07:08 10:56 MCV 89.9 MCH 30.5 MCHC 33.9 RDW 13.1 Plt Count 165 MPV 9.8 Immature Gran % (Auto) 0.7 H Neut % (Auto) 87.3 H Lymph % (Auto) 6.1 L [place] % (Auto) 5.0 Eos % (Auto) 0.6 Baso % (Auto) 0.3 Lymph # (Auto) 0.7 L [place] # (Auto) 0.5 Eos # (Auto) 0.1 Baso # (Auto) 0.0 Abs Immat Gran (auto) 0.07 H Absolute Neuts (auto) 9.2 H Absolute Nucleated RBC 0.000 Nucleated RBC % (auto) 0.0 Anion Gap 17 Estim Creat Clear Calc 68.7 Estimated GFR > 60 POC Glucose 149 H 202 H Random Glucose 145 H Calcium 9.4 Microbiology Microbiology Results: Microbiology 05/02/24 17:38 Blood Culture - Preliminary Blood - Venous No growth after 24 hours. 05/02/24 17:38 Blood Culture - Preliminary Blood - Venous No growth after 24 hours. Assessment and Plan (1) Acute exacerbation of CHF (congestive heart failure): Status: Acute (2) Atrial fibrillation with RVR: Status: Acute (3) Acute respiratory failure with hypoxia: Status: Acute Plan a 68-year-old male with a past medical history significant for atrial fibrillation/flutter on Xarelto , history of ischemic cardiomyopathy, status post implantable cardioverter defibrillator in place, chronic heart failure with reduced EF of 20-25% and diastolic dysfunction (10/17), history of anxiety depression, hyperlipidemia, gout, hypertension, and T2DM, who presented to the ED today with chest pain, shortness of breath and tachycardia. AFib with RVR s/p successful cardioversion Continue load with amiodarone 400 mg bid load Continue Carvedilol on Xarelto, continue cardiology following Acute hypoxic respiratory failure 2/2 acute diastolic CHF exacerbation BNP elevated O2 drops to 80s on RA at rest and ambulation Increase Lasix to 40 mg IV bid cardio following Wean O2 down as tolerated Hypotension likely secondary to multiple cardiac medications given for AFib, resolved HLD continue ezetimibe Gout continue allopurinol Type 2 diabetes hold metformin diabetic/cardiac diet sliding scale insulin CKD 3 creatinine at baseline, 1.26 Obesity BMI 30.7 weight loss encouraged VTE prophylaxis: Xarelto Patient with acute CHF exacerbation requiring admission for at least 2 midnights stay for monitoring and IV diuresis. Quality Stroke Does the patient have a stroke diagnosis?: No VTE Prior VTE?: No VTE Risk Level:: Medical - moderate - high VTE Device Contraindication: Treatment Not Indicated VTE Drug Contraindication: N/A - Med Ordered
[2024-05-04 16:11] LABS: Glucose, Whole Blood 106 mg/dL (60-115)
[2024-05-04] MEDS: Rivaroxaban 20 MG TABLET PO (18:26)
[2024-05-04] MEDS: Acetaminophen 325 MG TABLET 975 MG PO (18:32)
[2024-05-04] MEDS: allopurinoL 100 MG TABLET PO (20:32)
[2024-05-04] MEDS: Pravastatin Sodium 40 MG TABLET PO (20:33)
[2024-05-04 21:18] LABS: Glucose, Whole Blood 156 mg/dL (60-115)
[2024-05-05] MEDS: 0.9 % Sodium Chloride Flush 3 ML SYRINGE IVFLUSH ×2 (00:04→10:32)
[2024-05-05 03:21] VITALS: BP 134/66; PULSE 64; RESP 20; TEMP 36.2; O2SAT 94
[2024-05-05 07:20] VITALS: BP 142/68; PULSE 74; RESP 16; TEMP 36.5; O2SAT 97
[2024-05-05 07:22] LABS: MANUAL DIFF FLAG NO
[2024-05-05 07:25] LABS: Basophils Percent Auto 0.3 % (0-2); Eosinophils Absolute Auto 0.2 X10*3/uL (0.0-0.4); Eosinophils Percent Auto 2.5 % (0-4); Hemoglobin 11.8 g/dl (14.0-18.0); Imm Gran Abs Auto 0.03 X10*3/uL (0.00-0.03); Imm Gran Pct Auto 0.4 % (0.0-0.4); Lymphocytes Absolute Auto 1.4 X10*3/uL (1.2-4.9); Lymphocytes Percent Auto 18.5 % (20-40); Mean Corpuscular HGB Conc 34.7 g/dl (31.0-36.0); Mean Corpuscular Hemoglobin 30.1 pg (27.0-33.0); Mean Corpuscular Volume 86.7 fL (80.0-98.0); Mean Platelet Volume 9.6 fL (9.4-12.4); Monocytes Absolute Auto 0.5 X10*3/uL (0.1-1.2); Monocytes Percent Auto 7.2 % (2-11); Neutrophils Absolute Auto 5.3 x10*3/uL (2.0-8.3); Neutrophils Percent Auto 71.1 % (45-73); Platelet Count 175 X10*3/uL (160-400); Red Blood Count 3.92 X10*6/uL (4.60-5.80); White Blood Count 7.5 X10*3/uL (4.8-10.8)
[2024-05-05 07:42] LABS: Anion Gap 14 (12-20); Blood Urea Nitrogen 22 mg/dL (9-16); Carbon Dioxide 28 mmol/L (22-29); Chloride 105 mmol/L (96-108); Creatinine Clr Calc Pharmacy 70.5; Estimated Glomerular Filt Rate > 60; Glucose Random 109 mg/dL (60-115); Potassium 3.3 mmol/L (3.3-5.1); Sodium 144 mmol/L (135-145)
[2024-05-05 07:43] LABS: Anion Gap 13 (12-20); Blood Urea Nitrogen 21 mg/dL (9-16); Carbon Dioxide 29 mmol/L (22-29); Chloride 105 mmol/L (96-108); Creatinine Clr Calc Pharmacy 66.4; Estimated Glomerular Filt Rate > 60; Glucose Random 107 mg/dL (60-115); Potassium 3.3 mmol/L (3.3-5.1); Sodium 144 mmol/L (135-145)
[2024-05-05 07:45] LABS: Glucose, Whole Blood 110 mg/dL (60-115)
[2024-05-05 07:49] LABS: B Type Natriuretic Peptide 180 pg/mL (<100)
[2024-05-05] MEDS: Pyridoxine HCl (Vitamin B6) 50 MG TABLET PO (10:24)
[2024-05-05] MEDS: Ezetimibe 10 MG TABLET PO (10:24)
[2024-05-05] MEDS: carvediloL 25 MG TABLET PO (10:25)
[2024-05-05] MEDS: Cholecalciferol (Vitamin D3) 25 MCG TABLET PO (10:25)
[2024-05-05] MEDS: Ascorbic Acid 500 MG TABLET PO (10:25)
[2024-05-05] MEDS: Sacubitril/Valsartan 49/51 1 TAB TABLET 0.5 TAB PO (10:25)
[2024-05-05] MEDS: Amiodarone HCL 200 MG TABLET 400 MG PO (10:25)
[2024-05-05] MEDS: Furosemide 40 MG/4 ML VIAL IVPUSH (10:25)
[2024-05-05] MEDS: Loratadine 10 MG TABLET PO (10:25)
[2024-05-05] MEDS: Multivitamin TABLET 1 TAB PO (10:25)
--- NOTE | 2024-05-05 10:40 | PM.DS ---
DS: Providers Provider Date of Service: 05/05/24 Date of admission: 05/03/24 02:29 Date of discharge: 05/05/24 Primary care physician: Shilpi Pillai MD Consults: 05/03/24 02:28 Consult to Cardiology Routine Consulting Provider: Agustin Bolden Reason for consultation: a fib, cardioverted, CHF Has provider been notified: No DS: Diagnosis Discharge Diagnosis (1) Acute exacerbation of CHF (congestive heart failure): Status: Acute (2) Atrial fibrillation with RVR: Status: Acute (3) Acute respiratory failure with hypoxia: Status: Acute DS: Summary Hospital Course Hospital Course: Admission note HPI Patient is a 68-year-old male with a past medical history significant for atrial fibrillation/flutter on Xarelto , history of ischemic cardiomyopathy, status post implantable cardioverter defibrillator in place, chronic heart failure with reduced EF of 20-25% and diastolic dysfunction (10/17), history of anxiety depression, hyperlipidemia, gout, hypertension, and T2DM, who presented to the ED today with chest pain, shortness of breath and tachycardia. 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 He also reports a recent GI virus last week with a lot of diarrhea. Over the last few days he has been gaining about a lb of day. He has a dry cough without any sputum production. He also reports a fever measured of 101.5 however only once while here. He denies any runny nose, congestion, sore throat, headache, abdominal pain or urinary symptoms. No recent sick contacts. Hospital course The patient was admitted for treatment of symptomatic AFib with RVR as he presented with hypotension and signs of heart failure and had successful cardioversion in ER. loaded with amiodarone 400 mg bid and Continued Carvedilol with fair control of heart rate and rhythm as he remained in sinus rhythm and was seen by cardiology team who recommended to continue Amiodarone and Carvedilol on discharge. He is also on Xarelto, to continue with a plan for outpatient cardiology follow up. He was also treated for Acute hypoxic respiratory failure secondary to acute diastolic CHF exacerbation as BNP elevated and O2 drops to 80s on RA at rest and ambulation. Treated with Lasix to 40 mg IV bid with fair response as he was weaned off O2 and was able to ambulate with no reported dyspnea or SOB. To increase Lasix to 40 mg daily on discahrge. Blood cultures were drawn in ED. they were negative for 48 hours with no signs of infection. after 48 hours 1 set became positive for GPC. likely contaminent. will monitor sensitivity and call patient back if any real concerns. Discharge plan Increase Lasix to 40 mg daily Low sodium diet Weight yourself at home Continue Amiodarone 400 mg two times a day for 5 more days Then start Amiodarone 200 mg daily Follow with cardiology as outpatient Time Attestation Discharge Coordination Time (in mins): 35 Quality: Safe Use of Opioids Does Pt have an Active Cancer Diagnosis on the Problem List?: No Quality: Stroke Does the patient have a stroke diagnosis?: No Physical Exam Vital Signs: Vital Signs: Last Vital Signs Temp 97.7 F 05/05/24 07:20 Pulse 74 05/05/24 07:20 Resp 16 05/05/24 07:20 BP 142/68 H 05/05/24 07:20 Pulse Ox 97 05/05/24 07:20 O2 Del Method Room Air 05/05/24 07:20 O2 Flow Rate 2 05/04/24 07:09 Oxygen Flow Rate 2 05/02/24 23:07 BMI result Body Mass Index 30.7 Const: Other: Constitutional : Awake, interactive, not in distress Neck : Normal inspection, Supple Cardiovascular : RRR, no JVP, no lower extremity edema Respiratory : good bilateral air entry , no crackles, no wheezes or rhonchi Gastrointestinal: soft, lax, Normal bowel sounds, Non tender Skin : Warm, Dry Neurological : Alert & oriented x3, No focal deficit DS: Data Data Completed and Pending Completed studies during hospitalization [Text1]: Procedures [facility] R[facility], Single (04/04/24) Labs on day of discharge: Laboratory Results - last 24 hr 05/04/24 05/04/24 05/04/24 10:56 15:57 21:04 WBC RBC Hgb Hct MCV MCH MCHC RDW Plt Count MPV Immature Gran % (Auto) Neut % (Auto) Lymph % (Auto) [place] % (Auto) Eos % (Auto) Baso % (Auto) Lymph # (Auto) [place] # (Auto) Eos # (Auto) Baso # (Auto) Abs Immat Gran (auto) Absolute Neuts (auto) Absolute Nucleated RBC Nucleated RBC % (auto) Sodium Potassium Chloride Carbon Dioxide Anion Gap BUN Creatinine Estim Creat Clear Calc Estimated GFR POC Glucose 202 H 106 156 H Random Glucose Calcium B-Natriuretic Peptide 05/05/24 05/05/24 05/05/24 07:08 07:08 07:08 WBC 7.5 RBC 3.92 L Hgb 11.8 L Hct 34.0 L MCV 86.7 MCH 30.1 MCHC 34.7 RDW 13.0 Plt Count 175 MPV 9.6 Immature Gran % (Auto) 0.4 Neut % (Auto) 71.1 Lymph % (Auto) 18.5 L [place] % (Auto) 7.2 Eos % (Auto) 2.5 Baso % (Auto) 0.3 Lymph # (Auto) 1.4 [place] # (Auto) 0.5 Eos # (Auto) 0.2 Baso # (Auto) 0.0 Abs Immat Gran (auto) 0.03 Absolute Neuts (auto) 5.3 Absolute Nucleated RBC 0.000 Nucleated RBC % (auto) 0.0 Sodium 144 144 Potassium 3.3 3.3 Chloride 105 Carbon Dioxide Anion Gap BUN Creatinine Estim Creat Clear Calc Estimated GFR POC Glucose Random Glucose Calcium B-Natriuretic Peptide 05/05/24 05/05/24 05/05/24 07:08 07:08 07:08 WBC RBC Hgb Hct MCV MCH MCHC RDW Plt Count MPV Immature Gran % (Auto) Neut % (Auto) Lymph % (Auto) [place] % (Auto) Eos % (Auto) Baso % (Auto) Lymph # (Auto) [place] # (Auto) Eos # (Auto) Baso # (Auto) Abs Immat Gran (auto) Absolute Neuts (auto) Absolute Nucleated RBC Nucleated RBC % (auto) Sodium Potassium Chloride 105 Carbon Dioxide 28 29 Anion Gap 14 13 BUN 22 H Creatinine Estim Creat Clear Calc Estimated GFR POC Glucose Random Glucose Calcium B-Natriuretic Peptide 05/05/24 05/05/24 05/05/24 07:08 07:08 07:08 WBC RBC Hgb Hct MCV MCH MCHC RDW Plt Count MPV Immature Gran % (Auto) Neut % (Auto) Lymph % (Auto) [place] % (Auto) Eos % (Auto) Baso % (Auto) Lymph # (Auto) [place] # (Auto) Eos # (Auto) Baso # (Auto) Abs Immat Gran (auto) Absolute Neuts (auto) Absolute Nucleated RBC Nucleated RBC % (auto) Sodium Potassium Chloride Carbon Dioxide Anion Gap BUN 21 H Creatinine 1.12 1.19 Estim Creat Clear Calc 70.5 66.4 Estimated GFR > 60 POC Glucose Random Glucose Calcium B-Natriuretic Peptide 05/05/24 05/05/24 05/05/24 07:08 07:08 07:08 WBC RBC Hgb Hct MCV MCH MCHC RDW Plt Count MPV Immature Gran % (Auto) Neut % (Auto) Lymph % (Auto) [place] % (Auto) Eos % (Auto) Baso % (Auto) Lymph # (Auto) [place] # (Auto) Eos # (Auto) Baso # (Auto) Abs Immat Gran (auto) Absolute Neuts (auto) Absolute Nucleated RBC Nucleated RBC % (auto) Sodium Potassium Chloride Carbon Dioxide Anion Gap BUN Creatinine Estim Creat Clear Calc Estimated GFR > 60 POC Glucose Random Glucose 109 107 Calcium 9.0 9.0 B-Natriuretic Peptide 180 H 05/05/24 07:27 WBC RBC Hgb Hct MCV MCH MCHC RDW Plt Count MPV Immature Gran % (Auto) Neut % (Auto) Lymph % (Auto) [place] % (Auto) Eos % (Auto) Baso % (Auto) Lymph # (Auto) [place] # (Auto) Eos # (Auto) Baso # (Auto) Abs Immat Gran (auto) Absolute Neuts (auto) Absolute Nucleated RBC Nucleated RBC % (auto) Sodium Potassium Chloride Carbon Dioxide Anion Gap BUN Creatinine Estim Creat Clear Calc Estimated GFR POC Glucose 110 Random Glucose Calcium B-Natriuretic Peptide Preliminary micro results at discharge 05/02/24 17:38 Blood Culture - Preliminary Blood - Venous No growth after 48 hours. 05/02/24 17:38 Blood Culture - Preliminary Blood - Venous No growth after 48 hours. Imaging Chest x-ray: Radiologist's impression: IMPRESSION: 1. No acute findings. This document has been electronically signed by: Andra Braxton MD on 05/02/2024 19:25:15 Discharge Plan Discharge Anticipated Discharge Date/Time: 05/05/24 10:32 Patient Disposition: Home, Self-Care Discharge Diagnosis: Acute CHF exacerbation Atrial fibrillation w RvR Referrals: Po,Shilpi Perez MD [Primary Care Provider] - 1 Week Discharge Medications: New amiodarone 200 mg Tablet 400 mg PO BID 5 Days Qty: 20 0RF furosemide 40 mg tablet 40 mg PO DAILY Qty: 90 0RF amiodarone 200 mg tablet 200 mg PO DAILY Qty: 90 0RF Rx Instructions: To start 05/11/2024 Continued pravastatin 40 mg tablet 40 mg PO BEDTIME Qty: 100 2RF metformin 500 mg tablet 500 mg PO BIDWMEAL 90 Days Qty: 180 1RF pyridoxine (vitamin B6) 50 mg tablet 50 mg PO DAILY 90 Days Qty: 90 3RF carvedilol 25 mg tablet 25 mg PO BID Qty: 180 3RF ezetimibe 10 mg tablet 10 mg PO DAILY Qty: 90 3RF loratadine 10 mg Tablet 10 mg PO DAILY allopurinol 100 mg tablet 100 mg PO BEDTIME Xarelto 20 mg tablet 20 mg PO DAILY@1700 Rx Instructions: must administer with evening meal Januvia 100 mg tablet 100 mg PO DAILY sacubitril-valsartan [Entresto] 49-51 mg tablet 0.5 tab PO BID triamcinolone acetonide 0.5 % cream 1 appl topical BID PRN (Reason: Rash) clotrimazole 1 % ointment 1 appl topical BID PRN (Reason: Rash) tadalafil 5 mg tablet 5 mg PO DAILY PRN (Reason: sexual activity) Rx Instructions: Daily medication Orazinc 25 mg zinc (110 mg) tablet 25 mg PO DAILY cholecalciferol (vitamin D3) 50 mcg (2,000 unit) capsule 10,000 unit PO DAILY multivitamin Tablet 1 tab PO DAILY omega [id number] oil [Fish Oil] 60-90-500 mg capsule 1 cap PO DAILY ascorbate calcium (vitamin C) 500 mg tablet 500 mg PO DAILY coenzyme Q10 [Co Q-10] 10 mg capsule 20 mg PO DAILY magnesium 30 mg tablet 30 mg PO DAILY phytonadione (vitamin K1) 100 mcg tablet 100 mcg PO DAILY Discontinued furosemide 20 mg tablet 20 mg PO DAILY Discharge Orders: Discharge Order (Routine); Ordered 05/05/24 Ordered By: Chaz Marroquin Diet: Low salt diet Activity on Discharge: As tolerated Stand Alone Forms: Patient Portal Discharge page Print Language: Bhutanese Care Plan Goals: Increase Lasix to 40 mg daily Low sodium diet Weight yourself at home Continue Amiodarone 400 mg two times a day for 5 more days Then start Amiodarone 200 mg daily Follow with cardiology as outpatient Health Concerns: Heart failure exacerbation Rapid Atrial fibrillation Plan of Treatment: Lasix Amiodarone Assessment: as above
--- NOTE | 2024-05-05 10:51 | MHC.CM.PN ---
Pt has been medically cleared for DC, he will go home via family transport, plan is self care.
--- NOTE | 2024-05-05 10:54 | PM.PNCARD ---
Subjective Subjective Date of Service: 05/05/24 Interval history: He states that he feels much better. Shortness of breath is improved. Review of Systems Review of Systems Yes all other systems are reviewed and are negative Constitutional: Reports as per HPI and Reports no additional constitutional complaints Eyes: Reports as per HPI and Denies no additional eye complaints Denies system reviewed and no additional complaints, except as documented and Reports as per HPI Cardiovascular: Reports as per HPI, Reports no additional cardiovascular complaints, Denies acrocyanosis, Denies cool extremities, Denies chest pain, Denies leg edema, Denies lightheadedness, Denies palpitations and Reports dyspnea Respiratory: Reports as per HPI, Denies no additional respiratory complaints and Reports dyspnea Gastrointestinal: Reports as per HPI and Denies no additional gastrointestinal complaints Genitourinary: Reports no additional male genitourinary complaints and Reports as per HPI Musculoskeletal: Reports no additional musculoskeletal complaints and Reports as per HPI Skin/Breast: Reports system reviewed and no additional complaints, except as docu Reports system reviewed and no additional complaints, except as documented and Reports as per HPI Psychiatric: Reports no additional psychiatric complaints and Reports as per HPI Endocrine: Reports no additional endocrine complaints, Reports as per HPI and Denies palpitations Hematologic/Lymphatic: Reports no additional hematologic/lymphatic complaints and Reports as per HPI Allergic/Immunologic: Reports no additional allergic/immunologic complaints and Reports as per HPI Physical Exam Vital Signs: Last Vital Signs Temp 97.7 F 05/05/24 07:20 Pulse 74 05/05/24 07:20 Resp 16 05/05/24 07:20 BP 142/68 H 05/05/24 07:20 Pulse Ox 97 05/05/24 07:20 O2 Del Method Room Air 05/05/24 07:20 O2 Flow Rate 2 05/04/24 07:09 Oxygen Flow Rate 2 05/02/24 23:07 BMI result Body Mass Index 30.7 Const General: comfortable and no acute distress Orientation/consciousness: patient oriented x3 HEENT Other: Unremarkable Head: Yes normal to inspection Neck Neck: Yes normal visual inspection Chest Chest palpation & inspection: normal inspection of the chest Resp Auscultation: crackles Cardio Palpation: normal PMI Heart sounds: S1 normal heart sound present, S2 normal heart sound present, no gallops, no murmurs and no rubs GI Palpation (GI): Soft to palpation Back/Spine/Pelvis Other: unremarkable Skin General skin exam: no rashes or lesions noted Neuro General: patient oriented x3 Extrem General: Yes normal to inspection Psych Mental Status: mental status grossly normal Objective Labs and Meds 05/05/24 07:08 05/05/24 07:08 Lab results: Laboratory Results - last 24 hr 05/04/24 05/04/24 05/04/24 10:56 15:57 21:04 WBC RBC Hgb Hct MCV MCH MCHC RDW Plt Count MPV Immature Gran % (Auto) Neut % (Auto) Lymph % (Auto) [place]kins % (Auto) Eos % (Auto) Baso % (Auto) Lymph # (Auto) [place] # (Auto) Eos # (Auto) Baso # (Auto) Abs Immat Gran (auto) Absolute Neuts (auto) Absolute Nucleated RBC Nucleated RBC % (auto) Sodium Potassium Chloride Carbon Dioxide Anion Gap BUN Creatinine Estim Creat Clear Calc Estimated GFR POC Glucose 202 H 106 156 H Random Glucose Calcium B-Natriuretic Peptide 05/05/24 05/05/24 05/05/24 07:08 07:08 07:08 WBC 7.5 RBC 3.92 L Hgb 11.8 L Hct 34.0 L MCV 86.7 MCH 30.1 MCHC 34.7 RDW 13.0 Plt Count 175 MPV 9.6 Immature Gran % (Auto) 0.4 Neut % (Auto) 71.1 Lymph % (Auto) 18.5 L [place]kins % (Auto) 7.2 Eos % (Auto) 2.5 Baso % (Auto) 0.3 Lymph # (Auto) 1.4 [place]kins # (Auto) 0.5 Eos # (Auto) 0.2 Baso # (Auto) 0.0 Abs Immat Gran (auto) 0.03 Absolute Neuts (auto) 5.3 Absolute Nucleated RBC 0.000 Nucleated RBC % (auto) 0.0 Sodium 144 144 Potassium 3.3 3.3 Chloride 105 Carbon Dioxide Anion Gap BUN Creatinine Estim Creat Clear Calc Estimated GFR POC Glucose Random Glucose Calcium B-Natriuretic Peptide 05/05/24 05/05/24 05/05/24 07:08 07:08 07:08 WBC RBC Hgb Hct MCV MCH MCHC RDW Plt Count MPV Immature Gran % (Auto) Neut % (Auto) Lymph % (Auto) [place] % (Auto) Eos % (Auto) Baso % (Auto) Lymph # (Auto) [place] # (Auto) Eos # (Auto) Baso # (Auto) Abs Immat Gran (auto) Absolute Neuts (auto) Absolute Nucleated RBC Nucleated RBC % (auto) Sodium Potassium Chloride 105 Carbon Dioxide 28 29 Anion Gap 14 13 BUN 22 H Creatinine Estim Creat Clear Calc Estimated GFR POC Glucose Random Glucose Calcium B-Natriuretic Peptide 05/05/24 05/05/24 05/05/24 07:08 07:08 07:08 WBC RBC Hgb Hct MCV MCH MCHC RDW Plt Count MPV Immature Gran % (Auto) Neut % (Auto) Lymph % (Auto) [place] % (Auto) Eos % (Auto) Baso % (Auto) Lymph # (Auto) [place]kins # (Auto) Eos # (Auto) Baso # (Auto) Abs Immat Gran (auto) Absolute Neuts (auto) Absolute Nucleated RBC Nucleated RBC % (auto) Sodium Potassium Chloride Carbon Dioxide Anion Gap BUN 21 H Creatinine 1.12 1.19 Estim Creat Clear Calc 70.5 66.4 Estimated GFR > 60 POC Glucose Random Glucose Calcium B-Natriuretic Peptide 05/05/24 05/05/24 05/05/24 07:08 07:08 07:08 WBC RBC Hgb Hct MCV MCH MCHC RDW Plt Count MPV Immature Gran % (Auto) Neut % (Auto) Lymph % (Auto) [place] % (Auto) Eos % (Auto) Baso % (Auto) Lymph # (Auto) [place] # (Auto) Eos # (Auto) Baso # (Auto) Abs Immat Gran (auto) Absolute Neuts (auto) Absolute Nucleated RBC Nucleated RBC % (auto) Sodium Potassium Chloride Carbon Dioxide Anion Gap BUN Creatinine Estim Creat Clear Calc Estimated GFR > 60 POC Glucose Random Glucose 109 107 Calcium 9.0 9.0 B-Natriuretic Peptide 180 H 05/05/24 07:27 WBC RBC Hgb Hct MCV MCH MCHC RDW Plt Count MPV Immature Gran % (Auto) Neut % (Auto) Lymph % (Auto) [place] % (Auto) Eos % (Auto) Baso % (Auto) Lymph # (Auto) [place] # (Auto) Eos # (Auto) Baso # (Auto) Abs Immat Gran (auto) Absolute Neuts (auto) Absolute Nucleated RBC Nucleated RBC % (auto) Sodium Potassium Chloride Carbon Dioxide Anion Gap BUN Creatinine Estim Creat Clear Calc Estimated GFR POC Glucose 110 Random Glucose Calcium B-Natriuretic Peptide Progress Note: A&P Assessment and plan (1) Atrial fibrillation with RVR: Status: Acute (2) Acute exacerbation of CHF (congestive heart failure): Status: Acute (3) Coronary artery disease: Status: Acute Plan Echocardiogram with LVEF of 20-25%. Wall motion abnormalities probably from underlying coronary disease. He has had a cardioversion in 03/2024 and again this admission in the emergency room. We can keep him on Amiodarone for the foreseeable future. 400 mg b.i.d., loading dose and then 200 mg daily. On Coreg. Anticoagulation. Shortness of breath is improved and hence he can go to oral diuretics. He can see EP for outpatient ablation. Follow-up in clinic. Time Spent With Patient Time: Total time managing care of this patient today ____ minutes. Progress Note: Quality Stroke Does the patient have a stroke diagnosis?: No Procedures Date of Service Date of Service: 05/05/24
== END 2024-05-05 11:44 | disposition home or self-care (01) | DRG 308 ==
LOC: HO.ED 05-03 01:56 → HO.EDOVER 05-03 02:34 → HO.IMC 05-03 14:36
PROVIDERS: Nurse Practitioner Family; Admitting Provider Physician Assistant; Emergency Provider Emergency Medicine Emergency Medical Services; PCP Internal Medicine; Visit Provider Student in an Organized Health Care Education/Training Program
DX: I48.91 Unspecified atrial fibrillation (principal); I50.33 Acute on chronic diastolic (congestive) heart failure; J96.01 Acute respiratory failure with hypoxia; I13.0 Hypertensive heart and chronic kidney disease with heart failure and stage 1 through stage 4 chronic kidney disease, or unspecified chronic kidney disease; E78.5 Hyperlipidemia, unspecified; E66.9 Obesity, unspecified; Z68.30 Body mass index [BMI] 30.0-30.9, adult; I49.1 Atrial premature depolarization; Z71.3 Dietary counseling and surveillance; M10.9 Gout, unspecified; I95.2 Hypotension due to drugs; T46.2X5A Adverse effect of other antidysrhythmic drugs, initial encounter; N18.30 Chronic kidney disease, stage 3 unspecified; E11.22 Type 2 diabetes mellitus with diabetic chronic kidney disease; Z95.810 Presence of automatic (implantable) cardiac defibrillator; Z20.822 Contact with and (suspected) exposure to COVID-19; Z79.01 Long term (current) use of anticoagulants; Z79.84 Long term (current) use of oral hypoglycemic drugs; Z79.899 Other long term (current) drug therapy
CPT/HCPCS: 0241U; 36415; 71046; 80048; 80053; 81001; 82803; 82947; 83605; 83690; 83735; 83880; 84484; 85025; 85610; 87040; 87077; 87205; 93005; 99285; J0696; J1160; J1940; J2250; J3010

== ENCOUNTER → 2024-05-02 17:17 | Outpatient (BNV) | payer MEDICARE, MEDICAID, SELFPAY | PROVIDERS: Emergency Provider Emergency Medicine Emergency Medical Services; PCP Internal Medicine; Visit Provider Nuclear Medicine | DX: R07.9 Chest pain, unspecified (principal); R06.02 Shortness of breath | CPT/HCPCS: 71046 ==

== ENCOUNTER → 2024-05-02 17:23 | Outpatient (BNV) | payer MEDICARE, MEDICAID, SELFPAY | PROVIDERS: Admitting Provider Physician Assistant; Emergency Provider Emergency Medicine Emergency Medical Services; PCP Internal Medicine; Visit Provider Internal Medicine | DX: R94.31 Abnormal electrocardiogram [ECG] [EKG] (principal) | CPT/HCPCS: 93010 ==

== ENCOUNTER → 2024-05-03 02:29 | Outpatient (BNV) | payer MEDICARE, MEDICAID, SELFPAY | PROVIDERS: Admitting Provider Physician Assistant; Emergency Provider Emergency Medicine Emergency Medical Services; PCP Internal Medicine; Visit Provider Internal Medicine | DX: I48.91 Unspecified atrial fibrillation (principal); I50.9 Heart failure, unspecified; I25.10 Atherosclerotic heart disease of native coronary artery without angina pectoris | CPT/HCPCS: 99223 ==

== ENCOUNTER → 2024-05-03 02:29 | Outpatient (BNV) | payer MEDICARE, MEDICAID, SELFPAY | PROVIDERS: Admitting Provider Physician Assistant; Emergency Provider Emergency Medicine Emergency Medical Services; PCP Internal Medicine; Visit Provider Physician Assistant | DX: I50.9 Heart failure, unspecified (principal); I48.91 Unspecified atrial fibrillation; J96.01 Acute respiratory failure with hypoxia | CPT/HCPCS: 99223; 99233; 99499 ==

== ENCOUNTER 2024-05-08 14:57 | Outpatient (AMB) | payer MEDICARE, MEDICAID, SELFPAY ==
--- NOTE | 2024-05-08 14:59 | A.OFFPC_ITS ---
Vital Signs 05/08/24 15:00 Height 5 ft 9 in Weight 196 lb 4 oz BMI 29.0 BP 108/54 L Blood Pressure Location Lt brachial Position Sitting Pulse 70 Pulse Source Pulse Oximeter Pulse Oximetry (%) 96 Oxygen Delivery Method Room Air Intake Visit Reasons: [facility] [place]F Allergies lisinopril [LISINOPRIL] Allergy (Mild, Verified 05/08/24 15:03) UNKNOWN, cough, cough doxycycline [DOXYCYCLINE] Allergy (Unknown, Verified 05/08/24 15:03) UNKNOWN glimepiride [GLIMEPIRIDE] Allergy (Unknown, Verified 05/08/24 15:03) SEVERE BACK PAIN ibuprofen [From Motrin] Allergy (Unknown, Verified 05/08/24 15:03) Nausea tamsulosin [TAMSULOSIN] Allergy (Unknown, Verified 05/08/24 15:03) UNKNOWN, Fever dofetilide [From Tikosyn] Adverse Reaction (Severe, Verified 05/08/24 15:03) Diarrhea apixaban [From Eliquis] Adverse Reaction (Intermediate, Verified 05/08/24 15:03) Nausea and Vomiting rosuvastatin Adverse Reaction (Intermediate, Verified 05/08/24 15:03) hypotension' adhesive tape Adverse Reaction (Mild, Verified 05/08/24 15:03) Itching Tobacco use date assessed: 05/08/24 Fall risk assessment: No Falls in past year Last assessed Fall Risk: 05/08/24 Dental Screening Dental Screen Date: 05/08/24 Did you have a dental visit in the last 12 months?: Yes Did you have a dental problem in the last 6 months where you did not have access to dental care?: No Was dental information given to patient?: Patient has dentist HPI [facility] [place] CHF HPI Details The patient is a 68-year-old male He has a history of diabetes mellitus and chronic kidney disease, complicating his management due to the need to avoid certain medications. The patient also reports a recent episode of atrial fibrillation resulting in hospitalization, where he was treated amiodarone to maintain sinus rhythm post- cardioversion. He has experienced significant weight loss and is transitioning from a high to a reduced dose of amiodarone. The need for regular monitoring of thyroid and liver functions and chest X-rays was noted due to the long-term use of amiodarone. He plans to follow up with a medical and health services manager for possible ablation therapy. Attention to infection control is stressed to prevent exacerbation of his symptoms, with preventive measures including wearing a mask and hand hygiene advised. [facility] Medical History Heart failure with reduced ejection fraction Ischemic cardiomyopathy Chronic heart failure with reduced ejection fraction and diastolic dysfunction ICD (implantable cardioverter-defibrillator) in place Pneumonia Anxiety and depression Bilateral renal stones Hypercholesterolemia Psoriasis Gout Coronary artery disease Hypertension GERD (gastroesophageal reflux disease) Surgical History Hx of colonoscopy History of heart artery stent S/P ICD (internal cardiac defibrillator) procedure History of cataract surgery History of surgery History of vasectomy History of wisdom tooth extraction Family History Father Diabetes Prostate cancer CVD (cardiovascular disease) Mother CVD (cardiovascular disease) Acute CVA (cerebrovascular accident) Social History Household Members: Spouse Housing: House Are you a primary menagerie caretaker to a significant other at home: No Do you presently have visiting nurse or other home services: No Alcohol intake: current Alcohol intake frequency: holidays/special occasions only Comment: once q2 months 1/2 bottle of wine Patient Tobacco Use Status: Never used Tobacco Tobacco use type: Cigarette e-Cigarette/Vaping Use: Never Used Second Hand Smoke Exposure: No service: No Current occupational status: retired Cognitive needs: No Hearing needs: No Vision needs: Yes Questionnaire PHQ-9 Over the last 2 weeks, how often have you been bothered by any of the following problems? 1. Little interest or pleasure in doing things: several days 2. Feeling down, depressed, or hopeless: not at all 3. Trouble falling or staying asleep, or sleeping too much: not at all 4. Feeling tired or having little energy: not at all 5. Poor appetite or overeating: not at all 6. Feeling bad about yourself - or that you are a failure or have let yourself or your family down: several days 7. Trouble concentrating on things, such as reading the newspaper or watching television: not at all 8. Moving or speaking so slowly that other people could have noticed. Or the opposite - being so fidgety or restless that you have been moving around a lot more than usual: not at all 9. Thoughts that you would be better off or of hurting yourself in some way: not at all Total score: 2 Depression Screening Interpretation: Positive Depression Screening Done: Yes 71988 - PHQ-9 Billing: Yes Source: Developed by Drs. Gopal Lazaro, Dora Rosario, Jose Ferrera and colleagues, with an educational laura from [employer]. Thrive Questionnaire Date Thrive assessed: 05/08/24 I am a: Patient What is your living situation today?: I have a steady place to live Within the past 12 months, did the food you bought not last and you didn't have the money to get more?: Never true Within the past 12 months, did you worry whether your food would run out before you got money to buy more?: Never true Do you have trouble paying for medicines?: No Do you have trouble getting transportation to medical appointments?: No Do you have trouble paying your heating and electricity bill?: No Do you have trouble taking care of your child, family member or friend?: No Do you have trouble with day-to-day activities such as bathing, preparing meals, shopping, managing finances, etc.?: No Are you currently unemployed and looking for a job?: No Are you interested in more education?: No Please select the resources that you would like help with: None Currently or been in a relationship where the following occur: No concerns reported THRIVE Score: 0 AUDIT C Alcohol Use Questionnaire (AUDIT-C) 1. How often do you have a drink containing alcohol?: Monthly or less 2. How many drinks containing alcohol do you have on a typical day when you are drinking?: 1 or 2 3. How often do you have six or more drinks on one occasion?: Never Total Score: 1 AUSTIN-7 AMB Questionnaire AUSTIN-7 Date AUSTIN - 7 assessed: 05/08/24 Feeling nervous, anxious, or on edge: 0 = Not at all Not being able to stop or control worryin = Not at all Worrying too much about different things: 0 = Not at all Trouble relaxin = Not at all Being so restless that it is hard to sit still: 0 = Not at all Becoming easily annoyed or irritable: 0 = Not at all Feeling afraid as if something awful might happen: 0 = Not at all Total AUSTIN-7 score (0-4 normal; 5-9 mild; 10-14 moderate; 15-21 severe): 0 Source: Developed by Drs. Gopal Lazaro, Dora Rosario, Jose Ferrera and colleagues, with an educational laura from [employer]. Physical exam (Primary Care) Vital Signs: Last Vital Signs Pulse 70 05/08/24 15:00 BP 108/54 L 05/08/24 15:00 Pulse Ox 96 05/08/24 15:00 Oxygen Delivery Method Room Air 05/08/24 15:00 BMI result Body Mass Index 29.0 Tobacco/Smoking Status: Tobacco use Status Tobacco use date assessed 05/08/24 05/08/24 15:06 Patient Tobacco Use Status Never used Tobacco 05/08/24 14:59 Tobacco use type Cigarette 05/08/24 14:59 e-Cigarette/Vaping Use Never Used 05/08/24 14:59 PHQ-9: PHQ-9 Score PHQ-9: Total score 2 05/08/24 15:28 Depression Screening Interpretation: Positive Thrive Assessment: Date of Thrive Assessment Date Thrive assessed 05/08/24 05/08/24 14:59 Currently or been in a relationship where the following occur: No concerns reported Const General: alert; No acute distress Eyes Conjunctivae: conjunctivae normal Resp Auscultation: clear to auscultation bilaterally Cardio Rate: regular rate Rhythm: regular rhythm GI Inspection: Yes normal to inspection Extrem General: Yes normal to inspection and No edema Coding Level of Care Code Est Pt Level 4 (07987) Complex EM visit Add On G2211 Diagnoses Acute exacerbation of CHF (congestive heart failure) I50.9 Atrial fibrillation with RVR I48.91 Coronary artery disease involving [place] coronary artery of [place] heart without angina pectoris I25.10 Associated angina: without angina Coronary Disease-Associated Artery/Lesion type: [place] artery [place] vs. transplanted heart: [place] heart Essential hypertension I10 Hypertension type: essential hypertension Hypercholesterolemia E78.00 Type 2 diabetes mellitus with hyperglycemia, without long-term current use of insulin E11.65 Diabetes mellitus custodial insulin use: without custodial use Additional Codes PHQ-9 - 99011 - PHQ-9 Billing: Yes ([id number]) Assessment & Plan Assessment & Plan (1) Acute exacerbation of CHF (congestive heart failure): Code(s): I50.9 - Heart failure, unspecified Category: Medical (2) Atrial fibrillation with RVR: Code(s): I48.91 - Unspecified atrial fibrillation Category: Medical (3) Coronary artery disease: Comment: STEMI May 2011 Promus stent in LAD and vision [place] old chromium stent in 1st diagonal apical akinesis apical thrombus Code(s): I25.10 - Atherosclerotic heart disease of [place] coronary artery without angina pectoris Category: Medical Qualifiers: Associated angina: without angina Coronary Disease-Associated Artery/Lesion type: [place] artery [place] vs. transplanted heart: [place] heart Qualified Code(s): I25.10 - Atherosclerotic heart disease of [place] coronary artery without angina pectoris (4) Hypertension: Code(s): I10 - Essential (primary) hypertension Category: Medical Qualifiers: Hypertension type: essential hypertension Qualified Code(s): I10 - Essential (primary) hypertension (5) Hypercholesterolemia: Code(s): E78.00 - Pure hypercholesterolemia, unspecified Category: Medical (6) Type 2 diabetes mellitus with hyperglycemia: Comment: [facility] Code(s): E11.65 - Type 2 diabetes mellitus with hyperglycemia Category: Medical Qualifiers: Diabetes mellitus long term acute care registered nurse insulin use: without custodial use Qualified Code(s): E11.65 - Type 2 diabetes mellitus with hyperglycemia Plan - - Monitor and manage diabetes mellitus with careful adjustment of medications considering potential interactions and side effects, especially considering the patient's low A1c and the potential need to adjust glipizide. - Review ongoing kidney function with regular creatinine monitoring, ensuring careful blood pressure control. - Evaluate and optimize atrial fibrillation management with continued amiodarone therapy and consideration for ablation as discussed with the medical and health services manager. Arrange for regular monitoring of liver and thyroid function due to amiodarone use. - Reinforce lifestyle modifications, including dietary adjustments ,increase fluid intake, - Implement rigorous preventive measures against infections due to the potential for exacerbating atrial fibrillation and other medical conditions. - Schedule routine lab work and follow any pending investigations such as ultrasound if needed as per previous abnormal results on liver function tests. Orders: Orders Complete Blood Count Auto Diff 3 Months I50.9 - Heart failure, unspecified Comprehensive Met. Panel 3 Months I50.9 - Heart failure, unspecified B Type Natriuretic Peptide 3 Months I50.9 - Heart failure, unspecified Free T4 (Free Thyroxine) 3 Months I50.9 - Heart failure, unspecified Thyroid Stimulating Hormone 3 Months I50.9 - Heart failure, unspecified
[2024-05-08 15:00] VITALS: BP 108/54; PULSE 70; O2SAT 96; BMI 29.0
--- OUTSIDE RECORDS SUMMARY | 2024-05-08 18:57 | XMS_ITS | Patient Health Record ---
Author Organization [facility] Address [address] [place] [id number] Care Team Providers Care Instrument And Control Technician Name Role Phone Shilpi Pillai MD Primary [...] Problem Colon cancer screening (Z12.11) Active confirmed 744325839 Problem Long-term use of aspirin therapy (Z79.82) Active confirmed [id number] Problem longterm (current) use of oral hypoglycemic drugs (Z79.84) Active confirmed [id number] PLAN OF TREATMENT Future Test Test Name Order Date COLONOSCOPY 06/21/2014 COLONOSCOPY 06/30/2021 Insurance Providers Payer Name Payer Address Payer Phone Subscriber Number Group Number Insured Name Patient Relationship to Insured Coverage Start Date Coverage End Date [employer] Medicare Advantage Plan [address] [address] [place] [address] [id number] REANNA ROSALES Self - patient is the insured MEDICAL (GENERAL) HISTORY Medical History History ICD Code diabetes mellitus [place] 06/07/2011 coronary artery disease with stent place ment cardiomyopathy, ejection fraction 32% hypertension elevated cholesterol Colonoscopy 09/07, tubular adenoma, five- year followup Surgical History Surgery Date(Month/Year) vasectomy 1986 wisdom teeth extraction 1970 ICD
== END 2024-05-08 15:45 | disposition home or self-care (01) ==
PROVIDERS: PCP Internal Medicine; Visit Provider Internal Medicine
DX: I50.9 Heart failure, unspecified (principal); I48.91 Unspecified atrial fibrillation; I25.10 Atherosclerotic heart disease of native coronary artery without angina pectoris; I10 Essential (primary) hypertension; E78.00 Pure hypercholesterolemia, unspecified; E11.65 Type 2 diabetes mellitus with hyperglycemia

== ENCOUNTER → 2024-05-08 14:57 | Outpatient (BNVA) | payer MEDICARE, OTHER, SELFPAY | PROVIDERS: PCP Internal Medicine; Visit Provider Internal Medicine | DX: E11.22 Type 2 diabetes mellitus with diabetic chronic kidney disease (principal); I13.0 Hypertensive heart and chronic kidney disease with heart failure and stage 1 through stage 4 chronic kidney disease, or unspecified chronic kidney disease; N18.9 Chronic kidney disease, unspecified; I48.91 Unspecified atrial fibrillation; I25.10 Atherosclerotic heart disease of native coronary artery without angina pectoris; I50.9 Heart failure, unspecified; E78.00 Pure hypercholesterolemia, unspecified; E11.65 Type 2 diabetes mellitus with hyperglycemia | CPT/HCPCS: 96127; 99212 ==

== ENCOUNTER → 2024-05-15 13:23 | Outpatient (BNVA) | payer MEDICARE, OTHER, SELFPAY | PROVIDERS: PCP Internal Medicine; Visit Provider Internal Medicine Cardiovascular Disease | DX: I48.3 Typical atrial flutter (principal); I50.42 Chronic combined systolic (congestive) and diastolic (congestive) heart failure; I25.10 Atherosclerotic heart disease of native coronary artery without angina pectoris; Z95.810 Presence of automatic (implantable) cardiac defibrillator | CPT/HCPCS: 93005; 99212 ==

== ENCOUNTER 2024-06-14 13:36 | Outpatient (REF) | payer MEDICARE, SELFPAY ==
--- NOTE | ~2024-06-14 | US_ITS ---
CLINICAL HISTORY: N20.0 - Calculus of kidney US Renal Comparison: None Findings: Right kidney normal size and echotexture, 10.5 cm length. Left kidney normal size and echotexture, 11.3 cm length. Mild bilateral renal scarring. No discrete evidence of stone on ultrasound. No hydronephrosis (there is mild prominence of the left renal pelvis). No renal mass lesion. IMPRESSION: Mild bilateral renal scarring. Otherwise unremarkable kidneys. This document has been electronically signed by: Daniella Kapadia MD on 06/15/2024 10:32:29
--- OUTSIDE RECORDS SUMMARY | 2024-06-14 13:59 | XMS_ITS | Patient Health Record ---
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 [address] [place] [address] [id number] REANNA ROSALES Self - patient is the insured MEDICAL (GENERAL) HISTORY Medical History History ICD Code diabetes mellitus [place] 06/07/2011 coronary artery disease with stent place ment cardiomyopathy, ejection fraction 32% hypertension elevated cholesterol Colonoscopy 09/07, tubular adenoma, five- year followup Surgical History Surgery Date(Month/Year) vasectomy 1986 wisdom teeth extraction 1970 ICD
--- OUTSIDE RECORDS SUMMARY | 2024-06-14 13:59 | XMS_ITS | Clinical Summary ---
Author Organization [facility] Address [address] [place] [address] Care Team Providers Care Warehouse Shipper Name Role Phone Unavailable Primary Care Provider Unavailabl e Social History Tobacco Use Types Packs/Day Years Used Date Smoking Tobacco: Never Assessed Sex and Gender Information Value Date Recorded Sex Assigned at Not on file Gender Identity Not on file Sexual Orientation Not on file Plan of Treatment Health Maintenance Due Date Last Done Comments Hepatitis C Virus Screening 1955 DTaP/Tdap/Td Vaccines (1 - Tdap) 1973 Pneumococcal Vaccines 50+ (1 of 1 - PCV) 2004 Zoster (Shingles) Vaccine (1 of 2) 2004 COVID-19 Vaccine ( - 2023-2 5 season) 2023 RSV Vaccine 60 years and old er and Patients (1 - 1-dose 75+ series) 2029 Hepatitis B Vaccines Aged Out No long er eligible based on patient's age to complete this topic
== END 2024-06-14 13:37 | disposition home or self-care (01) ==
LOC: HO.US 13:36
PROVIDERS: PCP Internal Medicine; Visit Provider Urology
DX: N20.0 Calculus of kidney (principal)
CPT/HCPCS: 76775

== ENCOUNTER → 2024-06-14 13:40 | Outpatient (BNV) | payer MEDICARE, SELFPAY | PROVIDERS: PCP Internal Medicine; Visit Provider Radiology Diagnostic Radiology | DX: N28.89 Other specified disorders of kidney and ureter (principal) | CPT/HCPCS: 76775 ==

== ENCOUNTER 2024-06-23 11:17 | Outpatient (AMB) | payer MEDICARE, MEDICAID, SELFPAY ==
--- NOTE | 2024-06-23 11:20 | MHC.OFFVIS ---
Intake Visit Reasons: 1Y US(set) Intake Note: Pt presents to the office today for a 1 year follow up ultrasound. Allergies lisinopril [LISINOPRIL] Allergy (Mild, Verified 06/23/24 11:21) UNKNOWN, cough, cough doxycycline [DOXYCYCLINE] Allergy (Unknown, Verified 06/23/24 11:21) UNKNOWN glimepiride [GLIMEPIRIDE] Allergy (Unknown, Verified 06/23/24 11:21) SEVERE BACK PAIN ibuprofen [From Motrin] Allergy (Unknown, Verified 06/23/24 11:21) Nausea tamsulosin [TAMSULOSIN] Allergy (Unknown, Verified 06/23/24 11:21) UNKNOWN, Fever dofetilide [From Tikosyn] Adverse Reaction (Severe, Verified 06/23/24 11:21) Diarrhea apixaban [From Eliquis] Adverse Reaction (Intermediate, Verified 06/23/24 11:21) Nausea and Vomiting rosuvastatin Adverse Reaction (Intermediate, Verified 06/23/24 11:21) hypotension' adhesive tape Adverse Reaction (Mild, Verified 06/23/24 11:21) Itching HPI Comments Details: Td is a pleasant male. He is a patient of Dr. Pillai. He is seen following conditions - nephrolithiasis - erectile dysfunction diabetic Twelve month follow-up Renal ultrasound no evidence of stone Urinary Symptoms Review - Previous history of renal stones. - Recent intervention with right Extracorporeal Shock Wave Lithotripsy (ESWL) in October 2022. - Currently on allopurinol and vitamin B6. - No new stone formation on recent ultrasound. - Fluid intake approximately 70-80 ounces per day. Nephrolithiasis Seen today for discussion of follow-up nephrolithiasis management Initial stone presentation - [facility] June 2020 Imaging - 07/14 CT scan - 3 mm distal right ureteric stone with stranding, 4 mm right renal stone, 3 mm left renal stone - 08/14 renal ultrasound - resolved stranding, bilateral twinkling - 02/13 renal ultrasound left small stone - 08/15 renal ultrasound 5 mm stones bilateral - 02/14 KUB no stones seen -09/15 renal ultrasound-1 cm upper pole renal stone - 04/18 renal ultrasound no evidence of stones Intervention - 11/15 right ESWL Associated conditions - diabetes with metabolic syndrome Therapeutic plan - hydration with lemon therapy - vitamin B6, allopurinol PSA 10/16- 0.3 Erectile dysfunction diabetic Trouble obtaining and maintaining erection Trial daily tadalafil with on demand 20 mg Laboratories - T 07/15 300, 08/16 236 Concurrent conditions - diabetic 10/16-- HbA1c 5.7 - dyslipidemia on statins 10/16-- Ch 52 - coronary artery disease with implant on carvedilol Therapeutic plan - above COUNTS INCLUDE 234 BEDS AT [facility] Medical History Coronary artery disease Visit for monitoring Tikosyn therapy CKD (chronic kidney disease) stage 3, GFR 30-59 ml/min Obesity (BMI 30.0-34.9) Heart failure with reduced ejection fraction Ischemic cardiomyopathy Chronic heart failure with reduced ejection fraction and diastolic dysfunction ICD (implantable cardioverter-defibrillator) in place Pneumonia Anxiety and depression Bilateral renal stones Hypercholesterolemia Psoriasis Gout Hypertension GERD (gastroesophageal reflux disease) Surgical History Hx of colonoscopy History of heart artery stent S/P ICD (internal cardiac defibrillator) procedure History of cataract surgery History of surgery History of vasectomy History of wisdom tooth extraction Family History Father Diabetes Prostate cancer CVD (cardiovascular disease) Mother CVD (cardiovascular disease) Acute CVA (cerebrovascular accident) Social History Household Members: Spouse Housing: House Are you a primary assurance services manager health care to a significant other at home: No Do you presently have visiting nurse or other home services: No Alcohol intake: current Alcohol intake frequency: holidays/special occasions only Comment: once q2 months 1/2 bottle of wine Patient Tobacco Use Status: Never used Tobacco Tobacco use type: Cigarette e-Cigarette/Vaping Use: Never Used Second Hand Smoke Exposure: No service: No Current occupational status: retired Cognitive needs: No Hearing needs: No Vision needs: Yes Review of Systems Const Denies chills and Denies fever(s) Card Reports no additional complaints and Denies syncope Resp Denies cough GI Denies abdominal pain and Denies heartburn Reports as per HPI and Denies change in libido Neuro Denies syncope Psych Denies change in libido Endo Denies change in libido Physical Exam Const General: cooperative, healthy appearing, comfortable and no acute distress Orientation/consciousness: patient oriented x3 HEENT Face and sinus: Yes normal facial exam Mouth: moist mucous membranes Neck Neck: Yes normal visual inspection, Yes full ROM and Yes trachea midline Chest Chest palpation & inspection: normal inspection of the chest Resp Effort & Inspection: normal respiratory effort, able to speak in complete sentences and no respiratory distress GI Inspection: Yes normal to inspection Back/Spine/Pelvis Cervical Spine: normal cervical lordosis Thoracic/Lumbar Spine: thoracic and lumbar spine normal to inspection Skin General skin exam: no rashes or lesions noted Neuro General: patient oriented x3, gait normal, tone normal and moves all extremities Extrem General: Yes normal to inspection and Yes capillary refill normal Assessment & Plan Assessment & Plan (1) Nephrolithiasis: Comment: 10/[address] Fischer Code(s): N20.0 - Calculus of kidney Category: Medical (2) Erectile dysfunction associated with type 2 diabetes mellitus: Code(s): E11.69 - Type 2 diabetes mellitus with other specified complication; N52.1 - Erectile dysfunction due to diseases classified elsewhere Category: Medical Plan Plan 1. Erectile dysfunction management includes tadalafil 5 mg daily with 20 mg as needed. Introduce penile constriction device as an adjunct. Refill prescriptions for tadalafil. Consent obtained for the discussed management strategies.: Discussion Notes The patient and I discussed his history of nephrolithiasis, the recent success in preventing new stones following treatment, and his ongoing management with allopurinol and vitamin B6. We emphasized the critical role of adequate hydration. His background of congestive heart failure and successful weight management were reviewed, noting the effective use of Lasix and its impact on his diabetes control. For erectile dysfunction, we explored the current use of tadalafil and the potential benefits of a penile constriction device as a complementary therapy. Consent was obtained, and the efficacy of these methods was discussed, highlighting patient autonomy in choosing non-pharmacological options. Follow-up was scheduled with instructions for a renal ultrasound in one year to assess for any stone recurrence. Patient Instructions - Continue taking allopurinol and vitamin B6 as prescribed. - Maintain daily fluid intake between 70-80 ounces. - Follow recommended low carbohydrate dietary patterns. - Use tadalafil 5 mg daily and 20 mg as needed for erectile dysfunction. - Consider penile constriction device as an adjunct if needed. - Schedule a renal ultrasound and follow up in one year. - Contact our office if any new urinary symptoms or concerns arise before the next scheduled visit. Orders: Orders US renal BI 12 Months N20.0 - Calculus of kidney Medications: New tadalafil On demand medication take 60 minutes before intended activity 20 mg PO ONCE 30 days PRN 30 tabs 0RF sexual activity E11.69 - Type 2 diabetes mellitus with other specified complication, N52.1 - Erectile dysfunction due to diseases classified elsewhere Changed From allopurinol 100 mg PO BEDTIME E11.69 - Type 2 diabetes mellitus with other specified complication, N52.1 - Erectile dysfunction due to diseases classified elsewhere To allopurinol 100 mg PO BEDTIME 90 days 90 tabs 3RF E11.69 - Type 2 diabetes mellitus with other specified complication, N52.1 - Erectile dysfunction due to diseases classified elsewhere Refilled pyridoxine (vitamin B6) 50 mg PO DAILY 90 days 90 tabs 3RF N20.0 - Calculus of kidney Coding Level of Care Code Est Pt Level 4 (26266) Diagnoses Nephrolithiasis N20.0 Erectile dysfunction associated with type 2 diabetes mellitus E11.69; N52.1
--- OUTSIDE RECORDS SUMMARY | 2024-06-23 13:24 | XMS_ITS | Patient Health Record ---
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 Role Phone Shilpi Pillai MD Primary Care Provider Liban Holliday Jr Unavailable ALLERGIES Allergen (clinical drug ingredient) Drug/Non Drug Allergy documented on EMR Reaction Allergy Type Onset Date Status Motrin Unknown Drug Allergy Active glimepiride Glimepiride Unknown Drug Allergy Act shi doxicyline (uncoded) Unknown Allergy Active seasonal (uncoded) Unknown Allergy A ctive tamsulosin Tamsulosin Unknown Drug Allergy Activ e lisinopril Lisinopril Unknown Drug Allergy Activ e REASON FOR [...] Problem Colon cancer screening (Z12.11) Active confirmed 339274022 Problem Long-term use of aspirin therapy (Z79.82) Active confirmed 039008422 Problem rn long term care (current) use of oral hypoglycemic drugs (Z79.84) Active confirmed [id number] PLAN OF TREATMENT Future Test Test Name Order Date COLONOSCOPY 06/21/2014 COLONOSCOPY 06/30/2021 Insurance Providers Payer Name Payer Address Payer Phone Subscriber Number Group Number Insured Name Patient Relationship to Insured Coverage Start Date Coverage End Date [employer] Medicare Advantage Plan [address] [address] [place] [address] [id number] REANNA ROSALES Self - patient is the insured MEDICAL (GENERAL) HISTORY Medical History History ICD Code diabetes mellitus [place] 06/07/2011 coronary artery disease with stent place ment cardiomyopathy, ejection fraction 32% hypertension elevated cholesterol Colonoscopy 09/07, tubular adenoma, five- year followup Surgical History Surgery Date(Month/Year) vasectomy 1986 wisdom teeth extraction 1970 ICD
== END 2024-06-23 11:53 | disposition home or self-care (01) ==
PROVIDERS: PCP Internal Medicine; Visit Provider Urology
DX: N20.0 Calculus of kidney (principal); E11.69 Type 2 diabetes mellitus with other specified complication; N52.1 Erectile dysfunction due to diseases classified elsewhere
CPT/HCPCS: 99214

== ENCOUNTER → 2024-06-23 11:17 | Outpatient (BNVA) | payer MEDICARE, MEDICAID, SELFPAY | PROVIDERS: PCP Internal Medicine; Visit Provider Urology | DX: N20.0 Calculus of kidney (principal); E11.69 Type 2 diabetes mellitus with other specified complication; N52.1 Erectile dysfunction due to diseases classified elsewhere | CPT/HCPCS: 99212 ==

== ENCOUNTER 2024-06-28 08:30 | Outpatient (REF) | payer MEDICARE, MEDICAID, SELFPAY ==
--- OUTSIDE RECORDS SUMMARY | 2024-06-28 09:04 | XMS_ITS | Clinical Summary ---
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
--- OUTSIDE RECORDS SUMMARY | 2024-06-28 09:04 | XMS_ITS | Patient Health Record ---
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 Role Phone Shilpi Pillai MD Primary Care Provider Liban Holliday Jr Unavailable [phone] Allergies Allergen (clinical drug ingredient) Drug/Non Drug Allergy documented on EMR Reaction Allergy Type Onset Date Status tamsulosin Tamsulosin Unknown Drug Allergy Activ e lisinopril Lisinopril Unknown Drug Allergy Activ e Motrin Unknown Drug Allergy Active glimepiride Glimepiride Unknown Drug Allergy Act shi doxicyline (uncoded) Unknown Allergy Active seasonal (uncoded) Unknown Allergy A ctive Reason For Referral No Information Medications Medication SIG (Take, Route, Frequency, Duration) Notes [...] with meals Orally Twice a day Active Immunizations Vaccine Route Administration Date Status Comme nts Influenza Unknown 02/12/2021 Administered Problems Problem Type SNOMED Code ICD Code Onset Dates Problem Status W/U Status Risk Notes Problem [id number] Colon cancer screening (Z12.11) Active confirmed Problem [id number] Long-term use of aspirin therapy (Z79.82) Active confirmed Problem [id number] senior living (current) use of oral hypoglycemic drugs (Z79.84) Active confirmed Plan Of Treatment Future Test Test Name Order Date COLONOSCOPY 06/21/2014 COLONOSCOPY 06/30/2021 Insurance Providers Payer Name Payer Address Payer Phone Subscriber Number Group Number Insured Name Patient Relationship to Insured Coverage Start Date Coverage End Date [employer] Medicare Advantage Plan [address] [address] [place] [address] [id number] CONNIE REANNA Self - patient is the insured Medical (General) History Medical History History ICD Code diabetes mellitus [place] 06/07/2011 coronary artery disease with stent place ment cardiomyopathy, ejection fraction 32% hypertension elevated cholesterol Colonoscopy 09/07, tubular adenoma, five- year followup Surgical History Surgery Date(Month/Year) vasectomy 1986 wisdom teeth extraction 1969 ICD
[2024-06-28 10:23] LABS: MANUAL DIFF FLAG NO
[2024-06-28 10:39] LABS: Basophils Percent Auto 0.6 % (0-2); Eosinophils Absolute Auto 0.5 X10*3/uL (0.0-0.4); Eosinophils Percent Auto 7.3 % (0-4); Hematocrit 38.9 % (42.0-52.0); Hemoglobin 13.2 g/dl (14.0-18.0); Imm Gran Abs Auto 0.02 X10*3/uL (0.00-0.03); Imm Gran Pct Auto 0.3 % (0.0-0.4); Lymphocytes Absolute Auto 1.8 X10*3/uL (1.2-4.9); Lymphocytes Percent Auto 28.4 % (20-40); Mean Corpuscular HGB Conc 33.9 g/dl (31.0-36.0); Mean Corpuscular Hemoglobin 30.3 pg (27.0-33.0); Mean Corpuscular Volume 89.4 fL (80.0-98.0); Mean Platelet Volume 9.5 fL (9.4-12.4); Monocytes Absolute Auto 0.5 X10*3/uL (0.1-1.2); Monocytes Percent Auto 6.9 % (2-11); Neutrophils Absolute Auto 3.7 x10*3/uL (2.0-8.3); Neutrophils Percent Auto 56.5 % (45-73); Platelet Count 187 X10*3/uL (160-400); Red Blood Count 4.35 X10*6/uL (4.60-5.80); Red Cell Distribution Width 13.6 % (11.0-16.0); White Blood Count 6.5 X10*3/uL (4.8-10.8)
[2024-06-28 11:12] LABS: B Type Natriuretic Peptide 89 pg/mL (<100)
[2024-06-28 11:31] LABS: Alanine Aminotransferase 41 U/L (0-40); Albumin Level 4.1 g/dL (3.5-5.0); Alkaline Phosphatase 58 U/L (39-117); Anion Gap 10 (12-20); Aspartate Amino Transferase 33 U/L (5-37); Bilirubin Total 0.3 mg/dL (0.0-1.0); Blood Urea Nitrogen 19 mg/dL (9-16); Calcium 9.8 mg/dL (8.4-10.2); Carbon Dioxide 30 mmol/L (22-29); Chloride 107 mmol/L (96-108); Estimated Glomerular Filt Rate > 60; Glucose Random 118 mg/dL (60-115); Potassium 4.1 mmol/L (3.3-5.1); Sodium 143 mmol/L (135-145)
[2024-06-28 11:51] LABS: Free T4 (Free Thyroxine) 1.01 ng/dL (0.71-1.85); Thyroid Stimulating Hormone 3.34 uIU/mL (0.32-4.0)
== END 2024-06-28 08:31 | disposition home or self-care (01) ==
LOC: HO.10HDL 08:30
PROVIDERS: Visit Provider Internal Medicine
DX: I50.9 Heart failure, unspecified (principal)
CPT/HCPCS: 36415; 80053; 83880; 84439; 84443; 85025

== ENCOUNTER 2024-07-05 08:17 | Outpatient (AMB) | payer MEDICARE, MEDICAID, SELFPAY ==
--- NOTE | 2024-07-05 08:30 | AM.OFFVISMDC ---
Intake Vital Signs 07/05/24 08:31 Height 5 ft 9 in Weight 197 lb BMI 29.1 BP 118/62 Blood Pressure Location Lt brachial Position Sitting Pulse 63 Pulse Source Pulse Oximeter Pulse Oximetry (%) 97 Oxygen Delivery Method Room Air Intake Visit Reasons: annual exam Intake Note: Patient is having trouble sleeping. Having very vivid dreams. Allergies lisinopril [LISINOPRIL] Allergy (Mild, Verified 07/05/24 08:31) UNKNOWN, cough, cough doxycycline [DOXYCYCLINE] Allergy (Unknown, Verified 07/05/24 08:31) UNKNOWN glimepiride [GLIMEPIRIDE] Allergy (Unknown, Verified 07/05/24 08:31) SEVERE BACK PAIN ibuprofen [From Motrin] Allergy (Unknown, Verified 07/05/24 08:31) Nausea tamsulosin [TAMSULOSIN] Allergy (Unknown, Verified 03 08:31) UNKNOWN, Fever dofetilide [From Tikosyn] Adverse Reaction (Severe, Verified 07/05/24 08:31) Diarrhea apixaban [From Eliquis] Adverse Reaction (Intermediate, Verified 07/05/24 08:31) Nausea and Vomiting rosuvastatin Adverse Reaction (Intermediate, Verified 07/05/24 08:31) hypotension' adhesive tape Adverse Reaction (Mild, Verified 07/05/24 08:31) Itching Medication List - Last Reconciled 07/05/24 by Shilpi Pillai MD allopurinol 100 mg PO BEDTIME 90 days amiodarone 200 mg PO DAILY ascorbate calcium (vitamin C) 500 mg PO DAILY carvedilol 25 mg PO BID cholecalciferol (vitamin D3) 10,000 units PO DAILY clotrimazole 1% 1 appl topical BID PRN coenzyme Q10 (Co Q-10) 20 mg PO DAILY ezetimibe 10 mg PO DAILY furosemide 40 mg PO DAILY loratadine 10 mg PO DAILY magnesium 30 mg PO DAILY metformin 500 mg PO BIDWMEAL 90 days multivitamin 1 tab PO DAILY omega 6-[id number]-[id number]-fish oil 60-90-500 mg (Fish Oil) 1 cap PO DAILY pravastatin 40 mg PO BEDTIME pyridoxine (vitamin B6) 50 mg PO DAILY 90 days rivaroxaban (Xarelto) 20 mg PO DAILY@1700 sacubitril-valsartan 49-51 mg (Entresto) 0.5 tabs PO BID sitagliptin phosphate (Januvia) 100 mg PO DAILY tadalafil 5 mg PO DAILY 90 days tadalafil 20 mg PO ONCE PRN 30 days triamcinolone acetonide 0.5% 1 appl topical BID PRN vitamin K2 100 mcg PO DAILY zinc sulfate (Orazinc) 25 mg PO DAILY PFS Medical History Coronary artery disease Visit for monitoring Tikosyn therapy CKD (chronic kidney disease) stage 3, GFR 30-59 ml/min Obesity (BMI 30.0-34.9) Heart failure with reduced ejection fraction Ischemic cardiomyopathy Chronic heart failure with reduced ejection fraction and diastolic dysfunction ICD (implantable cardioverter-defibrillator) in place Pneumonia Anxiety and depression Bilateral renal stones Hypercholesterolemia Psoriasis Gout Hypertension GERD (gastroesophageal reflux disease) Surgical History Hx of colonoscopy History of heart artery stent S/P ICD (internal cardiac defibrillator) procedure History of cataract surgery History of surgery History of vasectomy History of wisdom tooth extraction Family History Father Diabetes Prostate cancer CVD (cardiovascular disease) Mother CVD (cardiovascular disease) Acute CVA (cerebrovascular accident) Social History (Updated 07/05/24 @ 08:58 by Shilpi Pillai MD) Household Members: Spouse Housing: House Are you a primary physician assistant primary care to a significant other at home: No Do you presently have visiting nurse or other home services: No Alcohol intake: current Alcohol intake frequency: holidays/special occasions only Comment: once q2 months 1/2 bottle of wine, q 2 month 1/2 cup Patient Tobacco Use Status: Never used Tobacco Tobacco use type: Cigarette e-Cigarette/Vaping Use: Never Used Second Hand Smoke Exposure: No service: No Current occupational status: retired Cognitive needs: No Hearing needs: No Vision needs: Yes Questionnaire Medicare Wellness Checkup [age] What gender do you identify with?: male During the past 4 weeks, how much have you been bothered by emotional problems such as feeling anxious, depressed, irritable, sad or downhearted, and blue?: slightly During the past 4 weeks, has your physical & emotional health limited your social activities with family, friends, neighbors, or groups?: not at all During the past 4 weeks, how much bodily pain have you generally had?: no pain During the past 4 weeks, was someone available to help you if you needed & wanted help?: yes, as much as I wanted During the past 4 weeks, what was the hardest physical activity you could do for at least 2 minutes?: moderate Can you get to places out of walking distance without help? (For eg., can you travel alone on buses, taxis or drive your car?): Yes Can you go shopping for groceries or clothes without someone's help?: Yes Can you prepare your own meals?: Yes Can you do your housework without help?: Yes Because of any health problems, do you need the help of another person with your personal care needs such as eating, bathing, dressing or getting around the house?: No Can you handle your own money without help?: Yes During the past 4 weeks, how would you rate your health in general?: good During the past 4 weeks how have things been going for you?: pretty well Are you having difficulties driving your car?: no Do you always fasten your seat belt when you are in a car?: yes, usually During past 4 weeks, have you been bothered by the following: never: Trouble eating well?, Teeth or denture problems? and Problems using the telephone?, seldom: Falling or dizzy when standing up and Sexual problems? and sometimes: Tiredness or fatigue? Have you fallen 2 or more times in the past year?: No Are you afraid of falling?: No Are you a smoker?: no During the past 4 weeks, how many drinks of wine, beer, or other alcoholic beverages did you have?: no alcohol at all Do you exercise for about 20 minutes 3 or more times a week?: no, I usually do not exercise this much Have you been given information to help with the following?: no: Hazards in your house that might hurt you? and no: Keeping track of your medications? How often do you have trouble taking medicines the way you have been told to take them?: I always take medicine as prescribed How confident are you that you can control & manage most of your health problems?: very confident What is your race?: White PHQ-9 Over the last 2 weeks, how often have you been bothered by any of the following problems? 1. Little interest or pleasure in doing things: several days 2. Feeling down, depressed, or hopeless: several days 3. Trouble falling or staying asleep, or sleeping too much: several days 4. Feeling tired or having little energy: several days 5. Poor appetite or overeating: not at all 6. Feeling bad about yourself - or that you are a failure or have let yourself or your family down: not at all 7. Trouble concentrating on things, such as reading the newspaper or watching television: not at all 8. Moving or speaking so slowly that other people could have noticed. Or the opposite - being so fidgety or restless that you have been moving around a lot more than usual: not at all 9. Thoughts that you would be better off or of hurting yourself in some way: not at all Total score: 4 Depression Screening Interpretation: Positive Depression Screening Done: Yes 68975 - PHQ-9 Billing: Yes Source: Developed by Drs. Gopal Lazaro, Dora Rosario, Jose Ferrera and colleagues, with an educational laura from [employer]. Review of Systems Const Denies poor appetite and Denies weakness Eyes Denies no additional complaints ENT Reports Normal hearing present, Denies dizziness, Denies nasal congestion, Denies tinnitus and Denies sore throat Card Denies chest pain, Denies syncope, Denies rapid heart rate and Denies dyspnea Resp Denies cough and Denies dyspnea GI Denies change in stool character, Reports constipation, Denies diarrhea, Denies nausea and Denies vomiting Denies dysuria and Denies urinary frequency Neuro Reports Normal hearing present, Denies confusion, Denies dizziness, Denies syncope and Denies weakness Psych Denies confusion Physical Exam Vital Signs: Last Vital Signs Pulse 63 07/05/24 08:31 BP 118/62 07/05/24 08:31 Pulse Ox 97 07/05/24 08:31 Oxygen Delivery Method Room Air 07/05/24 08:31 BMI result Body Mass Index 29.1 Const General: No confusion Orientation/consciousness: No confusion HEENT Head: Yes normocephalic Ears: external ears normal and TM's normal bilaterally Face and sinus: Yes normal facial exam Mouth: moist mucous membranes Throat: Yes tonsils normal Eyes Conjunctivae: conjunctivae normal Pupils: Equal, round and reactive pupils present and Pupil accommodation reflex normal Direct Ophthalmoscopy: normal light reflex Neck Neck: No lymphadenopathy Thyroid: Thyroid normal Chest Chest palpation & inspection: normal inspection of the chest Resp Effort & Inspection: normal respiratory effort and no audible wheezes Auscultation: clear to auscultation bilaterally, no crackles, no wheezes and lung sounds not diminished Cardio Rate: regular rate Rhythm: regular rhythm Peripheral pulses: radial pulses present and dorsalis pedis present GI Other: talks to gastro Palpation (GI): no masses Auscultation: normal bowel sounds and normoactive bowel sounds Rectal Exam - Male: Yes deferred Male General Exam: Yes normal external exam Skin General skin exam: no rashes or lesions noted Rashes: no rashes Neuro General: No confusion Cranial nerves: Yes Equal, round and reactive pupils present and Yes Normal hearing present Cognition (Neuro): normal cognition Gait exam (Neuro): Normal gait present Motor exam (neuro): 5/5 motor strength present throughout Deep tendon reflexes (DTR's): Right brachioradialis reflex intensity grade: 2+, Left brachioradialis reflex intensity grade: 2+, Right patellar reflex intensity grade: 2+ and Left patellar reflex intensity grade: 2+ Extrem General: No edema Results AMB Hemoglobin A1c AMB Hemoglobin A1c 5.9 % Last Edit by Stephie Skinner CMA on 07/05/24 08:55 Results Reviewed Results Reviewed: Laboratory Last Values Hgb A1c (Clinic) 5.9 % (4.0-6.0) 07/05/24 08:32 Assessment & Plan Assessment & Plan (1) Medicare annual wellness visit, subsequent: Code(s): Z00.00 - Encounter for general adult medical examination without abnormal findings Plan: Patient is advised to eat healthy, keep well hydrated, keep active and have adequate sleep. (2) Atrial flutter: Comment: Status post cardioversion 04/07/2024 Code(s): I48.92 - Unspecified atrial flutter Qualifiers: Atrial flutter type: typical Qualified Code(s): I48.3 - Typical atrial flutter Plan: Patient has been in talks with key sander for ablation. Was advised to get a CT scan of the heart. (3) Coronary artery disease: Comment: STEMI May 2011 Promus stent in LAD and vision [place] old chromium stent in 1st diagonal apical akinesis apical thrombus Code(s): I25.10 - Atherosclerotic heart disease of [place] coronary artery without angina pectoris Qualifiers: Associated angina: without angina Coronary Disease-Associated Artery/Lesion type: [place] artery [place] vs. transplanted heart: [place] heart Qualified Code(s): I25.10 - Atherosclerotic heart disease of [place] coronary artery without angina pectoris Plan: Control the cholesterol, weight, blood pressure, diabetes patient presently on anticoagulation (4) Chronic heart failure with reduced ejection fraction and diastolic dysfunction: Code(s): I50.42 - Chronic combined systolic (congestive) and diastolic (congestive) heart failure Plan: Continue with diuretics and beta lesa on carvedilol 25 mg twice a day (5) Type 2 diabetes mellitus with hyperglycemia: Comment: [facility] Code(s): E11.65 - Type 2 diabetes mellitus with hyperglycemia Qualifiers: Diabetes mellitus mcfp insulin use: without terminal gauger supervisor use Qualified Code(s): E11.65 - Type 2 diabetes mellitus with hyperglycemia Plan: Decrease the amount of carbohydrate intake, pasta, bread, rice and potatoes are all sugar and that is aside from all the sweet stuff, remember that fruits are good but they are Sweet also. Hemoglobin A1c goal of less than 7.0 on metformin 500 mg twice a day Januvia 100 mg once a day (6) Hypertension: Code(s): I10 - Essential (primary) hypertension Qualifiers: Hypertension type: essential hypertension Qualified Code(s): I10 - Essential (primary) hypertension Plan: Continue with blood pressure medication. Decrease salt intake and exercise patient takes carvedilol Entresto. (7) Hypercholesterolemia: Code(s): E78.00 - Pure hypercholesterolemia, unspecified Plan: Avoid fried foods, chicken skin, eggs, butter margarine, pastries and meat. Be it pork or beef they have a lot of cholesterol on pravastatin and Zetia (8) GERD (gastroesophageal reflux disease): Code(s): K21.9 - Gastro-esophageal reflux disease without esophagitis Qualifiers: Esophagitis presence: without esophagitis Qualified Code(s): K21.9 - Gastro-esophageal reflux disease without esophagitis Plan: Avoid the foods that causes that usually spicy foods, tomato products, juices, coffee, soda and foods that your sensitive to. After eating do not lie down, allow 3-4 hours before in lie down. And keep the head of bed above 30 degrees to avoid the acid from going up. (9) Nephrolithiasis: Comment: 10/[address] Fischer Code(s): N20.0 - Calculus of kidney Plan: Patient is being followed up by Urology and last ultrasound no stones. Continuing with B6 and has albuterol. Plan History of Present Illness The patient is a 68-year-old male presenting for his annual wellness visit with a complex history of chronic medical conditions. His primary concerns include the management of type 2 diabetes mellitus, cardiovascular health given his coronary artery disease and congestive heart failure, and past nephrolithiasis. His type 2 diabetes has been managed with metformin and Januvia, with an A1c of 5.9%, demonstrating good control. He also has a history of essential hypertension, controlled with carvedilol and entresto. Hyperlipidemia is managed with pravastatin and Zetia, evidenced by an LDL level of 32 mg/dL as of February 2024. In 2014, a colonoscopy discovered a tubular adenoma, and a repeat procedure in 2021 was conducted as a follow-up. The patient had ESWL in 2022 and currently shows no evidence of renal stones. Erectile dysfunction is actively managed with on-demand tadalafil. He continues to evaluate options for catheter ablation, with discussions regarding pulmonary vein anatomy assessment via a scheduled CT scan. He uses anticoagulation therapy, takes supplements including B6 and allopurinol, and maintains communication with multiple specialists for comprehensive care of his conditions. The patient self-reports altered sleep patterns due to vivid dreams potentially attributed to amiodarone and Xarelto. Additional issues discussed include a change in stool consistency, considered non-problematic, and potential episodes of minor dizziness upon standing, likely connected to his diuretic therapy. Health Maintenance - Regular monitoring of HbA1c to maintain levels below 7.0 for diabetes control. - Recent hemoglobin A1c of 5.9% (March). - LDL level of 32 mg/dL (February 2024). - Annual cholesterol screening continued. - Colonoscopy follow-ups per standard protocol; last in July 2021. - Urology follow-up: no evidence of renal stones; ESWL in 2022. - Assessment for pulmonary vein anatomy via CT scan. - Regular assessment and management of cardiovascular conditions with a turret punch press operator. - Consultation with an key sander for potential catheter ablation. - Routine screening for anemia, electrolytes, and renal function; all reported stable. - Immunizations verified. Pending tetanus booster per pharmacy notification. Social History Review of Systems - Cardiovascular: Denies palpitations and shortness of breath. - Ear/Nose/Throat: Reports tinnitus; denies hearing loss. - Sleep: Reports altered sleep patterns due to vivid dreams. - Gastrointestinal: Reports changes in stool consistency; denies diarrhea, but stools are like large pellets. - Neurological: Reports occasional dizziness upon standing. Physical Exam General: Cooperative, healthy appearing, comfortable, no acute distress and well developed Orientation: Patient oriented x3 Limitations: No limitations Head: Normal to inspection Ears: Hearing grossly normal bilaterally Nose: Normal external nose present Face and sinus: Normal facial exam Eyes: Appearance normal, both eyes and all related structures Neck: Normal visual inspection and Yes full ROM Respiratory: Normal respiratory effort and able to speak in complete sentences. Clear to auscultation bilaterally Cardiovascular: Regular rate and rhythm. Normal S1 and S2 GI: Normal to inspection. Soft to palpation and nontender Skin: No rashes or lesions noted Neuro: Patient oriented x3 Extremities: Normal to inspection Results - Labs: Stable mild anemia, normal electrolytes, and stable renal function. - Screening Tests: - Last hemoglobin A1c 5.9% (March). - Total cholesterol LDL 32 mg/dL (February 2024). - Diagnostics: - Recent renal ultrasound: No evidence of stones post-ESWL. Plan During the visit, an annual wellness check was conducted, focusing on managing chronic conditions, particularly type 2 diabetes mellitus and cardiovascular risk due to coronary artery disease. The patient has been advised to maintain current diabetic medications to achieve target HbA1c levels consistently below 7%. Continued lipid control with pravastatin and Zetia is advised for the cardioprotective effects given the history of coronary artery disease. Further cardiac evaluation via CT scan has been scheduled to evaluate pulmonary vein anatomy in light of continued consideration of catheter ablation for atrial flutter. Medications such as Xarelto, and diuretics, along with a beta-elsa, are to be continued for heart failure management. Erectile dysfunction management with tadalafil remains appropriate based on the current assessment. Recommendations for engaging in regular physical exercise were highlighted to support overall health and manage cardiovascular risk, acknowledging the patient's challenges with motivation. Patient was informed and verbally consented to the use of an ambient scribe for clinic note documentation during this visit. Discussion Notes I discussed with the patient the stable status of his type 2 diabetes mellitus and the current management plan, emphasizing the continued use of metformin and Januvia. The patient expressed understanding of his cardiovascular care, including monitoring through CT imaging and further discussions with his key sander regarding catheter ablation. We reviewed the potential risks and benefits of such a procedure should it proceed. The importance of maintaining LDL levels and managing hypertension was reiterated. Given his complex medical history, I highlighted the significance of continued adherence to prescribed therapies and regular follow-up with various specialties, including cardiology and urology. We discussed lifestyle modifications, especially increasing physical activity levels, to aid in health maintenance. I also addressed his experience with vivid dreams, attributing these as potential medication side effects. Future consultation options were presented for his mental well-being, recognizing his current life adjustments. Patient Instructions - Continue current medications as prescribed, including metformin and Januvia for diabetes management. - Adhere to lipid management with pravastatin and Zetia. - Maintain scheduled follow-ups with cardiology and consider CT imaging for further cardiac assessment. - Monitor for any new symptoms or changes in health, particularly regarding dizzy sensations upon standing. - Engage in regular physical activity where possible and consider family or community support where needed. - Attend follow-up appointments with urologist, and monitor erectile dysfunction treatment response. - Notify the provider of any significant changes in health conditions or medication side effects. - Review for a tetanus booster as advised by pharmacy notification. - Reach out for any emergent symptoms or concerns between scheduled visits. Orders: Orders AMB Hemoglobin A1c Today Z13.9 - Encounter for screening, unspecified Quality Reporting (2019) Depression/Bipolar (159/160/161/177) PHQ-9: Total score: 4 Coding Level of Care Code Medicare Subsequent (G0439) Diagnoses Medicare annual wellness visit, subsequent Z00.00 Typical atrial flutter I48.3 Atrial flutter type: typical Coronary artery disease involving [place] coronary artery of [place] heart without angina pectoris I25.10 Associated angina: without angina Coronary Disease-Associated Artery/Lesion type: [place] artery [place] vs. transplanted heart: [place] heart Chronic heart failure with reduced ejection fraction and diastolic dysfunction I50.42 Type 2 diabetes mellitus with hyperglycemia, without long-term current use of insulin E11.65 Diabetes mellitus mcfp insulin use: without terminal gauger supervisor use Essential hypertension I10 Hypertension type: essential hypertension Hypercholesterolemia E78.00 Gastroesophageal reflux disease without esophagitis K21.9 Esophagitis presence: without esophagitis Nephrolithiasis N20.0 Additional Codes PHQ-9 - 57622 - PHQ-9 Billing: Yes ([id number])
[2024-07-05 08:31] VITALS: BP 118/62; PULSE 63; O2SAT 97; BMI 29.1
--- OUTSIDE RECORDS SUMMARY | 2024-07-05 08:37 | XMS_ITS | Clinical Summary ---
Author Organization [facility] Address [address] [place] [address] Care Team Providers Care Reserves Clerk Name Role Phone Unavailable Primary Care Provider [...]
--- OUTSIDE RECORDS SUMMARY | 2024-07-05 08:38 | XMS_ITS | Patient Health Record ---
Author Organization [facility] Address [address] [place] [id number] Care Team Providers Care Support Team Member Name Role Phone Shilpi Pillai MD Primary Care Provider Liban Holliday Jr Unavailable [phone] Allergies Allergen (clinical drug ingredient) Drug/Non Drug [...] Problem Status W/U Status Risk Notes Problem [id number] Colon cancer screening (Z12.11) Active confirmed Problem [id number] Long-term use of aspirin therapy (Z79.82) Active confirmed Problem [id number] FPC (current) use of oral hypoglycemic drugs (Z79.84) Active confirmed Plan Of Treatment Future Test Test Name Order Date COLONOSCOPY 06/21/2014 COLONOSCOPY 06/30/2021 Insurance Providers Payer Name Payer Address Payer Phone Subscriber Number Group Number Insured Name Patient Relationship to Insured Coverage Start Date Coverage End Date AAR Medicare Advantage Plan [address] [address] [place] [address] [id number] CONNIE REANNA Self - patient is the insured Medical (General) History Medical History History ICD Code diabetes mellitus OR 06/07/2011 coronary artery disease with stent place ment cardiomyopathy, ejection fraction 32% hypertension elevated cholesterol Colonoscopy 09/07, tubular adenoma, five- year followup Surgical History Surgery Date(Month/Year) vasectomy 1986 wisdom teeth extraction 1969 ICD
== END 2024-07-05 09:29 | disposition home or self-care (01) ==
LOC: HO.HMCH 08:18
PROVIDERS: PCP Internal Medicine; Visit Provider Internal Medicine
DX: Z00.00 Encounter for general adult medical examination without abnormal findings (principal); I48.3 Typical atrial flutter; I50.42 Chronic combined systolic (congestive) and diastolic (congestive) heart failure; E11.65 Type 2 diabetes mellitus with hyperglycemia; I25.10 Atherosclerotic heart disease of native coronary artery without angina pectoris; I10 Essential (primary) hypertension; E78.00 Pure hypercholesterolemia, unspecified; K21.9 Gastro-esophageal reflux disease without esophagitis; N20.0 Calculus of kidney

== ENCOUNTER → 2024-07-05 08:17 | Outpatient (BNVA) | payer MEDICARE, MEDICAID, SELFPAY | PROVIDERS: PCP Internal Medicine; Visit Provider Internal Medicine | DX: Z00.00 Encounter for general adult medical examination without abnormal findings (principal); I48.3 Typical atrial flutter; I25.10 Atherosclerotic heart disease of native coronary artery without angina pectoris; I11.0 Hypertensive heart disease with heart failure; I50.42 Chronic combined systolic (congestive) and diastolic (congestive) heart failure; E11.65 Type 2 diabetes mellitus with hyperglycemia; E78.00 Pure hypercholesterolemia, unspecified; K21.9 Gastro-esophageal reflux disease without esophagitis; N20.0 Calculus of kidney | CPT/HCPCS: 83036; 96127 ==

== ENCOUNTER → 2024-07-31 23:59 | Outpatient (BNV) | payer MEDICARE, MEDICAID, SELFPAY ==
--- NOTE | 2024-08-01 13:33 | MHC.OFFVIS ---
Intake Visit Reasons: Remote ICD check- [employer] Allergies lisinopril [LISINOPRIL] Allergy (Mild, Verified 07/05/24 08:31) UNKNOWN, cough, cough doxycycline [DOXYCYCLINE] Allergy (Unknown, Verified 07/05/24 08:31) UNKNOWN glimepiride [GLIMEPIRIDE] Allergy (Unknown, Verified 07/05/24 08:31) SEVERE BACK PAIN ibuprofen [From Motrin] Allergy (Unknown, Verified 07/05/24 08:31) Nausea tamsulosin [TAMSULOSIN] Allergy (Unknown, Verified 07/05/24 08:31) UNKNOWN, Fever dofetilide [From Tikosyn] Adverse Reaction (Severe, Verified 07/05/24 08:31) Diarrhea apixaban [From Eliquis] Adverse Reaction (Intermediate, Verified 07/05/24 08:31) Nausea and Vomiting rosuvastatin Adverse Reaction (Intermediate, Verified 07/05/24 08:31) hypotension' adhesive tape Adverse Reaction (Mild, Verified 07/05/24 08:31) Itching [facility] Medical History Coronary artery disease Visit for monitoring Tikosyn therapy CKD (chronic kidney disease) stage 3, GFR 30-59 ml/min Obesity (BMI 30.0-34.9) Heart failure with reduced ejection fraction Ischemic cardiomyopathy Chronic heart failure with reduced ejection fraction and diastolic dysfunction ICD (implantable cardioverter-defibrillator) in place Pneumonia Anxiety and depression Bilateral renal stones Hypercholesterolemia Psoriasis Gout Hypertension GERD (gastroesophageal reflux disease) Surgical History Hx of colonoscopy History of heart artery stent S/P ICD (internal cardiac defibrillator) procedure History of cataract surgery History of surgery History of vasectomy History of wisdom tooth extraction Family History Father Diabetes Prostate cancer CVD (cardiovascular disease) Mother CVD (cardiovascular disease) Acute CVA (cerebrovascular accident) Social History (Updated 07/05/24 @ 08:58 by Shilpi Pillai MD) Household Members: Spouse Housing: House Are you a primary care professionals to a significant other at home: No Do you presently have visiting nurse or other home services: No Alcohol intake: current Alcohol intake frequency: holidays/special occasions only Comment: once q2 months 1/2 bottle of wine, q 2 month 1/2 cup Patient Tobacco Use Status: Never used Tobacco Tobacco use type: Cigarette e-Cigarette/Vaping Use: Never Used Second Hand Smoke Exposure: No service: No Current occupational status: retired Cognitive needs: No Hearing needs: No Vision needs: Yes Office Procedures Cardiac Device Check Cardiac Device Check Details: Remote ICD report generated 07/31/2024. ICD function is adequate. Battery life is at 76% [id number] Cardiac Interrogation, implant defibrillator w/interim Procedure code (CPT) selection complete Assessment & Plan Assessment & Plan (1) ICD (implantable cardioverter-defibrillator) in place: Comment: [employer]- Foll'd by Dr. Page Code(s): Z95.810 - Presence of automatic (implantable) cardiac defibrillator Category: Medical Plan: See above Coding Level of Care Code Procedure Only Diagnoses ICD (implantable cardioverter-defibrillator) in place Z95.810 CPT Codes Cardiac Device Check - Cardiac Device 13: [id number]-[id number] Cardiac Interrogation, implant defibrillator w/interim ([id number])
== END ==
PROVIDERS: PCP Internal Medicine; Visit Provider Internal Medicine Cardiovascular Disease
DX: Z45.02 Encounter for adjustment and management of automatic implantable cardiac defibrillator (principal)
CPT/HCPCS: 93295

== ENCOUNTER 2024-08-15 13:30 | Outpatient (AMB) | payer MEDICARE, MEDICAID, SELFPAY ==
[2024-08-15 13:54] VITALS: BP 110/56; PULSE 71; BMI 29.6
--- NOTE | 2024-08-15 13:54 | A.OFFVIS_ITS ---
Vital Signs 08/15/24 13:54 Height 5 ft 9 in Weight 200 lb 2.876 oz BMI 29.6 BP 110/56 L Blood Pressure Location Lt brachial Position Sitting Pulse 71 Pulse Source Monitor Intake Visit Reasons: 3m follow up w device ck Intake Note: 3 mth f/up/device check Tactical Deception Plans Officer Required: No Accompanied by: Self / Same As Patient Allergies lisinopril [LISINOPRIL] Allergy (Mild, Verified 07/05/24 08:31) UNKNOWN, cough, cough doxycycline [DOXYCYCLINE] Allergy (Unknown, Verified 07/05/24 08:31) UNKNOWN glimepiride [GLIMEPIRIDE] Allergy (Unknown, Verified 07/05/24 08:31) SEVERE BACK PAIN ibuprofen [From Motrin] Allergy (Unknown, Verified 07/05/24 08:31) Nausea tamsulosin [TAMSULOSIN] Allergy (Unknown, Verified 07/05/24 08:31) UNKNOWN, Fever dofetilide [From Tikosyn] Adverse Reaction (Severe, Verified 07/05/24 08:31) Diarrhea apixaban [From Eliquis] Adverse Reaction (Intermediate, Verified 07/05/24 08:31) Nausea and Vomiting rosuvastatin Adverse Reaction (Intermediate, Verified 07/05/24 08:31) hypotension' adhesive tape Adverse Reaction (Mild, Verified 07/05/24 08:31) Itching Medication List - Last Reconciled 08/15/24 by Bruce Page MD allopurinol 100 mg PO BEDTIME 90 days amiodarone 200 mg PO DAILY ascorbate calcium (vitamin C) 500 mg PO DAILY carvedilol 25 mg PO BID cholecalciferol (vitamin D3) 10,000 units PO DAILY clotrimazole 1% 1 appl topical BID PRN coenzyme Q10 (Co Q-10) 20 mg PO DAILY ezetimibe 10 mg PO DAILY furosemide 40 mg PO DAILY loratadine 10 mg PO DAILY magnesium 30 mg PO DAILY metformin 500 mg PO BIDWMEAL 90 days multivitamin 1 tab PO DAILY omega 8-xbc-fkh-fish oil 60-90-500 mg (Fish Oil) 1 cap PO DAILY pravastatin 40 mg PO BEDTIME pyridoxine (vitamin B6) 50 mg PO DAILY 90 days rivaroxaban (Xarelto) 20 mg PO DAILY@1700 sacubitril-valsartan 49-51 mg (Entresto) 0.5 tabs PO BID sitagliptin phosphate (Januvia) 100 mg PO DAILY tadalafil 5 mg PO DAILY 90 days tadalafil 20 mg PO ONCE PRN 30 days triamcinolone acetonide 0.5% 1 appl topical BID PRN vitamin K2 100 mcg PO DAILY zinc sulfate (Orazinc) 25 mg PO DAILY HPI Comments Details: Td comes for follow-up. He is scheduled to undergo ablation in September. He has been taking all his medication currently remains on amiodarone. No cardiology symptoms. Denies any prolonged palpitation irregular heartbeat. Denies any heart failure symptoms. Says feeling well with good functional capacity although does not exercise on regular basis. Says gets somewhat fatigued sometimes. No lightheadedness, syncope, ICD discharge. No orthopnea, PND, leg edema, abdominal distension. No exertional chest pain. [facility] Medical History (Updated 08/16/24 @ 08:54 by Bruce Page MD) Chronic heart failure with reduced ejection fraction (HFrEF, <= 40%) Chronic heart failure with reduced ejection fraction and diastolic dysfunction Coronary artery disease Visit for monitoring Tikosyn therapy CKD (chronic kidney disease) stage 3, GFR 30-59 ml/min Obesity (BMI 30.0-34.9) Heart failure with reduced ejection fraction Ischemic cardiomyopathy ICD (implantable cardioverter-defibrillator) in place Pneumonia Anxiety and depression Bilateral renal stones Hypercholesterolemia Psoriasis Gout Hypertension GERD (gastroesophageal reflux disease) Surgical History Hx of colonoscopy History of heart artery stent S/P ICD (internal cardiac defibrillator) procedure History of cataract surgery History of surgery History of vasectomy History of wisdom tooth extraction Family History Father Diabetes Prostate cancer CVD (cardiovascular disease) Mother CVD (cardiovascular disease) Acute CVA (cerebrovascular accident) Social History Household Members: Spouse Housing: House Are you a primary physician assistant primary care to a significant other at home: No Do you presently have visiting nurse or other home services: No Alcohol intake: current Alcohol intake frequency: holidays/special occasions only Comment: once q2 months 1/2 bottle of wine, q 2 month 1/2 cup Patient Tobacco Use Status: Never used Tobacco Tobacco use type: Cigarette e-Cigarette/Vaping Use: Never Used Second Hand Smoke Exposure: No service: No Current occupational status: retired Cognitive needs: No Hearing needs: No Vision needs: Yes Review of Systems Const Denies chills, Denies fatigue, Denies fever(s), Denies frequent falls, Denies weakness, Denies weight gain and Denies weight loss ENT Denies dizziness Card Denies chest pain, Denies leg edema, Denies lightheadedness, Denies palpitations, Denies dyspnea and Denies dyspnea on exertion Resp Denies cough, Denies dyspnea and Denies dyspnea on exertion GI Denies hematochezia Musc Denies abnormal gait, Denies muscle weakness, Denies numbness, Denies radiating pain into limb and Denies tingling Neuro Denies abnormal gait, Denies dizziness, Denies frequent falls, Denies numbness, Denies tingling and Denies weakness Endo Denies fatigue and Denies palpitations Physical Exam Vital Signs: Last Vital Signs Pulse 71 08/15/24 13:54 BP 110/56 L 08/15/24 13:54 BMI result Body Mass Index 29.6 Const General: cooperative, healthy appearing, comfortable and no acute distress Orientation/consciousness: patient oriented x3 HEENT Other: Unremarkable Head: Yes normal to inspection Neck Neck: Yes normal visual inspection, Yes trachea midline and Yes supple Chest Chest palpation & inspection: normal inspection of the chest Resp Effort & Inspection: normal respiratory effort Auscultation: clear to auscultation bilaterally, no crackles, no rales, no rhonchi and no wheezes Cardio Jugular venous distension: no JVD Palpation: normal PMI Rate: regular rate Rhythm: regular rhythm Heart sounds: S1 normal heart sound present, S2 normal heart sound present, no click, no gallops, no murmurs and no rubs Peripheral pulses: Peripheral pulses 2+ throughout GI Palpation (GI): Soft to palpation Auscultation: normal bowel sounds Back/Spine/Pelvis Other: unremarkable Skin General skin exam: no rashes or lesions noted Neuro General: patient oriented x3 Extrem General: Yes normal to inspection, No calf tenderness, No clubbing, No cyanosis and No edema Psych Appearance: grossly normal Mental Status: mental status grossly normal Office Procedures Cardiac Device Check Cardiac Device Check Details: Subcutaneous [employer] ICD in place. Battery life is at 76%. No arrhythmias detected. System impedance is within normal limits. Sensing configuration is stable [id number] Device Interrogation, implantable defibrillator Procedure code (CPT) selection complete EKG Details: EKG shows normal sinus rhythm with poor R-wave progression consistent with anterior GA with normal QT interval with lateral T-wave changes suggestive of repolarization abnormality [id number], Complete Assessment & Plan Assessment & Plan (1) Chronic heart failure with reduced ejection fraction (HFrEF, <= 40%): Code(s): I50.22 - Chronic systolic (congestive) heart failure Category: Medical Plan: Chronic heart failure with reduced ejection fraction, clinically euvolemic and well compensated and has done well since rhythm control approach. Continue current neurohormonal modulation with Entresto as well as carvedilol therapy. Continue current diuretic regimen. Could not tolerate SGLT2 inhibitor therapy. Heart failure management discussed. Daily weight monitoring avoidance salt loading was discussed. He understands very well. Will refer him for phase 2 cardiac rehabilitation to improve his exercise activity. He is very interested in it (2) Atrial flutter: Comment: Status post cardioversion 04/07/2024 Code(s): I48.92 - Unspecified atrial flutter Category: Medical Qualifiers: Atrial flutter type: typical Qualified Code(s): I48.3 - Typical atrial flutter Plan: Difficult control atrial flutter/fibrillation. Clinically has done well with rhythm control approach. Continue amiodarone for now. Continue definitive the rapy with ablation in the future as planned. Continue full oral anticoagulation, currently on Xarelto 20 mg daily. Semi annual renal function test should be pursued. Avoidance of stimulants was discussed. Advised to call me with recurrent symptoms. Will gradually discontinue his antiarrhythmic drug therapy after ablation given his underlying structural heart disease which makes more prone to get persistent recurrent atrial fibrillation. (3) Coronary artery disease: Comment: STEMI May 2011 Promus stent in LAD and vision [place] old chromium stent in 1st diagonal apical akinesis apical thrombus Code(s): I25.10 - Atherosclerotic heart disease of [place] coronary artery without angina pectoris Category: Medical Qualifiers: Coronary Disease-Associated Artery/Lesion type: [place] artery [place] vs. transplanted heart: [place] heart Associated angina: without angina Qualified Code(s): I25.10 - Atherosclerotic heart disease of [place] coronary artery without angina pectoris Plan: CAD status post LAD stent with persistent severe ischemic cardiomyopathy. Clinically doing well at this point time. Currently on full oral anticoagulation will continue the same. Avoid aspirin therapy. Continue current statin therapy with ezetimibe with target goal LDL less than 60 mg/dL. Continue aggressive diabetes management. Importance of regular physical activity was discussed. (4) ICD (implantable cardioverter-defibrillator) in place: Comment: [employer]- Foll'd by Dr. Page Code(s): Z95.810 - Presence of automatic (implantable) cardiac defibrillator Category: Medical Plan: ICD in place for primary prevention. Working well. Will follow remotely. Follow up in the clinic in 3 months time, sooner p.r.n.. Thank you for allowing me to partake in his care Orders: Orders Cardiac Rehab 08/15/24 I50.42 - Chronic combined systolic (congestive) and diastolic (congestive) heart failure Coding Level of Care Code Est Pt Level 4 (52333) Complex EM visit Add On G2211 Diagnoses Chronic heart failure with reduced ejection fraction (HFrEF, <= 40%) I50.22 Typical atrial flutter I48.3 Atrial flutter type: typical Coronary artery disease involving [place] coronary artery of [place] heart without angina pectoris I25.10 Coronary Disease-Associated Artery/Lesion type: [place] artery [place] vs. transplanted heart: [place] heart Associated angina: without angina ICD (implantable cardioverter-defibrillator) in place Z95.810 CPT Codes Cardiac Device Check - Cardiac Device 9: 49041-Qzhdieh Device Interrogation, implantable defibrillator ([id number]) EKG - CPT: 76069-Wyceupslcbizwyvtk, Complete ([id number])
--- OUTSIDE RECORDS SUMMARY | 2024-08-15 15:58 | XMS_ITS | Clinical Summary ---
Author Organization [facility] Address [address] [place] [address] Care Team Providers Care Injection Molding Machine Offbearer Name Role Phone Unavailable Primary Care Provider Unavailabl e Social History Tobacco Use Types Packs/Day Years Used Date Smoking Tobacco: Never Assessed Sex and Gender Information Value Date Recorded Sex Assigned at Not on file Legal Sex Male 4:59 PM EDT Gender Identity Not on file Sexual Orientation [...]
--- OUTSIDE RECORDS SUMMARY | 2024-08-15 15:59 | XMS_ITS | Patient Health Record ---
Author Organization [facility] Address [address] [place] [id number] Care Team Providers Care Job Superintendent Name Role Phone Shilpi Pillai MD Primary Care Provider Liban Holliday Jr Unavailable Allergies Allergen (clinical drug ingredient) Drug/Non Drug Allergy documented on EMR Reaction Allergy Type Onset Date Status lisinopril Lisinopril Unknown Drug Allergy Activ e Motrin Unknown Drug Allergy Active glimepiride Glimepiride Unknown Drug Allergy Act shi doxicyline (uncoded) Unknown Allergy Active seasonal (uncoded) Unknown Allergy A ctive tamsulosin Tamsulosin Unknown Drug Allergy Activ e Reason For Referral No Information Medications Medication [...] Problem Status W/U Status Risk Notes Problem [id number] Colon cancer screening (Z12.11) Active confirmed Problem 977844060 Long-term use of aspirin therapy (Z79.82) Active confirmed Problem [id number] USP (current) use of oral hypoglycemic drugs (Z79.84) Active confirmed Plan Of Treatment Future Test Test Name Order Date COLONOSCOPY 06/21/2014 COLONOSCOPY 06/30/2021 Insurance Providers Payer Name Payer Address Payer Phone Subscriber Number Group Number Insured Name Patient Relationship to Insured Coverage Start Date Coverage End Date AAR Medicare Advantage Plan [address] [address] [place] [address] [id number] CONNIE REANNA Self - patient is the insured Medical (General) History Medical History History ICD Code diabetes mellitus [place] 06/07/2011 coronary artery disease with stent place ment cardiomyopathy, ejection fraction 32% hypertension elevated cholesterol Colonoscopy 09/07, tubular adenoma, five- year followup Surgical History Surgery Date(Month/Year) vasectomy 1986 wisdom teeth extraction 1969 ICD
== END 2024-08-15 14:21 | disposition home or self-care (01) ==
LOC: HO.HCS 13:31
PROVIDERS: PCP Internal Medicine; Visit Provider Internal Medicine Cardiovascular Disease
DX: I50.22 Chronic systolic (congestive) heart failure (principal); I48.3 Typical atrial flutter; I25.10 Atherosclerotic heart disease of native coronary artery without angina pectoris; Z95.810 Presence of automatic (implantable) cardiac defibrillator; R94.31 Abnormal electrocardiogram [ECG] [EKG]
CPT/HCPCS: 93010; 93282; 99214; G2211

== ENCOUNTER → 2024-08-15 13:30 | Outpatient (BNVA) | payer MEDICARE, OTHER, SELFPAY | PROVIDERS: PCP Internal Medicine; Visit Provider Internal Medicine Cardiovascular Disease | DX: I50.42 Chronic combined systolic (congestive) and diastolic (congestive) heart failure (principal); I48.92 Unspecified atrial flutter; I25.10 Atherosclerotic heart disease of native coronary artery without angina pectoris; I48.3 Typical atrial flutter; Z95.810 Presence of automatic (implantable) cardiac defibrillator | CPT/HCPCS: 93005; 99212 ==

== ENCOUNTER 2024-08-25 09:21 | Outpatient (REF) | payer MEDICARE, MEDICAID, SELFPAY ==
--- NOTE | ~2024-08-25 | US_ITS ---
EXAMINATION: US ABDOMEN COMPLETE CLINICAL INFORMATION: Abnormal blood chemistry.. COMPARISON: Correlated to CT dated July 08, 2020. TECHNIQUE: Real-time ultrasound of the abdomen using grayscale and color Doppler technique. FINDINGS: PANCREAS: No peripancreatic fluid collection. No main pancreatic ductal dilatation. ABDOMINAL AORTA: The proximal, mid, and distal segments are normal in caliber. INFERIOR VENA CAVA: Visualized portions are normal. LIVER: Liver measures 17 cm. No nodular contour. Increased echotexture. No solid or cystic lesion detected by the technologist. No intrahepatic biliary ductal dilatation. GALLBLADDER: Fluid-filled. No pericholecystic fluid collection or gallbladder wall thickening. COMMON BILE DUCT: 2 mm. RIGHT KIDNEY: 11 cm. Normal echotexture. Normal renal cortical thickness. No hydronephrosis. No gross solid or cystic lesion. Normal flow on color Doppler interrogation of the renal hilum.. LEFT KIDNEY: 12 cm. Normal echotexture. Normal renal cortical thickness. No hydronephrosis. No solid or cystic lesion. Normal flow on color Doppler interrogation of the renal hilum. SPLEEN: 10 cm. No focal lesion. FREE FLUID: None. US/US abdomen complete IMPRESSION: Hepatomegaly and steatosis. No cholelithiasis. No hydronephrosis. No ascites. Electronically signed by: Arley Grace MD 08/25/2024 10:46 AM EDT
--- OUTSIDE RECORDS SUMMARY | 2024-08-25 09:57 | XMS_ITS | Clinical Summary ---
Author Organization [facility] Address [address] [place] [address] Care Team Providers Care Tech Intern Name Role Phone Unavailable Primary Care Provider [...]
== END 2024-08-25 09:22 | disposition home or self-care (01) ==
LOC: HO.US 09:21
PROVIDERS: PCP Internal Medicine; Visit Provider Internal Medicine
DX: R79.89 Other specified abnormal findings of blood chemistry (principal)
CPT/HCPCS: 76700

== ENCOUNTER → 2024-08-25 09:23 | Outpatient (BNV) | payer MEDICARE, MEDICAID, SELFPAY | PROVIDERS: PCP Internal Medicine; Visit Provider Radiology Diagnostic Radiology | DX: R16.0 Hepatomegaly, not elsewhere classified (principal); K76.0 Fatty (change of) liver, not elsewhere classified | CPT/HCPCS: 76700 ==

== ENCOUNTER 2024-10-20 13:05 | Outpatient (REF) | payer MEDICARE, SELFPAY ==
--- OUTSIDE RECORDS SUMMARY | 2024-10-20 13:40 | XMS_ITS | Clinical Summary ---
Author Organization [facility] Address [address] [place] [address] Care Team Providers Care Toolroom Machinist Name Role Phone Unavailable Primary Care Provider [...]
[2024-10-20 13:43] LABS: Hemoglobin 12.1 g/dl (14.0-18.0); Mean Corpuscular HGB Conc 34.6 g/dl (31.0-36.0); Mean Corpuscular Hemoglobin 30.9 pg (27.0-33.0); Mean Corpuscular Volume 89.5 fL (80.0-98.0); Mean Platelet Volume 9.7 fL (9.4-12.4); Platelet Count 194 X10*3/uL (160-400); Red Blood Count 3.91 X10*6/uL (4.60-5.80); Red Cell Distribution Width 13.4 % (11.0-16.0); White Blood Count 7.6 X10*3/uL (4.8-10.8)
== END 2024-10-20 13:06 | disposition home or self-care (01) ==
LOC: HO.LAB 13:05
PROVIDERS: PCP Internal Medicine; Visit Provider Internal Medicine Cardiovascular Disease
DX: I48.3 Typical atrial flutter (principal); I25.10 Atherosclerotic heart disease of native coronary artery without angina pectoris
CPT/HCPCS: 36415; 85027

== ENCOUNTER → 2024-10-30 23:59 | Outpatient (BNV) | payer MEDICARE, SELFPAY ==
--- NOTE | 2024-11-01 15:05 | MHC.OFFVIS ---
Intake Visit Reasons: Remote ICD check- [employer] Allergies lisinopril (LISINOPRIL) Allergy (Mild, Verified 07/05/24 08:31) UNKNOWN, cough, cough doxycycline (DOXYCYCLINE) Allergy (Unknown, Verified 07/05/24 08:31) UNKNOWN glimepiride (GLIMEPIRIDE) Allergy (Unknown, Verified 07/05/24 08:31) SEVERE BACK PAIN ibuprofen (From Motrin) Allergy (Unknown, Verified 07/05/24 08:31) Nausea tamsulosin (TAMSULOSIN) Allergy (Unknown, Verified 07/05/24 08:31) UNKNOWN, Fever dofetilide (From Tikosyn) Adverse Reaction (Severe, Verified 07/05/24 08:31) Diarrhea apixaban (From Eliquis) Adverse Reaction (Intermediate, Verified 07/05/24 08:31) Nausea and Vomiting rosuvastatin Adverse Reaction (Intermediate, Verified 07/05/24 08:31) hypotension' adhesive tape Adverse Reaction (Mild, Verified 07/05/24 08:31) Itching [facility] Medical History (Updated 08/25/24 @ 19:38 by Shilpi Pillai MD) Chronic heart failure with reduced ejection fraction (HFrEF, <= 40%) Chronic heart failure with reduced ejection fraction and diastolic dysfunction Coronary artery disease Visit for monitoring Tikosyn therapy CKD (chronic kidney disease) stage 3, GFR 30-59 ml/min Obesity (BMI 30.0-34.9) Heart failure with reduced ejection fraction Ischemic cardiomyopathy ICD (implantable cardioverter-defibrillator) in place Pneumonia Anxiety and depression Bilateral renal stones Hypercholesterolemia Psoriasis Gout Hypertension GERD (gastroesophageal reflux disease) Surgical History Hx of colonoscopy History of heart artery stent S/P ICD (internal cardiac defibrillator) procedure History of cataract surgery History of surgery History of vasectomy History of wisdom tooth extraction Family History Father Diabetes Prostate cancer CVD (cardiovascular disease) Mother CVD (cardiovascular disease) Acute CVA (cerebrovascular accident) Social History Household Members: Spouse Housing: House Are you a primary medicare compliance auditor to a significant other at home: No Do you presently have visiting nurse or other home services: No Alcohol intake: current Alcohol intake frequency: holidays/special occasions only Comment: once q2 months 1/2 bottle of wine, q 2 month 1/2 cup Patient Tobacco Use Status: Never used Tobacco Tobacco use type: Cigarette e-Cigarette/Vaping Use: Never Used Second Hand Smoke Exposure: No service: No Current occupational status: retired Cognitive needs: No Hearing needs: No Vision needs: Yes Office Procedures Cardiac Device Check Cardiac Device Check Details: Remote ICD report generated 10/30/2024. ICD function is adequate. Battery life is at 71% [id number]-[id number] Cardiac Interrogation, implant defibrillator w/interim Procedure code (CPT) selection complete Assessment & Plan Assessment & Plan (1) ICD (implantable cardioverter-defibrillator) in place: Comment: [employer]- Foll'd by Dr. Page Code(s): Z95.810 - Presence of automatic (implantable) cardiac defibrillator Category: Medical Plan: See above Coding Level of Care Code Procedure Only Diagnoses ICD (implantable cardioverter-defibrillator) in place Z95.810 CPT Codes Cardiac Device Check - Cardiac Device 13: 49052-Lfjzco Cardiac Interrogation, implant defibrillator w/interim ([id number])
== END ==
PROVIDERS: PCP Internal Medicine; Visit Provider Internal Medicine Cardiovascular Disease
DX: Z45.02 Encounter for adjustment and management of automatic implantable cardiac defibrillator (principal)
CPT/HCPCS: 93295

== ENCOUNTER 2024-11-02 09:13 | Outpatient (REF) | payer MEDICARE, SELFPAY ==
--- OUTSIDE RECORDS SUMMARY | 2024-11-02 09:39 | XMS_ITS | Patient Health Record ---
Author Organization [facility] Address [address] [place] [id number] Care Team Providers Care Licensed Mental Health Professional Name Role Phone Shilpi Pillai MD Primary Care Provider Liban Holliday Jr Unavailable [phone] Allergies Allergen (clinical drug ingredient) Drug/Non Drug [...] Problem Status W/U Status Risk Notes Problem 640042926 Colon cancer screening (Z12.11) Active confirmed Problem 949863128 Long-term use of aspirin therapy (Z79.82) Active confirmed Problem [id number] alf (current) use of oral hypoglycemic drugs (Z79.84) Active confirmed Plan Of Treatment Future Test Test Name Order Date COLONOSCOPY 06/21/2014 COLONOSCOPY 06/30/2021 Insurance Providers Payer Name Payer Address Payer Phone Subscriber Number Group Number Insured Name Patient Relationship to Insured Coverage Start Date Coverage End Date AAR Medicare Advantage Plan [address] [address] [place] [address] [id number] CONNIE REANNA Self - patient is the insured Medical (General) History Medical History History ICD Code diabetes mellitus [place] 06/07/2011 coronary artery disease with stent place ment cardiomyopathy, ejection fraction 32% hypertension elevated cholesterol Colonoscopy 09/07, tubular adenoma, five- year followup Surgical History Surgery Date(Month/Year) vasectomy 1986 wisdom teeth extraction 1969 ICD
--- OUTSIDE RECORDS SUMMARY | 2024-11-02 09:39 | XMS_ITS | Clinical Summary ---
Author Organization [facility] Address [address] [place] [address] Care Team Providers Care Egg Smeller Name Role Phone Unavailable Primary Care Provider [...]
[2024-11-02 10:59] LABS: Alanine Aminotransferase 43 U/L (0-40); Albumin Level 4.5 g/dL (3.5-5.0); Alkaline Phosphatase 58 U/L (39-117); Anion Gap 14 (12-20); Aspartate Amino Transferase 37 U/L (5-37); Blood Urea Nitrogen 27 mg/dL (9-16); Calcium 9.8 mg/dL (8.4-10.2); Carbon Dioxide 26 mmol/L (22-29); Chloride 105 mmol/L (96-108); Estimated Glomerular Filt Rate 45; Potassium 4.1 mmol/L (3.3-5.1); Sodium 141 mmol/L (135-145); Total Protein 6.8 g/dL (6.5-8.0)
[2024-11-02 11:28] LABS: HBS Num1 0.34 mIU/mL (0-7.99); HBc Num1 0.05 S/CO (0.00-0.79); HBsAGNum1 0.43 S/CO (0.00-0.99); Hepatitis B Surface Antigen Negative (Negative); ~HepC Num1 0.11 S/CO (0.00-0.79); ~Hepatitis B Surface Antibody NONREACTIVE (Nonreactive); ~Hepatitis C Antibody Nonreactive (Nonreactive)
== END 2024-11-02 09:14 | disposition home or self-care (01) ==
LOC: HO.LAB 09:13
PROVIDERS: PCP Internal Medicine; Visit Provider Internal Medicine
DX: R79.89 Other specified abnormal findings of blood chemistry (principal); Z11.59 Encounter for screening for other viral diseases
CPT/HCPCS: 36415; 80053; 86704; 86706; 86803; 87340

== ENCOUNTER 2024-11-07 08:14 | Outpatient (AMB) | payer MEDICARE, MEDICAID, SELFPAY ==
--- NOTE | 2024-11-07 08:17 | MHC.PC.OV ---
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 Required: No Accompanied by: Self / Same As Patient Allergies lisinopril (LISINOPRIL) Allergy (Mild, Verified 11/07/24 08:27) UNKNOWN, cough, cough doxycycline (DOXYCYCLINE) Allergy (Unknown, Verified 11/07/24 08:27) UNKNOWN glimepiride (GLIMEPIRIDE) Allergy (Unknown, Verified 11/07/24 08:27) SEVERE BACK PAIN ibuprofen (From Motrin) Allergy (Unknown, Verified 11/07/24 08:27) Nausea tamsulosin (TAMSULOSIN) Allergy (Unknown, Verified 11/07/24 08:27) UNKNOWN, Fever dofetilide (From Tikosyn) Adverse Reaction (Severe, Verified 11/07/24 08:27) Diarrhea apixaban (From Eliquis) Adverse Reaction (Intermediate, Verified 11/07/24 08:27) Nausea and Vomiting rosuvastatin Adverse Reaction (Intermediate, Verified 11/07/24 08:27) hypotension' adhesive tape Adverse Reaction (Mild, Verified 11/07/24 08:27) Itching Medication List - Last Reconciled 11/07/24 by Shilpi Pillai MD allopurinol 100 mg PO BEDTIME 90 days amiodarone 200 mg PO DAILY ascorbate calcium (vitamin C) 500 mg PO DAILY carvedilol 12.5 mg (1/2 x 25 mg) PO BID cholecalciferol (vitamin D3) 10,000 units PO DAILY clotrimazole 1% 1 appl topical BID PRN coenzyme Q10 (Co Q-10) 20 mg PO DAILY ezetimibe 10 mg PO DAILY furosemide 40 mg PO DAILY loratadine 10 mg PO DAILY magnesium 30 mg PO DAILY metformin 500 mg PO BIDWMEAL 90 days multivitamin 1 tab PO DAILY omega [id number]-[id number]-fish oil 60-90-500 mg (Fish Oil) 1 cap PO DAILY pravastatin 40 mg PO BEDTIME pyridoxine (vitamin B6) 50 mg PO DAILY 90 days sacubitril-valsartan 49-51 mg (Entresto) 0.5 tabs PO BID sitagliptin phosphate (Januvia) 100 mg PO DAILY tadalafil 5 mg PO DAILY 90 days tadalafil 20 mg PO ONCE PRN 30 days triamcinolone acetonide 0.5% 1 appl topical BID PRN vitamin K2 100 mcg PO DAILY Xarelto (rivaroxaban) 20 mg PO QPM NS zinc sulfate (Orazinc) 25 mg PO DAILY Tobacco use date assessed: 05/08/24 Fall risk assessment: No Falls in past year Last assessed Fall Risk: 11/07/24 Dental Screening Dental Screen Date: 05/08/24 [facility] Medical History (Updated 08/25/24 @ 19:38 by Shilpi Pillai MD) Chronic heart failure with reduced ejection fraction (HFrEF, <= 40%) Chronic heart failure with reduced ejection fraction and diastolic dysfunction Coronary artery disease Visit for monitoring Tikosyn therapy CKD (chronic kidney disease) stage 3, GFR 30-59 ml/min Obesity (BMI 30.0-34.9) Heart failure with reduced ejection fraction Ischemic cardiomyopathy ICD (implantable cardioverter-defibrillator) in place Pneumonia Anxiety and depression Bilateral renal stones Hypercholesterolemia Psoriasis Gout Hypertension GERD (gastroesophageal reflux disease) Surgical History Hx of colonoscopy History of heart artery stent S/P ICD (internal cardiac defibrillator) procedure History of cataract surgery History of surgery History of vasectomy History of wisdom tooth extraction Family History Father Diabetes Prostate cancer CVD (cardiovascular disease) Mother CVD (cardiovascular disease) Acute CVA (cerebrovascular accident) Social History Household Members: Spouse Housing: House Are you a primary career development director to a significant other at home: No Do you presently have visiting nurse or other home services: No Alcohol intake: current Alcohol intake frequency: holidays/special occasions only Comment: once q2 months 1/2 bottle of wine, q 2 month 1/2 cup Patient Tobacco Use Status: Never used Tobacco e-Cigarette/Vaping Use: Never Used Second Hand Smoke Exposure: No service: No Current occupational status: retired Cognitive needs: No Hearing needs: No Vision needs: Yes Questionnaire PHQ-9 Over the last 2 weeks, how often have you been bothered by any of the following problems? 1. Little interest or pleasure in doing things: not at all 2. Feeling down, depressed, or hopeless: not at all 3. Trouble falling or staying asleep, or sleeping too much: not at all 4. Feeling tired or having little energy: not at all 5. Poor appetite or overeating: not at all 6. Feeling bad about yourself - or that you are a failure or have let yourself or your family down: not at all 7. Trouble concentrating on things, such as reading the newspaper or watching television: not at all 8. Moving or speaking so slowly that other people could have noticed. Or the opposite - being so fidgety or restless that you have been moving around a lot more than usual: not at all 9. Thoughts that you would be better off or of hurting yourself in some way: not at all Total score: 0 Depression Screening Interpretation: Negative Depression Screening Done: Yes Source: Developed by Drs. Gopal Lazaro, Dora Rosario, Jose Ferrera and colleagues, with an educational laura from [employer]. Thrive Questionnaire Date Thrive assessed: 06/28/24 I am a: Patient What is your living situation today?: I have a steady place to live Within the past 12 months, did the food you bought not last and you didn't have the money to get more?: Never true Within the past 12 months, did you worry whether your food would run out before you got money to buy more?: Never true Do you have trouble paying for medicines?: No Do you have trouble getting transportation to medical appointments?: No Do you have trouble paying your heating and electricity bill?: No Do you have trouble taking care of your child, family member or friend?: No Do you have trouble with day-to-day activities such as bathing, preparing meals, shopping, managing finances, etc.?: No Are you currently unemployed and looking for a job?: No Are you interested in more education?: I choose not to answer this question Please select the resources that you would like help with: None Currently or been in a relationship where the following occur: No concerns reported THRIVE Score: 0 AUDIT C Alcohol Use Questionnaire (AUDIT-C) 1. How often do you have a drink containing alcohol?: Monthly or less 2. How many drinks containing alcohol do you have on a typical day when you are drinking?: 1 or 2 3. How often do you have six or more drinks on one occasion?: Never Total Score: 1 AUSTIN-7 AMB Questionnaire AUSTIN-7 Date AUSTIN - 7 assessed: 11/07/24 Feeling nervous, anxious, or on edge: 0 = Not at all Not being able to stop or control worryin = Not at all Worrying too much about different things: 0 = Not at all Trouble relaxin = Not at all Being so restless that it is hard to sit still: 0 = Not at all Becoming easily annoyed or irritable: 0 = Not at all Feeling afraid as if something awful might happen: 0 = Not at all Total AUSTIN-7 score (0-4 normal; 5-9 mild; 10-14 moderate; 15-21 severe): 0 Source: Developed by Drs. Gopal Lazaro, Dora Rosario, Jose Ferrera and colleagues, with an educational laura from [employer]. Physical exam (Primary Care) Vital Signs: Last Vital Signs Pulse 58 11/07/24 08:20 BP 108/60 11/07/24 08:20 Pulse Ox 98 11/07/24 08:20 Oxygen Delivery Method Room Air 11/07/24 08:20 BMI result Body Mass Index 27.5 Tobacco/Smoking Status: Tobacco use Status Tobacco use date assessed 05/08/24 11/07/24 08:22 Patient Tobacco Use Status Never used Tobacco 11/07/24 08:22 Tobacco use type 11/07/24 08:28 e-Cigarette/Vaping Use Never Used 11/07/24 08:22 PHQ-9: PHQ-9 Score PHQ-9: Total score 0 11/07/24 08:43 Depression Screening Interpretation: Negative Thrive Assessment: Date of Thrive Assessment Date Thrive assessed 06/28/24 11/07/24 08:22 Currently or been in a relationship where the following occur: No concerns reported Const General: alert; No acute distress Eyes Conjunctivae: conjunctivae normal Resp Auscultation: clear to auscultation bilaterally Cardio Rate: regular rate Rhythm: regular rhythm GI Inspection: Yes normal to inspection Extrem General: Yes normal to inspection and No edema Results AMB Hemoglobin A1c AMB Hemoglobin A1c 5.8 % Last Edit by SEBASTIÁN Sandhu on 11/07/24 08:35 Results Reviewed Results Reviewed: Laboratory Last Values Hgb A1c (Clinic) 5.8 % (4.0-6.0) 11/07/24 08:24 Coding Level of Care Code Est Pt Level 4 (10700) Complex EM visit Add On G2211 Diagnoses Type 2 diabetes mellitus with hyperglycemia, without long-term current use of insulin E11.65 Diabetes mellitus watermelon inspector insulin use: without alf use Essential hypertension I10 Hypertension type: essential hypertension Hypercholesterolemia E78.00 Typical atrial flutter I48.3 Atrial flutter type: typical Coronary artery disease involving levelock coronary artery of levelock heart without angina pectoris I25.10 Associated angina: without angina Coronary Disease-Associated Artery/Lesion type: levelock artery Three Affiliated vs. transplanted heart: levelock heart Chronic heart failure with reduced ejection fraction (HFrEF, <= 40%) I50.22 ICD (implantable cardioverter-defibrillator) in place Z95.810 Gastroesophageal reflux disease without esophagitis K21.9 Esophagitis presence: without esophagitis Hepatic steatosis K76.0 Assessment & Plan Assessment & Plan (1) Type 2 diabetes mellitus with hyperglycemia: Comment: [facility] Code(s): E11.65 - Type 2 diabetes mellitus with hyperglycemia Category: Medical Qualifiers: Diabetes mellitus watermelon inspector insulin use: without watermelon inspector use Qualified Code(s): E11.65 - Type 2 diabetes mellitus with hyperglycemia Plan: Decrease the amount of carbohydrate intake, pasta, bread, rice and potatoes are all sugar and that is aside from all the sweet stuff, remember that fruits are good but they are Sweet also. Metformin 500 mg twice a day Januvia 100 mg once a day under control (2) Hypertension: Code(s): I10 - Essential (primary) hypertension Category: Medical Qualifiers: Hypertension type: essential hypertension Qualified Code(s): I10 - Essential (primary) hypertension Plan: Continue with blood pressure medication. Decrease salt intake and exercise on Entresto furosemide carvedilol 12.5 mg twice a day (3) Hypercholesterolemia: Code(s): E78.00 - Pure hypercholesterolemia, unspecified Category: Medical Plan: Avoid fried foods, chicken skin, eggs, butter margarine, pastries and meat. Be it pork or beef they have a lot of cholesterol Zetia and pravastatin LDL goal of less than 60 patient is at goal November last blood work. (4) Atrial flutter: Comment: Status post cardioversion 04/07/2024 Code(s): I48.92 - Unspecified atrial flutter Category: Medical Qualifiers: Atrial flutter type: typical Qualified Code(s): I48.3 - Typical atrial flutter Plan: Continue with amiodarone continued to check for thyroid function and will retest in blood work in 3 months (5) Coronary artery disease: Comment: STEMI May 2011 Promus stent in LAD and vision [place] old chromium stent in 1st diagonal apical akinesis apical thrombus Code(s): I25.10 - Atherosclerotic heart disease of levelock coronary artery without angina pectoris Category: Medical Qualifiers: Associated angina: without angina Coronary Disease-Associated Artery/Lesion type: levelock artery Three Affiliated vs. transplanted heart: levelock heart Qualified Code(s): I25.10 - Atherosclerotic heart disease of levelock coronary artery without angina pectoris Plan: Control the cholesterol, weight, blood pressure, diabetes continue with anticoagulation (6) Chronic heart failure with reduced ejection fraction (HFrEF, <= 40%): Code(s): I50.22 - Chronic systolic (congestive) heart failure Category: Medical Plan: on carvedilol furosemide. And Entresto Weigh daily (7) ICD (implantable cardioverter-defibrillator) in place: Comment: [place]- Foll'd by Dr. Page Code(s): Z95.810 - Presence of automatic (implantable) cardiac defibrillator Category: Medical Plan: Continue to follow up with Cardiology (8) GERD (gastroesophageal reflux disease): Code(s): K21.9 - Gastro-esophageal reflux disease without esophagitis Category: Medical Qualifiers: Esophagitis presence: without esophagitis Qualified Code(s): K21.9 - Gastro-esophageal reflux disease without esophagitis Plan: Avoid the foods that causes that usually spicy foods, tomato products, juices, coffee, soda and foods that your sensitive to. After eating do not lie down, allow 3-4 hours before in lie down. And keep the head of bed above 30 degrees to avoid the acid from going up. (9) Hepatic steatosis: Comment: July 2024Hepatomegaly and steatosis. No cholelithiasis. No hydronephrosis. No ascites. Code(s): K76.0 - Fatty (change of) liver, not elsewhere classified Category: Medical Plan: Low-fat diet and exercise noted weight loss Plan History of Present Illness The patient is a 69-year-old male presenting for a follow-up visit after his last annual wellness check in June. The patient has a history of diabetes mellitus, which is currently managed with metformin 500 mg twice a day and Januvia 100 mg once a day. His blood sugar levels are under control, with a recent measurement of 106 mg/dL. He also has a history of gastroesophageal reflux disease (GERD), hypertension, and hypercholesterolemia. His cholesterol management includes a target LDL of less than 60 mg/dL, achieved with pravastatin and Zetia. The patient has coronary artery disease with a history of congestive heart failure and atrial fibrillation. He is currently on Entresto, carvedilol, and furosemide for heart failure management, and amiodarone and Xarelto for atrial fibrillation. He is undergoing cardiac rehabilitation and follows up regularly with cardiology for ICD checks. In August 2024, an abdominal ultrasound was performed due to elevated liver function tests, revealing hepatic steatosis. His liver function remains stable, and no additional treatment is currently required. The patient has chronic anemia, which has been stable over time. Recent blood work showed stable anemia and mildly elevated renal function with a creatinine level of 1.55 mg/dL. Preventative care includes a colon cancer screening, which is due this year, as the last test was performed when he was 66 years old. Health Maintenance - Colon cancer screening due this year - Monitoring of renal function due to mild elevation - Yearly cholesterol testing Social History - Engaged in cardiac rehabilitation - Following a low-fat diet and exercise regimen Review of Systems - Cardiovascular: Denies chest pain, reports stable heart rate and blood pressure - Gastrointestinal: Reports good bowel movements, denies diarrhea Physical Exam - Cardiovascular: Regular rhythm, no murmurs noted - Respiratory: Lungs clear to auscultation bilaterally Results - Labs: Blood sugar 106 mg/dL, stable anemia, creatinine 1.55 mg/dL - Imaging: Abdominal ultrasound showing hepatic steatosis Plan The patient will continue with the current diabetes management plan, including metformin and Januvia, as his blood sugar levels are well-controlled. For hypercholesterolemia, the patient will maintain the use of pravastatin and Zetia to keep LDL levels below 60 mg/dL. The management of coronary artery disease and congestive heart failure will continue with Entresto, carvedilol, and furosemide. The patient will also remain on amiodarone and Xarelto for atrial fibrillation, with regular monitoring of renal function and thyroid function due to medication use. Preventative care measures include scheduling a colon cancer screening this year and continuing yearly cholesterol testing. The patient is advised to maintain a low-fat diet and exercise regimen to support overall health and manage GERD symptoms. Patient was informed and verbally consented to the use of an ambient scribe for clinic note documentation during this visit. Discussion Notes During the visit, we discussed the importance of maintaining current medication regimens for diabetes, hypercholesterolemia, coronary artery disease, and atrial fibrillation. We also reviewed the need for regular monitoring of renal and thyroid function due to medication use and the importance of preventative care measures such as colon cancer screening and cholesterol testing. Patient Instructions - Continue taking metformin and Januvia as prescribed. - Maintain pravastatin and Zetia for cholesterol management. - Follow the prescribed regimen for heart failure and atrial fibrillation medications. - Schedule a colon cancer screening this year. - Continue with a low-fat diet and regular exercise. Orders: Orders Basic Metabolic Panel 3 Months E11.65 - Type 2 diabetes mellitus with hyperglycemia Thyroid Stimulating Hormone 3 Months E11.65 - Type 2 diabetes mellitus with hyperglycemia Free T4 (Free Thyroxine) 3 Months E11.65 - Type 2 diabetes mellitus with hyperglycemia AMB Hemoglobin A1c Today E11.65 - Type 2 diabetes mellitus with hyperglycemia
[2024-11-07 08:20] VITALS: BP 108/60; PULSE 58; O2SAT 98; BMI 27.5
--- OUTSIDE RECORDS SUMMARY | 2024-11-07 08:20 | XMS_ITS | Clinical Summary ---
Author Organization [facility] Address [address] [place] [address] Care Team Providers Care Lace Roller Name Role Phone Unavailable Primary Care Provider [...]
--- OUTSIDE RECORDS SUMMARY | 2024-11-07 08:20 | XMS_ITS | Patient Health Record ---
Author Organization [facility] Address [address] [place] [id number] Care Team Providers Care Cadastral Surveyor Name Role Phone Shilpi Pillai MD Primary [...] lisinopril Lisinopril Unknown Drug Allergy Activ e Reason For [...] Problem Status W/U Status Risk Notes Problem [id number] Colon cancer screening (Z12.11) Active confirmed Problem [id number] Long-term use of aspirin therapy (Z79.82) Active confirmed Problem [id number] senior care (current) use of oral hypoglycemic drugs (Z79.84) Active confirmed Plan Of Treatment Future Test Test Name Order Date COLONOSCOPY 06/21/2014 COLONOSCOPY 06/30/2021 Insurance Providers Payer Name Payer Address Payer Phone Subscriber Number Group Number Insured Name Patient Relationship to Insured Coverage Start Date Coverage End Date AAR Medicare Advantage Plan [address] [address] [place] [phone] [id number] CONNIE REANNA Self - patient is the insured Medical (General) History Medical History History ICD Code diabetes mellitus [place] 06/07/2011 coronary artery disease with stent place ment cardiomyopathy, ejection fraction 32% hypertension elevated cholesterol Colonoscopy 09/07, tubular adenoma, five- year followup Surgical History Surgery Date(Month/Year) vasectomy 1986 wisdom teeth extraction 1969 ICD
== END 2024-11-07 08:56 | disposition home or self-care (01) ==
LOC: HO.HMCH 08:15
PROVIDERS: PCP Internal Medicine; Visit Provider Internal Medicine
DX: E11.65 Type 2 diabetes mellitus with hyperglycemia (principal); I48.3 Typical atrial flutter; I11.0 Hypertensive heart disease with heart failure; I50.22 Chronic systolic (congestive) heart failure; E78.00 Pure hypercholesterolemia, unspecified; I25.10 Atherosclerotic heart disease of native coronary artery without angina pectoris; Z95.810 Presence of automatic (implantable) cardiac defibrillator; K21.9 Gastro-esophageal reflux disease without esophagitis; K76.0 Fatty (change of) liver, not elsewhere classified

== ENCOUNTER → 2024-11-07 08:14 | Outpatient (BNVA) | payer MEDICARE, MEDICAID, SELFPAY | PROVIDERS: PCP Internal Medicine; Visit Provider Internal Medicine | DX: E11.65 Type 2 diabetes mellitus with hyperglycemia (principal); I48.3 Typical atrial flutter; I25.10 Atherosclerotic heart disease of native coronary artery without angina pectoris; E78.00 Pure hypercholesterolemia, unspecified; I11.0 Hypertensive heart disease with heart failure; I50.22 Chronic systolic (congestive) heart failure; K21.9 Gastro-esophageal reflux disease without esophagitis; K76.0 Fatty (change of) liver, not elsewhere classified; Z95.810 Presence of automatic (implantable) cardiac defibrillator | CPT/HCPCS: 83036; 99212 ==

== ENCOUNTER 2024-11-21 12:44 | Outpatient (AMB) | payer MEDICARE, SELFPAY ==
--- NOTE | 2024-11-21 12:57 | MHC.OFFVIS ---
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 Operator Required: No Allergies lisinopril (LISINOPRIL) Allergy (Mild, Verified 11/07/24 08:27) UNKNOWN, cough, cough doxycycline (DOXYCYCLINE) Allergy (Unknown, Verified 11/07/24 08:27) UNKNOWN glimepiride (GLIMEPIRIDE) Allergy (Unknown, Verified 11/07/24 08:27) SEVERE BACK PAIN ibuprofen (From Motrin) Allergy (Unknown, Verified 11/07/24 08:27) Nausea tamsulosin (TAMSULOSIN) Allergy (Unknown, Verified 11/07/24 08:27) UNKNOWN, Fever dofetilide (From Tikosyn) Adverse Reaction (Severe, Verified 11/07/24 08:27) Diarrhea apixaban (From Eliquis) Adverse Reaction (Intermediate, Verified 11/07/24 08:27) Nausea and Vomiting rosuvastatin Adverse Reaction (Intermediate, Verified 11/07/24 08:27) hypotension' adhesive tape Adverse Reaction (Mild, Verified 11/07/24 08:27) Itching Medication List - Last Reconciled 11/21/24 by Bruce Page MD allopurinol 100 mg PO BEDTIME 90 days amiodarone 200 mg PO DAILY ascorbate calcium (vitamin C) 500 mg PO DAILY carvedilol 12.5 mg (1/2 x 25 mg) PO BID cholecalciferol (vitamin D3) 10,000 units PO DAILY clotrimazole 1% 1 appl topical BID PRN coenzyme Q10 (Co Q-10) 20 mg PO DAILY ezetimibe 10 mg PO DAILY furosemide 40 mg PO DAILY loratadine 10 mg PO DAILY magnesium 30 mg PO DAILY metformin 500 mg PO BIDWMEAL 90 days multivitamin 1 tab PO DAILY omega 6-uzx-ihy-fish oil 60-90-500 mg (Fish Oil) 1 cap PO DAILY pravastatin 40 mg PO BEDTIME pyridoxine (vitamin B6) 50 mg PO DAILY 90 days sacubitril-valsartan 49-51 mg (Entresto) 0.5 tabs PO BID sitagliptin phosphate (Januvia) 100 mg PO DAILY tadalafil 5 mg PO DAILY 90 days tadalafil 20 mg PO ONCE PRN 30 days triamcinolone acetonide 0.5% 1 appl topical BID PRN vitamin K2 100 mcg PO DAILY Xarelto (rivaroxaban) 20 mg PO QPM NS zinc sulfate (Orazinc) 25 mg PO DAILY HPI Comments Details: Td comes for follow-up, underwent ablation September for atrial fibrillation and atrial flutter. Doing well since then. He has not had any recurrent episodes. He has also increase his exercise significantly in his not running sometimes of 4.5 miles now but within a minute gets short of breath and muscle aches. Was trying to push it. He has changed his diet. He has been losing his weight. His blood pressure at home have been running low. He does complain of orthostatic lightheadedness. He has not had any syncopal episode. Recent creatinine has been 1.5 5 which is slightly elevated compared to his baseline. He denies any orthopnea, PND, leg edema, abdominal distension. Takes all his medications regularly. No bleeding issues or neurologic events. [facility] Medical History (Updated 11/21/24 @ 13:29 by Bruce Page MD) Paroxysmal atrial fibrillation Chronic heart failure with reduced ejection fraction (HFrEF, <= 40%) Chronic heart failure with reduced ejection fraction and diastolic dysfunction Coronary artery disease Visit for monitoring Tikosyn therapy CKD (chronic kidney disease) stage 3, GFR 30-59 ml/min Obesity (BMI 30.0-34.9) Heart failure with reduced ejection fraction Ischemic cardiomyopathy ICD (implantable cardioverter-defibrillator) in place Pneumonia Anxiety and depression Bilateral renal stones Hypercholesterolemia Psoriasis Gout Hypertension GERD (gastroesophageal reflux disease) Surgical History Hx of colonoscopy History of heart artery stent S/P ICD (internal cardiac defibrillator) procedure History of cataract surgery History of surgery History of vasectomy History of wisdom tooth extraction Family History Father Diabetes Prostate cancer CVD (cardiovascular disease) Mother CVD (cardiovascular disease) Acute CVA (cerebrovascular accident) Social History Household Members: Spouse Housing: House Are you a primary healthcare analyst to a significant other at home: No Do you presently have visiting nurse or other home services: No Alcohol intake: current Alcohol intake frequency: holidays/special occasions only Comment: once q2 months 1/2 bottle of wine, q 2 month 1/2 cup Patient Tobacco Use Status: Never used Tobacco e-Cigarette/Vaping Use: Never Used Second Hand Smoke Exposure: No service: No Current occupational status: retired Cognitive needs: No Hearing needs: No Vision needs: Yes Review of Systems Const Reports no additional complaints Card Denies chest pain, Denies leg edema, Reports lightheadedness, Denies palpitations, Reports dyspnea on exertion, Denies orthopnea and Denies paroxysmal nocturnal dyspnea Resp Reports no additional complaints and Reports dyspnea on exertion GI Reports no additional complaints Reports no additional complaints Skin/Breast Reports system reviewed and no additional complaints, except as documented Neuro Reports no additional complaints Endo Reports no additional complaints and Denies palpitations Physical Exam Vital Signs: Last Vital Signs Pulse 54 11/21/24 12:58 BP 98/62 11/21/24 12:58 BMI result Body Mass Index 27.3 Const General: cooperative, healthy appearing, comfortable, no acute distress and well groomed Nutritional Appearance: overweight Orientation/consciousness: patient oriented x3 HEENT Other: Unremarkable Head: Yes normal to inspection Neck Neck: Yes normal visual inspection, Yes trachea midline and Yes supple Chest Chest palpation & inspection: normal inspection of the chest Resp Effort & Inspection: normal respiratory effort Auscultation: clear to auscultation bilaterally, no crackles, no rales, no rhonchi and no wheezes Cardio Jugular venous distension: no JVD Palpation: normal PMI Rate: regular rate Rhythm: regular rhythm Heart sounds: S1 normal heart sound present, S2 normal heart sound present, no click, no gallops, no murmurs and no rubs Peripheral pulses: Peripheral pulses 2+ throughout GI Palpation (GI): Soft to palpation Auscultation: normal bowel sounds Back/Spine/Pelvis Other: unremarkable Skin General skin exam: no rashes or lesions noted Neuro General: patient oriented x3 Extrem General: Yes normal to inspection, No calf tenderness, No clubbing, No cyanosis and No edema Psych Appearance: grossly normal Mental Status: mental status grossly normal Office Procedures EKG Details: EKG shows sinus bradycardia with sinus arrhythmias with poor R[place] [address]-[id number], Complete Assessment & Plan Assessment & Plan (1) Chronic heart failure with reduced ejection fraction (HFrEF, <= 40%): Code(s): I50.22 - Chronic systolic (congestive) heart failure Category: Medical Plan: Heart failure reduced ejection fraction secondary to ischemic cardiomyopathy severe LV systolic dysfunction has done well with no signs of heart failure with NYHA class 2 symptoms trying to push his overall exercise capacity and running currently. Has NYHA 2 symptoms due to LV systolic dysfunction but also probably related to reduce preload from over diuresis at this point time which is probably also lead to increased creatinine. Also possibly low blood pressure and bradycardia contributing to lower cardiac output. Will reduce amiodarone 200 mg daily as well as carvedilol to 6.25 mg b.i.d.. Reduce Lasix to 40 mg on even days and 20 mg on the other days. Advised to monitor blood pressure at home maintain a log. Follow-up creatinine 2 weeks. Signs and symptoms of heart failure were discussed. Daily weight monitoring avoidance of salt loading was discussed. Continue current Entresto therapy. Encouraged to continue maintain activity level as tolerated. (2) Coronary artery disease: Comment: STEMI May 2011 Promus stent in LAD and vision [place] old chromium stent in 1st diagonal apical akinesis apical thrombus Code(s): I25.10 - Atherosclerotic heart disease of [place] coronary artery without angina pectoris Category: Medical Qualifiers: Coronary Disease-Associated Artery/Lesion type: [place] artery [place] vs. transplanted heart: [place] heart Associated angina: without angina Qualified Code(s): I25.10 - Atherosclerotic heart disease of [place] coronary artery without angina pectoris Plan: CAD with prior anterior wall myocardial infarction without any recurrent ischemia. Continue high-intensity statin therapy. Currently on full oral anticoagulation with Xarelto and will continue the same. Avoid aspirin therapy. Continue aggressive management diabetes. (3) Paroxysmal atrial fibrillation: Comment: Status post ablation, September 2024 Code(s): I48.0 - Paroxysmal atrial fibrillation Category: Medical Plan: Paroxysmal atrial fibrillation status post ablation. Maintaining rhythm. Has done well with rhythm control approach will continue pursue rhythm control approach. Will reduce amiodarone to 100 mg daily. Continue full oral anticoagulation, currently on Xarelto 20 mg daily. Follow up in the clinic in 3 months time with ICD check. Thank you for allowing me to partake in his care Orders: Orders Basic Metabolic Panel 2 Weeks I50.22 - Chronic systolic (congestive) heart failure Medications: New carvedilol (Coreg) must administer with a meal/food 6.25 mg PO BID 60 tabs 5RF Changed From amiodarone 200 mg PO DAILY 90 tabs 0RF To amiodarone 100 mg (1/2 x 200 mg) PO DAILY 90 tabs 0RF From furosemide 40 mg PO DAILY 90 tabs 0RF To furosemide 40 mg orally One tablet Tuesdays, and Saturdays and half tablets other days; 90 tabs 0RF Coding Level of Care Code Est Pt Level 4 (45467) Complex EM visit Add On G2211 Diagnoses Chronic heart failure with reduced ejection fraction (HFrEF, <= 40%) I50.22 Coronary artery disease involving [place] coronary artery of [place] heart without angina pectoris I25.10 Coronary Disease-Associated Artery/Lesion type: [place] artery [place] vs. transplanted heart: [place] heart Associated angina: without angina Paroxysmal atrial fibrillation I48.0 CPT Codes EKG - CPT: 06650-[id number], Complete ([id number])
[2024-11-21 12:58] VITALS: BP 98/62; PULSE 54; BMI 27.3
--- OUTSIDE RECORDS SUMMARY | 2024-11-21 13:26 | XMS_ITS | Clinical Summary ---
Author Organization [facility] Address [address] [place] [address] Care Team Providers Care Waste Machine Tender Name Role Phone Unavailable Primary Care Provider [...]
--- OUTSIDE RECORDS SUMMARY | 2024-11-21 13:26 | XMS_ITS | Patient Health Record ---
Author Organization [facility] Address [address] [place] [id number] Care Team Providers Care Technical Stenographer Name Role Phone Shilpi Pillai MD Primary [...] Problem Status W/U Status Risk Notes Problem [id number] Colon cancer screening (Z12.11) Active confirmed Problem [id number] Long-term use of aspirin therapy (Z79.82) Active confirmed Problem [id number] long-term (current) use of oral hypoglycemic drugs (Z79.84) Active confirmed Plan Of Treatment Future Test Test Name Order Date COLONOSCOPY 06/21/2014 COLONOSCOPY 06/30/2021 Insurance Providers Payer Name Payer Address Payer Phone Subscriber Number Group Number Insured Name Patient Relationship to Insured Coverage Start Date Coverage End Date AAR Medicare Advantage Plan [address] [address] [place] [address] [id number] CONNIE REANNA Self - patient is the insured Medical (General) History Medical History History ICD Code diabetes mellitus [place] 06/07/2011 coronary artery disease with stent place ment cardiomyopathy, ejection fraction 32% hypertension elevated cholesterol Colonoscopy 09/07, tubular adenoma, five- year followup Surgical History Surgery Date(Month/Year) vasectomy 1986 wisdom teeth extraction 1969 ICD
== END 2024-11-21 13:27 | disposition home or self-care (01) ==
LOC: HO.HCS 12:45
PROVIDERS: PCP Internal Medicine; Visit Provider Internal Medicine Cardiovascular Disease
DX: I50.22 Chronic systolic (congestive) heart failure (principal); I25.10 Atherosclerotic heart disease of native coronary artery without angina pectoris; I48.0 Paroxysmal atrial fibrillation
CPT/HCPCS: 93010; 99214; G2211

== ENCOUNTER → 2024-11-21 12:44 | Outpatient (BNVA) | payer MEDICARE, OTHER, SELFPAY | PROVIDERS: PCP Internal Medicine; Visit Provider Internal Medicine Cardiovascular Disease | DX: I11.0 Hypertensive heart disease with heart failure (principal); I50.22 Chronic systolic (congestive) heart failure; I25.10 Atherosclerotic heart disease of native coronary artery without angina pectoris; I48.0 Paroxysmal atrial fibrillation; R94.31 Abnormal electrocardiogram [ECG] [EKG]; R00.1 Bradycardia, unspecified | CPT/HCPCS: 93005; 99212 ==

== ENCOUNTER 2024-12-08 13:43 | Outpatient (REF) | payer MEDICARE, OTHER, SELFPAY ==
--- OUTSIDE RECORDS SUMMARY | 2024-12-08 13:46 | XMS_ITS | Clinical Summary ---
Author Organization [facility] Address [address] [place] [address] Care Team Providers Care Greenhouse Superintendent Name Role Phone Unavailable Primary Care Provider [...]
--- OUTSIDE RECORDS SUMMARY | 2024-12-08 13:47 | XMS_ITS | Patient Health Record ---
Author Organization [facility] Address [address] [place] [phone] Care Team Providers Care Hand Tool Lapper Name Role Phone Shilpi Pillai MD Primary Care Provider Liban Holliday Jr Unavailable [phone] Allergies Allergen (clinical drug ingredient) Drug/Non Drug [...] Problem Status W/U Status Risk Notes Problem [id number] Colon cancer screening (Z12.11) Active confirmed Problem 124753073 Long-term use of aspirin therapy (Z79.82) Active confirmed Problem [id number] MCC (current) use of oral hypoglycemic drugs (Z79.84) Active confirmed Plan Of Treatment Future Test Test Name Order Date COLONOSCOPY 06/21/2014 COLONOSCOPY 06/30/2021 Insurance Providers Payer Name Payer Address Payer Phone Subscriber Number Group Number Insured Name Patient Relationship to Insured Coverage Start Date Coverage End Date AAR Medicare Advantage Plan [address] [address] [place] [address] [id number] CONNIE REANNA Self - patient is the insured Medical (General) History Medical History History ICD Code diabetes mellitus [place] 06/07/2011 coronary artery disease with stent place ment cardiomyopathy, ejection fraction 32% hypertension elevated cholesterol Colonoscopy 09/07, tubular adenoma, five- year followup Surgical History Surgery Date(Month/Year) vasectomy 1986 wisdom teeth extraction 1969 ICD
[2024-12-08 14:53] LABS: Anion Gap 15 (12-20); Blood Urea Nitrogen 18 mg/dL (9-16); Calcium 9.6 mg/dL (8.4-10.2); Carbon Dioxide 25 mmol/L (22-29); Chloride 103 mmol/L (96-108); Estimated Glomerular Filt Rate 54; Potassium 4.0 mmol/L (3.3-5.1); Sodium 139 mmol/L (135-145)
== END 2024-12-08 13:44 | disposition home or self-care (01) ==
LOC: HO.LAB 13:43
PROVIDERS: PCP Internal Medicine; Visit Provider Internal Medicine Cardiovascular Disease
DX: I50.22 Chronic systolic (congestive) heart failure (principal)
CPT/HCPCS: 36415; 80048

== ENCOUNTER 2024-12-22 08:30 | Outpatient (RCR) | payer MEDICARE, OTHER, SELFPAY ==
[2024-09-14 11:21] LABS: Glucose, Whole Blood 136 mg/dL (60-115)
[2024-09-14 11:21] LABS: Glucose, Whole Blood 172 mg/dL (60-115)
[2024-09-15 11:34] LABS: Glucose, Whole Blood 141 mg/dL (60-115)
[2024-09-15 11:34] LABS: Glucose, Whole Blood 176 mg/dL (60-115)
== END 2024-12-27 08:13 | disposition home or self-care (01) ==
LOC: HO.CR 08:30
PROVIDERS: PCP Internal Medicine; Visit Provider Internal Medicine Cardiovascular Disease
DX: I50.42 Chronic combined systolic (congestive) and diastolic (congestive) heart failure (principal)
CPT/HCPCS: 82947; 93798

== ENCOUNTER → 2025-01-29 23:59 | Outpatient (BNV) | payer MEDICARE, MEDICAID, SELFPAY ==
--- NOTE | 2025-01-29 12:45 | A.OFFVIS_ITS ---
Intake Visit Reasons: Remote ICD check- [employer] Allergies lisinopril (LISINOPRIL) Allergy (Mild, Verified 11/07/24 08:27) UNKNOWN, cough, cough doxycycline (DOXYCYCLINE) Allergy (Unknown, Verified 11/07/24 08:27) UNKNOWN glimepiride (GLIMEPIRIDE) Allergy (Unknown, Verified 11/07/24 08:27) SEVERE BACK PAIN ibuprofen (From Motrin) Allergy (Unknown, Verified 11/07/24 08:27) Nausea tamsulosin (TAMSULOSIN) Allergy (Unknown, Verified 11/07/24 08:27) UNKNOWN, Fever dofetilide (From Tikosyn) Adverse Reaction (Severe, Verified 11/07/24 08:27) Diarrhea apixaban (From Eliquis) Adverse Reaction (Intermediate, Verified 11/07/24 08:27) Nausea and Vomiting rosuvastatin Adverse Reaction (Intermediate, Verified 11/07/24 08:27) hypotension' adhesive tape Adverse Reaction (Mild, Verified 11/07/24 08:27) Itching [facility] Medical History (Updated 11/21/24 @ 13:29 by Bruce Page MD) Paroxysmal atrial fibrillation Chronic heart failure with reduced ejection fraction (HFrEF, <= 40%) Chronic heart failure with reduced ejection fraction and diastolic dysfunction Coronary artery disease Visit for monitoring Tikosyn therapy CKD (chronic kidney disease) stage 3, GFR 30-59 ml/min Obesity (BMI 30.0-34.9) Heart failure with reduced ejection fraction Ischemic cardiomyopathy ICD (implantable cardioverter-defibrillator) in place Pneumonia Anxiety and depression Bilateral renal stones Hypercholesterolemia Psoriasis Gout Hypertension GERD (gastroesophageal reflux disease) Surgical History Hx of colonoscopy History of heart artery stent S/P ICD (internal cardiac defibrillator) procedure History of cataract surgery History of surgery History of vasectomy History of wisdom tooth extraction Family History Father Diabetes Prostate cancer CVD (cardiovascular disease) Mother CVD (cardiovascular disease) Acute CVA (cerebrovascular accident) Social History Household Members: Spouse Housing: House Are you a primary field care coordinator to a significant other at home: No Do you presently have visiting nurse or other home services: No Alcohol intake: current Alcohol intake frequency: holidays/special occasions only Comment: once q2 months 1/2 bottle of wine, q 2 month 1/2 cup Patient Tobacco Use Status: Never used Tobacco e-Cigarette/Vaping Use: Never Used Second Hand Smoke Exposure: No service: No Current occupational status: retired Cognitive needs: No Hearing needs: No Vision needs: Yes Office Procedures Cardiac Device Check Cardiac Device Check Details: Remote ICD report generated 01/29/2025. ICD function is adequate. No arrhythmias noted. Battery life is 70% [id number] Cardiac Interrogation, implant defibrillator w/interim Procedure code (CPT) selection complete Assessment & Plan Assessment & Plan (1) ICD (implantable cardioverter-defibrillator) in place: Comment: [facility]- Foll'd by Dr. Page Code(s): Z95.810 - Presence of automatic (implantable) cardiac defibrillator Category: Medical Plan: See above Coding Level of Care Code Procedure Only Diagnoses ICD (implantable cardioverter-defibrillator) in place Z95.810 CPT Codes Cardiac Device Check - Cardiac Device 13: [id number] Cardiac Interrogation, implant defibrillator w/interim ([id number])
== END ==
PROVIDERS: PCP Internal Medicine; Visit Provider Internal Medicine Cardiovascular Disease
DX: Z45.02 Encounter for adjustment and management of automatic implantable cardiac defibrillator (principal)
CPT/HCPCS: 93295

== ENCOUNTER 2025-02-09 10:32 | Outpatient (REF) | payer MEDICARE, MEDICAID, SELFPAY ==
[2025-02-09 14:19] LABS: Anion Gap 12 (12-20); Blood Urea Nitrogen 27 mg/dL (9-16); Calcium 9.5 mg/dL (8.4-10.2); Carbon Dioxide 27 mmol/L (22-29); Chloride 107 mmol/L (96-108); Estimated Glomerular Filt Rate > 60; Potassium 3.8 mmol/L (3.3-5.1); Sodium 142 mmol/L (135-145)
[2025-02-09 14:35] LABS: Microalbum/Creatinine Ratio Ur 6.0 ug/mg cr (<30)
[2025-02-09 14:45] LABS: Free T4 (Free Thyroxine) 0.97 ng/dL (0.71-1.85); Thyroid Stimulating Hormone 1.98 uIU/mL (0.32-4.0)
== END 2025-02-09 10:33 | disposition home or self-care (01) ==
LOC: HO.10HDL 10:32
PROVIDERS: Visit Provider Internal Medicine
DX: E11.65 Type 2 diabetes mellitus with hyperglycemia (principal)
CPT/HCPCS: 36415; 80048; 82043; 82570; 84439; 84443

== ENCOUNTER 2025-02-12 12:35 | Outpatient (AMB) | payer MEDICARE, SELFPAY ==
--- NOTE | 2025-02-12 12:47 | A.OFFVIS_ITS ---
Vital Signs 02/12/25 12:48 Height 5 ft 9 in Weight 185 lb 3.013 oz BMI 27.3 BP 110/62 Blood Pressure Location Lt brachial Position Sitting Pulse 71 Intake Visit Reasons: 3 mth w/ [facility] Allergies lisinopril (LISINOPRIL) Allergy (Mild, Verified 11/07/24 08:27) UNKNOWN, cough, cough doxycycline (DOXYCYCLINE) Allergy (Unknown, Verified 11/07/24 08:27) UNKNOWN glimepiride (GLIMEPIRIDE) Allergy (Unknown, Verified 11/07/24 08:27) SEVERE BACK PAIN ibuprofen (From Motrin) Allergy (Unknown, Verified 11/07/24 08:27) Nausea tamsulosin (TAMSULOSIN) Allergy (Unknown, Verified 11/07/24 08:27) UNKNOWN, Fever dofetilide (From Tikosyn) Adverse Reaction (Severe, Verified 11/07/24 08:27) Diarrhea apixaban (From Eliquis) Adverse Reaction (Intermediate, Verified 11/07/24 08:27) Nausea and Vomiting rosuvastatin Adverse Reaction (Intermediate, Verified 11/07/24 08:27) hypotension' adhesive tape Adverse Reaction (Mild, Verified 11/07/24 08:27) Itching Medication List - Last Reconciled 02/12/25 by Bruce Page MD allopurinol 100 mg PO BEDTIME 90 days ascorbate calcium (vitamin C) 500 mg PO DAILY carvedilol (Coreg) 6.25 mg PO BID cholecalciferol (vitamin D3) 10,000 units PO DAILY coenzyme Q10 (Co Q-10) 20 mg PO DAILY Entresto 49-51 mg (sacubitril-valsartan) 0.5 tabs PO BID NS ezetimibe 10 mg PO DAILY furosemide 40 mg orally One tablet Tuesdays, and Saturdays and half tablets other days; loratadine 10 mg PO DAILY magnesium 30 mg PO DAILY metformin 500 mg PO BIDWMEAL 90 days multivitamin 1 tab PO DAILY omega 0-xxa-oen-fish oil 60-90-500 mg (Fish Oil) 1 cap PO DAILY pravastatin 40 mg PO BEDTIME pyridoxine (vitamin B6) 50 mg PO DAILY 90 days sitagliptin phosphate (Januvia) 100 mg PO DAILY tadalafil 5 mg PO DAILY 90 days tadalafil 20 mg PO ONCE PRN 30 days triamcinolone acetonide 0.5% 1 appl topical BID PRN vitamin K2 100 mcg PO DAILY Xarelto (rivaroxaban) 20 mg PO QPM NS HPI Comments Details: Td comes for follow-up. Overall he has been doing extremely well. His picked up his exercise level in his currently doing high level of aerobic activity without any significant limitations except for he feels when he is trying to do enhance aerobic activity his heart rate does not climb up as much as he would like to. He has not had any heart failure symptoms. No orthopnea, PND, leg edema. This is despite lowering his furosemide dose. He denies any palpitations, lightheadedness, syncope, ICD discharge. Taking all his medications regularly. [facility] Medical History Paroxysmal atrial fibrillation Chronic heart failure with reduced ejection fraction (HFrEF, <= 40%) Chronic heart failure with reduced ejection fraction and diastolic dysfunction Coronary artery disease Visit for monitoring Tikosyn therapy CKD (chronic kidney disease) stage 3, GFR 30-59 ml/min Obesity (BMI 30.0-34.9) Heart failure with reduced ejection fraction Ischemic cardiomyopathy ICD (implantable cardioverter-defibrillator) in place Pneumonia Anxiety and depression Bilateral renal stones Hypercholesterolemia Psoriasis Gout Hypertension GERD (gastroesophageal reflux disease) Surgical History Hx of colonoscopy History of heart artery stent S/P ICD (internal cardiac defibrillator) procedure History of cataract surgery History of surgery History of vasectomy History of wisdom tooth extraction Family History Father Diabetes Prostate cancer CVD (cardiovascular disease) Mother CVD (cardiovascular disease) Acute CVA (cerebrovascular accident) Social History Household Members: Spouse Housing: House Are you a primary group care worker to a significant other at home: No Do you presently have visiting nurse or other home services: No Alcohol intake: current Alcohol intake frequency: holidays/special occasions only Comment: once q2 months 1/2 bottle of wine, q 2 month 1/2 cup Patient Tobacco Use Status: Never used Tobacco e-Cigarette/Vaping Use: Never Used Second Hand Smoke Exposure: No service: No Current occupational status: retired Cognitive needs: No Hearing needs: No Vision needs: Yes Review of Systems Const Denies chills, Denies fatigue, Denies fever(s), Denies frequent falls, Denies weakness, Denies weight gain and Denies weight loss ENT Denies dizziness Card Denies chest pain, Denies leg edema, Denies lightheadedness, Denies palpitations, Denies dyspnea, Denies dyspnea on exertion, Denies orthopnea and Denies other (loss of consciousness) Resp Denies cough, Denies dyspnea and Denies dyspnea on exertion GI Denies hematochezia and Denies change in stool character Musc Denies abnormal gait, Denies muscle weakness, Denies numbness, Denies radiating pain into limb and Denies tingling Neuro Denies abnormal gait, Denies dizziness, Denies frequent falls, Denies numbness, Denies tingling and Denies weakness Endo Denies fatigue and Denies palpitations Physical Exam Vital Signs: Last Vital Signs Pulse 71 02/12/25 12:48 BP 110/62 02/12/25 12:48 BMI result Body Mass Index 27.3 Const General: cooperative, healthy appearing, comfortable, no acute distress, alert, awake and well groomed Nutritional Appearance: average body habitus Orientation/consciousness: patient oriented x3 Limitations: no limitations HEENT Other: Unremarkable Head: Yes normal to inspection Neck Neck: Yes normal visual inspection, Yes trachea midline and Yes supple Chest Chest palpation & inspection: normal inspection of the chest Resp Effort & Inspection: normal respiratory effort Auscultation: clear to auscultation bilaterally, no crackles, no rales, no rhonchi and no wheezes Cardio Jugular venous distension: no JVD Palpation: normal PMI Rate: regular rate Rhythm: regular rhythm Heart sounds: S1 normal heart sound present, S2 normal heart sound present, no click, no gallops, no murmurs and no rubs Peripheral pulses: Peripheral pulses 2+ throughout GI Palpation (GI): Soft to palpation Auscultation: normal bowel sounds Back/Spine/Pelvis Other: unremarkable Skin General skin exam: no rashes or lesions noted Neuro General: patient oriented x3 Extrem General: Yes normal to inspection, No calf tenderness, No clubbing, No cyanosis and No edema Psych Appearance: grossly normal Mental Status: mental status grossly normal Office Procedures Cardiac Device Check Cardiac Device Check Details: [employer] subcutaneous ICD in place. No arrhythmias detected including atrial fibrillation. Shocking impedance was excellent. Battery status is a 70%. Sensing is adequate [id number] Device Interrogation, implantable defibrillator Procedure code (CPT) selection complete EKG Details: EKGs shows normal sinus rhythm with poor R-wave progression consistent with anterior IL with diffuse ST T wave changes suggestive of repolarization abnormality [id number], Complete Assessment & Plan Assessment & Plan (1) Chronic heart failure with reduced ejection fraction (HFrEF, <= 40%): Code(s): I50.22 - Chronic systolic (congestive) heart failure Category: Medical Plan: Heart failure with reduced ejection fraction with markedly reduced LV ejection fraction due to prior myocardial infarction and ischemic cardiomyopathy. Clinically doing extremely well with high level functionality at this point time. Clinically euvolemic and well compensated. Will reduce furosemide to 20 mg daily. Continue neurohormonal modulation with Entresto, carvedilol. Encouraged to maintain activity level as tolerated. Additional diuretics as need be. Daily weight monitoring avoidance salt loading was discussed. He understands agrees. (2) Paroxysmal atrial fibrillation: Comment: Status post ablation, September 2024 Code(s): I48.0 - Paroxysmal atrial fibrillation Category: Medical Plan: Paroxysmal atrial fibrillation status post ablation. Currently off all antiarrhythmic drug therapy. Will continue monitor by device telemetry. Continue carvedilol therapy. Avoidance of stimulants was discussed. Continue full oral anticoagulation, currently on Xarelto 20 mg daily. Semi annual renal function test should be pursued. (3) ICD (implantable cardioverter-defibrillator) in place: Comment: [employer]- Foll'd by Dr. Page Code(s): Z95.810 - Presence of automatic (implantable) cardiac defibrillator Category: Medical Plan: Subcutaneous ICD in place for primary prevention. ICD is working well. Reprogrammed for adequate function. Will follow remotely. Follow up in the clinic in 6 months time. (4) Coronary artery disease: Comment: STEMI May 2011 Promus stent in LAD and vision [place] old chromium stent in 1st diagonal apical akinesis apical thrombus Code(s): I25.10 - Atherosclerotic heart disease of [place] coronary artery without angina pectoris Category: Medical Qualifiers: Coronary Disease-Associated Artery/Lesion type: [place] artery [place] vs. transplanted heart: [place] heart Associated angina: without angina Qualified Code(s): I25.10 - Atherosclerotic heart disease of [place] coronary artery without angina pectoris Plan: CAD with prior myocardial infarction. Continue aggressive medical therapy. Currently blood pressure is well optimized. Currently on full oral anticoagulation Xarelto continue the same. Avoid aspirin therapy. Continue aggressive lipid modification with target goal LDL less than 60 mg/dL. Will follow up in the clinic in 6 months time after an echocardiogram. Thank you for allowing me to partake in his care Orders: Orders CA echo transthoracic complete 6 Months I50.22 - Chronic systolic (congestive) heart failure Coding Level of Care Code Est Pt Level 4 (01723) Complex EM visit Add On G2211 Diagnoses Chronic heart failure with reduced ejection fraction (HFrEF, <= 40%) I50.22 Paroxysmal atrial fibrillation I48.0 ICD (implantable cardioverter-defibrillator) in place Z95.810 Coronary artery disease involving [place] coronary artery of [place] heart without angina pectoris I25.10 Coronary Disease-Associated Artery/Lesion type: [place] artery [place] vs. transplanted heart: [place] heart Associated angina: without angina CPT Codes Cardiac Device Check - Cardiac Device 9: [id number] Device Interrogation, implantable defibrillator ([id number]) EKG - CPT: 67979-[id number], Complete ([id number])
[2025-02-12 12:48] VITALS: BP 110/62; PULSE 71; BMI 27.3
== END 2025-02-12 12:48 | disposition home or self-care (01) ==
LOC: HO.HCS 12:35
PROVIDERS: PCP Internal Medicine; Visit Provider Internal Medicine Cardiovascular Disease
DX: I50.22 Chronic systolic (congestive) heart failure (principal); I48.0 Paroxysmal atrial fibrillation; Z95.810 Presence of automatic (implantable) cardiac defibrillator; I25.10 Atherosclerotic heart disease of native coronary artery without angina pectoris
CPT/HCPCS: 93010; 93260; 99214; G2211

== ENCOUNTER → 2025-02-12 12:35 | Outpatient (BNVA) | payer MEDICARE, OTHER, SELFPAY | PROVIDERS: PCP Internal Medicine; Visit Provider Internal Medicine Cardiovascular Disease | DX: Z45.02 Encounter for adjustment and management of automatic implantable cardiac defibrillator (principal); I50.22 Chronic systolic (congestive) heart failure; I48.0 Paroxysmal atrial fibrillation; I25.10 Atherosclerotic heart disease of native coronary artery without angina pectoris; Z95.810 Presence of automatic (implantable) cardiac defibrillator; R94.31 Abnormal electrocardiogram [ECG] [EKG] | CPT/HCPCS: 93005; 99212 ==

== ENCOUNTER 2025-02-19 14:06 | Outpatient (AMB) | payer MEDICARE, SELFPAY ==
--- NOTE | 2025-02-19 14:10 | MHC.PC.OV ---
Vital Signs 02/19/25 14:12 Height 5 ft 9 in Weight 173 lb 8 oz BMI 25.6 BP 122/74 Blood Pressure Location Lt brachial Position Sitting Pulse 73 Pulse Source Pulse Oximeter Temp 97.1 F Temp Source Temporal Artery Scan Pulse Oximetry (%) 100 Oxygen Delivery Method Room Air Intake Visit Reasons: 3 mo follow up Allergies lisinopril (LISINOPRIL) Allergy (Mild, Verified 02/19/25 14:15) UNKNOWN, cough, cough doxycycline (DOXYCYCLINE) Allergy (Unknown, Verified 02/19/25 14:15) UNKNOWN glimepiride (GLIMEPIRIDE) Allergy (Unknown, Verified 02/19/25 14:15) SEVERE BACK PAIN ibuprofen (From Motrin) Allergy (Unknown, Verified 02/19/25 14:15) Nausea tamsulosin (TAMSULOSIN) Allergy (Unknown, Verified 02/19/25 14:15) UNKNOWN, Fever dofetilide (From Tikosyn) Adverse Reaction (Severe, Verified 02/19/25 14:15) Diarrhea apixaban (From Eliquis) Adverse Reaction (Intermediate, Verified 02/19/25 14:15) Nausea and Vomiting rosuvastatin Adverse Reaction (Intermediate, Verified 02/19/25 14:15) hypotension' adhesive tape Adverse Reaction (Mild, Verified 02/19/25 14:15) Itching Tobacco use date assessed: 02/19/25 Fall risk assessment: No Falls in past year Last assessed Fall Risk: 02/19/25 Dental Screening Dental Screen Date: 02/19/25 Did you have a dental visit in the last 12 months?: Yes Did you have a dental problem in the last 6 months where you did not have access to dental care?: No Was dental information given to patient?: Patient has dentist [facility], [facility] Medical History Paroxysmal atrial fibrillation Chronic heart failure with reduced ejection fraction (HFrEF, <= 40%) Chronic heart failure with reduced ejection fraction and diastolic dysfunction Coronary artery disease Visit for monitoring Tikosyn therapy CKD (chronic kidney disease) stage 3, GFR 30-59 ml/min Obesity (BMI 30.0-34.9) Heart failure with reduced ejection fraction Ischemic cardiomyopathy ICD (implantable cardioverter-defibrillator) in place Pneumonia Anxiety and depression Bilateral renal stones Hypercholesterolemia Psoriasis Gout Hypertension GERD (gastroesophageal reflux disease) Surgical History Hx of colonoscopy History of heart artery stent S/P ICD (internal cardiac defibrillator) procedure History of cataract surgery History of surgery History of vasectomy History of wisdom tooth extraction Family History Father Diabetes Prostate cancer CVD (cardiovascular disease) Mother CVD (cardiovascular disease) Acute CVA (cerebrovascular accident) Social History Household Members: Spouse Housing: House Are you a primary home care assistant to a significant other at home: No Do you presently have visiting nurse or other home services: No Alcohol intake: current Alcohol intake frequency: holidays/special occasions only Comment: once q2 months 1/2 bottle of wine, q 2 month 1/2 cup Patient Tobacco Use Status: Never used Tobacco e-Cigarette/Vaping Use: Never Used Second Hand Smoke Exposure: No service: No Current occupational status: retired Cognitive needs: No Hearing needs: No Vision needs: Yes Questionnaire PHQ-9 Over the last 2 weeks, how often have you been bothered by any of the following problems? 1. Little interest or pleasure in doing things: not at all 2. Feeling down, depressed, or hopeless: not at all 3. Trouble falling or staying asleep, or sleeping too much: not at all 4. Feeling tired or having little energy: not at all 5. Poor appetite or overeating: not at all 6. Feeling bad about yourself - or that you are a failure or have let yourself or your family down: not at all 7. Trouble concentrating on things, such as reading the newspaper or watching television: not at all 8. Moving or speaking so slowly that other people could have noticed. Or the opposite - being so fidgety or restless that you have been moving around a lot more than usual: not at all 9. Thoughts that you would be better off or of hurting yourself in some way: not at all Total score: 0 Depression Screening Interpretation: Negative Depression Screening Done: Yes Source: Developed by Drs. Gopal Lazaro, Dora Rosario, Jose Ferrera and colleagues, with an educational laura from [email or web address]. Thrive Questionnaire Date Thrive assessed: 06/28/24 I am a: Patient What is your living situation today?: I have a steady place to live Within the past 12 months, did the food you bought not last and you didn't have the money to get more?: Never true Within the past 12 months, did you worry whether your food would run out before you got money to buy more?: Never true Do you have trouble paying for medicines?: No Do you have trouble getting transportation to medical appointments?: No Do you have trouble paying your heating and electricity bill?: No Do you have trouble taking care of your child, family member or friend?: No Do you have trouble with day-to-day activities such as bathing, preparing meals, shopping, managing finances, etc.?: No Are you currently unemployed and looking for a job?: No Are you interested in more education?: I choose not to answer this question Please select the resources that you would like help with: None Currently or been in a relationship where the following occur: No concerns reported THRIVE Score: 0 AUDIT C Alcohol Use Questionnaire (AUDIT-C) 1. How often do you have a drink containing alcohol?: Monthly or less 2. How many drinks containing alcohol do you have on a typical day when you are drinking?: 1 or 2 3. How often do you have six or more drinks on one occasion?: Never Total Score: 1 AUSTIN-7 AMB Questionnaire AUSTIN-7 Date AUSTIN - 7 assessed: 11/07/24 Feeling nervous, anxious, or on edge: 0 = Not at all Not being able to stop or control worryin = Not at all Worrying too much about different things: 0 = Not at all Trouble relaxin = Not at all Being so restless that it is hard to sit still: 0 = Not at all Becoming easily annoyed or irritable: 0 = Not at all Feeling afraid as if something awful might happen: 0 = Not at all Total AUSTIN-7 score (0-4 normal; 5-9 mild; 10-14 moderate; 15-21 severe): 0 Source: Developed by Drs. Gopal Lazaro, Dora Rosario, Jose Ferrera and colleagues, with an educational laura from [email or web address]. Physical exam (Primary Care) Vital Signs: Last Vital Signs Temp 97.1 F 02/19/25 14:12 Pulse 73 02/19/25 14:12 BP 122/74 02/19/25 14:12 Pulse Ox 100 02/19/25 14:12 Oxygen Delivery Method Room Air 02/19/25 14:12 BMI result Body Mass Index 25.6 Tobacco/Smoking Status: Tobacco use Status Tobacco use date assessed 02/19/25 02/19/25 14:16 Patient Tobacco Use Status Never used Tobacco 02/19/25 14:12 Tobacco use type 02/12/25 13:10 e-Cigarette/Vaping Use Never Used 02/19/25 14:12 PHQ-9: PHQ-9 Score PHQ-9: Total score 0 02/19/25 14:23 Depression Screening Interpretation: Negative Thrive Assessment: Date of Thrive Assessment Date Thrive assessed 06/28/24 02/19/25 14:12 Currently or been in a relationship where the following occur: No concerns reported Const General: alert; No acute distress Eyes Conjunctivae: conjunctivae normal Resp Auscultation: clear to auscultation bilaterally Cardio Rate: regular rate Rhythm: regular rhythm GI Inspection: Yes normal to inspection Extrem General: Yes normal to inspection and No edema Office Procedures Flu Questionnaire Does the patient have a severe egg allergy?: No Does the patient have severe life threatening allergies?: No Does the patient have a fever or illness today?: No Has the patient ever had Guillain-[place] Syndrome?: No Has the patient ever had any past reaction to a flu shot?: No Results AMB Hemoglobin A1c AMB Hemoglobin A1c 5.5 % Last Edit by Amber Grimm CMA on 02/19/25 14:22 Immunizations Fluarix [id number] (PF) 45 mcg (15 mcg x 3)/0.5 mL IM syringe Performing Provider: Shilpi Pillai MD [facility] Administered by: Amber Grimm CMA on 02/19/25 14:20 Dose Route Admin Location Dispensed Lot Number Expiration Date NDC Foam Caster 0.5 mL IM Left Deltoid 0.5 mL [id number] 10/23/25 [id number] [employer] VIS Given Date VIS Provided VIS Publication Date 02/19/25 Single Vaccine 24 Eligibility Eligibility Date Funding Source Not [facility] Eligible 02/19/25 Private Results Reviewed Results Reviewed: Laboratory Last Values Hgb A1c (Clinic) 5.5 % (4.0-6.0) 02/19/25 14:17 Coding Level of Care Code Est Pt Level 4 (70997) Complex EM visit Add On G2211 Diagnoses Essential hypertension I10 Hypertension type: essential hypertension Coronary artery disease involving [place] coronary artery of [place] heart without angina pectoris I25.10 Associated angina: without angina Coronary Disease-Associated Artery/Lesion type: [place] artery [place] vs. transplanted heart: king salmon heart Chronic heart failure with reduced ejection fraction (HFrEF, <= 40%) I50.22 ICD (implantable cardioverter-defibrillator) in place Z95.810 Paroxysmal atrial fibrillation I48.0 Hypercholesterolemia E78.00 Type 2 diabetes mellitus with hyperglycemia, without long-term current use of insulin E11.65 Diabetes mellitus long term care phlebotomist insulin use: without penitentiary use Gastroesophageal reflux disease without esophagitis K21.9 Esophagitis presence: without esophagitis Hepatic steatosis K76.0 Assessment & Plan Assessment & Plan (1) Hypertension: Code(s): I10 - Essential (primary) hypertension Category: Medical Qualifiers: Hypertension type: essential hypertension Qualified Code(s): I10 - Essential (primary) hypertension Plan: Continue with blood pressure medication. Decrease salt intake and exercise continue with carvedilol Entresto (2) Coronary artery disease: Comment: STEMI May 2011 Promus stent in LAD and vision [place] old chromium stent in 1st diagonal apical akinesis apical thrombus Code(s): I25.10 - Atherosclerotic heart disease of [place] coronary artery without angina pectoris Category: Medical Qualifiers: Associated angina: without angina Coronary Disease-Associated Artery/Lesion type: [place] artery [place] vs. transplanted heart: [place] heart Qualified Code(s): I25.10 - Atherosclerotic heart disease of [place] coronary artery without angina pectoris Plan: Control the cholesterol, weight, blood pressure, diabetes on anticoagulation with Xarelto (3) Chronic heart failure with reduced ejection fraction (HFrEF, <= 40%): Code(s): I50.22 - Chronic systolic (congestive) heart failure Category: Medical Plan: Continue with furosemide at 20 mg once a day weigh daily. (4) ICD (implantable cardioverter-defibrillator) in place: Comment: [employer]- Foll'd by Dr. Page Code(s): Z95.810 - Presence of automatic (implantable) cardiac defibrillator Category: Medical Plan: ICD checked by Cardiology 70% better limb (5) Paroxysmal atrial fibrillation: Comment: Status post ablation, September 2024 Code(s): I48.0 - Paroxysmal atrial fibrillation Category: Medical Plan: Continue with anticoagulation with Xarelto, had pulmonary vein vein isolation and ablation September 2024 (6) Hypercholesterolemia: Code(s): E78.00 - Pure hypercholesterolemia, unspecified Category: Medical Plan: Avoid fried foods, chicken skin, eggs, butter margarine, pastries and meat. Be it pork or beef they have a lot of cholesterol LDL goal of less than 60 last blood work was in February 2024 on pravastatin 40 mg once a day (7) Type 2 diabetes mellitus with hyperglycemia: Comment: [facility] Code(s): E11.65 - Type 2 diabetes mellitus with hyperglycemia Category: Medical Qualifiers: Diabetes mellitus penitentiary insulin use: without penitentiary use Qualified Code(s): E11.65 - Type 2 diabetes mellitus with hyperglycemia Plan: Decrease the amount of carbohydrate intake, pasta, bread, rice and potatoes are all sugar and that is aside from all the sweet stuff, remember that fruits are good but they are Sweet also. Hemoglobin A1c goal of less than 7.0. Patient has done good on metformin 500 mg twice a day Januvia 100 mg once a day (8) GERD (gastroesophageal reflux disease): Code(s): K21.9 - Gastro-esophageal reflux disease without esophagitis Category: Medical Qualifiers: Esophagitis presence: without esophagitis Qualified Code(s): K21.9 - Gastro-esophageal reflux disease without esophagitis Plan: Avoid the foods that causes that usually spicy foods, tomato products, juices, coffee, soda and foods that your sensitive to. After eating do not lie down, allow 3-4 hours before in lie down. And keep the head of bed above 30 degrees to avoid the acid from going up. (9) Hepatic steatosis: Comment: July 2024Hepatomegaly and steatosis. No cholelithiasis. No hydronephrosis. No ascites. Code(s): K76.0 - Fatty (change of) liver, not elsewhere classified Category: Medical Plan: Low-fat diet and exercise Plan History of Present Illness The patient is a 69-year-old male presenting for a follow-up visit for management of multiple chronic medical conditions. His past medical history is significant for diabetes mellitus, hypertension, hypercholesterolemia, GERD, cardiomyopathy with an ICD, atrial flutter, coronary artery disease, and congestive heart failure with reduced ejection fraction. The patient underwent a successful catheter ablation for atrial fibrillation with bipulmonary vein isolation and isolation of the posterior left atrial wall using pulsed field ablation in September 2024. He was last seen by cardiology in January, and his ICD battery status was noted to be at 70%. Recent blood work from October revealed mild anemia with a hemoglobin of 12.1 and hematocrit of 35.0, normal electrolytes, good renal function with a creatinine of 1.16, blood sugar of 105, HbA1c of 5.8%, mildly elevated liver enzymes at 43, and a normal thyroid level. His last cholesterol panel in February 2024 showed an LDL of 32. His last colonoscopy was in 2021. The patient reports feeling well and has been very active, running for an hour on the treadmill, covering 4 miles with a 20% incline. He also reports a 12-pound weight loss since his last visit. Health Maintenance The patient is up-to-date with shingles, tetanus, and pneumonia vaccinations. He recently received his flu shot. It was recommended that he get the updated COVID-19 and RSV vaccines. He has a physical scheduled for June. Social History - Exercise: The patient is very active, running on a treadmill for an hour, doing 4 miles, including up hills with a 20% incline. - Diet: Follows a low-fat diet. - Weight Management: Patient reports a 12-pound weight loss and has a goal to lose another 10 pounds. Review of Systems - Constitutional: Reports intentional 12-pound weight loss. - Respiratory: Denies any issues with breathing. Physical Exam - Respiratory: Lungs clear to auscultation bilaterally. Results - Labs (October 2024 unless specified): - Hemoglobin/Hematocrit: 12.1/35.0 (mildly anemic). - Electrolytes: Normal. - Creatinine: 1.16. - Blood sugar: 105. - Hemoglobin A1c: 5.8%. - Liver enzymes: Mildly elevated at 43. - Thyroid: Normal. - LDL cholesterol (February 2024): 32. - Tests and Diagnostics: - ICD Check: Battery status 70%. - Catheter Ablation (September 2024): Successful procedure for atrial fibrillation noted. Plan Patient was informed and verbally consented to the use of an ambient scribe for clinic note documentation during this visit. 1. Heart Failure With Reduced Ejection Fraction The patient is doing well with markedly reduced left ventricular ejection fraction. Per cardiology's recommendation, the furosemide dose has been decreased to 20 mg once a day. Continue current doses of Entresto and carvedilol. The patient will continue daily weight monitoring. His ICD is working well with a battery life of 70%. A follow-up echocardiogram has been ordered by cardiology to be done in six months. 2. Atrial Fibrillation The patient is status post a successful catheter ablation for atrial fibrillation in September 2024. He will continue anticoagulation with Xarelto 20 mg once a day and carvedilol for rate control. Cardiology recommended avoiding aspirin therapy. 3. Hypercholesterolemia The LDL goal is less than 60, and his last result from February 2024 was 32. Continue pravastatin 40 mg once a day. Plan to recheck fasting labs in two to three months (April). 4. Type 2 Diabetes Mellitus The patient has good glycemic control with a last HbA1c of 5.8%, below the goal of less than 7.0%. He will continue metformin 500 mg twice a day and Januvia 100 mg once a day. Continue with a low-fat diet and exercise. Discussion Notes I reviewed the patient's recent cardiology note, including the plan to monitor kidney function due to his use of Xarelto. We discussed his lab results, noting his last cholesterol test was in February 2024, and agreed to repeat fasting labs in April. I commended him on his 12-pound weight loss and impressive commitment to exercise. We discussed the transient elevation in creatinine, confirming it was due to a temporary increase in his Lasix dose by cardiology, which has since been corrected. I informed him that cardiology ordered a follow-up echocardiogram for approximately six months from now. The patient confirmed he has enough medication refills for now and will message if he needs more. We reviewed his vaccination history, confirming he is up-to-date on tetanus, shingles, and pneumonia immunizations. I recommended he receive the updated COVID-19 and RSV vaccines, which can be administered at the same time. We confirmed his next physical is scheduled for June. Patient Instructions - Continue all your current medications as prescribed, including those for heart failure, diabetes, and cholesterol. - Take your furosemide (water pill) at the new lower dose of 20 mg once a day. - Check your weight daily. - Continue your current diet and exercise routine. - Get your fasting blood work done in about 2-3 months (around April). - We recommend you get the updated COVID-19 vaccine and the RSV vaccine. - Your heart doctor has recommended another heart ultrasound (echocardiogram) in about 6 months. - Please let us know if you need any prescription refills. - Keep your scheduled physical exam appointment in June. Orders: Orders Influenza [id number] Immunization Today Z23 - Encounter for immunization AMB Hemoglobin A1c Today Z13.9 - Encounter for screening, unspecified Comprehensive Met. Panel 2 Months I48.0 - Paroxysmal atrial fibrillation Creatinine Urine 2 Months E11.65 - Type 2 diabetes mellitus with hyperglycemia, I48.0 - Paroxysmal atrial fibrillation Reticulocyte Count 2 Months I48.0 - Paroxysmal atrial fibrillation Magnesium 2 Months I48.0 - Paroxysmal atrial fibrillation Complete Blood Count Auto Diff 2 Months I48.0 - Paroxysmal atrial fibrillation Free T4 (Free Thyroxine) 2 Months I48.0 - Paroxysmal atrial fibrillation Ferritin 2 Months I48.0 - Paroxysmal atrial fibrillation Lipid Panel 2 Months E78.00 - Pure hypercholesterolemia, unspecified, I48.0 - Paroxysmal atrial fibrillation IRON PROFILE 2 Months I48.0 - Paroxysmal atrial fibrillation Microalbumin, Random (w Creat) 2 Months E11.65 - Type 2 diabetes mellitus with hyperglycemia, I48.0 - Paroxysmal atrial fibrillation Prostate Specific Antigen Scr 2 Months I48.0 - Paroxysmal atrial fibrillation Thyroid Stimulating Hormone 2 Months I48.0 - Paroxysmal atrial fibrillation Vitamin B12 and Folate 2 Months I48.0 - Paroxysmal atrial fibrillation
[2025-02-19 14:12] VITALS: BP 122/74; PULSE 73; TEMP 36.2; O2SAT 100; BMI 25.6
--- OUTSIDE RECORDS SUMMARY | 2025-02-19 17:46 | XMS_ITS | Clinical Summary ---
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 Body Name Role Phone Unavailable Primary Care Provider Unavailabl e Social History Tobacco Use Types Packs/Day Years Used Date Smoking Tobacco: Never Assessed Sex and Gender Information Value Date Recorded Sex Assigned at Not on file Legal Sex Male 4:59 PM EDT Gender Identity Not on file Sexual Orientation Not on file Plan of Treatment Health Maintenance Due Date Last Done Comments Advance Care Planning 1955 Hepatitis C Virus Screening 1955 DTaP/Tdap/Td Vaccines (1 - Tdap) 1973 Pneumococcal Vaccines 50+ (1 of 1 - PCV) 2004 Zoster (Shingles) Vaccine (1 of 2) 2004 COVID-19 Vaccine ( - 2023-2 5 season) 2024 RSV Vaccine 50 years and old er and Patients (1 - 1-dose 75+ series) 2029 Hepatitis B Vaccines Aged Out No long er eligible based on patient's age to complete this topic
--- OUTSIDE RECORDS SUMMARY | 2025-02-19 17:46 | XMS_ITS | Patient Health Record ---
Author Organization 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 the day before the procedure; Duration: 1 day 06/30/2021 Active metFORMIN HCl 500 MG 1 tablet with meals Orally Twice a day Active Immunizations Vaccine Route Administration Date Status Comme nts Influenza Unknown 02/12/2021 Administered Problems Problem Type SNOMED Code ICD Code Onset Dates Problem Status W/U Status Risk Notes Problem Colon cancer screening (632220667) Colon cancer screening (Z12.11) Active confirmed Problem Long-term current use of antiplatelet drug (410306850894729 ) Long-term use of aspirin therapy (Z79.82) Active confirmed Problem Long-term current use of drug therapy ([id number]) 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 [address] [place] [address] [id number] REANNA ROSALES Self - patient is the insured Medical (General) History Medical History History ICD Code diabetes mellitus [place] 06/07/2011 coronary artery disease with stent place ment cardiomyopathy, ejection fraction 32% hypertension elevated cholesterol Colonoscopy 09/07, tubular adenoma, five- year followup Surgical History Surgery Date(Month/Year) vasectomy 1986 wisdom teeth extraction 1970 ICD
== END 2025-02-19 14:34 | disposition home or self-care (01) ==
LOC: HO.HMCH 14:06
PROVIDERS: PCP Internal Medicine; Visit Provider Internal Medicine
DX: I10 Essential (primary) hypertension (principal); I50.22 Chronic systolic (congestive) heart failure; I48.0 Paroxysmal atrial fibrillation; E11.65 Type 2 diabetes mellitus with hyperglycemia; I25.10 Atherosclerotic heart disease of native coronary artery without angina pectoris; Z95.810 Presence of automatic (implantable) cardiac defibrillator; E78.00 Pure hypercholesterolemia, unspecified; K21.9 Gastro-esophageal reflux disease without esophagitis; K76.0 Fatty (change of) liver, not elsewhere classified; Z23 Encounter for immunization

== ENCOUNTER → 2025-02-19 14:06 | Outpatient (BNVA) | payer MEDICARE, SELFPAY | PROVIDERS: PCP Internal Medicine; Visit Provider Internal Medicine | DX: I10 Essential (primary) hypertension (principal); I25.10 Atherosclerotic heart disease of native coronary artery without angina pectoris; K21.9 Gastro-esophageal reflux disease without esophagitis; E11.65 Type 2 diabetes mellitus with hyperglycemia; E78.00 Pure hypercholesterolemia, unspecified; I48.0 Paroxysmal atrial fibrillation; I50.22 Chronic systolic (congestive) heart failure; Z95.810 Presence of automatic (implantable) cardiac defibrillator; Z23 Encounter for immunization | CPT/HCPCS: 83036; 90471; 90656; 99212 ==